=== PATIENT | female | born 1965 | race Caucasian/White ===

== ENCOUNTER → 2016-10-15 | Outpatient (CLI) | payer OTHER ==
[~2016-10-15] MED LIST: ACET1CAP PO; BUME1TAB PO; CLON1TAB3 PO; DIGO30TA PO; DPPI400 IM; EPP3 IM; EPP3/2 IM; FLX10 PO; FRCT/ PO; GADAVIST IV PRN; HYDR-5688 PO; HYG/25 PO; LAMO25TA PO; LOSA100T65 PO; MEDR150I IM; METO1TAB69 PO; OMEP40CA PO; OMEP40CA41 PO; POTA10TA30 PO; PRED10TA PO; SPIR25TA PO; TIZA4CAP PO; VENL150C56 PO; VENL150T33 PO; VENL75CA73 PO
--- NOTE | 2016-10-15 10:59 | DIAGNOSTIC IMAGING REPORT ---
Brain MRI WITH AND WITHOUT CONTRAST HISTORY: COMMON MIGRAINE TECHNIQUE: Multiplanar multisequence MRI of the brain was performed both before and after the intravenous administration of contrast. COMPARISON STUDY: Head CT 09/15/2016. FINDINGS: There are no areas of restricted diffusion to suggest acute infarction. The paranasal sinuses are clear. The mastoid air cells are clear. The ventricles and sulci are within normal limits for age. There is no hematoma midline shift. The major vascular flow-voids at the skull base are well maintained. Best seen on axial T1 postcontrast image 11 and coronal T1 postcontrast image 7 there is a 5 mm enhancing nodule which appears to be extra-axial. This is adjacent to the right anterior clinoid. This favors a small meningioma. There are few punctate foci of T2 hyperintensity seen within the periventricular and subcortical white matter of the supratentorial brain. These are most pronounced within the bilateral frontal lobes. Cerebellum demonstrates a normal signal intensity. Postoperative changes consistent with prior suboccipital craniectomy. IMPRESSION: 1. No acute intracranial abnormality. 2. A 5 mm enhancing extra-axial nodule adjacent to the right anterior clinoid. This most likely represents a small meningioma. Follow-up brain MRI in 6 months can be performed to ensure stability. 3. A few scattered T2 hyperintense foci within the periventricular and subcortical white matter at the supratentorial brain. These are nonspecific but can be seen in the setting of migraines, mild microvascular ischemic change, or less likely a demyelinating disease. Electronically signed by: Jethro Navarro M.D. 10/15/2016 10:57 AM Dictated Date/Time: 10/15/2016 10:45 AM
== END | disposition home or self-care (01) ==
LOC: C.OPENMRI 09:44
PROVIDERS: ATTEND Psychiatry & Neurology Neurology
DX: G43.009 Migraine without aura, not intractable, without status migrainosus (principal)

== ENCOUNTER → 2016-12-12 | Outpatient (CLI) | payer OTHER ==
[~2016-12-12] MED LIST changes: -POTA10TA30 PO
--- NOTE | 2016-12-12 12:00 | DIAGNOSTIC IMAGING REPORT ---
THORACIC SPINE MRI WITH AND WITHOUT CONTRAST HISTORY: Pain ARM, MID BACK, NECK PAIN/NUMBNESS TECHNIQUE: Multiplanar multisequence MRI of the thoracic spine was performed both before and after the intravenous administration of contrast. COMPARISON: None FINDINGS: Normal signal characteristics of the vertebral bodies. Mild degenerative disc changes throughout. Signal characteristics of the thoracic cord are unremarkable. Transaxial images demonstrate several very slight disc bulges but these showed no contact with the thoracic cord or neural foramina. There is no significant neural foraminal compromise. IMPRESSION: Minimal to mild degenerative disc change. Otherwise negative study of the thoracic spine Electronically signed by: Papi Ramires M.D. 12/12/2016 11:59 AM Dictated Date/Time: 12/12/2016 11:57 AM
--- NOTE | 2016-12-12 12:07 | DIAGNOSTIC IMAGING REPORT ---
MRI OF THE CERVICAL SPINE COMBO CLINICAL HISTORY: Chiari malformation with history of decompression. Neck pain and numbness. COMPARISON STUDY: No priors. TECHNIQUE: MRI of the cervical spine is performed utilizing various T1 and T2-weighted sequences in the axial and sagittal planes. Contrast-enhanced sequences are acquired following the IV administration of 10.8 cc of Gadavist. The examination is significantly degraded by open MRI technique and motion artifact. FINDINGS: Cervical spine: Vertebral body height and alignment are maintained throughout the cervical spine. Normal marrow signal intensity is preserved throughout the visualized bony structures. Mild hyperlordosis is noted. The atlantodental articulation appears maintained. The spinous processes are intact. Intervertebral discs: There is mild degenerative disc desiccation seen throughout the cervical region. Minimal loss of height is noted at C5-C6. Spinal cord: The cervical spinal cord is normal in morphology and signal intensity. There is slitlike prominence of the central canal of the spinal cord which measures up to 1 mm in thickness. This extends from C4 to T2. There is no convincing evidence of true syrinx. No abnormal enhancement is seen on the postcontrast images. C2-C3: Unremarkable. C3-C4: Unremarkable. C4-C5: Minimal facet arthropathy is of no consequence. The central canal and neural foramina are widely patent. C5-C6: A posterior disc osteophyte complex effaces the ventral cord. Uncovertebral and facet arthropathy cause moderate right greater than left neural foraminal stenosis. C6-C7: Unremarkable. C7-T1: Unremarkable. Soft tissues: The prevertebral and paraspinous soft tissues are normal as imaged. Brain parenchyma: There is prominence of the cerebellar tonsils at the foramen magnum. Findings suggest previous suboccipital craniectomy. IMPRESSION: 1. A posterior disc osteophyte complex at C5-C6 effaces the ventral cord. 2. Only minimal spondylotic change is seen at the remaining levels. See discussion for detailed level by level analysis. 3. The cervical spinal cord is normal in morphology and signal intensity. There is slitlike prominence of the central canal of the spinal cord which is of doubtful significance. No convincing evidence of syrinx is seen. There is no abnormal cord enhancement on the postcontrast images. 4. Findings suggest previous suboccipital craniectomy. There is prominence of the cerebellar tonsils at the foramen magnum. Dictated: 12/12/2016 11:48 AM Transcribed: 12/12/2016 12:07 PM [email or web address]_[email or web address] Electronically signed by: Matias Baum M.D. 12/12/2016 12:10 PM Dictated Date/Time: 12/12/2016 11:48 AM
== END | disposition home or self-care (01) ==
LOC: C.OPENMRI 08:49
PROVIDERS: ATTEND Psychiatry & Neurology Neurology
DX: M79.603 Pain in arm, unspecified (principal); M54.2 Cervicalgia; R20.0 Anesthesia of skin

== ENCOUNTER → 2016-12-12 | Outpatient (CLI) | payer OTHER ==
[~2016-12-12] MED LIST changes: -GADAVIST IV PRN
[2016-12-12 13:48] LABS: BLOOD UREA NITROGEN 17 mg/dl (7-18); BUN/CREATININE RATIO 17.2 (10-20); CALCIUM 9.2 mg/dl (8.5-10.1); CARBON DIOXIDE 30 mmol/L (21-32); CHLORIDE 103 mmol/L (98-107); GLUCOSE 74 mg/dl (70-99); SODIUM 142 mmol/L (136-145)
== END | disposition home or self-care (01) ==
LOC: C.LAB1850 11:34
PROVIDERS: ATTEND Physician Assistant
DX: R20.0 Anesthesia of skin (principal); Z79.899 Other long term (current) drug therapy

== ENCOUNTER → 2017-02-25 | Outpatient (CLI) | payer OTHER ==
[~2017-02-25] MED LIST changes: +METO100T44 PO; -METO1TAB69 PO
[2017-02-25 10:00] LABS: THYROID STIMULATING HORMONE 1.04 uIu/ml (0.300-4.500)
== END | disposition home or self-care (01) ==
LOC: C.LAB1850 08:18
PROVIDERS: ATTEND Internal Medicine Endocrinology, Diabetes & Metabolism
DX: R79.89 Other specified abnormal findings of blood chemistry (principal)

== ENCOUNTER → 2017-03-18 | Outpatient (CLI) | payer OTHER ==
[2017-03-18 13:24] LABS: THYROID STIMULATING HORMONE 1.55 uIu/ml (0.300-4.500)
[2017-03-21 11:28] LABS: NORMETANEPHRINE PLASMA 195 pg/mL (<=148); TOTAL METANEPHRINE PLASMA 229 pg/mL (<=205)
== END | disposition home or self-care (01) ==
LOC: C.LAB1850 09:29
PROVIDERS: ATTEND Internal Medicine Endocrinology, Diabetes & Metabolism
DX: R73.03 Prediabetes (principal); M79.7 Fibromyalgia; E03.9 Hypothyroidism, unspecified

== ENCOUNTER 2017-04-11 20:30 | Emergency (ER) | payer OTHER ==
[~2017-04-11] VITALS: Ht 168.9 cm; Wt 109.2 kg
[~2017-04-11 20:30] MED LIST changes: -ACET1CAP PO; -EPP3/2 IM; -HYDR-5688 PO; -MEDR150I IM; -METO100T44 PO; +METO1TAB69 PO; -OMEP40CA41 PO; -PRED10TA PO; -TIZA4CAP PO; -VENL150C56 PO; -VENL75CA73 PO
[2017-04-11 20:49] VITALS: Ht 168.9 cm; Wt 109.2 kg
[2017-04-11] MEDS ORDERED: EPP3/2 IM (21:42)
[2017-04-11] MEDS ORDERED: TIZA4CAP PO (21:42)
[2017-04-11] MEDS ORDERED: VENL150C56 PO (21:42)
[2017-04-11] MEDS ORDERED: ACET1CAP PO (21:42)
[2017-04-11] MEDS ORDERED: OMEP40CA41 PO (21:42)
[2017-04-11] MEDS ORDERED: HYDR-5688 PO (21:42)
[2017-04-11] MEDS ORDERED: PRED10TA PO (21:42)
[2017-04-11] MEDS ORDERED: VENL75CA73 PO (21:42)
[2017-04-11] MEDS ORDERED: MEDR150I IM (21:42)
[2017-04-11] MEDS ORDERED: SODIUM CHLORIDE 0.9% 1000ML 1,000 ML IV STA (21:59)
[2017-04-11] MEDS ORDERED: DiphenhydrAMINE HCL 50 MG/ML VIAL IV STA (21:59)
[2017-04-11] MEDS ORDERED: KETOROLAC TROMETHAMINE 30 MG/ML VIAL IV STA (21:59)
[2017-04-11] MEDS ORDERED: PROCHLORPERAZINE 5 MG/ML 2 ML VIAL IV STA (21:59)
[2017-04-11 22:19] LABS: BASO % 0.1 %; BASO ABS # 0.02 K/uL (0-0.2); COMPLETE YES; HEMATOCRIT 41.9 % (37-47); IG% 0.5 %; LYMPH % 11.4 %; LYMPH ABS # 2.18 K/uL (1.2-3.4); MEAN CELL VOLUME 79.1 fL (80-100); MEAN CORPUSCULAR HEMOGLOBIN 26.2 pg (25-34); MEAN CORPUSCULAR HGB CONC 33.2 g/dl (32-36); MEAN PLATELET VOLUME 8.7 fL (7.4-10.4); MONO % 7.3 %; NEUT % 80.7 %; PLATELET COUNT 457 K/uL (130-400); WHITE BLOOD COUNT 19.15 K/uL (4.8-10.8)
[2017-04-11 22:50] LABS: BUN/CREATININE RATIO 20.2 (10-20); CALCIUM 9.7 mg/dl (8.5-10.1); CREATININE 1.3 mg/dl (0.60-1.20); POTASSIUM 3.3 mmol/L (3.5-5.1)
--- NOTE | 2017-04-11 23:25 | DIAGNOSTIC IMAGING REPORT ---
CT OF THE HEAD WITHOUT CONTRAST CLINICAL HISTORY: Headache. Severe nausea. COMPARISON STUDY: Head CT September 15, 2016 and MRI of the brain October 15, 2016. CT DOSE: 537.48 mGy.cm TECHNIQUE: Helical axial images of the head were obtained without IV contrast. Automated exposure control was utilized for the study. A dose lowering technique was utilized adhering to the principles of ALARA. FINDINGS: No acute intracranial hemorrhage, midline shift or mass effect is present. Stable postoperative findings consistent with a suboccipital craniectomy are noted. The appearance of the brain is unchanged. Ventricular system is normal. The basilar cisterns are patent. There are no extra-axial collections. There are no CT findings to suggest acute dural sinus thrombosis or acute territorial infarct. There are no significant calvarial abnormalities. Visualized portions of the sinuses and mastoid air cells are clear. IMPRESSION: 1. No acute intracranial findings. 2. No change in appearance of the brain status post suboccipital craniectomy. Electronically signed by: Carlos Mohr M.D. 04/11/2017 11:24 PM Dictated Date/Time: 04/11/2017 11:20 PM
[2017-04-11 23:35] LABS: LYME DISEASE AB IGG NEG (NEG); LYME DISEASE AB IGM NEG (NEG)
[2017-04-11 23:56] VITALS: BP 121/45; PULSE 92; TEMP 36.6; O2SAT 98
--- NOTE | 2017-04-12 01:41 | EMERGENCY ROOM VISIT NOTE ---
History Report prepared by Kelly: Anna Calderon Under the Supervision of: Dr. Olivier Jay M.D. First contact with patient: 21:51 Chief Complaint: HEADACHE Stated Complaint: MIGRANE X 1-2 WEEKS, SEVERE NAUSEA History of Present Illness The patient is a 51 year old female who presents to the Emergency Room with complaints of a severe migraine starting two weeks ago. The patient states that she has a history of migraines. The last time she had a migraine like this was several years ago. She notes she was diagnosed with migraines at the age of 20. The patient states she normally takes Midrin, but this time it had no relief. She notes she took two Vicodin that she has for her fibromyalgia with no relief. She states she called her neurologist, but cannot get a response from them. She states it is worse with light. She complains of chills and nausea. She denies vomiting. She denies a fever. The patient notes she has fallen four times in the last three months for other reasons, but denies hitting her head. Source of History: patient Onset: two weeks ago Position: head Symptom Intensity: severe Timing: other (episode) Modifying Factors (Worsening): other (light) Associated Symptoms: + chills, + neck pain (chronic secondary to arthritis. She does not report any worsening or change in her neck pain.), No vomiting Review of Systems See HPI for pertinent positives & negatives. A total of 10 systems reviewed and were otherwise negative. Past Medical & Surgical Medical Problems: (1) Asthma (2) Chest pain (3) Endometriosis (4) Fibromyalgia (5) Hypertension (6) IBS (irritable bowel syndrome) (7) Kidney stones (8) ulcers Family History FH: heart disease FHx: gallbladder disease Hypertension Kidney disease Kidney stones Social History Smoking Status: Never Smoker Alcohol Use: none Drug Use: none Marital Status: single Housing Status: lives alone Occupation Status: unemployed Current/Historical Medications Scheduled Bumetanide (Bumex), 1 MG PO DAILY Chlorthalidone (Hygroton), 50 MG PO DAILY Clonazepam (Klonopin), 1 MG PO HS Lamotrigine (Lamictal), 50 MG PO BID Losartan Potassium (Cozaar), 100 MG PO DAILY Medroxyprogesterone Acetate (C (Depo-Provera Contraceptiv), 150 MG IM Q3 MONTHS Metoprolol Succ (Toprol Xl) (Toprol-Xl ), 100 MG PO AMPM Omeprazole (Prilosec), 40 MG PO BID Prednisone Tab (Prednisone), 10 MG PO UD Spironolactone (Aldactone), 25 MG PO DAILY Tizanidine (Zanaflex), 4 MG PO BID Venlafaxine Hcl (Venlafaxine Extended Rel), 75 MG PO QAM Venlafaxine Hcl (Effexor Extended Rel), 150 MG PO QAM Scheduled PRN Vasytqotfxgeg-Zbalbarrbcugs-Nq (Isometheptene/Dichloralph), 1 CAP PO Q6H PRN for Migraine Epinephrine (Epipen), 0.3 MG IM UD PRN for ALLERGIC REACTION Hydrocodone/Acetaminophen 5MG/325MG ([place] 5MG/325MG), 1 TABLET PO BID PRN for Severe Pain Allergies Coded Allergies: Ciprofloxacin (Verified Allergy, Severe, RESPIRATORY FAILURE/HIVES, ) Azithromycin (Verified Allergy, Intermediate, HIVES, 11/06/13) BEE STING (Verified Allergy, Unknown, SEVERE SWELLING,SOB, 11/06/13) Latex1 -Allergic Contact Dermititis (Verified Allergy, Unknown, LOCAL IRRITATION REDDNESS SWELLING ITCHYNESS, 11/06/13) Physical Exam Vital Signs Date Time Temp Pulse Resp B/P (MAP) Pulse Ox O2 Delivery O2 Flow Rate FiO2 04/11/17 23:56 36.6 92 16 121/45 98 04/11/17 23:46 92 16 121/45 98 Room Air 04/11/17 22:16 36.6 112 16 127/64 98 Room Air 04/11/17 21:05 125 04/11/17 20:49 36.7 106 18 139/70 96 Room Air Physical Exam Constitutional: Vital signs reviewed. Eyes: Pupils are equal round reactive to light. Conjunctiva are noninjected. ENT: Pharynx is clear without erythema or exudate. Mucous membranes are moist. Neck supple without meningeal signs. Respiratory: Clear to auscultation bilaterally. Breath sounds are equal bilaterally. Cardiovascular: Regular rhythm. Tachycardic. No rubs or gallops. GI: Soft, nondistended and nontender. Bowel sounds are present. Musculoskeletal: No peripheral edema. No lower extremity tenderness. Integumentary: No cyanosis. Neurological: The patient is awake and alert. Cranial nerves II-XII are intact. Motor is 5 out of 5 all extremities. Sensation is intact to light touch all extremities. Normal speech. No pronator drift. Psychiatric: Normal affect. Medical Decision & Procedures ER Provider Diagnostic Interpretation: Radiology results as stated below per my review and the radiologist's interpretation: CT OF THE HEAD WITHOUT CONTRAST CLINICAL HISTORY: Headache. Severe nausea. COMPARISON STUDY: Head CT September 15, 2016 and MRI of the brain October 15, 2016. CT DOSE: 537.48 mGy.cm TECHNIQUE: Helical axial images of the head were obtained without IV contrast. Automated exposure control was utilized for the study. A dose lowering technique was utilized adhering to the principles of ALARA. FINDINGS: No acute intracranial hemorrhage, midline shift or mass effect is present. Stable postoperative findings consistent with a suboccipital craniectomy are noted. The appearance of the brain is unchanged. Ventricular system is normal. The basilar cisterns are patent. There are no extra-axial collections. There are no CT findings to suggest acute dural sinus thrombosis or acute territorial infarct. There are no significant calvarial abnormalities. Visualized portions of the sinuses and mastoid air cells are clear. IMPRESSION: 1. No acute intracranial findings. 2. No change in appearance of the brain status post suboccipital craniectomy. Electronically signed by: Carlos Mohr M.D. 04/11/2017 11:24 PM Dictated Date/Time: 04/11/2017 11:20 PM Laboratory Results 04/11/17 22:05 Red Blood Count 5.30, Mean Corpuscular Volume 79.1, Mean Corpuscular Hemoglobin 26.2, Mean Corpuscular Hemoglobin Concent 33.2, Mean Platelet Volume 8.7, Neutrophils (%) (Auto) 80.7, Lymphocytes (%) (Auto) 11.4, Monocytes (%) (Auto) 7.3, Eosinophils (%) (Auto) 0.0, Basophils (%) (Auto) 0.1, Neutrophils # (Auto) 15.46, Lymphocytes # (Auto) 2.18, Monocytes # (Auto) 1.39, Eosinophils # (Auto) 0.00, Basophils # (Auto) 0.02 04/11/17 22:05 Test 04/11/17 22:05 White Blood Count 19.15 K/uL (4.8-10.8) Red Blood Count 5.30 M/uL (4.2-5.4) Hemoglobin 13.9 g/dL (12.0-16.0) Hematocrit 41.9 % (37-47) Mean Corpuscular Volume 79.1 fL (80-100) Mean Corpuscular Hemoglobin 26.2 pg (25-34) Mean Corpuscular Hemoglobin Concent 33.2 g/dl (32-36) Platelet Count 457 K/uL (130-400) Mean Platelet Volume 8.7 fL (7.4-10.4) Neutrophils (%) (Auto) 80.7 % Lymphocytes (%) (Auto) 11.4 % Monocytes (%) (Auto) 7.3 % Eosinophils (%) (Auto) 0.0 % Basophils (%) (Auto) 0.1 % Neutrophils # (Auto) 15.46 K/uL (1.4-6.5) Lymphocytes # (Auto) 2.18 K/uL (1.2-3.4) Monocytes # (Auto) 1.39 K/uL (0.11-0.59) Eosinophils # (Auto) 0.00 K/uL (0-0.5) Basophils # (Auto) 0.02 K/uL (0-0.2) RDW Standard Deviation 46.1 fL (36.4-46.3) RDW Coefficient of Variation 16.0 % (11.5-14.5) Immature Granulocyte % (Auto) 0.5 % Immature Granulocyte # (Auto) 0.10 K/uL (0.00-0.02) Anion Gap 9.0 mmol/L (3-11) Est Creatinine Clear Calc Drug Dose 66.1 ml/min Estimated GFR () 55.8 Estimated GFR (Non- 48.1 BUN/Creatinine Ratio 20.2 (10-20) Calcium Level 9.7 mg/dl (8.5-10.1) Lyme Disease IgG Antibody NEG (NEG) Lyme Disease IgM Antibody NEG (NEG) Laboratory results as reviewed by me. Medications Administered Medications (Trade) Dose Ordered Sig/Chevy Route Start Time Stop Time Status Last Admin Dose Admin Prochlorperazine Edisylate (Compazine Inj) 10 mg NOW STAT IV 04/11/17 21:59 04/11/17 22:01 DC 04/11/17 22:20 10 MG Diphenhydramine HCl (Benadryl Inj) 50 mg NOW STAT IV 04/11/17 21:59 04/11/17 22:01 DC 04/11/17 22:19 50 MG Ketorolac Tromethamine (Toradol Inj) 10 mg NOW STAT IV 04/11/17 21:59 04/11/17 22:01 DC 04/11/17 22:20 10 MG Sodium Chloride 1,000 ml @ 999 mls/hr Q1H1M STAT IV 04/11/17 21:59 04/11/17 22:59 DC 04/11/17 22:19 999 MLS/HR ED Course 2153: The patient was evaluated in room A10. A complete history and physical exam was performed. 2158: Ordered NSS 1000 ml @ 999 mls/hr IV, Toradol Inj 10 mg IV, Benadryl Inj 50 mg IV, Compazine Inj 10 mg IV. 9: I reevaluated the patient. I discussed the risks and benefits of a lumbar puncture. I discussed the patient's elevated white blood cell count, but states was placed on a Prednisone taper by her PCP. 2342: Upon reevaluation, the patient appeared to have improvement of her symptoms. We discussed the lumbar puncture and decided against it. I discussed betsyight's findings with her. She verbalized agreement of the treatment plan. The patient was discharged home. Medical Decision This is a 51-year-old female who presents with a headache. Differential diagnosis includes migraine headache, tension headache, intracranial mass, intracranial hemorrhage, meningitis. I did perform a limited focused review of portions of the patient's old chart on the electronic medical record. The patient has had a brain MRI in September of this year which showed a small meningioma. No acute findings. Medication Reconciliation: I attest that I have personally reviewed the patient' s current medication list. Blood Pressure Screening: Patient was found to have an elevated blood pressure and was referred to their primary doctor for recheck and further treatment. I did evaluate the patient as noted above. The patient presents with a headache which she describes as similar to her prior migraines. She is neurologically intact and afebrile here. IV access was established. The patient was placed on a continuous panel monitor. I did treat her with IV Compazine, Benadryl and normal saline IV. I did order and review the patient's blood work as noted in the electronic medical record. She does have a white count 19,000 but she is on prednisone currently for her migraines. She did report some chills but no fevers. I did have a long discussion with her and her father regarding the possibility of meningitis. At this time I felt she was low risk and after discussion of risks and benefits it was decided that she would not undergo lumbar puncture. I did order a CT of the head. I did review the images myself as well as the radiology report as described above. There is no evidence of of acute intracranial abnormality. I did reassess the patient. She states her headache is improved and she feels ready to go home. She will follow closely with her doctor and neurologist. She will return for worsening symptoms or should she develop new symptoms such as fever. She was discharged in good condition. Impression Primary Impression: Acute headache Additional Impression: Leukocytosis Scribe Attestation The scribe's documentation has been prepared under my direct and personally reviewed by me in its entirety. I confirm that the note above accurately reflects all work, treatment, procedures, and medical decision making performed by me. Departure Information Dispostion Home / Self-Care Referrals Ila Guajardo D.O. (PCP) Forms HOME CARE DOCUMENTATION FORM, IMPORTANT VISIT INFORMATION Patient Instructions My [facility] Additional Instructions You have been examined and treated today on an emergency basis only. This is not a substitute for, or an effort to provide, complete comprehensive medical care. It is impossible to recognize and treat all injuries or illnesses in a single emergency department visit. It is therefore important that you follow up closely with your physician. Call as soon as possible for an appointment. Return for worsening symptoms or if you develop fever, numbness or weakness on one side of your body, difficulties with your speech or walking, or any other concerning symptoms. Problem Qualifiers Primary Impression: Acute headache Headache type: unspecified Intractability: not intractable Qualified Codes : R51 - Headache Additional Impression: Leukocytosis Leukocytosis type: unspecified Qualified Codes: D72.829 - Elevated white blood cell count, unspecified
== END 2017-04-11 23:55 | disposition home or self-care (01) ==
LOC: C.EDB 20:31 → C.EDA 23:55
DX: R51 Headache (principal); D72.829 Elevated white blood cell count, unspecified; J45.909 Unspecified asthma, uncomplicated; N80.9 Endometriosis, unspecified; M79.7 Fibromyalgia; I10 Essential (primary) hypertension; K58.9 Irritable bowel syndrome, unspecified; Z82.49 Family history of ischemic heart disease and other diseases of the circulatory system

== ENCOUNTER → 2017-06-17 | Outpatient (CLI) | payer OTHER ==
[~2017-06-17] MED LIST changes: +ACET1CAP PO; -DIGO30TA PO; -DPPI400 IM; -EPP3 IM; +EPP3/2 IM; -FLX10 PO; -FRCT/ PO; +HYDR-5688 PO; +MEDR150I IM; -OMEP40CA PO; +OMEP40CA41 PO; +PRED10TA PO; +TIZA4CAP PO; +VENL150C56 PO; -VENL150T33 PO; +VENL75CA73 PO
[2017-06-17 11:32] LABS: THYROID STIMULATING HORMONE 0.801 uIu/ml (0.300-4.500)
== END | disposition home or self-care (01) ==
LOC: C.LABBC 07:16
PROVIDERS: ATTEND Internal Medicine Endocrinology, Diabetes & Metabolism
DX: R79.89 Other specified abnormal findings of blood chemistry (principal); E03.9 Hypothyroidism, unspecified

== ENCOUNTER → 2017-06-24 | Outpatient (CLI) | payer OTHER ==
[2017-06-24 17:58] LABS: BLOOD UREA NITROGEN 17 mg/dl (7-18)
== END | disposition home or self-care (01) ==
LOC: C.LAB1850 16:45
PROVIDERS: ATTEND Internal Medicine Endocrinology, Diabetes & Metabolism
DX: R73.03 Prediabetes (principal)

== ENCOUNTER → 2017-06-28 | Outpatient (CLI) | payer OTHER ==
[~2017-06-28] MED LIST changes: +OPTIRAY 320 IV PRN
--- NOTE | 2017-06-28 08:36 | DIAGNOSTIC IMAGING REPORT ---
CT SCAN OF THE ABDOMEN COMBO ADRENAL PROTOCOL CLINICAL HISTORY: Flushing. Fatigue. COMPARISON STUDY: Abdominal CT dated 09/15/2016. TECHNIQUE: Before and following the IV administration of 119 cc of Optiray 320, CT scan of the abdomen is performed from the lung bases to the pelvic inlet utilizing the adrenal protocol. Images are reviewed in the axial, sagittal, and coronal planes. IV contrast was administered without complication. A dose lowering technique was utilized adhering to the principles of ALARA. CT DOSE: 2618.65 mGy.cm FINDINGS: Lung bases: The heart is normal in size and without pericardial effusion. The lung bases are clear. There is a tiny hiatal hernia. Liver: The contrast-enhanced liver is normal in size, contour, and attenuation. There is minimal central intrahepatic biliary ductal dilatation. The hepatic veins and portal veins are patent. Gallbladder: Surgically absent noting clips in the gallbladder fossa. Spleen: Normal in size and attenuation. Pancreas: Unremarkable. Adrenal glands: Unremarkable. Kidneys: There are at least 3 punctate nonobstructing left renal calculi. A single punctate nonobstructing calculus is seen in the right kidney. The contrast enhanced kidneys are normal in size and without hydronephrosis. The kidneys enhance and excrete symmetrically. Abdominal vasculature: The abdominal aorta is normal in course and caliber noting mild atherosclerotic calcification. Bowel: Visualized portions of the small bowel and colon are normal in course and caliber. The appendix is well-visualized and normal. Peritoneum: There is no intraperitoneal free air or abdominal ascites. Lymphadenopathy: None. Skeletal structures: No lytic or blastic lesions are seen. IMPRESSION: 1. Unremarkable CT scan of the adrenal glands. 2. Punctate bilateral nonobstructing renal calculi. Electronically signed by: Matias Baum M.D. 06/28/2017 8:34 AM Dictated Date/Time: 06/28/2017 8:30 AM
== END | disposition home or self-care (01) ==
LOC: C.CTS 07:46
PROVIDERS: ATTEND Internal Medicine Endocrinology, Diabetes & Metabolism
DX: I42.9 Cardiomyopathy, unspecified (principal); N20.0 Calculus of kidney

== ENCOUNTER → 2017-12-17 | Outpatient (CLI) | payer OTHER ==
[~2017-12-17] MED LIST changes: +METO100T44 PO; -METO1TAB69 PO; -OPTIRAY 320 IV PRN
--- NOTE | 2017-12-17 13:59 | DIAGNOSTIC IMAGING REPORT ---
VIDEO SWALLOW STUDY CLINICAL HISTORY: Dysphagia. COMPARISON STUDY: No priors. FLUOROSCOPY TIME: 1.7 minutes. FINDINGS: Fluoroscopic guidance is provided to the Department of Speech Pathology in performing a video swallow study. The patient consumed barium-impregnated pudding, cracker with paste, nectar thick liquid, and thin barium while the swallowing mechanism was observed in real-time. No penetration or aspiration was seen with any of the sampled textures. IMPRESSION: No penetration or aspiration was seen with any of the sampled textures. See dedicated speech pathology report for detailed findings and recommendations. Dictated: 12/17/2017 1:43 PM Transcribed: 12/17/2017 1:58 PM [email or web address] Electronically signed by: Matias Baum M.D. 12/17/2017 2:06 PM Dictated Date/Time: 12/17/2017 1:43 PM
--- NOTE | 2017-12-17 14:15 | SWALLOWING EVALUATION ---
HISTORY: This 52 year-old woman, from home, who was referred for a VFSS at [facility]. She has a PMH significant for Chiari malformation, meniere's disease, BURGESS, SEAN, morbid obesity, cardio myopathy, and fibromyaliga. Currently the patient's diet level is regular with thins. She reports that occasionally her food will get stick in her throat and she actually has to spit it out as it will re-enter her mouth and she cannot re-swallow it. She reports that this happens with both solid and liquid food items however is not predictable when it will occur. PROCEDURE: The patient was seen in the Radiology Department of [facility] for the VFSS. Cursory examination of the oral cavity revealed adequate dentition. Movement of the articulators was WNL. The patient was seated on a stool and was viewed in both the Anterior-Posterior (A-P) and Lateral planes. Volitional phonation exercises completed in the A-P plane revealed bilateral vocal fold movement and vocal intensity within functional limits. In the lateral plane, the patient was given the following barium-infused boluses: 1 tsp thin barium with oral hold 1x, self presented single cup swallow-thin barium 1x, self presented serial cup swallow 1x. 1 tsp nectar thick barium with oral hold 1x, self presented single cup swallow- nectar thick barium 1x, self presented serial cup swallows 1x. 1 tsp barium pudding-self presented 2x. 1/2 Cracker with barium paste. In the A-P view, pt was given 1 tsp barium pudding with esophageal scan. RESULTS: Oral Phase:Pt. had adequate lip closure and no labial escape of any food or liquid items presented. Pt. had adequate tongue control and bolus hold by demonstrating a cohesive bolus between tongue and palatal seal. Bolus preparation and mastication was WFL as timely and efficient chewing and mashing was observed with all consistencies. Bolus transport and lingual motion were functional as pt. demonstrated brisk tongue motion and no oral residue resulting in complete oral clearance. Initiation of pharyngeal swallow began with bolus head at posterior angle of ramus. * Overall WFL for oral phase of swallow. Pharyngeal Phase:Soft Palate Elevation was complete for all boluses and no bolus was between the soft palate and the pharyngeal wall. Laryngeal elevation was WFL showing complete superior movement of the thyroid cartilage with complete approximation of arytenoids to epiglottic base. Anterior Hyoid excursion was observed with complete anterior movement as well as complete epiglottic inversion. Laryngeal Vestibular closure was complete and no air or barium was noted in laryngeal vestibule. Pharyngeal stripping wave was present and complete. Pharyngeal contraction was complete for all tested items. Pharyngoesophageal segment opening was also WFL showing complete distension and complete duration with no obstruction of flow. Tongue base retraction was noted with all consistencies and tongue base made effective contact with posterior pharyngeal wall throughout study. There was no Pharyngeal residue resulting in complete pharyngeal clearance of all tested items. *Overall WFL for pharyngeal stage of the swallow. Esophageal Phase:Opening and closing of the UES was timely however noted esophageal dysmotility and retrograde motion. SUMMARY/RECOMMENDATIONS: Overall pt. presents with NO oral or pharyngeal dysphagia. NO aspiration and NO penetration occurred throughout this study. *Pt. presents with esophageal dysmotility Recommendin. "SLIPPERY" Regular diet with thin liquids 2. GERD precautions (upright for 30 min after all intake, no intake 30 min before bed, keep head of bed elevated at least 30 degrees at all times) 3. Completion of Barium swallow to further evaluate esophageal stage of the swallow All results and recommendations were discussed with the pt. who verbalized understanding. Written instructions were also provided. Thank you for referral of this patient. Please contact me at if any additional information is needed.
== END | disposition home or self-care (01) ==
LOC: C.RAD 12:32
PROVIDERS: ATTEND Family Medicine
DX: R13.12 Dysphagia, oropharyngeal phase (principal)

== ENCOUNTER → 2017-12-25 | Outpatient (CLI) | payer OTHER | END | disposition home or self-care (01) | LOC: C.LAB1850 07:51 | PROVIDERS: ATTEND Internal Medicine Endocrinology, Diabetes & Metabolism | DX: R63.4 Abnormal weight loss (principal); K21.9 Gastro-esophageal reflux disease without esophagitis; R79.9 Abnormal finding of blood chemistry, unspecified; E03.9 Hypothyroidism, unspecified ==

== ENCOUNTER → 2018-01-29 | Outpatient (CLI) | payer OTHER ==
--- NOTE | 2018-01-29 09:03 | DIAGNOSTIC IMAGING REPORT ---
(BARIUM SWALLOW) ESOPHAGUS CLINICAL HISTORY: ESOPHAGEAL DYSPHAGIAdysphagia COMPARISON STUDY: None FLUOROSCOPY TIME: 1 minute. FINDINGS: Patient initiated swallow function well. Esophagus normal in course and caliber. Gastroesophageal junction is unremarkable. IMPRESSION: Normal study The above report was generated using voice recognition software. It may contain grammatical, syntax or spelling errors. Electronically signed by: Papi Ramires M.D. 01/29/2018 9:01 AM Dictated Date/Time: 01/29/2018 8:59 AM
== END | disposition home or self-care (01) ==
LOC: C.RAD 08:20
PROVIDERS: ATTEND Nurse Practitioner Family
DX: R13.10 Dysphagia, unspecified (principal)

== ENCOUNTER 2019-12-17 13:46 | Inpatient (IN) ==
[2019-12-17] MEDS ORDERED: DOXYCYCLINE HYCLATE 100 MG in DEXTROSE 5% 100 ML IV STA (14:04)
[2019-12-17] MEDS ORDERED: ALBUTEROL 0.083% NEBU SOLN 3 ML VIAL NEB STA (14:06)
[2019-12-17] MEDS ORDERED: methylPREDNISolone 125 MG/2 ML VIAL IV STA (14:06)
[2019-12-17 14:31] LABS: Basophils # (auto) 0.04 K/uL (0-0.2); Basophils % (auto) 0.5 %; Eosinophils # (auto) 0.18 K/uL (0-0.5); Eosinophils % (auto) 2.3 %; Hematocrit (blood only) 38.5 % (37-47); Immature Granulocytes # (auto) 0.02 K/uL (0.00-0.02); Immature Granulocytes % (auto) 0.3 %; Lymphocytes # (auto) 2.71 K/uL (1.2-3.4); Lymphocytes % (auto) 34.7 %; Mean Corpuscular Hemoglobin 26.7 pg (25-34); Mean Corpuscular Hgb Conc 31.2 g/dL (32-36); Mean Corpuscular Volume 85.7 fL (80-100); Mean Platelet Volume 9.7 fL (7.4-10.4); Monocytes # (auto) 0.57 K/uL (0.11-0.59); Monocytes % (auto) 7.3 %; Neutrophils # (auto) 4.29 K/uL (1.4-6.5); Neutrophils % (auto) 54.9 %; Platelet Count 330 K/uL (130-400); RDW Coefficient of Variation 15.9 % (11.5-14.5); RDW Standard Deviation 50.2 fL (36.4-46.3); Red Blood Count 4.49 M/uL (4.2-5.4); White Blood Count 7.81 K/uL (4.8-10.8)
[2019-12-17 14:48] LABS: Alanine Aminotransferase 37 U/L (12-78); Aspartate Aminotransferase 26 U/L (15-37); Blood Urea Nitrogen 10 mg/dl (7-18); Calcium 8.5 mg/dl (8.5-10.1); Carbon Dioxide 29 mmol/L (21-32); Chloride 113 mmol/L (98-107); Creatinine Clr Calc Pharmacy 81.7 ml/min; Est GFR (African American) 67.6; Est GFR (Non-African American) 58.3; Glucose 90 mg/dl (70-99); Potassium 3.8 mmol/L (3.5-5.1); Sodium 144 mmol/L (136-145)
--- NOTE | 2019-12-17 14:49 | Emergency Department Note ---
Impression & Plan Asthma with exacerbation, Congestive heart failure Allergies Allergies Allergy/AdvReac Type Severity Reaction Status Date / Time Cipro Allergy Severe RESPIRATORY Verified 11/06/13 06:32 FAILURE/HIVES ciprofloxacin Allergy Severe RESPIRATORY Verified 12/17/19 16:22 FAILURE/HIVES azithromycin Allergy Intermediate Hives Verified 12/17/19 16:22 bee venom protein (honey bee) Allergy Unknown SEVERE Verified 12/17/19 16:22 SWELLING,SOB latex Allergy Unknown LOCAL Verified 12/17/19 16:22 IRRITATION REDDNESS SWELLING ITCHYNESS Home Meds Home Medications Medication Instructions Recorded Confirmed albuterol sulfate 2 puff INHALATION Q4 PRN 12/17/19 12/17/19 buspirone 10 mg PO BID 12/17/19 12/17/19 fluticasone propionate [Flonase 2 spray INTRANASAL DAILY PRN 12/17/19 12/17/19 Allergy Relief] meloxicam [Mobic] 7.5 mg PO DAILY PRN 12/17/19 12/17/19 memantine [Namenda] 5 mg PO DAILY 12/17/19 12/17/19 montelukast 10 mg PO DAILY PRN 12/17/19 12/17/19 quetiapine [Seroquel] 50 mg PO HS 12/17/19 12/17/19 ropinirole 2 mg PO HS 12/17/19 12/17/19 trazodone 100 mg PO HS 12/17/19 12/17/19 venlafaxine 300 mg PO QAM 12/17/19 12/17/19 Previous Rx's Medication Instructions Recorded chlorthalidone 50 mg tablet 50 mg PO DAILY #30 tab 09/17/19 cholecalciferol (vitamin D3) 1,250 50,000 units PO Q14D #30 cap 09/17/19 mcg (50,000 unit) capsule clonazepam 1 mg tablet 1.5 mg PO DAILY #45 tab 09/17/19 cyanocobalamin (vitamin B-12) 1,000 mcg PO DAILY #30 cap 09/17/19 1,000 mcg capsule lamotrigine 200 mg tablet 200 mg PO BID #60 tab 09/17/19 levothyroxine 112 mcg tablet 112 mcg PO DAILY #30 tab 09/17/19 losartan 100 mg tablet 100 mg PO DAILY #30 tab 09/17/19 metformin 750 mg tablet,extended 750 mg PO QPM #30 tab 09/17/19 release 24 hr metoprolol succinate 100 mg 100 mg PO BID #60 ea 09/17/19 capsule sprinkle, ext. release 24 hr omeprazole 40 mg capsule,delayed 40 mg PO BID #60 cap 09/17/19 release ondansetron HCl 4 mg tablet 4 mg PO DAILY PRN #20 tab 09/17/19 spironolactone 25 mg tablet 25 mg PO DAILY #30 tab 09/17/19 ED Provider Note NAME: CARRIE ROBB AGE: 54 SEX: F : 1965 ARRIVES VIA: Ambulance INFORMANT: Patient ED PROVIDER(S): Cipriano Tamez DO CHIEF COMPLAINT: Shortness of breath HPI: Patient is a 54-year-old female who presents the ER for dry cough associated with shortness of breath which has been present for the past 5 days. She admits that she has a past medical history of asthma. She is bringing up some yellow productive sputum. She does admit to runny nose. Denies any recent trips or travel. No exposure to any known coronavirus patients. She has been using her inhalers at home with no significant improvement. She does admit to a history of CHF but denies any recent weight gain. Denies any other exacerbating or remitting factors. She also notes that she has lost her voice within the past 48 hours. No abdominal pain nausea vomiting or diarrhea. ROS: See above HPI for pertinent positives & negatives. A total of 10 systems reviewed and were otherwise negative. PAST MEDICAL HISTORY:See Below PAST SURGICAL HISTORY:See Below FAMILY HISTORY:See Below SOCIAL HISTORY:See Below HOME MEDICATIONS:See Below ALLERGIES:See Below VITALS:See Below PHYSICAL EXAMINATION: GENERAL: Sitting up in bed, alert, well appearing, with a slightly hoarse voice EYE EXAM: normal conjunctiva. OROPHARYNX: no exudate, no erythema, lips, buccal mucosa, and tongue normal and mucous membranes are moist NECK: supple, no nuchal rigidity, no adenopathy, non-tender LUNGS: Poor air movement with wheezing bilaterally normal chest wall mechanics HEART: no murmurs, S1 normal and S2 normal ABDOMEN: abdomen soft, non-tender, normo-active bowel sounds, no masses, no rebound or guarding. BACK: Back is symmetrical on inspection and there is no deformity, no midline tenderness, no CVA tenderness. SKIN: no rashes and no bruising UPPER EXTREMITIES: upper extremities are grossly normal. LOWER EXTREMITIES: mild pitting edema NEURO EXAM: Normal sensorium, cranial nerves II-XII grossly intact, normal speech, no gross weakness of arms, no gross weakness of legs. MEDICAL DECISION MAKING: Patient is a 54-year-old female with a past medical history of CHF and asthma that presents the ER for shortness of breath and dry cough. Upon arrival she is dyspneic. She is also lost her voice. She does have mild pitting edema. Chest x-ray with pulmonary edema. IV was established blood work was obtained shows no significant leukocytosis or anemia. INR unremarkable. BMP along with LFTs bilirubin was unremarkable. proBNP was elevated at 2400. Influenza was negative. Patient was initially given an hour-long neb treatment. She was also given IV Lasix. She did have some improvement of her symptoms. She also given steroids. I do believe that this is likely multifactorial with a combination of CHF, asthma and clear component of either bronchitis or laryngitis. She was updated at bedside. She was also given doxycycline and treated for bronchitis as well. She was initially on airborne precautions throughout stay in the ER. After the hospitalist evaluation this was discontinued and I do believe she is likely low risk at this time for coronavirus. Triage Nursing notes reviewed. Prior medical records reviewed Vital Signs: reviewed and remarkable for tachypneic Differential diagnosis: Differential diagnoses includes but is not limited to pneumonia, bronchitis, COPD/Asthma exacerbation, pneumothorax, pulmonary embolism, congestive heart failure, acute coronary syndrome ER treatment provided: See below Diagnostics interpreted by me: ECG: Sinus rhythm rate of 60 Normal axis No PVCs Normal QTC Poor baseline in leads I and II. Cardiac Monitoring: Sinus rhythm rate of 82 Laboratory studies: As stated above and show below. Imaging studies: Portable AP upright 1 view of the chest shows pulmonary edema without focal infiltrate. Consultation(s): Discussed with Rozina from [facility] ED COURSE: Procedures: none Past Med/Surg History Social History Feels Safe at Home: Yes Smoking Status: Never smoker Results & Data (ED) Vital Signs Vital Signs - 24 hr 12/17/19 13:54 12/17/19 13:57 12/17/19 13:59 Temperature 37.2 C Temperature Source Oral Pulse Rate 65 Pulse Rate [Apical] Pulse Rate from SpO2 Sensor Respiratory Rate 28 H Respiratory Effort / Characteristics Spontaneous Spontaneous Labored Blood Pressure 122/68 Blood Pressure Mean 86 Pulse Oximetry 96 Oxygen Delivery Method Room Air Room Air Room Air Oxygen Flow Rate 96 Sepsis Recent Fever Within 48 Hours No Sepsis New/Unexplained Change in Mental Status No Sepsis Action Taken by Nursing No Action Required 12/17/19 14:00 12/17/19 14:01 12/17/19 14:23 Temperature Temperature Source Pulse Rate 64 Pulse Rate [Apical] 62 Pulse Rate from SpO2 Sensor 65 Respiratory Rate 22 21 Respiratory Effort / Characteristics Spontaneous Labored Short of Breath Blood Pressure Blood Pressure Mean Pulse Oximetry 96 97 94 Oxygen Delivery Method Room Air Room Air Oxygen Flow Rate Sepsis Recent Fever Within 48 Hours Sepsis New/Unexplained Change in Mental Status Sepsis Action Taken by Nursing 12/17/19 14:25 12/17/19 14:30 12/17/19 15:00 Temperature Temperature Source Pulse Rate 65 57 L 68 Pulse Rate [Apical] Pulse Rate from SpO2 Sensor 65 58 L 72 Respiratory Rate 21 22 21 Respiratory Effort / Characteristics Blood Pressure 124/58 L 154/82 H 116/58 L Blood Pressure Mean 81 109 69 Pulse Oximetry 99 98 98 Oxygen Delivery Method Room Air Nebulizer Oxygen Flow Rate Sepsis Recent Fever Within 48 Hours Sepsis New/Unexplained Change in Mental Status Sepsis Action Taken by Nursing 12/17/19 15:30 12/17/19 16:00 Temperature Temperature Source Pulse Rate 79 76 Pulse Rate [Apical] Pulse Rate from SpO2 Sensor 81 80 Respiratory Rate 23 18 Respiratory Effort / Characteristics Blood Pressure 133/67 117/56 L Blood Pressure Mean 75 82 Pulse Oximetry 98 93 Oxygen Delivery Method Oxygen Flow Rate Sepsis Recent Fever Within 48 Hours Sepsis New/Unexplained Change in Mental Status Sepsis Action Taken by Nursing Laboratory Data Result diagrams: 12/17/19 14:09 12/17/19 14:09 Lab Results 12/17/19 12/17/19 12/17/19 Range/Units 14:06 14:09 14:09 WBC 7.81 (4.8-10.8) K/uL RBC 4.49 (4.2-5.4) M/uL Hgb 12.0 (12.0-16.0) g/dL Hct 38.5 (37-47) % MCV 85.7 (80-100) fL MCH 26.7 (25-34) pg MCHC 31.2 L (32-36) g/dL RDW Std Deviation 50.2 H (36.4-46.3) fL RDW Coeff of Nasima 15.9 H (11.5-14.5) % Plt Count 330 (130-400) K/uL MPV 9.7 (7.4-10.4) fL Immature Gran % (Auto) 0.3 % Neut % (Auto) 54.9 % Lymph % (Auto) 34.7 % [place] % (Auto) 7.3 % Eos % (Auto) 2.3 % Baso % (Auto) 0.5 % Immature Gran # (Auto) 0.02 (0.00-0.02) K/uL Neut # (Auto) 4.29 (1.4-6.5) K/uL Lymph # (Auto) 2.71 (1.2-3.4) K/uL [place] # (Auto) 0.57 (0.11-0.59) K/uL Eos # (Auto) 0.18 (0-0.5) K/uL Baso # (Auto) 0.04 (0-0.2) K/uL PT 10.7 (9.0-12.0) Seconds INR 1.0 (0.9-1.1) APTT 25.4 (21.0-31.0) Seconds PTT Ratio 0.9 Sodium (136-145) mmol/L Potassium (3.5-5.1) mmol/L Chloride (98-107) mmol/L Carbon Dioxide (21-32) mmol/L Anion Gap (3-11) BUN (7-18) mg/dl Creatinine (0.6-1.2) mg/dl Est Cr Clr Drug Dosing ml/min Est GFR ( Amer) Est GFR (Non-Af Amer) BUN/Creatinine Ratio (10-20) Glucose (70-99) mg/dl Calcium (8.5-10.1) mg/dl Total Bilirubin (0.2-1) mg/dl AST (15-37) U/L ALT (12-78) U/L Alkaline Phosphatase (45-117) U/L Troponin I (0-0.045) ng/ml NT-Pro-B Natriuret Pep (0-900) pg/ml Total Protein (6.4-8.2) gm/dl Albumin (3.4-5.0) gm/dl Globulin (2.5-4.0) gm/dl Albumin/Globulin Ratio (0.9-2) Influenza Type A (PCR) Neg for Influ A (Neg) Influenza Type B (PCR) Neg for Influ B (Neg) 12/17/19 Range/Units 14:09 WBC (4.8-10.8) K/uL RBC (4.2-5.4) M/uL Hgb (12.0-16.0) g/dL Hct (37-47) % MCV (80-100) fL MCH (25-34) pg MCHC (32-36) g/dL RDW Std Deviation (36.4-46.3) fL RDW Coeff of Nasima (11.5-14.5) % Plt Count (130-400) K/uL MPV (7.4-10.4) fL Immature Gran % (Auto) % Neut % (Auto) % Lymph % (Auto) % [place] % (Auto) % Eos % (Auto) % Baso % (Auto) % Immature Gran # (Auto) (0.00-0.02) K/uL Neut # (Auto) (1.4-6.5) K/uL Lymph # (Auto) (1.2-3.4) K/uL [place] # (Auto) (0.11-0.59) K/uL Eos # (Auto) (0-0.5) K/uL Baso # (Auto) (0-0.2) K/uL PT (9.0-12.0) Seconds INR (0.9-1.1) APTT (21.0-31.0) Seconds PTT Ratio Sodium 144 (136-145) mmol/L Potassium 3.8 (3.5-5.1) mmol/L Chloride 113 H (98-107) mmol/L Carbon Dioxide 29 (21-32) mmol/L Anion Gap 2.0 L (3-11) BUN 10 (7-18) mg/dl Creatinine 1.09 (0.6-1.2) mg/dl Est Cr Clr Drug Dosing 81.7 ml/min Est GFR ( Amer) 67.6 Est GFR (Non-Af Amer) 58.3 BUN/Creatinine Ratio 9.0 L (10-20) Glucose 90 (70-99) mg/dl Calcium 8.5 (8.5-10.1) mg/dl Total Bilirubin 0.3 (0.2-1) mg/dl AST 26 (15-37) U/L ALT 37 (12-78) U/L Alkaline Phosphatase 81 (45-117) U/L Troponin I < 0.015 (0-0.045) ng/ml NT-Pro-B Natriuret Pep 2325 H (0-900) pg/ml Total Protein 6.2 L (6.4-8.2) gm/dl Albumin 3.0 L (3.4-5.0) gm/dl Globulin 3.2 (2.5-4.0) gm/dl Albumin/Globulin Ratio 1.0 (0.9-2) Influenza Type A (PCR) (Neg) Influenza Type B (PCR) (Neg) Administered Medications Discontinued Medications Albuterol (Ventolin 0.083% 2.5mg/3ml) 10 mg NEB NOW STA Stop: 12/17/19 14:07 Last Admin: 12/17/19 14:22 Dose: 10 mg Documented by: [id number] Doxycycline Hyclate 100 mg/ (Dextrose) 110 mls @ 50 mls/hr IV NOW STA Stop: 12/17/19 16:15 Last Admin: 12/17/19 14:19 Dose: 50 mls/hr Documented by: [id number] Methylprednisolone (Solumedrol) 125 mg IV NOW STA Stop: 12/17/19 14:07 Last Admin: 12/17/19 14:16 Dose: 125 mg Documented by: [id number] Discharge Plan Visit Data Chief Complaint: Shortness of Breath/Dyspnea ED Provider: Cipriano Tamez Discharge Problem: Asthma with exacerbation, Congestive heart failure Forms Stand Alone Forms: My [facility] Prescriptions Prescriptions: No Action chlorthalidone 50 mg tablet 50 mg PO DAILY Qty: 30 RF: 2 metoprolol succinate 100 mg capsule,sprinkle,ER 24hr 100 mg PO BID Qty: 60 RF: 2 omeprazole 40 mg capsule,delayed release(DR/EC) 40 mg PO BID Qty: 60 RF: 2 spironolactone 25 mg tablet 25 mg PO DAILY Qty: 30 RF: 2 cyanocobalamin (vitamin B-12) 1,000 mcg capsule 1,000 mcg PO DAILY Qty: 30 RF: 0 ondansetron HCl [Zofran] 4 mg tablet 4 mg PO DAILY PRN (Reason: nausea and vomiting) Qty: 20 RF: 0 lamotrigine [Lamictal] 200 mg tablet 200 mg PO BID Qty: 60 RF: 2 clonazepam 1 mg tablet 1.5 mg PO DAILY Qty: 45 RF: 0 metformin 750 mg tablet extended release 24 hr 750 mg PO QPM Qty: 30 RF: 2 losartan 100 mg tablet 100 mg PO DAILY Qty: 30 RF: 2 levothyroxine 112 mcg tablet 112 mcg PO DAILY Qty: 30 RF: 2 cholecalciferol (vitamin D3) 50,000 unit capsule 50,000 units PO Q14D Qty: 30 RF: 0 venlafaxine 150 mg capsule,extended release 24hr 300 mg PO QAM RF: 0 ropinirole 1 mg tablet 2 mg PO HS RF: 0 meloxicam [Mobic] 7.5 mg Tablet 7.5 mg PO DAILY PRN (Reason: Pain) RF: 0 trazodone 100 mg tablet 100 mg PO HS RF: 0 buspirone 10 mg tablet 10 mg PO BID RF: 0 montelukast 10 mg Tablet 10 mg PO DAILY PRN (Reason: allergies) RF: 0 albuterol sulfate 90 mcg/actuation HFA aerosol inhaler 2 puff INHALATION Q4 PRN (Reason: Shortness Of Breath Or Wheezing) RF: 0 fluticasone propionate [Flonase Allergy Relief] 50 mcg/actuation [place],Suspension 2 spray INTRANASAL DAILY PRN (Reason: Nasal Congestion) RF: 0 memantine [Namenda] 5 mg tablet 5 mg PO DAILY RF: 0 quetiapine [Seroquel] 50 mg tablet 50 mg PO HS RF: 0 Discharge Problem: Asthma with exacerbation Qualifiers: Asthma severity: unspecified severity Asthma persistence: persistent Qualified Code(s): J45.901 - Unspecified asthma with (acute) exacerbation Congestive heart failure Qualifiers: Heart failure type: unspecified Heart failure chronicity: unspecified Qualified Code(s): I50.9 - Heart failure, unspecified
[2019-12-17 14:52] LABS: Partial Thromboplastin Ratio 0.9; Partial Thromboplastin Time 25.4 Seconds (21.0-31.0); Prothrombin Time 10.7 Seconds (9.0-12.0)
[2019-12-17 14:53] LABS: Alkaline Phosphatase 81 U/L (45-117); Bilirubin,Total 0.3 mg/dl (0.2-1); Globulin 3.2 gm/dl (2.5-4.0); NT Pro B Type Natriuretic Pept 2325 pg/ml (0-900); Total Protein 6.2 gm/dl (6.4-8.2); Troponin I < 0.015 ng/ml (0-0.045)
--- NOTE | 2019-12-17 14:55 | XRay Report ---
XR chest 1V portable CLINICAL HISTORY: Dyspnea dyspnea COMPARISON STUDY: 11/05/2013 FINDINGS: Mild cardiomegaly. Prominent bronchovascular markings. Diaphragms are smooth. IMPRESSION: Developing congestive heart failure ACT 112: Negative or not required by law. The above report was generated using voice recognition software. It may contain grammatical, syntax or spelling errors. Electronically signed by: Papi Ramires M.D. 12/17/2019 2:54 PM
[2019-12-17 15:12] LABS: Influenza A virus by PCR Neg for Influ A (Neg); Influenza B virus by PCR Neg for Influ B (Neg)
[2019-12-17] MEDS ORDERED: FUROSEMIDE 40 MG/4 ML VIAL IV STA (15:33)
--- NOTE | 2019-12-17 17:00 | Communication Note ---
Date of Service: December 17, 2019 Attending Addendum: care coordinated with DENY Wiggins please refer to her notes for full details, I agree with her notes patient seen and examined, records reviewed by myself as well on exam, patient seen at bedside not in distress, but does cough intermittently during interview states breathing is slightly better after hour long neb treatment given has mild subcostal discomfort no other symptoms VS noted and reviewed General- oriented x 3, not in distress, speaks in sentences with no effort or accessory muscle use Head- atraumatic Eyes- PERRL, EOMI, anicteric ENT- oropharynx clear Neck- supple, no JVD, no adenopathy, no thyromegaly; carotids +2/2, no bruits appreciated Lungs- (+) diminished breath sounds bilaterally no wheezing mild crackles in the left base, none on the right Heart- normal rate, regular rhythm; no murmur, no gallop, no rub appreciated Abdomen- normal bowel sounds, nondistended, soft, nontender, no masses or hepatosplenomegaly Extremities- trace lower leg edema, no calf tenderness; peripheral pulses intact Neuro- alert, oriented x 3; CN 2-12 grossly intact; motor 5/5 bilaterally;sensation 100% on all extremities; no other gross focal neurologic deficits Skin- warm & dry WBC 7.8 Hg 12.0 Crea 1.09 BNP 2,300 CXR:IMPRESSION: Developing congestive heart failure Flu PCR: negative Biofire: negative ASSESSMENT AND PLAN> SHORTNESS OF BREATH LIKELY SECONDARY TO EXACERBATION OF CHF, ACUTE ON CHRONIC DIASTOLIC EXACERBATION -- flu wab negative, biofire negative procalcitonin pending no fever, no leukocytosis discussed with ID SVC from [facility] Dr. Live- Covid 19 testing NOT recommended monitor for fever, respiratory status -- echo sputum culture -- Lasix 40mg IV another dose today at 9pm then daily at 9am continue usual Aldactone, hold Chlorthalidone -- nebs q4h mucinex q12h, mucomyst q12h HYPERTENSION -- continue usual Losartan, Metoprolol other diagnoses and plan of care as per DENY Richter MD
--- NOTE | 2019-12-17 17:15 | History & Physical Report ---
Date of Service December 17, 2019 Assessment & Plan (1) SOB (shortness of breath): (2) Cough: (3) Acute on chronic heart failure with preserved ejection fraction (HFpEF): (4) Asthma with exacerbation: This is a 54-year-old female with significant past medical history of HTN, history of hypertensive cardiomyopathy, chronic diastolic CHF, CKD stage III, hypothyroidism, RLS, polyneuropathy, type I Chiari malformation, Mnire's disease, depression, prediabetes who presents to ED secondary to shortness of breath and cough x2 days. Of significance patient has been feeling ill for the past 5 days. In ED patient remained hemodynamically stable. She was saturating well on room air. CBC was relatively unremarkable, CMP relatively unremarkable, troponin WNL, proBNP elevated 2325. He was negative for influenza. In ED she received hour-long nebulizer treatment with improvement in symptoms. She also received 125 mg of IV Solu-Medrol along with 40 mg of IV Lasix. Patient's history consistent with viral respiratory illness with associated decompensation of HFpEF given mild lower extremity swelling, elevated proBNP with associated dyspnea and CXR findings with developing CHF; however clinical history doesn't point to sole etiology of HF Influenza is negative so will run a bio fire, if negative due to patient's associated symptoms and comorbidity will test for novel CoVid-19. admit to PCU if biofire negative continue airborne precautions IV lasix additional 40 mg IV x1 at 9 PM and then 40 mg IV daily Daily weights, strict I's and O's Heart healthy, low-sodium diet Respiratory tx: albuterol neb QID, muccinex, mucomyst sputum culture incentive spirometry she did receive IV solumedrol in ED; however hold further steroids until biofire returns, if testing for covid will hold of steroids (5) Hypertension: Blood pressure mildly elevated in ED Continue losartan, metoprolol, Aldactone hold Chlorthalidone in setting of IV Lasix use (6) Prediabetes: Last A1c 5.9 on 01/12/2019 On metformin, hold while inpatient Glucose 90 on arrival (7) CKD (chronic kidney disease) stage 3, GFR 30-59 ml/min: Baseline creatinine 1.1 BUN/creatinine stable at 10 and 1.09 Monitor renal function in setting of diuretic use (8) Insomnia: Patient on multiple occasions for insomnia including Seroquel, trazodone, clonazepam monitor, hold if pt becomes too sedated (9) Depression: Follows psych continue Effexor, trazodone, clonazepam started on Namenda recently (10) RLS (restless legs syndrome): continue requip (11) Migraines: continue Lamictal Asymptomatic (12) Hypothyroidism: continue levothyroxine (13) DVT prophylaxis: Lovenox Consider chemical prophylaxis if patient to require prolonged hospitalization Disposition: Admit to telemetry Follow-up: PCP Dr. Guajardo upon discharge Patient was seen and examined in collaboration with Dr. Richter, please see addendum History of Present Illness Chief Complaint: SOB/Cough x 2 days. Primary Care Provider: Ila Guajardo DO This is a 54-year-old female with significant past medical history of HTN, history of hypertensive cardiomyopathy, chronic diastolic CHF, CKD stage III, hypothyroidism, RLS, polyneuropathy, type I Chiari malformation, Mnire's disease, depression, prediabetes who presents to ED secondary to shortness of breath and cough x2 days. Of significance patient has been feeling ill for the past 5 days. On Saturday initially she felt headache, nauseated, diarrhea with intermittent chills. She further complained of decreased appetite and extreme fatigue. Over the past 2 days her symptoms have progressed to a harsh dry cough and shortness of breath with minimal exertion and at rest. She also complains of chest tightness, "feeling like a band around her chest," since arrival. Given worsening shortness of breath EMS was called. She denies any documented fever, lightheadedness, dizziness, syncope palpitations, hemoptysis, abdominal pain, dysuria, increased urgency or frequency with urination, melena, hematochezia. Overall her appetite has been decreased but she has been eating soups broths. She denies any lower extremity edema, weight gain, PND orthopnea. 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 She has visited her parents recently. She has no known recent travel nor does her parents. She has been going out intermittently in community to get groceries but otherwise has been remaining at home. She lives in an apartment and her neighbor upstairs did come down to visit her about a week ago and she had cough symptoms. She has not tried anything [id number] for her symptoms. She has been using her albuterol inhaler with mild improvement. She does elicit a history of asthma but states, "it never this bad." In ED patient remained hemodynamically stable. She was saturating well on room air. CBC was relatively unremarkable, CMP relatively unremarkable, troponin WNL, proBNP elevated 2325. He was negative for influenza. In ED she received hour-long nebulizer treatment with improvement in symptoms. She also received 125 mg of IV Solu-Medrol along with 40 mg of IV Lasix. Allergies Allergy/AdvReac Type Severity Reaction Status Date / Time Cipro Allergy Severe RESPIRATORY Verified 11/06/13 06:32 FAILURE/HIVES ciprofloxacin Allergy Severe RESPIRATORY Verified 12/17/19 16:22 FAILURE/HIVES azithromycin Allergy Intermediate Hives Verified 12/17/19 16:22 bee venom protein (honey bee) Allergy Unknown SEVERE Verified 12/17/19 16:22 SWELLING,SOB latex Allergy Unknown LOCAL Verified 12/17/19 16:22 IRRITATION REDDNESS SWELLING ITCHYNESS Home Medications Home Medications Medication Instructions Recorded Confirmed Type chlorthalidone 50 mg tablet 50 mg PO DAILY #30 tab 09/17/19 12/17/19 Rx cholecalciferol (vitamin D3) 1,250 50,000 units PO Q14D #30 cap 09/17/19 12/17/19 Rx mcg (50,000 unit) capsule cyanocobalamin (vitamin B-12) 1,000 mcg PO DAILY #30 cap 09/17/19 12/17/19 Rx 1,000 mcg capsule lamotrigine 200 mg tablet 200 mg PO BID #60 tab 09/17/19 12/17/19 Rx levothyroxine 112 mcg tablet 112 mcg PO DAILY #30 tab 09/17/19 12/17/19 Rx losartan 100 mg tablet 100 mg PO DAILY #30 tab 09/17/19 12/17/19 Rx metformin 750 mg tablet,extended 750 mg PO QPM #30 tab 09/17/19 12/17/19 Rx release 24 hr metoprolol succinate 100 mg 100 mg PO BID #60 ea 09/17/19 12/17/19 Rx capsule sprinkle, ext. release 24 hr omeprazole 40 mg capsule,delayed 40 mg PO BID #60 cap 09/17/19 12/17/19 Rx release ondansetron HCl 4 mg tablet 4 mg PO DAILY PRN #20 tab 09/17/19 12/17/19 Rx spironolactone 25 mg tablet 25 mg PO DAILY #30 tab 09/17/19 12/17/19 Rx albuterol sulfate 2 puff INHALATION Q4 PRN 12/17/19 12/17/19 History buspirone 10 mg PO BID 12/17/19 12/17/19 History clonazepam 1 mg PO DAILY 12/17/19 12/17/19 History fluticasone propionate [Flonase 2 spray INTRANASAL DAILY PRN 12/17/19 12/17/19 History Allergy Relief] meloxicam [Mobic] 7.5 mg PO DAILY PRN 12/17/19 12/17/19 History memantine [Namenda] 5 mg PO DAILY 12/17/19 12/17/19 History montelukast 10 mg PO DAILY PRN 12/17/19 12/17/19 History quetiapine [Seroquel] 50 mg PO HS 12/17/19 12/17/19 History ropinirole 2 mg PO HS 12/17/19 12/17/19 History trazodone 100 mg PO HS 12/17/19 12/17/19 History venlafaxine 300 mg PO QAM 12/17/19 12/17/19 History Past Med/Surg History Medical History (Updated 12/17/19 @ 17:20 by Rozina Murcia PA-C) Asthma (Chronic) Chronic diastolic CHF (congestive heart failure) CKD (chronic kidney disease) stage 3, GFR 30-59 ml/min Depression Endometriosis (Resolved) Fibromyalgia (Chronic) History of cardiomyopathy [place] to be secondary to hypertension. Occurred in 2015 with an EF of 40 to 45%. She had cardiac MRI which was concerning for possible hypertrophic cardiomyopathy but this was ruled out via echo. Last echocardiogram 07/2019 revealed preserved EF with grade 1 diastolic dysfunction. Hypertension (Chronic) Hypothyroidism Insomnia Kidney stones (Inactive) Meniere disease Migraines Prediabetes RLS (restless legs syndrome) Surgical History (Updated 12/17/19 @ 17:14 by Rozina Murcia PA-C) History of brain surgery Secondary to type I Chiari malformation at [facility] History of cholecystectomy History of colonoscopy with polypectomy History of esophagogastroduodenoscopy (EGD) History of lithotripsy History of tonsillectomy Family History Grandmother Colorectal cancer Father Heart disease Hypertension Hx of CABG Diabetes Social History (Updated 12/17/19 @ 17:15 by Rozina Murcia PA-C) Preferred Language: Macedonian Communication Ability: Effective marital status: Single Current Living Situation: Alone current occupational status: disabled 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 Feels Safe at Home: Yes Smoking Status: Never smoker Hx Alcohol Use: No Review of Systems Review of Systems: All systems reviewed & are unremarkable except as noted in HPI & below Physical Exam Physical Exam: Constitutional: Ill-appearing, female, WD/WN, vitals as above, NAD, sitting up in bed, pleasant, conversational dyspnea Head: Normocephalic, Atraumatic Eyes: PERRL, conjunctivae normal, anicteric sclerae ENMT: external ear and nose normal, oropharynx normal dry mucous membrane Neck: trachea midline, no thyromegaly normal visual inspection Respiratory: normal respiratory effort, lungs clear to auscultation, but diminished throughout, L basilar crackles, no wheeze, or rhonchi. Normal insp/exp effort, no accessory muscle use Cardiovascular: RRR, no murmur, trace pretibial edema bilaterally, no erythema, no warmth, negative Homans Vessels: no JVD or carotid bruit Chest: normal inspection of chest Abdomen: normal bowel sounds, soft, nontender, no hepatosplenomegaly Musculoskeletal: no cyanosis or clubbing, extremities motor strength 5/5 Skin: no rashes, warm and dry normal turgor Neurologic: PERRL, EOMI, accommodation nl, no face palsy, no dysarthria CN's II-XI intact bilaterally and moves all extremities Psychiatric: A+Ox3, euthymic affect Lymphatic: no cervical or axillary lymphadenopathy : deferred Results & Data Results & Data ([facility]) Vital Signs (Past 12 Hours) Vital Signs Temp Pulse Pulse Resp BP Pulse Ox 12/17/19 17:00 36.8 C 81 20 145/71 H 97 12/17/19 16:31 82 20 94 12/17/19 16:30 76 24 94 12/17/19 16:00 76 18 117/56 L 93 12/17/19 15:30 79 23 133/67 98 12/17/19 15:00 68 21 116/58 L 98 12/17/19 14:30 57 L 22 154/82 H 98 12/17/19 14:25 65 21 124/58 L 99 12/17/19 14:23 62 21 94 12/17/19 14:01 97 12/17/19 14:00 64 22 96 12/17/19 13:57 37.2 C 65 28 H 122/68 96 Laboratory Results Short CBC 12/17/19 12/17/19 Range/Units 14:09 14:09 WBC 7.81 (4.8-10.8) K/uL Hgb 12.0 (12.0-16.0) g/dL Hct 38.5 (37-47) % Plt Count 330 (130-400) K/uL NT-Pro-B Natriuret Pep 2325 H (0-900) pg/ml BMP 12/17/19 14:09 Sodium 144 Potassium 3.8 Chloride 113 H Carbon Dioxide 29 BUN 10 Creatinine 1.09 Glucose 90 Calcium 8.5 Cardiac Enzymes 12/17/19 Range/Units 14:09 Troponin I < 0.015 (0-0.045) ng/ml Liver Function 12/17/19 Range/Units 14:09 Total Bilirubin 0.3 (0.2-1) mg/dl AST 26 (15-37) U/L ALT 37 (12-78) U/L Alkaline Phosphatase 81 (45-117) U/L Albumin 3.0 L (3.4-5.0) gm/dl Diagnostic Findings CXR: IMPRESSION: Developing congestive heart failure Medications Administered Discontinued Medications Albuterol (Ventolin 0.083% 2.5mg/3ml) 10 mg NEB NOW STA Stop: 12/17/19 14:07 Last Admin: 12/17/19 14:22 Dose: 10 mg Documented by: [id number] Furosemide (Lasix) 40 mg IV NOW STA Stop: 12/17/19 15:34 Last Admin: 12/17/19 16:53 Dose: 40 mg Documented by: [id number] Doxycycline Hyclate 100 mg/ (Dextrose) 110 mls @ 50 mls/hr IV NOW STA Stop: 12/17/19 16:15 Last Infusion: 12/17/19 17:01 Dose: 0 mls/hr Documented by: [id number] Admin: 12/17/19 14:19 Dose: 50 mls/hr Documented by: [id number] Methylprednisolone (Solumedrol) 125 mg IV NOW STA Stop: 12/17/19 14:07 Last Admin: 12/17/19 14:16 Dose: 125 mg Documented by: [id number] ECG Rate (beats per minute): 60 Rhythm: normal sinus Code Status & VTE Plan Code Status Full Code VTE Prophylaxis Plan VTE Prophylaxis will be ordered: Yes (1) Asthma with exacerbation Asthma persistence: persistent Asthma severity: unspecified severity Qualified Code(s): J45.901 - Unspecified asthma with (acute) exacerbation
[2019-12-17 17:41] LABS: Appearance Urine Cloudy (Clear); Bacteria Urine Automated Negative (Negative); Blood Urine Negative (Negative); Color Urine Dark Yellow; Epithelial Cell Urine Auto >30 /lpf (0-5); Glucose Urine UA Negative (Negative); Ketones Urine Trace (Negative); Leukocyte Esterase Urine Trace (Negative); Nitrite Urine Negative (Negative); Protein Urine Trace (Negative); Specific Gravity Urine 1.036 (1.000-1.030); Urobilinogen Urine Negative (Negative); pH Urine 6.5 (4.5-7.5)
[2019-12-17 17:49] LABS: Bilirubin Urine Negative (Negative); Ictotest Urine Negative (Negative)
[2019-12-17 18:03] LABS: Calcium Oxalate Crystals Urine Present (None Prsent); RBC Urine Automated 0-4 /hpf (0-4)
[2019-12-17 18:04] LABS: Mucus Urine Present (None Prsent); Other Sediment Urine STARCH
[2019-12-17 18:38] LABS: Adenovirus PCR Not Detected (NotDetected); Bordetella parapertussis PCR Not Detected (NotDetected); Bordetella pertussis PCR Not Detected (NotDetected); Chlamydia pneumoniae PCR Not Detected (NotDetected); Coronavirus 229E PCR Not Detected (NotDetected); Coronavirus HKU1 PCR Not Detected (NotDetected); Coronavirus NL63 PCR Not Detected (NotDetected); Coronavirus OC43PCR Not Detected (NotDetected); Human Metapneumovirus PCR Not Detected (NotDetected); Influenza A PCR Not Detected (NotDetected); Influenza B PCR Not Detected (NotDetected); Mycoplasma pneumoniae PCR Not Detected (NotDetected); Parainfluenza Virus 1 PCR Not Detected (NotDetected); Parainfluenza Virus 2 PCR Not Detected (NotDetected); Parainfluenza Virus 3 PCR Not Detected (NotDetected); Parainfluenza Virus 4 PCR Not Detected (NotDetected); Respiratory Syncytial VirusPCR Not Detected (NotDetected); Rhinovirus/Enterovirus PCR Not Detected (NotDetected)
[2019-12-17] MEDS ORDERED: FLUTICASONE PROPIONATE NA SPR 16 GM BTL PRN (19:43)
[2019-12-17] MEDS ORDERED: ONDANSETRON INJ 2 MG/ML 2 ML VIAL IV PRN (19:43)
[2019-12-17] MEDS ORDERED: POLYETHYLENE (MIRALAX) 17 GM PACK PO PRN (19:43)
[2019-12-17] MEDS ORDERED: ALUMINUM/MAGNESIUM SUSP 30 ML UDC PO PRN (19:43)
[2019-12-17] MEDS: ACETAMINOPHEN 325 MG TAB PO PRN (20:36)
[2019-12-17] MEDS: TRAZODONE HCL 100 MG TAB PO SCH (20:37)
[2019-12-17] MEDS: METOPROLOL SUCC 50MG EXT REL TAB PO SCH (20:37)
[2019-12-17] MEDS: guaiFENesin 600 MG TABCR PO SCH (20:37)
[2019-12-17] MEDS: lamoTRIgine 100 MG TAB PO SCH (20:37)
[2019-12-17] MEDS: PANTOprazole 40 MG TAB PO SCH (20:37)
[2019-12-17] MEDS: clonazePAM 1 MG TAB PO SCH (20:37)
[2019-12-17] MEDS: QUETIAPINE FUMARATE 25 MG TABLET PO SCH (20:37)
[2019-12-17] MEDS ORDERED: FUROSEMIDE 40 MG/4 ML VIAL IV ONE (21:00)
[2019-12-17] MEDS: ALBUTEROL 0.083% NEBU SOLN 3 ML VIAL NEB SCH (21:37)
[2019-12-17] MEDS: ACETYLCYSTEINE 10% INHAL SOLN 4 ML **DISPENSED BY RESP. INH SCH (21:37)
[2019-12-17] MEDS: ROPINIROLE HCL 1 MG TABLET PO PRN (23:02)
[2019-12-18] MEDS: LEVOTHYROXINE SODIUM 112 MCG TABLET PO SCH (05:55)
[2019-12-18] MEDS: ACETAMINOPHEN 325 MG TAB PO PRN ×3 (06:07→17:01)
[2019-12-18 06:20] LABS: Basophils # (auto) 0.01 K/uL (0-0.2); Basophils % (auto) 0.1 %; Hematocrit (blood only) 38.9 % (37-47); Hemoglobin 12.4 g/dL (12.0-16.0); Immature Granulocytes # (auto) 0.03 K/uL (0.00-0.02); Immature Granulocytes % (auto) 0.3 %; Lymphocytes # (auto) 1.52 K/uL (1.2-3.4); Lymphocytes % (auto) 16.6 %; Mean Corpuscular Hemoglobin 27.1 pg (25-34); Mean Corpuscular Hgb Conc 31.9 g/dL (32-36); Mean Corpuscular Volume 84.9 fL (80-100); Mean Platelet Volume 9.9 fL (7.4-10.4); Monocytes % (auto) 3.3 %; Neutrophils # (auto) 7.29 K/uL (1.4-6.5); Neutrophils % (auto) 79.7 %; Platelet Count 370 K/uL (130-400); RDW Coefficient of Variation 15.9 % (11.5-14.5); RDW Standard Deviation 49.3 fL (36.4-46.3); Red Blood Count 4.58 M/uL (4.2-5.4); White Blood Count 9.15 K/uL (4.8-10.8)
[2019-12-18 06:57] LABS: Albumin Level 3.2 gm/dl (3.4-5.0); BUN Creatinine Ratio 11.5 (10-20); Calcium 8.8 mg/dl (8.5-10.1); Creatinine Clr Calc Pharmacy 75.7 ml/min; Est GFR (Non-African American) 53.5; Potassium 3.6 mmol/L (3.5-5.1)
[2019-12-18 07:00] LABS: Albumin Globulin Ratio 0.9 (0.9-2); Bilirubin,Total 0.4 mg/dl (0.2-1); Globulin 3.4 gm/dl (2.5-4.0); Total Protein 6.6 gm/dl (6.4-8.2)
[2019-12-18] MEDS ORDERED: PERFLUTREN LIPID MICROSPHERE (DEFINITY) IV ONE (07:08)
[2019-12-18] MEDS: ACETYLCYSTEINE 10% INHAL SOLN 4 ML **DISPENSED BY RESP. INH SCH ×2 (07:15→18:56)
[2019-12-18] MEDS: ALBUTEROL 0.083% NEBU SOLN 3 ML VIAL NEB SCH ×4 (07:15→18:56)
[2019-12-18] MEDS: CYANOCOBALAMIN 500 MCG TABLET (VITAMIN B-12) PO SCH (08:30)
[2019-12-18] MEDS: PANTOprazole 40 MG TAB PO SCH ×2 (08:30→21:41)
[2019-12-18] MEDS: FUROSEMIDE 40 MG in SYRINGE 0 ML IV SCH (08:30)
[2019-12-18] MEDS: guaiFENesin 600 MG TABCR PO SCH ×2 (08:30→21:41)
[2019-12-18] MEDS: METOPROLOL SUCC 50MG EXT REL TAB PO SCH ×2 (08:30→21:41)
[2019-12-18] MEDS: VENLAFAXINE HCL XR 150 MG CAPXR PO SCH (08:31)
[2019-12-18] MEDS: MEMANTINE HCL 5 MG TAB PO SCH (08:31)
[2019-12-18] MEDS: SPIRONOLACTONE 25 MG TAB PO SCH (08:31)
[2019-12-18] MEDS: lamoTRIgine 100 MG TAB PO SCH ×2 (08:31→21:41)
[2019-12-18] MEDS: ENOXAPARIN INJ 40 MG/0.4 ML SYR SQ SCH (08:32)
[2019-12-18] MEDS ORDERED: FUROSEMIDE 40 MG/4 ML VIAL IV SCH (09:00)
[2019-12-18] MEDS ORDERED: LOSARTAN POTASSIUM 50 MG TAB PO SCH (09:00)
[2019-12-18] MEDS: DOXYCYCLINE HYCLATE 100 MG CAP PO SCH ×2 (11:42→21:41)
--- NOTE | 2019-12-18 15:41 | Electrocardiogram Report ---
Test Reason : Blood Pressure : / mmHG Vent. Rate : 060 BPM Atrial Rate : 060 BPM P-R Int : 156 ms QRS Dur : 098 ms QT Int : 432 ms P-R-T Axes : 006 -12 029 degrees QTc Int : 432 ms Normal sinus rhythm Normal ECG When compared with ECG of 15-SEP-2016 02:12, Vent. rate has decreased BY 49 BPM Criteria for Inferior infarct are no longer Present QT has shortened Confirmed by Christopher Sawyer ([id number]) on 12/18/2019 3:41:02 PM Referred By: REFERRED SELF Confirmed By:Bhupinder Sawyer
--- NOTE | 2019-12-18 15:43 | Hospitalist Progress Note ---
Date of Service December 18, 2019 Assessment & Plan (1) SOB (shortness of breath): (2) Cough: (3) Acute on chronic heart failure with preserved ejection fraction (HFpEF): (4) Asthma with exacerbation: Patient is a 54 yr female with H/O HTN, hypertensive cardiomyopathy, chronic diastolic CHF, CKD stage III, hypothyroidism, RLS, polyneuropathy, type I Chiari malformation, Mnire's disease, depression, prediabetes who presents to ED secondary to shortness of breath and cough x2 days. Acute on Chronic diastolic Heart failure CXR: Developing congestive heart failure Elevated proBNP ECHO: EF:60-65%, mild concentric LVH, grade I diastolic dysfunction H/O leg swelling and weight gain Chlorthalidone held Started on IV Lasix Also on spironolactone monitor I/Os, daily weight, low sodium diet Continue Metoprolol, losartan Monitor volume status Supplemental oxygen as needed Mild Asthma Exacerbation URI No known H/O travel or exposure to COVID-19 positive person No H/O fever, Leukocytosis Negative Influenza PCR screen Biofire Negative CXR not suggestive of Pneumonia Procalcitonin not elevated Received Solumedrol in ED. Admitting physician discussed with RASHIDA ROCHE from [facility] Dr. Live- Covid 19 testing NOT recommended Will monitor for any signs of fever, worsening respiratory symptoms Continue Nebs, droplet precautions Sputum gram stain/Cx if productive Continue antitussives, Mucomyst Started on Doxycycline (5) Hypertension: BP is stable Continue losartan, metoprolol (6) Prediabetes: Last A1c 5.9 on 01/12/2019 Hold metformin (7) CKD (chronic kidney disease) stage 3, GFR 30-59 ml/min: Baseline creatinine 1.1 Monitor renal function while on diuretics Avoid Nephrotoxics as able (8) Insomnia: continue home medications (9) Depression: Follows psychiatry Continue Buspar, Klonopin, Seroquel, Namenda (10) RLS (restless legs syndrome): continue requip (11) Migraines: continue Lamictal Asymptomatic (12) Hypothyroidism: continue levothyroxine (13) DVT prophylaxis: Lovenox SQ Admission and Anticipated Discharge Date Admission Date: December 18, 2019 Subjective Patient is seen and examined at bedside States having cough, SOB and chest discomfort associated with cough leg swelling is improving offers no other complaints Review of Systems Review of Systems: All systems reviewed & are unremarkable except as noted in HPI & below Physical Exam Physical Exam: Physical Exam: Vitals signs as noted above General Appearance:Obese, no apparent distress Head: normocephalic, Atraumatic Eyes: normal inspection, EOMI Neck: supple, Trachea midline Respiratory/Chest: Decreased breath sounds, CTA Cardiovascular: S1, S2, No murmur Abdomen/GI:Soft, Non tender, Bowel sounds present Extremities/Musculoskelatal:normal inspection, B/L LE mild edema Neurologic/Psych:AAOX3, grossly no focal neurological deficits Skin: normal color, warm Results & Data Results & Data ([facility]) Vital Signs (Past 12 Hours) Vital Signs Temp Pulse Pulse Resp BP Pulse Ox 12/18/19 14:50 70 18 97 12/18/19 12:00 36.8 C 75 20 118/62 96 12/18/19 11:25 74 18 95 12/18/19 08:00 62 12/18/19 07:47 36.8 C 86 16 140/64 99 12/18/19 07:17 65 18 99 12/18/19 04:00 36.7 C 59 L 16 129/70 96 Laboratory Results Short CBC 12/18/19 Range/Units 05:43 WBC 9.15 (4.8-10.8) K/uL Hgb 12.4 (12.0-16.0) g/dL Hct 38.9 (37-47) % Plt Count 370 (130-400) K/uL BMP 12/18/19 05:43 Sodium 141 Potassium 3.6 Chloride 108 H Carbon Dioxide 28 BUN 13 Creatinine 1.17 Glucose 128 H Calcium 8.8 Liver Function 12/18/19 Range/Units 05:43 Total Bilirubin 0.4 (0.2-1) mg/dl AST 21 (15-37) U/L ALT 38 (12-78) U/L Alkaline Phosphatase 84 (45-117) U/L Albumin 3.2 L (3.4-5.0) gm/dl Urine 12/17/19 Range/Units 17:06 Urine Color Dark Yellow Urine Appearance Cloudy A (Clear) Urine pH 6.5 (4.5-7.5) Ur Specific [place] 1.036 H (1.000-1.030) Urine Protein Trace H (Negative) Urine Glucose (UA) Negative (Negative) (1) Asthma with exacerbation Asthma persistence: persistent Asthma severity: unspecified severity Qualified Code(s): J45.901 - Unspecified asthma with (acute) exacerbation
[2019-12-18] MEDS ORDERED: KETOROLAC TROMETHAMINE 10 MG TABLET PO ONE (17:55)
[2019-12-18] MEDS: TRAZODONE HCL 100 MG TAB PO SCH (21:41)
[2019-12-18] MEDS: clonazePAM 1 MG TAB PO SCH (21:41)
[2019-12-18] MEDS: QUETIAPINE FUMARATE 25 MG TABLET PO SCH (21:41)
[2019-12-18] MEDS: BENZONATATE 100 MG CAPSULE PO SCH (21:41)
[2019-12-18] MEDS: ROPINIROLE HCL 1 MG TABLET PO PRN (21:41)
[2019-12-18] MEDS: guaiFENesin SUGAR FREE 200 MG/10 ML UDC PO PRN (21:42)
[2019-12-19 06:03] LABS: Hematocrit (blood only) 39.9 % (37-47); Hemoglobin 12.3 g/dL (12.0-16.0); Mean Corpuscular Hemoglobin 26.7 pg (25-34); Mean Corpuscular Hgb Conc 30.8 g/dL (32-36); Mean Corpuscular Volume 86.6 fL (80-100); Mean Platelet Volume 9.8 fL (7.4-10.4); Platelet Count 348 K/uL (130-400); RDW Coefficient of Variation 16.2 % (11.5-14.5); RDW Standard Deviation 51.6 fL (36.4-46.3); Red Blood Count 4.61 M/uL (4.2-5.4); White Blood Count 9.41 K/uL (4.8-10.8)
[2019-12-19 06:32] LABS: BUN Creatinine Ratio 15.9 (10-20); Calcium 8.5 mg/dl (8.5-10.1); Creatinine Clr Calc Pharmacy 62.4 ml/min; Est GFR (African American) 49.1; Est GFR (Non-African American) 42.4; Magnesium 2.2 mg/dl (1.8-2.4); Potassium 3.6 mmol/L (3.5-5.1)
[2019-12-19] MEDS: LEVOTHYROXINE SODIUM 112 MCG TABLET PO SCH (06:39)
[2019-12-19] MEDS: ALBUTEROL 0.083% NEBU SOLN 3 ML VIAL NEB SCH ×4 (07:02→18:58)
[2019-12-19] MEDS: ACETYLCYSTEINE 10% INHAL SOLN 4 ML **DISPENSED BY RESP. INH SCH ×2 (07:05→18:58)
--- NOTE | 2019-12-19 09:31 | XRay Report ---
XR chest 2V PA/lateral CLINICAL HISTORY: 54 years-old Female presenting with CHF. TECHNIQUE: PA and lateral views of the chest were obtained. COMPARISON: 12/17/2019. FINDINGS: Atherosclerosis of the aortic arch. Cardiac silhouette enlarged. Elevation of the right hemidiaphragm . No focal opacity. No large effusion or pneumothorax. Osseous structures normal. Cholecystectomy cli ps noted. IMPRESSION: 1. Cardiomegaly. No other convincing evidence of acute cardiopulmonary disease. ACT 112: Negative or not required by law. Electronically signed by: Montana Gotti M.D. 12/19/2019 9:30 AM
[2019-12-19] MEDS: FUROSEMIDE 40 MG in SYRINGE 0 ML IV SCH (10:18)
[2019-12-19] MEDS: PANTOprazole 40 MG TAB PO SCH ×2 (10:19→20:53)
[2019-12-19] MEDS: ENOXAPARIN INJ 40 MG/0.4 ML SYR SQ SCH (10:19)
[2019-12-19] MEDS: lamoTRIgine 100 MG TAB PO SCH ×2 (10:19→20:54)
[2019-12-19] MEDS: VENLAFAXINE HCL XR 150 MG CAPXR PO SCH (10:21)
[2019-12-19] MEDS: METOPROLOL SUCC 50MG EXT REL TAB PO SCH ×2 (10:22→20:53)
[2019-12-19] MEDS: CYANOCOBALAMIN 500 MCG TABLET (VITAMIN B-12) PO SCH (10:22)
[2019-12-19] MEDS: SPIRONOLACTONE 25 MG TAB PO SCH (10:22)
[2019-12-19] MEDS: MEMANTINE HCL 5 MG TAB PO SCH (10:22)
[2019-12-19] MEDS: guaiFENesin 600 MG TABCR PO SCH ×2 (10:22→20:53)
[2019-12-19] MEDS: DOXYCYCLINE HYCLATE 100 MG CAP PO SCH ×2 (10:22→20:53)
[2019-12-19] MEDS: BENZONATATE 100 MG CAPSULE PO SCH ×3 (10:23→20:54)
--- NOTE | 2019-12-19 14:08 | Hospitalist Progress Note ---
Date of Service December 19, 2019 Assessment & Plan (1) SOB (shortness of breath): (2) Cough: (3) Acute on chronic heart failure with preserved ejection fraction (HFpEF): (4) Asthma with exacerbation: Patient is a 54 yr female with H/O HTN, hypertensive cardiomyopathy, chronic diastolic CHF, CKD stage III, hypothyroidism, RLS, polyneuropathy, type I Chiari malformation, Mnire's disease, depression, prediabetes who presents to ED secondary to shortness of breath and cough x2 days. Acute on Chronic diastolic Heart failure CXR: Developing congestive heart failure Elevated proBNP ECHO: EF:60-65%, mild concentric LVH, grade I diastolic dysfunction H/O leg swelling and weight gain Chlorthalidone held Continue IV Lasix 40mg daily Also on spironolactone monitor I/Os, daily weight, low sodium diet Continue Metoprolol losartan held due to GAMAL Monitor volume status Wean off of supplemental oxygen as able May need to hold diuretics if renal function worsens Repeat CXR: Congestion improved Mild Asthma Exacerbation URI No known H/O travel or exposure to COVID-19 positive person No H/O fever, Leukocytosis Negative Influenza PCR screen Biofire Negative CXR not suggestive of Pneumonia Procalcitonin not elevated Received Solu-medrol in ED. Admitting physician discussed with RASHIDA ROCHE from [facility] Dr. Live- Covid 19 testing NOT recommended Will monitor for any signs of fever, worsening respiratory symptoms Continue Nebs, droplet precautions Sputum gram stain/Cx if productive Continue antitussives, Mucomyst Continue Doxycycline Day #2 (5) Hypertension: BP is stable Continue losartan, metoprolol (6) Prediabetes: Last A1c 5.9 on 01/12/2019 Hold metformin (7) CKD (chronic kidney disease) stage 3, GFR 30-59 ml/min: Acute Kidney Injury on CKD III Baseline creatinine 1.1 Likely due to diuretics Losartan held Monitor renal function Cr: 1.4 today Will hold diuretics if renal function worsens (8) Insomnia: continue home medications (9) Depression: Follows psychiatry Continue Buspar, Klonopin, Seroquel, Namenda (10) RLS (restless legs syndrome): continue requip (11) Migraines: continue Lamictal Asymptomatic (12) Hypothyroidism: continue levothyroxine (13) DVT prophylaxis: Lovenox SQ Admission and Anticipated Discharge Date Admission Date: December 18, 2019 Subjective Patient is seen and examined at bedside Less cough today Still has some dyspnea leg swelling improved Pleuritic chest discomfort better Offers no other complaints Review of Systems Review of Systems: All systems reviewed & are unremarkable except as noted in HPI & below Physical Exam Physical Exam: Physical Exam: Vitals signs as noted above General Appearance:Obese, no apparent distress Head: normocephalic, Atraumatic Eyes: normal inspection, EOMI Neck: supple, Trachea midline Respiratory/Chest: Decreased breath sounds, minimal basal rales Cardiovascular: S1, S2, No murmur Abdomen/GI:Soft, Non tender, Bowel sounds present Extremities/Musculoskelatal:normal inspection, B/L LE mild edema improved Neurologic/Psych:AAOX3, grossly no focal neurological deficits Skin: normal color, warm Results & Data Results & Data ([facility]) Vital Signs (Past 12 Hours) Vital Signs Temp Pulse Pulse Resp BP BP Pulse Ox 12/19/19 11:38 36.8 C 62 18 115/47 L 97 12/19/19 11:19 64 18 95 12/19/19 08:00 48 L 12/19/19 07:06 80 18 97 12/19/19 07:05 36.4 C L 56 L 20 119/49 L 97 12/19/19 03:27 36.4 C L 55 L 20 119/57 L 98 Laboratory Results Short CBC 12/19/19 Range/Units 05:36 WBC 9.41 (4.8-10.8) K/uL Hgb 12.3 (12.0-16.0) g/dL Hct 39.9 (37-47) % Plt Count 348 (130-400) K/uL BMP 12/19/19 05:36 Sodium 140 Potassium 3.6 Chloride 107 Carbon Dioxide 30 BUN 23 H D Creatinine 1.42 H Glucose 80 Calcium 8.5 (1) Asthma with exacerbation Asthma persistence: persistent Asthma severity: unspecified severity Qualified Code(s): J45.901 - Unspecified asthma with (acute) exacerbation
[2019-12-19] MEDS: QUETIAPINE FUMARATE 25 MG TABLET PO SCH (20:53)
[2019-12-19] MEDS: clonazePAM 1 MG TAB PO SCH (20:53)
[2019-12-19] MEDS: TRAZODONE HCL 100 MG TAB PO SCH (20:54)
[2019-12-20 06:41] LABS: BUN Creatinine Ratio 16.9 (10-20); Calcium 9.3 mg/dl (8.5-10.1); Creatinine Clr Calc Pharmacy 64.4 ml/min; Est GFR (African American) 51.3; Est GFR (Non-African American) 44.2; Potassium 4.2 mmol/L (3.5-5.1)
[2019-12-20] MEDS: ALBUTEROL 0.083% NEBU SOLN 3 ML VIAL NEB SCH ×4 (07:08→19:02)
[2019-12-20] MEDS: ACETYLCYSTEINE 10% INHAL SOLN 4 ML **DISPENSED BY RESP. INH SCH ×2 (07:08→19:03)
[2019-12-20] MEDS: SPIRONOLACTONE 25 MG TAB PO SCH (07:56)
[2019-12-20] MEDS: VENLAFAXINE HCL XR 150 MG CAPXR PO SCH (07:56)
[2019-12-20] MEDS: LEVOTHYROXINE SODIUM 112 MCG TABLET PO SCH (07:56)
[2019-12-20] MEDS: lamoTRIgine 100 MG TAB PO SCH ×2 (07:57→20:44)
[2019-12-20] MEDS: guaiFENesin 600 MG TABCR PO SCH ×2 (07:57→20:44)
[2019-12-20] MEDS: ENOXAPARIN INJ 40 MG/0.4 ML SYR SQ SCH (07:57)
[2019-12-20] MEDS: PANTOprazole 40 MG TAB PO SCH ×2 (07:58→20:44)
[2019-12-20] MEDS: MEMANTINE HCL 5 MG TAB PO SCH (07:58)
[2019-12-20] MEDS: CYANOCOBALAMIN 500 MCG TABLET (VITAMIN B-12) PO SCH (07:58)
[2019-12-20] MEDS: DOXYCYCLINE HYCLATE 100 MG CAP PO SCH ×2 (07:58→20:45)
[2019-12-20] MEDS: METOPROLOL SUCC 50MG EXT REL TAB PO SCH ×2 (07:58→20:45)
[2019-12-20] MEDS: FUROSEMIDE 40 MG in SYRINGE 0 ML IV SCH (08:07)
[2019-12-20] MEDS: BENZONATATE 100 MG CAPSULE PO SCH ×3 (08:07→20:44)
[2019-12-20] MEDS: guaiFENesin SUGAR FREE 200 MG/10 ML UDC PO PRN (08:20)
[2019-12-20] MEDS ORDERED: predniSONE 20 MG TAB PO ONE (11:45)
[2019-12-20] MEDS: ACETAMINOPHEN 325 MG TAB PO PRN (11:48)
--- NOTE | 2019-12-20 16:38 | Hospitalist Progress Note ---
Date of Service December 20, 2019 Assessment & Plan (1) SOB (shortness of breath): (2) Cough: (3) Acute on chronic heart failure with preserved ejection fraction (HFpEF): (4) Asthma with exacerbation: Patient is a 54 yr female with H/O HTN, hypertensive cardiomyopathy, chronic diastolic CHF, CKD stage III, hypothyroidism, RLS, polyneuropathy, type I Chiari malformation, Mnire's disease, depression, prediabetes who presents to ED secondary to shortness of breath and cough x2 days. Acute on Chronic diastolic Heart failure CXR: Developing congestive heart failure Elevated proBNP ECHO: EF:60-65%, mild concentric LVH, grade I diastolic dysfunction H/O leg swelling and weight gain Chlorthalidone held Continue IV Lasix 40mg daily Also on spironolactone monitor I/Os, daily weight, low sodium diet Continue Metoprolol Continue to hold losartan due to GAMAL Volume status improved Wean off of supplemental oxygen as able Repeat CXR: Congestion improved Plan to transition to PO diuretics in AM Mild Asthma Exacerbation URI No known H/O travel or exposure to COVID-19 positive person No H/O fever, Leukocytosis Negative Influenza PCR screen Biofire Negative CXR not suggestive of Pneumonia Procalcitonin not elevated Received Solu-medrol in ED. Admitting physician discussed with RASHIDA ROCHE from [facility] Dr. Live- Covid 19 testing NOT recommended Will monitor for any signs of fever, worsening respiratory symptoms Continue Nebs, droplet precautions Sputum gram stain/Cx if productive Continue antitussives, Mucomyst Continue Doxycycline Day #3 Nocturnal Oximetry study ordered Start low dose Prednisone Wean off of supplemental oxygen as able (5) Hypertension: BP relatively low Continue metoprolol Hold Losartan (6) Prediabetes: Last A1c 5.9 on 01/12/2019 Hold metformin (7) CKD (chronic kidney disease) stage 3, GFR 30-59 ml/min: Acute Kidney Injury on CKD III Baseline creatinine 1.1 Likely due to diuretics Losartan held Monitor renal function Cr: 1.3 today (8) Insomnia: continue home medications (9) Depression: Follows psychiatry Continue Buspar, Klonopin, Seroquel, Namenda (10) RLS (restless legs syndrome): continue requip (11) Migraines: continue Lamictal Asymptomatic (12) Hypothyroidism: continue levothyroxine (13) DVT prophylaxis: Lovenox SQ Admission and Anticipated Discharge Date Admission Date: December 18, 2019 Subjective Patient is seen and examined at bedside SOB, cough slowly improving Denies any chest pain, nausea, dizziness, abd pain leg edema improved Offers no other complaints Review of Systems Review of Systems: All systems reviewed & are unremarkable except as noted in HPI & below Physical Exam Physical Exam: Physical Exam: Vitals signs as noted above General Appearance:Obese, no apparent distress Head: normocephalic, Atraumatic Eyes: normal inspection, EOMI Neck: supple, Trachea midline Respiratory/Chest: Decreased breath sounds, CTA Cardiovascular: S1, S2, No murmur Abdomen/GI:Soft, Non tender, Bowel sounds present Extremities/Musculoskelatal:normal inspection, B/L LE mild edema improved Neurologic/Psych:AAOX3, grossly no focal neurological deficits Skin: normal color, warm Results & Data Results & Data ([facility]) Vital Signs (Past 12 Hours) Vital Signs Temp Pulse Resp BP BP Pulse Ox 12/20/19 16:17 36.6 C 71 20 102/44 L 96 12/20/19 15:05 62 18 98 12/20/19 11:39 36.6 C 62 18 107/52 L 95 12/20/19 11:08 71 16 96 12/20/19 07:31 36.8 C 68 24 119/56 L 96 12/20/19 07:09 62 16 97 Laboratory Results [facility] 12/20/19 05:21 Sodium 142 Potassium 4.2 D Chloride 107 Carbon Dioxide 32 BUN 23 H Creatinine 1.37 H Glucose 74 Calcium 9.3 (1) Asthma with exacerbation Asthma persistence: persistent Asthma severity: unspecified severity Qualified Code(s): J45.901 - Unspecified asthma with (acute) exacerbation
[2019-12-20] MEDS: TRAZODONE HCL 100 MG TAB PO SCH (20:44)
[2019-12-20] MEDS: QUETIAPINE FUMARATE 25 MG TABLET PO SCH (20:44)
[2019-12-20] MEDS: clonazePAM 1 MG TAB PO SCH (20:44)
[2019-12-20] MEDS: ROPINIROLE HCL 1 MG TABLET PO PRN (20:53)
[2019-12-21] MEDS: LEVOTHYROXINE SODIUM 112 MCG TABLET PO SCH (05:40)
[2019-12-21] MEDS: ALBUTEROL 0.083% NEBU SOLN 3 ML VIAL NEB SCH ×2 (07:08→11:09)
[2019-12-21] MEDS: ACETYLCYSTEINE 10% INHAL SOLN 4 ML **DISPENSED BY RESP. INH SCH (07:08)
[2019-12-21 07:12] LABS: Creatinine Clr Calc Pharmacy 67.6 ml/min; Est GFR (African American) 54.1; Est GFR (Non-African American) 46.7
[2019-12-21] MEDS: PANTOprazole 40 MG TAB PO SCH (08:20)
[2019-12-21] MEDS: guaiFENesin 600 MG TABCR PO SCH (08:20)
[2019-12-21] MEDS: FUROSEMIDE 40 MG in SYRINGE 0 ML IV SCH (08:20)
[2019-12-21] MEDS: BENZONATATE 100 MG CAPSULE PO SCH (08:21)
[2019-12-21] MEDS: lamoTRIgine 100 MG TAB PO SCH (08:21)
[2019-12-21] MEDS: DOXYCYCLINE HYCLATE 100 MG CAP PO SCH (08:21)
[2019-12-21] MEDS: METOPROLOL SUCC 50MG EXT REL TAB PO SCH (08:21)
[2019-12-21] MEDS: guaiFENesin SUGAR FREE 200 MG/10 ML UDC PO PRN (08:22)
[2019-12-21] MEDS: MEMANTINE HCL 5 MG TAB PO SCH (08:25)
[2019-12-21] MEDS: ENOXAPARIN INJ 40 MG/0.4 ML SYR SQ SCH (08:25)
[2019-12-21] MEDS: SPIRONOLACTONE 25 MG TAB PO SCH (08:25)
[2019-12-21] MEDS: VENLAFAXINE HCL XR 150 MG CAPXR PO SCH (08:26)
[2019-12-21] MEDS: CYANOCOBALAMIN 500 MCG TABLET (VITAMIN B-12) PO SCH (08:26)
[2019-12-21] MEDS ORDERED: predniSONE 20 MG TAB PO SCH (09:00)
--- NOTE | 2019-12-21 10:42 | Hospitalist Progress Note ---
Date of Service December 21, 2019 Assessment & Plan (1) SOB (shortness of breath): (2) Cough: (3) Acute on chronic heart failure with preserved ejection fraction (HFpEF): (4) Asthma with exacerbation: Patient is a 54 yr female with H/O HTN, hypertensive cardiomyopathy, chronic diastolic CHF, CKD stage III, hypothyroidism, RLS, polyneuropathy, type I Chiari malformation, Mnire's disease, depression, prediabetes who presents to ED secondary to shortness of breath and cough x2 days. Acute on Chronic diastolic Heart failure Hypoxia CXR: Developing congestive heart failure Elevated proBNP ECHO: EF:60-65%, mild concentric LVH, grade I diastolic dysfunction H/O leg swelling and weight gain--Improved Chlorthalidone held during hospital stay Continue IV Lasix 40mg daily>>Will change to PO Lasix upon discharge Also on spironolactone monitor I/Os, daily weight, low sodium diet Continue Metoprolol Resume losartan as able Volume status improved Saturating well on room air Mild Asthma Exacerbation URI No known H/O travel or exposure to COVID-19 positive person No H/O fever, Leukocytosis Negative Influenza PCR screen Biofire Negative CXR not suggestive of Pneumonia Procalcitonin not elevated Received Solu-medrol in ED. Admitting physician discussed with RASHIDA ROCHE from [facility] Dr. Live- Covid 19 testing NOT recommended No development of any signs of fever, worsening respiratory symptoms Continue Nebs, droplet precautions Sputum gram stain/Cx if productive Continue antitussives, Mucomyst Continue Doxycycline Day #4 Nocturnal Oximetry study:Did not qualify for oxygen Continue low dose Prednisone Weaned off of supplemental oxygen--Now saturating well on room air (5) Hypertension: BP stable Continue metoprolol Resume Losartan (6) Prediabetes: Last A1c 5.9 on 01/12/2019 Hold metformin (7) CKD (chronic kidney disease) stage 3, GFR 30-59 ml/min: Acute Kidney Injury on CKD III Baseline creatinine 1.1 Likely due to diuretics Losartan held Monitor renal function Cr: 1.3 today (8) Insomnia: continue home medications (9) Depression: Follows psychiatry Continue Buspar, Klonopin, Seroquel, Namenda (10) RLS (restless legs syndrome): continue requip (11) Migraines: continue Lamictal Asymptomatic (12) Hypothyroidism: continue levothyroxine (13) DVT prophylaxis: Lovenox SQ Admission and Anticipated Discharge Date Admission Date: December 18, 2019 Subjective Patient is seen and examined at bedside Has minimal cough Saturating well on room air Dyspnea much improved Denies any chest pain, nausea, dizziness, abd pain Offers no other complaints Review of Systems Review of Systems: All systems reviewed & are unremarkable except as noted in HPI & below Physical Exam Physical Exam: Physical Exam: Vitals signs as noted above General Appearance:Obese, no apparent distress Head: normocephalic, Atraumatic Eyes: normal inspection, EOMI Neck: supple, Trachea midline Respiratory/Chest: Decreased breath sounds, CTA Cardiovascular: S1, S2, No murmur Abdomen/GI:Soft, Non tender, Bowel sounds present Extremities/Musculoskelatal:normal inspection,LE edema improved Neurologic/Psych:AAOX3, grossly no focal neurological deficits Skin: normal color, warm Results & Data Results & Data ([facility]) Vital Signs (Past 12 Hours) Vital Signs Temp Pulse Pulse Resp BP Pulse Ox Pulse Ox 12/21/19 07:11 64 16 96 12/21/19 06:41 36.7 C 72 18 121/62 94 12/21/19 05:39 72 94 12/21/19 03:26 68 90 12/21/19 03:21 36.5 C 72 18 100/49 L 94 12/20/19 23:56 36.7 C 77 18 114/50 L 96 Laboratory Results [facility] 12/21/19 12/21/19 06:07 07:17 Sodium 139 Potassium 3.8 Chloride 107 Carbon Dioxide 29 BUN 22 H Creatinine 1.31 H Glucose 85 Calcium 9.0 (1) Asthma with exacerbation Asthma persistence: persistent Asthma severity: unspecified severity Qualified Code(s): J45.901 - Unspecified asthma with (acute) exacerbation
--- NOTE | 2019-12-21 11:08 | Discharge Summary ---
Date of Service December 21, 2019 Admission HPI Per Admitting Provider This is a 54-year-old female with significant past medical history of HTN, history of hypertensive cardiomyopathy, chronic diastolic CHF, CKD stage III, hypothyroidism, RLS, polyneuropathy, type I Chiari malformation, Mnire's disease, depression, prediabetes who presents to ED secondary to shortness of breath and cough x2 days. Of significance patient has been feeling ill for the past 5 days. On Saturday initially she felt headache, nauseated, diarrhea with intermittent chills. She further complained of decreased appetite and extreme fatigue. Over the past 2 days her symptoms have progressed to a harsh dry cough and shortness of breath with minimal exertion and at rest. She also complains of chest tightness, "feeling like a band around her chest," since arrival. Given worsening shortness of breath EMS was called. She denies any documented fever, lightheadedness, dizziness, syncope palpitations, hemoptysis, abdominal pain, dysuria, increased urgency or frequency with urination, melena, hematochez ia. Overall her appetite has been decreased but she has been eating soups broths. She denies any lower extremity edema, weight gain, PND orthopnea. 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 She has visited her parents recently. She has no known recent travel nor does her parents. She has been going out intermittently in community to get groceries but otherwise has been remaining at home. She lives in an apartment and her neighbor upstairs did come down to visit her about a week ago and she had cough symptoms. She has not tried anything [id number] for her symptoms. She has been using her albuterol inhaler with mild improvement. She does elicit a history of asthma but states, "it never this bad." In ED patient remained hemodynamically stable. She was saturating well on room air. CBC was relatively unremarkable, CMP relatively unremarkable, troponin WNL, proBNP elevated 2325. He was negative for influenza. In ED she received hour-long nebulizer treatment with improvement in symptoms. She also received 125 mg of IV Solu-Medrol along with 40 mg of IV Lasix. Admission Exam Per Admitting Provider Physical Exam Physical Exam: Constitutional: Ill-appearing, female, WD/WN, vitals as above, NAD, sitting up in bed, pleasant, conversational dyspnea Head: Normocephalic, Atraumatic Eyes: PERRL, conjunctivae normal, anicteric sclerae ENMT: external ear and nose normal, oropharynx normal dry mucous membrane Neck: trachea midline, no thyromegaly normal visual inspection Respiratory: normal respiratory effort, lungs clear to auscultation, but diminished throughout, L basilar crackles, no wheeze, or rhonchi. Normal insp/exp effort, no accessory muscle use Cardiovascular: RRR, no murmur, trace pretibial edema bilaterally, no erythema, no warmth, negative Homans Vessels: no JVD or carotid bruit Chest: normal inspection of chest Abdomen: normal bowel sounds, soft, nontender, no hepatosplenomegaly Musculoskeletal: no cyanosis or clubbing, extremities motor strength 5/5 Skin: no rashes, warm and dry normal turgor Neurologic: PERRL, EOMI, accommodation nl, no face palsy, no dysarthria CN's II-XI intact bilaterally and moves all extremities Psychiatric: A+Ox3, euthymic affect Lymphatic: no cervical or axillary lymphadenopathy : deferred Principal Diagnosis Acute on Chronic diastolic Heart failure Asthma Exacerbation Acute Bronchitis Discharge Data Allergies Allergy/AdvReac Type Severity Reaction Status Date / Time Cipro Allergy Severe RESPIRATORY Verified 11/06/13 06:32 FAILURE/HIVES ciprofloxacin Allergy Severe RESPIRATORY Verified 12/17/19 16:22 FAILURE/HIVES azithromycin Allergy Intermediate Hives Verified 12/17/19 16:22 bee venom protein (honey bee) Allergy Unknown SEVERE Verified 12/17/19 16:22 SWELLING,SOB latex Allergy Unknown LOCAL Verified 12/17/19 16:22 IRRITATION REDDNESS SWELLING ITCHYNESS Consultations 12/17/19 15:59 ED Decision to Admit Stat Procedures Performed CXR:Developing congestive heart failure Hospital Course (1) SOB (shortness of breath): (2) Cough: (3) Acute on chronic heart failure with preserved ejection fraction (HFpEF): (4) Asthma with exacerbation: Patient is a 54 yr female with H/O HTN, hypertensive cardiomyopathy, chronic diastolic CHF, CKD stage III, hypothyroidism, RLS, polyneuropathy, type I Chiari malformation, Mnire's disease, depression, prediabetes who presents to ED secondary to shortness of breath and cough x2 days. Acute on Chronic diastolic Heart failure Hypoxia CXR: Developing congestive heart failure Elevated proBNP ECHO: EF:60-65%, mild concentric LVH, grade I diastolic dysfunction H/O leg swelling and weight gain--Improved Chlorthalidone held during hospital stay Continue IV Lasix 40mg daily>>Will change to PO Lasix upon discharge Also on spironolactone monitor I/Os, daily weight, low sodium diet Continue Metoprolol Resume losartan as able Volume status improved Saturating well on room air Mild Asthma Exacerbation URI No known H/O travel or exposure to COVID-19 positive person No H/O fever, Leukocytosis Negative Influenza PCR screen Biofire Negative CXR not suggestive of Pneumonia Procalcitonin not elevated Received Solu-medrol in ED. Admitting physician discussed with RASHIDA ROCHE from [facility] Dr. Live- Covid 19 testing NOT recommended No development of any signs of fever, worsening respiratory symptoms Continue Nebs, droplet precautions Sputum gram stain/Cx if productive Continue antitussives, Mucomyst Continue Doxycycline Day #4 Nocturnal Oximetry study:Did not qualify for oxygen Continue low dose Prednisone Weaned off of supplemental oxygen--Now saturating well on room air (5) Hypertension: BP stable Continue metoprolol Resume Losartan (6) Prediabetes: Last A1c 5.9 on 01/12/2019 Hold metformin (7) CKD (chronic kidney disease) stage 3, GFR 30-59 ml/min: Acute Kidney Injury on CKD III Baseline creatinine 1.1 Likely due to diuretics Losartan held Monitor renal function Cr: 1.3 today (8) Insomnia: continue home medications (9) Depression: Follows psychiatry Continue Buspar, Klonopin, Seroquel, Namenda (10) RLS (restless legs syndrome): continue requip (11) Migraines: continue Lamictal Asymptomatic (12) Hypothyroidism: continue levothyroxine (13) DVT prophylaxis: Lovenox SQ Total Time Total Time Spent Total Time Spent (In Minutes): 37 minutes Total Time Includes: Examination of the Patient, Discharge Planning, Medication Reconciliation, Communication With Other Providers and Other Discharge Plan Discharge Items Patient Disposition: Home - Self-Care Reason For Visit: DIASTOLIC CHF EXACERBATION Discharge Diagnosis: Acute on Chronic diastolic Heart failure Asthma Exacerbation Acute Bronchitis Activity: Resume your previous activity Exercise/Sports: Gradually increase as tolerated Non-emergency contact: Primary Care Provider and Glove Maker Call non-emergency contact if: you have any medication questions, your symptoms worsen, your pain is not controlled, your pain is worsening, your pain is unusual for you, your pain is concerning for you and you have a fever Follow-up/Referrals: Ila Guajardo, [Primary Care Provider] - 12/24/19 10:40 am ([facility] OFFICE WILL CALL YOU WITH A FOLLOW UP APT.) Diet: Carb Consistent or DM2, Heart Healthy and Low Sodium (2gm) Addtl Attending Provider Instructions: Follow-up with your primary care physician Dr. Mike on December 24, 2019 at 10:40 AM Follow-up with your liaison planner in 2 to 3 weeks as advised Complete the antibiotic, prednisone course as prescribed Get pulmonary function tests as outpatient as advised Seek immediate medical attention if your symptoms reoccur or worsen Call your Primary Care doctor if any of the following symptoms or problems start or get worse: * Shortness of breath or difficulty breathing * Wake up at night short of breath * Chest pain * Cough * Swelling of your hands, feet, or legs * More fatigued or tired with your normal activity * Palpitations - sudden fast heart beats WEIGHT * Weigh yourself every morning after using the bathroom. * Use the same scale. * Wear the same amount of clothing. * Write your weight down on a chart. * Call your Primary Care doctor if you gain more than 2-3 pounds in 1-2 days. MEDICATIONS * Use this discharge instruction sheet for medication instructions. * Take your medications at the time your doctor ordered. * Do not skip a dose of your medicines. * If you miss a dose of medicine, take it as soon as possible, but DO NOT DOUBLE A DOSE. * Read your medicine information when you get home. * Know all of the side effects of your medicine. If in doubt, ask your pharmacist * Call your Primary Care doctor's office if you have any side effects. * Be sure all of your doctors know what medicine and herbs you take (including cold, flu, and herbal medicine). Take the following with you to your follow-up doctor appointments: * Weight Chart * Medication List * List of questions Do not drink excessive alcohol, beer or wine. Pending Studies at Discharge: No Stand-Alone Forms: [employer], Smoking Cessation Medications and DC Order Prescriptions: New doxycycline hyclate 100 mg Capsule 100 mg PO BID Qty: 8 RF: 0 prednisone 20 mg Tablet 20 mg PO DAILY Qty: 4 RF: 0 benzonatate [Tessalon Perles] 100 mg Capsule 100 mg PO TID Qty: 15 RF: 0 furosemide [Lasix] 40 mg tablet 40 mg PO DAILY Qty: 30 RF: 0 Continued metoprolol succinate 100 mg capsule,sprinkle,ER 24hr 100 mg PO BID Qty: 60 RF: 2 omeprazole 40 mg capsule,delayed release(DR/EC) 40 mg PO BID Qty: 60 RF: 2 spironolactone 25 mg tablet 25 mg PO DAILY Qty: 30 RF: 2 cyanocobalamin (vitamin B-12) 1,000 mcg capsule 1,000 mcg PO DAILY Qty: 30 RF: 0 ondansetron HCl [Zofran] 4 mg tablet 4 mg PO DAILY PRN (Reason: nausea and vomiting) Qty: 20 RF: 0 lamotrigine [Lamictal] 200 mg tablet 200 mg PO BID Qty: 60 RF: 2 metformin 750 mg tablet extended release 24 hr 750 mg PO QPM Qty: 30 RF: 2 losartan 100 mg tablet 100 mg PO DAILY Qty: 30 RF: 2 levothyroxine 112 mcg tablet 112 mcg PO DAILY Qty: 30 RF: 2 cholecalciferol (vitamin D3) 50,000 unit capsule 50,000 units PO Q14D Qty: 30 RF: 0 venlafaxine 150 mg capsule,extended release 24hr 300 mg PO QAM RF: 0 ropinirole 1 mg tablet 2 mg PO HS RF: 0 meloxicam [Mobic] 7.5 mg Tablet 7.5 mg PO DAILY PRN (Reason: Pain) RF: 0 trazodone 100 mg tablet 100 mg PO HS RF: 0 buspirone 10 mg tablet 10 mg PO BID RF: 0 montelukast 10 mg Tablet 10 mg PO DAILY PRN (Reason: allergies) RF: 0 albuterol sulfate 90 mcg/actuation HFA aerosol inhaler 2 puff INHALATION Q4 PRN (Reason: Shortness Of Breath Or Wheezing) RF: 0 fluticasone propionate [Flonase Allergy Relief] 50 mcg/actuation [place],Suspension 2 spray INTRANASAL DAILY PRN (Reason: Nasal Congestion) RF: 0 memantine [Namenda] 5 mg tablet 5 mg PO DAILY RF: 0 quetiapine [Seroquel] 50 mg tablet 50 mg PO HS RF: 0 clonazepam 1 mg tablet 1 mg PO DAILY RF: 0 Discontinued chlorthalidone 50 mg tablet 50 mg PO DAILY Qty: 30 RF: 2 Discharge Orders: Discharge Order (Routine); Ordered 12/21/19 Ordered By: Art Juarez Admission Data Admit Date/Time: 12/18/19 13:59 Attending Provider: Art Juarez Admit Provider: Selvin Richter Primary Care Provider: Ila Guajardo Other Providers: Selvin Richter Other Interventions: Discharge Summary Assessment (RN) Last Done: 12/21/19 11:27 DC Date/Time DO NOT enter until pt leaves facility: 12/21/19 12:51
[2019-12-23] MEDS ORDERED: MEMANTINE HCL 5 MG TAB PO SCH (09:00)
== END 2019-12-21 12:51 | disposition home or self-care (01) | DRG 291 ==
LOC: ED 13:46 → 2E 13:46 → SUATTDRO 15:56 → 2E 18:58

== ENCOUNTER 2021-12-30 11:45 | Inpatient (IN) ==
[2021-12-30 12:31] LABS: Basophils # (auto) 0.04 K/uL (0-0.2); Basophils % (auto) 0.4 %; Eosinophils # (auto) 0.13 K/uL (0-0.5); Eosinophils % (auto) 1.3 %; Hematocrit (blood only) 46.5 % (37-47); Hemoglobin 15.5 g/dL (12.0-16.0); Immature Granulocytes # (auto) 0.01 K/uL (0.00-0.02); Immature Granulocytes % (auto) 0.1 %; Lymphocytes # (auto) 3.23 K/uL (1.2-3.4); Lymphocytes % (auto) 32.8 %; Mean Corpuscular Hgb Conc 33.3 g/dL (32-36); Monocytes # (auto) 0.59 K/uL (0.11-0.59); Neutrophils # (auto) 5.85 K/uL (1.4-6.5); Neutrophils % (auto) 59.4 %; Platelet Count 352 K/uL (130-400); RDW Coefficient of Variation 15.2 % (11.5-14.5); Red Blood Count 5.74 M/uL (4.2-5.4); White Blood Count 9.85 K/uL (4.8-10.8)
[2021-12-30 12:46] LABS: D Dimer 240 ug/L FEU (0-500)
[2021-12-30] MEDS ORDERED: ACETAMINOPHEN 500 MG TAB PO STA (12:47)
[2021-12-30] MEDS ORDERED: ONDANSETRON INJ 2 MG/ML 2 ML VIAL IV STA (12:47)
--- NOTE | 2021-12-30 12:47 | Emergency Department Note ---
Impression & Plan Flu-like symptoms, Left-sided chest pain, Nausea ED Provider Note INFORMANT: Patient ED PROVIDER(S): Anatoly Aden MD CHIEF COMPLAINT: Flu like symptoms of chest pain PLAN: Disposition: Discharged Condition: Good Outpatient prescription management: none Referral: None MEDICAL DECISION MAKING: Presented with flulike symptoms and chest pain. Work-up was initiated. Her chest x-ray was unremarkable. The patient's CBC and chemistry panel are unremarkable as well. Troponin, D-dimer, and BNP were within normal limits. The patient had a negative Covid, flu, RSV test performed. Patient was treated with a DuoNeb, Solu-Medrol, and IV doxycycline. She was requiring some mild supplemental oxygen. I suspect a upper respiratory process however given her cardiac status, chest pain, and this mild hypoxia which corrected with 2 L of nasal cannula oxygen further management in the hospital was felt to be appropriate. Patient was in agreement as well. Consultation was made with the [facility]. The patient was evaluated in the ER admitted for further management. Triage Nursing notes reviewed and agree them. Vital Signs: reviewed and remarkable for no significant abnormalities. Of note the documentation showed a heart rate of 130 and 145 on separate occasions. The patient was not experiencing any tachycardias. I believe that this was an inappropriate computer interpretation of her monitoring. Differential diagnosis: The 19, influenza, cardiac sources, viral syndrome, strep pharyngitis, tonsillit is, mononucleosis, otitis media, sinusitis, bronchitis, pneumonia,, PE, CHF, as well as other pathologies. Diagnostics interpreted by me: ECG: Twelve-lead ECG reveals normal sinus rhythm at 85 bpm. Left axis deviation. Inferior Q waves present. No ST elevation or depression. Cardiac Monitoring: Cardiac monitoring ordered by me: The patient was placed on continuous cardiac monitoring and observed. It revealed a normal sinus rhythm at a 86 beats per minute without ectopy or evidence of dysrhythmia. Imaging studies: Chest x-ray. Findings: A chest x-ray was performed and revealed no pneumothorax, effusion, infiltrate, pulmonary edema, free air under the diaphragm, or wide mediastinum. Impression: No acute disease. HPI: The patient is a 56year old female who presents to the Emergency Room with complaints of flulike symptoms. This started 2 days ago and is worsening. The patient also notes the following associated symptoms, left-sided chest pain, nausea, cough, fevers, chills, mild shortness of breath, mild sore throat congestion. The patient has found no relieving factors. Current pain is rated as 5/10. Patient states that she was monitoring her pulse ox and it was ranging from 79-101. We discussed that the pulse oximeter should not read above 100. She noted she thought that was odd as well. She is vaccinated against Covid. Patient notes no sick contacts. Pt denies LOC, headache, diaphoresis, visual changes, neck pain, chest pain, breathing difficulties, vomiting, abdominal pain, back pain, melena, hematochezia, urinary symptoms, numbness, weakness, lymphadenopathy, rash, or other complaints. ROS: See above HPI for pertinent positives & negatives. A total of 10 systems reviewed and were otherwise negative. PAST MEDICAL HISTORY:See Below , CHF, IBS, fibromyalgia PAST SURGICAL HISTORY:See Below, FAMILY HISTORY:See Below SOCIAL HISTORY:See Below, non-smoker HOME MEDICATIONS:See Below ALLERGIES:See Below VITALS:See Below PHYSICAL EXAMINATION: GENERAL: Awake, alert, uncomfortable-appearing, in no distress HENT: Normocephalic, atraumatic. Oropharynx unremarkable. EYES: Normal conjunctiva. Sclera non-icteric. NECK: Inspection normal. Non-tender. Supple. No nuchal rigidity. FROM. No masses. RESPIRATORY: Clear to auscultation. No wheezes. No rales. Normal respiratory effort. CARDIAC: Normal rate. Normal rhythm. No murmurs. No rubs. Extremities warm and well perfused. Pulses equal. No JVD. GI: Soft, non-distended. No tenderness to palpation. No rebound or guarding. No masses. RECTAL: Deferred. MUSCULOSKELETAL: Atraumatic. Chest examination reveals no tenderness. The back is symmetrical on inspection without obvious abnormality. There is no CVA tenderness to palpation. No joint edema. LOWER EXTREMITIES: Calves are equal size bilaterally and non-tender. No edema. No discoloration. NEURO: Normal sensorium. No sensory or motor deficits noted. SKIN: No rash or jaundice noted. Anatoly Aden MD Past Med/Surg History Medical History Anxiety Asthma well controlled > res inh last used 5 mos ago CHF (congestive heart failure) Chronic diastolic CHF (congestive heart failure) follows with Dr. Barron CKD (chronic kidney disease) stage 3, GFR 30-59 ml/min does not follow with specialist Depression Essential tremor Fibromyalgia GERD (gastroesophageal reflux disease) History of anesthesia reaction pt was not sure if was anesthsia or allergy to Cipro, but coded on OR table during lithotripsy 6 yrs ago History of cardiomyopathy Shanks to be secondary to hypertension. Occurred in 2016 with an EF of 40 to 45%. She had cardiac MRI which was concerning for possible hypertrophic cardiomyopathy but this was ruled out via echo. Last echocardiogram 07/2019 revealed preserved EF with grade 1 diastolic dysfunction. Hypertension Hypothyroidism IBS (irritable bowel syndrome) Insomnia Kidney stones Meniere disease Meningioma dx 5 yrs ago > follows with Dr. Turner with [facility] Migraines Lamictal for this Prediabetes PTSD (post-traumatic stress disorder) RLS (restless legs syndrome) Surgical History History of brain surgery 2006> Secondary to type I Chiari malformation at [facility] History of cholecystectomy History of colonoscopy with polypectomy History of endometrial ablation x2 History of esophagogastroduodenoscopy (EGD) History of lithotripsy History of tonsillectomy S/P correction of deviated nasal septum Family History Grandmother Colorectal cancer Father Heart disease Hypertension Hx of CABG Diabetes Social History Smoking Status: Never smoker Second Hand Exposure: No; Hx Alcohol Use: Yes Alcohol type: wine and hard liquor Hx Substance Use: No Preferred Language: Khmer Communication Ability: Effective 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 Required: No Beliefs That Will Affect Care: None marital status: Single Current Living Situation: Alone current occupational status: disabled 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 Feels Safe at Home: Yes Assistive Devices: Cane Allergies Allergies Allergy/AdvReac Type Severity Reaction Status Date / Time bee venom protein (honey bee) Allergy Severe SEVERE Verified 12/30/21 13:58 SWELLING,SOB ciprofloxacin Allergy Severe RESPIRATORY Verified 12/30/21 13:58 FAILURE/HIVES azithromycin Allergy Intermediate Hives Verified 12/30/21 13:58 latex Allergy Intermediate LOCAL Verified 12/30/21 13:58 IRRITATION REDDNESS SWELLING ITCHYNESS prednisone AdvReac Intermediate HALLUCINATIONS, Verified 12/30/21 13:58 GI UPSET Home Meds Home Medications Medication Instructions Recorded Confirmed albuterol sulfate 90 mcg/actuation 2 puff INHALATION Q4 PRN 12/17/19 12/30/21 aerosol inhaler buspirone 10 mg tablet 10 mg PO BID 12/17/19 12/30/21 fluticasone propionate 50 2 spray INTRANASAL DAILY PRN 12/17/19 12/30/21 mcg/actuation nasal spray,suspension (Flonase Allergy Relief) quetiapine 50 mg tablet (Seroquel) 300 mg PO HS 12/17/19 12/30/21 ropinirole 1 mg tablet 5 mg PO HS 12/17/19 12/30/21 trazodone 100 mg tablet 150 mg PO HS 12/17/19 12/30/21 chlorthalidone 50 mg tablet 50 mg PO QAM 12/28/19 12/30/21 levothyroxine 125 mcg tablet 125 mcg PO DAILYBB 12/28/19 12/30/21 diazepam 2 mg tablet (Valium) 2 mg PO BID PRN 07/13/21 12/30/21 furosemide 40 mg tablet (Lasix) 40 mg PO QAM 07/13/21 12/30/21 losartan 100 mg tablet 100 mg PO QAM 07/13/21 12/30/21 spironolactone 25 mg tablet 25 mg PO QAM 07/13/21 12/30/21 venlafaxine 150 mg 150 mg PO QAM 07/13/21 12/30/21 capsule,extended release 24 hr (Effexor XR) venlafaxine 37.5 mg 37.5 mg PO QAM 07/13/21 12/30/21 capsule,extended release 24 hr (Effexor XR) ondansetron HCl 4 mg tablet 4 mg PO Q6H PRN 12/30/21 12/30/21 semaglutide 1 mg/dose (4 mg/3 mL) 0 mg SUBCUT WK 12/30/21 12/30/21 subcutaneous pen injector (Ozempic) Previous Rx's Medication Instructions Recorded cholecalciferol (vitamin D3) 1,250 50,000 units PO Q14D #30 cap 09/17/19 mcg (50,000 unit) capsule lamotrigine 200 mg tablet 200 mg PO BID #60 tab 09/17/19 (Lamictal) metformin 750 mg tablet,extended 750 mg PO QPM #30 tab 09/17/19 release 24 hr metoprolol succinate 100 mg 100 mg PO BID #60 ea 09/17/19 capsule sprinkle, ext. release 24 hr omeprazole 40 mg capsule,delayed 40 mg PO BID #60 cap 09/17/19 release Results & Data (ED) Vital Signs Vital Signs - 24 hr 12/30/21 12:00 12/30/21 12:46 12/30/21 12:49 Temperature 36.9 C Temperature Source Oral Pulse Rate 85 80 83 Pulse Rate from SpO2 Sensor 83 Pulse Rhythm Regular Respiratory Rate 20 20 25 H Respiratory Effort / Characteristics Non-Labored Spontaneous Short of Breath Respiratory Depth Normal Blood Pressure 156/90 H Blood Pressure Mean 112 Blood Pressure Position Lying Pulse Oximetry 95 90 96 Oxygen Delivery Method Room Air Room Air Room Air Sepsis Recent Fever Within 48 Hours No Sepsis New/Unexplained Change in Mental Status N/A Sepsis Action Taken by Nursing No Action Required Oxygen Flow Rate - Titration 2 Pulse Oximetry Post Tiitration 97 12/30/21 13:00 12/30/21 13:30 12/30/21 13:45 Temperature Temperature Source Pulse Rate 84 83 85 Pulse Rate from SpO2 Sensor Pulse Rhythm Respiratory Rate 16 13 23 Respiratory Effort / Characteristics Respiratory Depth Blood Pressure 135/95 125/87 Blood Pressure Mean 108 99 Blood Pressure Position Pulse Oximetry Oxygen Delivery Method Sepsis Recent Fever Within 48 Hours Sepsis New/Unexplained Change in Mental Status Sepsis Action Taken by Nursing Oxygen Flow Rate - Titration Pulse Oximetry Post Tiitration 12/30/21 14:00 12/30/21 14:15 12/30/21 14:30 Temperature Temperature Source Pulse Rate 84 150 H 82 Pulse Rate from SpO2 Sensor Pulse Rhythm Respiratory Rate 13 25 H 18 Respiratory Effort / Characteristics Respiratory Depth Blood Pressure 149/101 H Blood Pressure Mean 117 Blood Pressure Position Pulse Oximetry Oxygen Delivery Method Sepsis Recent Fever Within 48 Hours Sepsis New/Unexplained Change in Mental Status Sepsis Action Taken by Nursing Oxygen Flow Rate - Titration Pulse Oximetry Post Tiitration 12/30/21 14:31 12/30/21 14:45 12/30/21 15:00 Temperature Temperature Source Pulse Rate 82 86 130 H Pulse Rate from SpO2 Sensor Pulse Rhythm Respiratory Rate 15 16 24 Respiratory Effort / Characteristics Respiratory Depth Blood Pressure 139/89 Blood Pressure Mean 105 Blood Pressure Position Pulse Oximetry Oxygen Delivery Method Sepsis Recent Fever Within 48 Hours Sepsis New/Unexplained Change in Mental Status Sepsis Action Taken by Nursing Oxygen Flow Rate - Titration Pulse Oximetry Post Tiitration 12/30/21 15:15 12/30/21 15:30 12/30/21 15:38 Temperature Temperature Source Pulse Rate 86 145 H Pulse Rate from SpO2 Sensor 86 86 Pulse Rhythm Respiratory Rate 23 25 H 18 Respiratory Effort / Characteristics Respiratory Depth Normal Blood Pressure Blood Pressure Mean Blood Pressure Position Pulse Oximetry 90 89 L 89 L Oxygen Delivery Method Room Air Sepsis Recent Fever Within 48 Hours Sepsis New/Unexplained Change in Mental Status Sepsis Action Taken by Nursing Oxygen Flow Rate - Titration Pulse Oximetry Post Tiitration Laboratory Data Result diagrams: 12/30/21 12:20 12/30/21 12:20 Lab Results 12/30/21 12/30/21 12/30/21 Range/Units 12:20 12:20 12:20 WBC 9.85 (4.8-10.8) K/uL RBC 5.74 H (4.2-5.4) M/uL Hgb 15.5 (12.0-16.0) g/dL Hct 46.5 (37-47) % MCV 81.0 (80-100) fL MCH 27.0 (25-34) pg MCHC 33.3 (32-36) g/dL RDW Std Deviation 45.0 (36.4-46.3) fL RDW Coeff of Nasima 15.2 H (11.5-14.5) % Plt Count 352 (130-400) K/uL MPV 9.0 (7.4-10.4) fL Immature Gran % (Auto) 0.1 % Neut % (Auto) 59.4 % Lymph % (Auto) 32.8 % [place] % (Auto) 6.0 % Eos % (Auto) 1.3 % Baso % (Auto) 0.4 % Neut # (Auto) 5.85 (1.4-6.5) K/uL Lymph # (Auto) 3.23 (1.2-3.4) K/uL [place] # (Auto) 0.59 (0.11-0.59) K/uL Eos # (Auto) 0.13 (0-0.5) K/uL Baso # (Auto) 0.04 (0-0.2) K/uL Immature Gran # (Auto) 0.01 (0.00-0.02) K/uL D-Dimer 240 (0-500) ug/L FEU Sodium 140 (136-145) mmol/L Potassium 4.0 (3.5-5.1) mmol/L Chloride 104 (98-107) mmol/L Carbon Dioxide 27 (21-32) mmol/L Anion Gap 9 (3-11) BUN 12 (6-23) mg/dl Creatinine 1.01 (0.6-1.2) mg/dl Est Cr Clr Drug Dosing 86.5 ml/min Est GFR ( Amer) 73.1 ml/min Est GFR (Non-Af Amer) 63.1 ml/min BUN/Creatinine Ratio 11.9 (10-20) Glucose 91 (70-99(Fasting)) mg/dl Calcium 10.1 (8.5-10.1) mg/dl Total Bilirubin 0.5 (0.2-1.0) mg/dl AST 22 (13-39) U/L ALT 33 (7-52) U/L Alkaline Phosphatase 109 H (34-104) U/L Troponin I < 0.03 (0-0.04) ng/ml B-Natriuretic Peptide (0-100) pg/ml Total Protein 7.0 (6.0-8.3) gm/dl Albumin 4.1 (3.4-5.0) gm/dl Globulin 2.9 (2.5-4.0) gm/dl Albumin/Globulin Ratio 1.4 (0.9-2) Lipase 16 (11-82) U/L Urine Color Urine Appearance (Clear) Urine pH (4.5-7.5) Ur Specific [place] (1.000-1.030) Urine Protein (Negative) Urine Glucose (UA) (Negative) Urine Ketones (Negative) Urine Blood (Negative) Urine Nitrite (Negative) Urine Bilirubin (Negative) Urine Urobilinogen (Negative) Ur Leukocyte Esterase (Negative) Urine WBC (Auto) (0-5) /hpf Urine RBC (Auto) (0-4) /hpf U Hyaline Cast (Auto) (0-5) /lpf U Epithel Cells (Auto) (0-5) /lpf Urine Bacteria (Auto) (Negative) SARS-CoV-2 (PCR) (Negative) Influenza Type A (PCR) (Neg) Influenza Type B (PCR) (Neg) RSV (RT-PCR) (Neg) 12/30/21 12/30/21 12/30/21 Range/Units 12:20 12:20 17:47 WBC (4.8-10.8) K/uL RBC (4.2-5.4) M/uL Hgb (12.0-16.0) g/dL Hct (37-47) % MCV (80-100) fL MCH (25-34) pg MCHC (32-36) g/dL RDW Std Deviation (36.4-46.3) fL RDW Coeff of Nasima (11.5-14.5) % Plt Count (130-400) K/uL MPV (7.4-10.4) fL Immature Gran % (Auto) % Neut % (Auto) % Lymph % (Auto) % [place] % (Auto) % Eos % (Auto) % Baso % (Auto) % Neut # (Auto) (1.4-6.5) K/uL Lymph # (Auto) (1.2-3.4) K/uL [place] # (Auto) (0.11-0.59) K/uL Eos # (Auto) (0-0.5) K/uL Baso # (Auto) (0-0.2) K/uL Immature Gran # (Auto) (0.00-0.02) K/uL D-Dimer (0-500) ug/L FEU Sodium (136-145) mmol/L Potassium (3.5-5.1) mmol/L Chloride (98-107) mmol/L Carbon Dioxide (21-32) mmol/L Anion Gap (3-11) BUN (6-23) mg/dl Creatinine (0.6-1.2) mg/dl Est Cr Clr Drug Dosing ml/min Est GFR ( Amer) ml/min Est GFR (Non-Af Amer) ml/min BUN/Creatinine Ratio (10-20) Glucose (70-99(Fasting)) mg/dl Calcium (8.5-10.1) mg/dl Total Bilirubin (0.2-1.0) mg/dl AST (13-39) U/L ALT (7-52) U/L Alkaline Phosphatase (34-104) U/L Troponin I (0-0.04) ng/ml B-Natriuretic Peptide 24 (0-100) pg/ml Total Protein (6.0-8.3) gm/dl Albumin (3.4-5.0) gm/dl Globulin (2.5-4.0) gm/dl Albumin/Globulin Ratio (0.9-2) Lipase (11-82) U/L Urine Color Dark Yellow Urine Appearance Clear (Clear) Urine pH 6.0 (4.5-7.5) Ur Specific [place] 1.027 (1.000-1.030) Urine Protein Negative (Negative) Urine Glucose (UA) Negative (Negative) Urine Ketones Trace H (Negative) Urine Blood Negative (Negative) Urine Nitrite Negative (Negative) Urine Bilirubin Negative (Negative) Urine Urobilinogen Negative (Negative) Ur Leukocyte Esterase Trace H (Negative) Urine WBC (Auto) 1-5 (0-5) /hpf Urine RBC (Auto) 0-4 (0-4) /hpf U Hyaline Cast (Auto) 0 (0-5) /lpf U Epithel Cells (Auto) 5-10 H (0-5) /lpf Urine Bacteria (Auto) Negative (Negative) SARS-CoV-2 (PCR) NEGATIVE (Negative) Influenza Type A (PCR) Negative (Neg) Influenza Type B (PCR) Negative (Neg) RSV (RT-PCR) Negative (Neg) Administered Medications Discontinued Medications Acetaminophen (Acetaminophen 500 Mg Tab) 1,000 mg PO NOW STA Stop: 12/30/21 12:48 Last Admin: 12/30/21 12:56 Dose: 1,000 mg Documented by: [id number] Albuterol (Albut/Ipratrop 3mg/0.5mg Neb 3 Ml Vial) 3 ml NEB NOW STA; Protocol Stop: 12/30/21 15:53 Last Admin: 12/30/21 16:01 Dose: 3 ml Documented by: [id number] Doxycycline Hyclate (Doxycycline Hyclate 100 Mg Cap) Confirm Administered Dose 100 mg PO .STK-MED ONE Stop: 12/30/21 16:06 Last Admin: 12/30/21 16:07 Dose: Not Given Documented by: [id number] Doxycycline Hyclate 100 mg/ (Dextrose) 110 mls @ 50 mls/hr IV NOW STA Stop: 12/30/21 18:03 Last Admin: 12/30/21 16:32 Dose: 50 mls/hr Documented by: [id number] Methylprednisolone (Methylprednisolone 125 Mg/2 Ml Vial) 125 mg IV NOW STA Stop: 12/30/21 15:53 Last Admin: 12/30/21 16:03 Dose: 125 mg Documented by: [id number] Ondansetron HCl (Ondansetron Inj 2 Mg/Ml 2 Ml Vial) 4 mg IV NOW STA Stop: 12/30/21 12:48 Last Admin: 12/30/21 12:56 Dose: 4 mg Documented by: [id number] Imaging Data Radiologist's Impression: Chest X-Ray 12/30/21 12:08 XR chest 1V portable HISTORY: Atypical Chest Pain COMPARISON: Chest 12/19/2019. FINDINGS: No pneumothorax. No pleural effusions. There is mild elevation of the right hemidiaphragm, unchanged. The heart remains mildly enlarged. No new focal lung consolidations to suggest pneumonia. No evidence for pulmonary edema. IMPRESSION: No significant change compared to the prior study. No acute process. ACT 112: Negative or not required by law. Electronically signed by: Jethro Navarro M.D. 12/30/2021 1:09 PM Discharge Plan Visit Data Chief Complaint: Chest Pain Stated Complaint: SOB, CHEST PAIN ED Provider: Anatoly Aden Discharge Problem: Flu-like symptoms, Left-sided chest pain, Nausea Forms Stand Alone Forms: DocSend Prescriptions Prescriptions: No Action metoprolol succinate 100 mg capsule,sprinkle,ER 24hr 100 mg PO BID Qty: 60 RF: 2 omeprazole 40 mg capsule,delayed release(DR/EC) 40 mg PO BID Qty: 60 RF: 2 lamotrigine [Lamictal] 200 mg tablet 200 mg PO BID Qty: 60 RF: 2 metformin 750 mg tablet extended release 24 hr 750 mg PO QPM Qty: 30 RF: 2 cholecalciferol (vitamin D3) 50,000 unit capsule 50,000 units PO Q14D Qty: 30 RF: 0 chlorthalidone 50 mg tablet 50 mg PO QAM RF: 0 levothyroxine 125 mcg tablet 125 mcg PO DAILYBB RF: 0 ropinirole 1 mg tablet 5 mg PO HS RF: 0 trazodone 100 mg tablet 150 mg PO HS RF: 0 buspirone 10 mg tablet 10 mg PO BID RF: 0 albuterol sulfate 90 mcg/actuation HFA aerosol inhaler 2 puff INHALATION Q4 PRN (Reason: Shortness Of Breath Or Wheezing) RF: 0 fluticasone propionate [Flonase Allergy Relief] 50 mcg/actuation [place],Suspension 2 spray INTRANASAL DAILY PRN (Reason: Nasal Congestion) RF: 0 quetiapine [Seroquel] 50 mg tablet 300 mg PO HS RF: 0 venlafaxine [Effexor XR] 37.5 mg Capsule,Extended Release 24hr 37.5 mg PO QAM RF: 0 venlafaxine [Effexor XR] 150 mg Capsule,Extended Release 24hr 150 mg PO QAM RF: 0 furosemide [Lasix] 40 mg tablet 40 mg PO QAM RF: 0 spironolactone 25 mg tablet 25 mg PO QAM RF: 0 losartan 100 mg tablet 100 mg PO QAM RF: 0 diazepam [Valium] 2 mg Tablet 2 mg PO BID PRN (Reason: Anxiety) RF: 0 ondansetron HCl [Zofran] 4 mg Tablet 4 mg PO Q6H PRN (Reason: Nausea) RF: 0 Ozempic 1 mg/dose (4 mg/3 mL) Pen Injector 0 mg SUBCUT WK RF: 0 Referrals Referrals: Harry Schrader MD [Primary Care Provider] -
--- NOTE | 2021-12-30 13:11 | XRay Report ---
XR chest 1V portable HISTORY: Atypical Chest Pain COMPARISON: Chest 12/19/2019. FINDINGS: No pneumothorax. No pleural effusions. There is mild elevation of the right hemidiaphragm, unchanged. The heart remains mildly enlarged. No new focal lung consolidations to suggest pneumonia. No evidence for pulmonary edema. IMPRESSION: No significant change compared to the prior study. No acute process. ACT 112: Negative or not required by law. Electronically signed by: Jethro Navarro M.D. 12/30/2021 1:09 PM
[2021-12-30 13:13] LABS: Alanine Aminotransferase 33 U/L (7-52); Albumin Globulin Ratio 1.4 (0.9-2); Albumin Level 4.1 gm/dl (3.4-5.0); Alkaline Phosphatase 109 U/L (34-104); Anion Gap 9 (3-11); Aspartate Aminotransferase 22 U/L (13-39); BUN Creatinine Ratio 11.9 (10-20); Bilirubin,Total 0.5 mg/dl (0.2-1.0); Blood Urea Nitrogen 12 mg/dl (6-23); Calcium 10.1 mg/dl (8.5-10.1); Carbon Dioxide 27 mmol/L (21-32); Chloride 104 mmol/L (98-107); Creatinine Clr Calc Pharmacy 86.5 ml/min; Est GFR (African American) 73.1 ml/min; Est GFR (Non-African American) 63.1 ml/min; Globulin 2.9 gm/dl (2.5-4.0); Glucose 91 mg/dl (70-99(Fasting)); Lipase 16 U/L (11-82); Sodium 140 mmol/L (136-145); Troponin I < 0.03 ng/ml (0-0.04)
[2021-12-30 13:34] LABS: Influenza A virus by PCR Negative (Neg); Influenza B virus by PCR Negative (Neg); RSV by PCR Negative (Neg); SARS CoV2 RNA(COVID-19) InHosp NEGATIVE (Negative)
[2021-12-30] MEDS ORDERED: ALBUT/IPRATROP 3MG/0.5MG NEB 3 ML VIAL NEB STA (15:52)
[2021-12-30] MEDS ORDERED: DOXYCYCLINE HYCLATE 100 MG in DEXTROSE 5% 100 ML IV STA (15:52)
[2021-12-30] MEDS ORDERED: methylPREDNISolone 125 MG/2 ML VIAL IV STA (15:52)
[2021-12-30] MEDS ORDERED: DOXYCYCLINE HYCLATE 100 MG CAP PO ONE (16:05)
--- NOTE | 2021-12-30 17:00 | History & Physical Report ---
Date of Service December 30, 2021 Assessment & Plan (1) Hypoxia: (2) Flu-like symptoms: (3) Chest pressure: (4) Chronic diastolic CHF (congestive heart failure): (5) Hypothyroidism: (6) CKD (chronic kidney disease) stage 3, GFR 30-59 ml/min: Plan: Chest pressure- likely costochondritis in setting of recent flu like illness. Tender on palpation of right costochondral junctions. Trop neg, EKG unremarkable. For completeness, will trend trop, tele, and repeat EKG in am. Naproxen for pain. Hypoxia/flu like symptoms- CXR without PNA or congestion. Possible bronchitis or viral symptoms. Continue doxy. Nebs prn. D dimer negative making PE unlikely. Give a dose of iv lasix as patient feels bloated and with recent leg swelling. Incentive spirometry, flutter valve. Will get 2 step O2 eval prior to discharge Chronic diastolic CHF- no obvious volume overload, BNP normal, but patient states she had some swelling of her extremities and feels bloated. She thinks this might be her CHF causing hypoxia. Will give a dose of iv lasix and monitor. Continue home diuretics, daily weight, I and Os. DM-2- check A2c. hold metformin,semaglutide, continue SSI HTN- continue losartan, toprol, lasix, aldactone Anxiety- on seroquel, effexor, buspar, valium prn History of Present Illness Chief Complaint: chest pressure Primary Care Provider: Harry Schrader MD 56 year old female with h/o CHF, anxiety/depression, DM-2, GERD presented to the ED with shortness of breath. Started on with flu like symptoms- sor e throat, runny nose. Yesterday, she had shortness of breath and some chest pressure, which was worse this morning and she came to the ED. States she has pulse oximeter at home and it was in 80s over the past 2 days. Has body aches and not feeling well. Some dry cough. States she had some leg swelling which is now improved. Also feels bloated. She thinks it might be her CHF. She does not smoke or drink alcohol. She lives by herself and has no sick contacts. Denies any tick bites. Has some allergies by this time of the year. Denies any wheezing. No h/o COPD or asthma. Compliant with her meds including diuretics. Denies any recent orthopnea or PND. In the ED, she was afebrile and hemodynamically stable. Saturation in 89% and put on NC 2 L. Given nebs and solumedrol in ED. Allergies Allergy/AdvReac Type Severity Reaction Status Date / Time bee venom protein (honey bee) Allergy Severe SEVERE Verified 12/30/21 13:58 SWELLING,SOB ciprofloxacin Allergy Severe RESPIRATORY Verified 12/30/21 13:58 FAILURE/HIVES azithromycin Allergy Intermediate Hives Verified 12/30/21 13:58 latex Allergy Intermediate LOCAL Verified 12/30/21 13:58 IRRITATION REDDNESS SWELLING ITCHYNESS prednisone AdvReac Intermediate HALLUCINATIONS, Verified 12/30/21 13:58 GI UPSET Home Medications Medication Instructions Recorded Confirmed Type cholecalciferol (vitamin D3) 1,250 50,000 units PO Q14D #30 cap 09/17/19 12/30/21 Rx mcg (50,000 unit) capsule lamotrigine 200 mg tablet 200 mg PO BID #60 tab 09/17/19 12/30/21 Rx (Lamictal) metformin 750 mg tablet,extended 750 mg PO QPM #30 tab 09/17/19 12/30/21 Rx release 24 hr metoprolol succinate 100 mg 100 mg PO BID #60 ea 09/17/19 12/30/21 Rx capsule sprinkle, ext. release 24 hr omeprazole 40 mg capsule,delayed 40 mg PO BID #60 cap 09/17/19 12/30/21 Rx release albuterol sulfate 90 mcg/actuation 2 puff INHALATION Q4 PRN 12/17/19 12/30/21 History aerosol inhaler buspirone 10 mg tablet 10 mg PO BID 12/17/19 12/30/21 History fluticasone propionate 50 2 spray INTRANASAL DAILY PRN 12/17/19 12/30/21 History mcg/actuation nasal spray,suspension (Flonase Allergy Relief) quetiapine 50 mg tablet (Seroquel) 300 mg PO HS 12/17/19 12/30/21 History ropinirole 1 mg tablet 5 mg PO HS 12/17/19 12/30/21 History trazodone 100 mg tablet 150 mg PO HS 12/17/19 12/30/21 History chlorthalidone 50 mg tablet 50 mg PO QAM 12/28/19 12/30/21 History levothyroxine 125 mcg tablet 125 mcg PO DAILYBB 12/28/19 12/30/21 History diazepam 2 mg tablet (Valium) 2 mg PO BID PRN 07/13/21 12/30/21 History furosemide 40 mg tablet (Lasix) 40 mg PO QAM 07/13/21 12/30/21 History losartan 100 mg tablet 100 mg PO QAM 07/13/21 12/30/21 History spironolactone 25 mg tablet 25 mg PO QAM 07/13/21 12/30/21 History venlafaxine 150 mg 150 mg PO QAM 07/13/21 12/30/21 History capsule,extended release 24 hr (Effexor XR) venlafaxine 37.5 mg 37.5 mg PO QAM 07/13/21 12/30/21 History capsule,extended release 24 hr (Effexor XR) ondansetron HCl 4 mg tablet 4 mg PO Q6H PRN 12/30/21 12/30/21 History semaglutide 1 mg/dose (4 mg/3 mL) 0 mg SUBCUT WK 12/30/21 12/30/21 History subcutaneous pen injector (Ozempic) Past Med/Surg History Medical History Anxiety Asthma well controlled > res inh last used 5 mos ago CHF (congestive heart failure) Chronic diastolic CHF (congestive heart failure) follows with Dr. Barron CKD (chronic kidney disease) stage 3, GFR 30-59 ml/min does not follow with specialist Depression Essential tremor Fibromyalgia GERD (gastroesophageal reflux disease) History of anesthesia reaction pt was not sure if was anesthsia or allergy to Cipro, but coded on OR table during lithotripsy 6 yrs ago History of cardiomyopathy [place] to be secondary to hypertension. Occurred in 2015 with an EF of 40 to 45%. She had cardiac MRI which was concerning for possible hypertrophic cardiomyopathy but this was ruled out via echo. Last echocardiogram 07/2019 revealed preserved EF with grade 1 diastolic dysfunction. Hypertension Hypothyroidism IBS (irritable bowel syndrome) Insomnia Kidney stones Meniere disease Meningioma dx 5 yrs ago > follows with Dr. Turner with [facility] Migraines Lamictal for this Prediabetes PTSD (post-traumatic stress disorder) RLS (restless legs syndrome) Surgical History History of brain surgery 2007> Secondary to type I Chiari malformation at [facility] History of cholecystectomy History of colonoscopy with polypectomy History of endometrial ablation x2 History of esophagogastroduodenoscopy (EGD) History of lithotripsy History of tonsillectomy S/P correction of deviated nasal septum Family History Grandmother Colorectal cancer Father Heart disease Hypertension Hx of CABG Diabetes Social History Smoking Status: Never smoker Second Hand Exposure: No; Hx Alcohol Use: Yes Alcohol type: wine and hard liquor Hx Substance Use: No Preferred Language: Irish Communication Ability: Effective Processing Mgr Required: No Beliefs That Will Affect Care: None marital status: Single Current Living Situation: Alone current occupational status: disabled 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 Feels Safe at Home: Yes Assistive Devices: Cane Review of Systems Review of Systems: All systems reviewed & are unremarkable except as noted in Subjective Physical Exam Physical Exam: General: Lying comfortably in bed, not in distress, on NC HEENT: EOMI, TAVIA, MMM Chest: Clear breath sounds bilaterally, no wheezes or crackles CVS: Regular rate and rhythm, normal heart sounds, no murmur Abdomen: Soft, non tender, not distended, normal bowel sounds Neuro: Awake, alert, oriented, conversing well, non focal Extremities: No cyanosis, clubbing or edema Results & Data Results & Data ([facility]) Vital Signs (Past 12 Hours) Vital Signs Temp Pulse Resp BP Pulse Ox 12/30/21 15:38 18 89 L 12/30/21 15:30 145 H 25 H 89 L 12/30/21 15:15 86 23 90 12/30/21 15:00 130 H 24 12/30/21 14:45 86 16 12/30/21 14:31 82 15 139/89 12/30/21 14:30 82 18 12/30/21 14:15 150 H 25 H 12/30/21 14:00 84 13 149/101 H 12/30/21 13:45 85 23 12/30/21 13:30 83 13 125/87 12/30/21 13:00 84 16 135/95 12/30/21 12:49 83 25 H 96 12/30/21 12:46 80 20 90 12/30/21 12:00 36.9 C 85 20 156/90 H 95 Laboratory Results Short CBC 12/30/21 Range/Units 12:20 WBC 9.85 (4.8-10.8) K/uL Hgb 15.5 (12.0-16.0) g/dL Hct 46.5 (37-47) % Plt Count 352 (130-400) K/uL BMP 12/30/21 12:20 Sodium 140 Potassium 4.0 Chloride 104 Carbon Dioxide 27 BUN 12 Creatinine 1.01 Glucose 91 Calcium 10.1 Cardiac Enzymes 12/30/21 Range/Units 12:20 Troponin I < 0.03 (0-0.04) ng/ml Liver Function 12/30/21 Range/Units 12:20 Total Bilirubin 0.5 (0.2-1.0) mg/dl AST 22 (13-39) U/L ALT 33 (7-52) U/L Alkaline Phosphatase 109 H (34-104) U/L Albumin 4.1 (3.4-5.0) gm/dl Diagnostic Findings Chest X-Ray 12/30/21 12:08 XR chest 1V portable HISTORY: Atypical Chest Pain COMPARISON: Chest 12/19/2019. FINDINGS: No pneumothorax. No pleural effusions. There is mild elevation of the right hemidiaphragm, unchanged. The heart remains mildly enlarged. No new focal lung consolidations to suggest pneumonia. No evidence for pulmonary edema. IMPRESSION: No significant change compared to the prior study. No acute process. ACT 112: Negative or not required by law. Electronically signed by: Jethro Navarro M.D. 12/30/2021 1:09 PM
[2021-12-30] MEDS ORDERED: FUROSEMIDE 40 MG/4 ML VIAL IV ONE (17:37)
[2021-12-30 18:09] LABS: Appearance Urine Clear (Clear); Bacteria Urine Automated Negative (Negative); Bilirubin Urine Negative (Negative); Blood Urine Negative (Negative); Cast Urine Automated 0 /lpf (0-5); Color Urine Dark Yellow; Glucose Urine UA Negative (Negative); Ketones Urine Trace (Negative); Leukocyte Esterase Urine Trace (Negative); Nitrite Urine Negative (Negative); Protein Urine Negative (Negative); RBC Urine Automated 0-4 /hpf (0-4); Specific Gravity Urine 1.027 (1.000-1.030); Urobilinogen Urine Negative (Negative)
[2021-12-30] MEDS: NAPROXEN 250 MG TAB PO SCH (21:00)
[2021-12-30] MEDS ORDERED: ALBUTEROL HFA 8 GM INHALER INH PRN (21:52)
[2021-12-30] MEDS ORDERED: CARBOHYDRATES FOR HYPOGLYCEMIA PO PRN (21:52)
[2021-12-30] MEDS ORDERED: GLUCOSE 10 TABS/TUBE PO PRN (21:52)
[2021-12-30] MEDS ORDERED: DEXTROSE 50% 50 ML SYRINGE IV PRN (21:52)
[2021-12-30] MEDS ORDERED: GLUCOSE 40% GEL 15 GM TUBE PO PRN (21:52)
[2021-12-30] MEDS ORDERED: FLUTICASONE PROPIONATE NA SPR 16 GM BTL PRN (21:52)
[2021-12-30] MEDS: lamoTRIgine 100 MG TAB PO SCH (23:39)
[2021-12-30] MEDS: rOPINIRole HCL 1 MG TABLET PO SCH (23:39)
[2021-12-30] MEDS: QUEtiapine FUMARATE 300 MG TABLET PO SCH (23:40)
[2021-12-30] MEDS: METOPROLOL SUCC 50MG EXT REL TAB PO SCH (23:40)
[2021-12-30] MEDS: traZODone HCL 50 MG TAB PO SCH (23:40)
[2021-12-30] MEDS: busPIRone 5 MG TAB PO SCH (23:41)
[2021-12-30] MEDS: PANTOprazole 40 MG TAB PO SCH (23:41)
[2021-12-30] MEDS ORDERED: SUMAtriptan succinate 50 MG TAB PO STA (23:59)
[2021-12-31] MEDS: PROMETHAZINE HCL 12.5 MG in SODIUM CHLORIDE 0.9% 50 ML IV PRN ×2 (01:05→22:45)
[2021-12-31] MEDS: INSULIN ASPART PER UNIT SC SCH ×5 (04:47→22:31)
[2021-12-31] MEDS: LEVOTHYROXINE SODIUM 125 MCG TABLET PO SCH (06:12)
[2021-12-31 08:49] LABS: BUN Creatinine Ratio 17.6 (10-20); Calcium 9.4 mg/dl (8.5-10.1); Creatinine Clr Calc Pharmacy 78.8 ml/min; Est GFR (African American) 67.4 ml/min; Est GFR (Non-African American) 58.2 ml/min; Potassium 4.1 mmol/L (3.5-5.1)
[2021-12-31] MEDS: lamoTRIgine 100 MG TAB PO SCH ×2 (08:52→22:01)
[2021-12-31] MEDS: busPIRone 5 MG TAB PO SCH ×2 (08:52→22:07)
[2021-12-31] MEDS: METOPROLOL SUCC 50MG EXT REL TAB PO SCH ×2 (08:52→22:06)
[2021-12-31] MEDS: PANTOprazole 40 MG TAB PO SCH ×2 (08:53→22:04)
[2021-12-31] MEDS: VENLAFAXINE HCL XR 150 MG CAPXR PO SCH (08:53)
[2021-12-31] MEDS: CHLORTHALIDONE 25 MG TAB PO SCH (08:53)
[2021-12-31] MEDS: LOSARTAN POTASSIUM 50 MG TAB PO SCH (08:53)
[2021-12-31] MEDS: VENLAFAXINE HCL XR 37.5 MG CAPXR PO SCH (08:53)
[2021-12-31] MEDS: SPIRONOLACTONE 25 MG TAB PO SCH (08:53)
[2021-12-31] MEDS: ENOXAPARIN INJ 40 MG/0.4 ML SYR SQ SCH ×2 (08:54→21:57)
[2021-12-31] MEDS: DOXYCYCLINE HYCLATE 100 MG CAP PO SCH ×2 (08:55→21:57)
[2021-12-31] MEDS ORDERED: FUROSEMIDE 40 MG TAB PO SCH (09:00)
[2021-12-31] MEDS: NAPROXEN 250 MG TAB PO SCH ×2 (09:05→22:03)
[2021-12-31] MEDS ORDERED: SUMAtriptan succinate 50 MG TAB PO ONE (09:49)
--- NOTE | 2021-12-31 10:39 | Electrocardiogram Report ---
Test Reason : Blood Pressure : / mmHG Vent. Rate : 085 BPM Atrial Rate : 085 BPM P-R Int : 162 ms QRS Dur : 102 ms QT Int : 396 ms P-R-T Axes : 045 -43 048 degrees QTc Int : 471 ms Normal sinus rhythm Left axis deviation Inferior infarct , age undetermined Abnormal ECG When compared with ECG of 17-DEC-2019 14:05, No significant change was found Confirmed by Kyle Cazares ([id number]) on 12/31/2021 10:39:14 AM Referred By: REFERRED SELF Confirmed By:Kyle Cazares
--- NOTE | 2021-12-31 11:25 | Electrocardiogram Report ---
Test Reason : Blood Pressure : / mmHG Vent. Rate : 102 BPM Atrial Rate : 102 BPM P-R Int : 170 ms QRS Dur : 096 ms QT Int : 380 ms P-R-T Axes : 070 -58 062 degrees QTc Int : 495 ms Sinus tachycardia Left axis deviation Inferior infarct (cited on or before 04-NOV-2013) Anterolateral infarct , age undetermined Abnormal ECG When compared with ECG of 30-DEC-2021 12:00, (unconfirmed) Anterolateral infarct is now Present Confirmed by Kyle Cazares ([id number]) on 12/31/2021 11:24:28 AM Referred By: REFERRED SELF Confirmed By:Kyle Cazares
[2021-12-31] MEDS: diazePAM 2 MG TABLET PO PRN (12:56)
--- NOTE | 2021-12-31 13:29 | Hospitalist Progress Note ---
Date of Service December 31, 2021 Assessment & Plan (1) Hypoxia: (2) Flu-like symptoms: (3) Chest pressure: (4) Chronic diastolic CHF (congestive heart failure): (5) Hypothyroidism: (6) CKD (chronic kidney disease) stage 3, GFR 30-59 ml/min: Plan: #. Flulike symptoms #. Chest discomfort #. 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 Patient denies vomiting or diarrhea. Reports having nausea. Also reports having discomfort in the chest and bloating sensation. Patient reports having cough with light yellow sputum. Pt has rt sided reproducible chest pain. Admitting EKG and CXR reviewed. Patient currently requiring oxygen 3 L, continue with nebulization/Tessalon Perles/antibiotic 12/31/incentive spirometer or flutter valve. D-dimer negative. BNP 24. Troponin trend negative, EKG with no significant ST or T changes, follow-up EKG and troponin. Naproxen, c/w home PPI. Wean down O2 as tolerated. #. Chronic medical conditions: Chronic diastolic CHF, DM-2, HTN, Anxiety BNP wnl, euvolemic, c/w home dose of lasix continue/resume home meds as and when appropriate. C/w SSI insulin #. DVT Px: Enoxaprin. #. Full Code Admission and Anticipated Discharge Date Admission Date: December 30, 2021 Subjective Patient seen and examined at bedside for likely flulike symptoms. Patient was lying in bed, on 3 L nasal cannula oxygen, NAD, had migraine attack in the morning requiring Imitrex and Tylenol, reports headache under control at bedside exam, feels tired/exhausted and reports lighthead/dizziness, reports cough with light yellow sputum, reports ongoing discomfort in chest, denies any chest pain, denies fever/chills/belly pain/acute changes in bowel or bladder habit/other review of symptoms. Physical Exam Physical Exam: GENERAL: Alert and oriented x3. NAD, on 3L. HEENT: No pallor, no icterus. Pupils equal, round and reactive to light. Oral mucosa moist. NECK: No JVD, no neck masses. HEART: S1 and S2 heard. Regular rate and rhythm. No murmur, no gallop. RESPIRATORY SYSTEM: Normal AP diameter. No accessory muscle use. No wheezing, no crackles. Was having dry cough at bedside. ABDOMEN: Soft, bowel sounds present, nontender, no distention. CENTRAL NERVOUS SYSTEM: No facial droop. Speech is clear. Obeys simple commands. Moves extremities. EXTREMITIES: No edema, no erythema seen. Results & Data Results & Data ([facility]) Vital Signs (Past 12 Hours) Vital Signs Temp Pulse Pulse Resp BP Pulse Ox 12/31/21 11:30 36.8 C 88 20 138/89 96 12/31/21 07:22 36.5 C 103 H 20 131/83 94 12/31/21 07:13 103 H 12/31/21 04:08 36.4 C L 113 H 18 119/75 93
[2021-12-31] MEDS: BENZONATATE 100 MG CAPSULE PO SCH ×2 (14:24→22:06)
[2021-12-31] MEDS: guaiFENesin 600 MG TABCR PO SCH ×2 (14:34→22:00)
[2021-12-31] MEDS ORDERED: MECLIZINE HCL 25 MG TAB PO STA (17:52)
[2021-12-31] MEDS ORDERED: MICONAZOLE NITRATE POWDER 43 GM EXT PRN (19:53)
[2021-12-31] MEDS ORDERED: MELATONIN 3 MG TAB PO PRN (19:56)
[2021-12-31] MEDS: rOPINIRole HCL 1 MG TABLET PO SCH (21:58)
[2021-12-31] MEDS: traZODone HCL 50 MG TAB PO SCH (21:59)
[2021-12-31] MEDS: QUEtiapine FUMARATE 300 MG TABLET PO SCH (22:05)
[2021-12-31] MEDS: SUMAtriptan succinate 25 MG TAB PO PRN (22:45)
[2021-12-31] MEDS ORDERED: SODIUM CHLORIDE 0.9% 1000ML 500 ML IV ONE (23:20)
[2021-12-31 23:59] LABS: Basophils # (auto) 0.05 K/uL (0-0.2); Basophils % (auto) 0.4 %; Eosinophils # (auto) 0.09 K/uL (0-0.5); Eosinophils % (auto) 0.7 %; Hematocrit (blood only) 46.1 % (37-47); Hemoglobin 14.7 g/dL (12.0-16.0); Immature Granulocytes # (auto) 0.05 K/uL (0.00-0.02); Immature Granulocytes % (auto) 0.4 %; Lymphocytes # (auto) 4.83 K/uL (1.2-3.4); Lymphocytes % (auto) 35.1 %; Mean Corpuscular Hemoglobin 26.5 pg (25-34); Mean Corpuscular Hgb Conc 31.9 g/dL (32-36); Mean Corpuscular Volume 83.2 fL (80-100); Mean Platelet Volume 9.5 fL (7.4-10.4); Monocytes # (auto) 0.96 K/uL (0.11-0.59); Neutrophils # (auto) 7.77 K/uL (1.4-6.5); Neutrophils % (auto) 56.4 %; Platelet Count 311 K/uL (130-400); RDW Coefficient of Variation 15.5 % (11.5-14.5); RDW Standard Deviation 47.3 fL (36.4-46.3); Red Blood Count 5.54 M/uL (4.2-5.4); White Blood Count 13.75 K/uL (4.8-10.8)
[2022-01-01 00:15] LABS: BUN Creatinine Ratio 17.2 (10-20); Calcium 8.7 mg/dl (8.5-10.1); Creatinine Clr Calc Pharmacy 56.3 ml/min; Est GFR (African American) 44.9 ml/min; Est GFR (Non-African American) 38.8 ml/min; Magnesium 1.8 mg/dl (1.7-2.4); Potassium 3.7 mmol/L (3.5-5.1)
[2022-01-01] MEDS: MECLIZINE 12.5 MG TAB PO PRN ×2 (06:06→13:12)
[2022-01-01] MEDS: LEVOTHYROXINE SODIUM 125 MCG TABLET PO SCH (06:06)
[2022-01-01] MEDS ORDERED: LACTATED RINGER'S 1,000 ML IV ONE (06:14)
[2022-01-01] MEDS ORDERED: MAGNESIUM SULFATE / D5W 1 GM/100 ML BAG IV ONE (06:14)
--- NOTE | 2022-01-01 06:16 | Communication Note ---
Date of Service: January 01, 2022 Patient BP noted to be 90s as per RN. Patient with dizziness symptoms more frequent, some relief with Antivert. Serum creatinine noted to be 1.6 AP Hypotension secondary to hypovolemia, ARF Monitor creatinine response to IVF Baseline UA Hold home diuretic, naproxen for now until creatinine back to baseline Will relay to AM provider.
[2022-01-01 07:08] LABS: Estimated Average Glucose 117 mg/dl; Hemoglobin A1C 5.7 % (4.5-5.6)
[2022-01-01] MEDS: INSULIN ASPART PER UNIT SC SCH ×4 (08:55→21:34)
[2022-01-01] MEDS: guaiFENesin 600 MG TABCR PO SCH ×2 (08:57→20:17)
[2022-01-01] MEDS: lamoTRIgine 100 MG TAB PO SCH ×2 (08:57→20:18)
[2022-01-01] MEDS: PANTOprazole 40 MG TAB PO SCH ×2 (08:57→20:19)
[2022-01-01] MEDS: DOXYCYCLINE HYCLATE 100 MG CAP PO SCH ×2 (08:58→20:11)
[2022-01-01] MEDS: busPIRone 5 MG TAB PO SCH ×2 (08:58→20:16)
[2022-01-01] MEDS: VENLAFAXINE HCL XR 150 MG CAPXR PO SCH (08:59)
[2022-01-01] MEDS: VENLAFAXINE HCL XR 37.5 MG CAPXR PO SCH (08:59)
[2022-01-01] MEDS: BENZONATATE 100 MG CAPSULE PO SCH ×3 (08:59→20:15)
[2022-01-01] MEDS: ENOXAPARIN INJ 40 MG/0.4 ML SYR SQ SCH ×2 (09:01→20:17)
[2022-01-01] MEDS: METOPROLOL SUCC 50MG EXT REL TAB PO SCH ×2 (09:01→20:28)
[2022-01-01] MEDS: CHLORTHALIDONE 25 MG TAB PO SCH (09:01)
[2022-01-01] MEDS ORDERED: PIPERACILL/TAZOBAC CONSULT ACTIVE PRN (09:20)
[2022-01-01] MEDS ORDERED: PIPERACILLIN/TAZOBACTAM 3.375 GM in DEXTROSE 5% 100 ML IV SCH (09:30)
[2022-01-01 10:10] LABS: Hematocrit (blood only) 44.3 % (37-47); Hemoglobin 13.9 g/dL (12.0-16.0); Mean Corpuscular Hemoglobin 26.4 pg (25-34); Mean Corpuscular Hgb Conc 31.4 g/dL (32-36); Mean Corpuscular Volume 84.2 fL (80-100); Mean Platelet Volume 9.4 fL (7.4-10.4); Platelet Count 254 K/uL (130-400); RDW Coefficient of Variation 15.6 % (11.5-14.5); Red Blood Count 5.26 M/uL (4.2-5.4)
[2022-01-01] MEDS ORDERED: PIPERACILLIN/TAZOBACTAM 4.5 GM in DEXTROSE 5% 100 ML IV ONE (10:15)
[2022-01-01 10:31] LABS: BUN Creatinine Ratio 19.7 (10-20); Calcium 8.4 mg/dl (8.5-10.1); Creatinine Clr Calc Pharmacy 65.2 ml/min; Est GFR (African American) 52.9 ml/min; Est GFR (Non-African American) 45.6 ml/min; Potassium 3.5 mmol/L (3.5-5.1)
--- NOTE | 2022-01-01 11:48 | XRay Report ---
XR chest 1V portable CLINICAL HISTORY: f/u, r/o bacterial infection TECHNIQUE: Single frontal radiograph of the chest was obtained. Comparison: Comparison is made to chest radiographs for 06/12/2022 FINDINGS: No lines and tubes are seen. The cardiomediastinal silhouette is normal. Lungs are underinflated but clear. No evidence of pleural effusion or pneumothorax. IMPRESSION: No acute chest disease. ACT 112: Negative or not required by law. Electronically signed by: Anthony Mayer M.D. 01/01/2022 11:47 AM
[2022-01-01] MEDS: ACETAMINOPHEN 325 MG TAB PO PRN (13:14)
--- NOTE | 2022-01-01 15:27 | Hospitalist Progress Note ---
Date of Service January 01, 2022 Assessment & Plan (1) Hypoxia: (2) Flu-like symptoms: (3) Chest pressure: (4) Chronic diastolic CHF (congestive heart failure): (5) Hypothyroidism: (6) CKD (chronic kidney disease) stage 3, GFR 30-59 ml/min: Plan: #. Flulike symptoms/possible bronchitis #. Chest discomfort #. 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 During initial exam: Patient denies vomiting or diarrhea. Reports having nausea. Also reports having discomfort in the chest and bloating sensation. Patient reported having cough with light yellow sputum. Pt had rt sided reproducible chest pain. Admitting EKG and CXR reviewed. Patient currently requiring oxygen 3 L, continue with nebulization/Tessalon Perles/antibiotic 12/31/incentive spirometer or flutter valve. D-dimer negative. BNP 24. Troponin trend negative c/w zosyn 01/01 empirically, watch out of bacterial superinfection. Concern for developing bacterial pneumonia vs bronchitis c/w home PPI. Wean down O2 as tolerated. Naproxen when able #. GAMAL/CKD III Pt developed GAMAL 12/31 2/2 hypotension likely due to decreased PO intake currently getting ivf, Cr improving. Diuresis and losartan held #. Chronic medical conditions: Chronic diastolic CHF, DM-2, HTN, Anxiety BNP wnl, euvolemic, c/w home dose of lasix continue/resume home meds as and when appropriate. C/w SSI insulin #. DVT Px: Enoxaprin. #. Full Code Disposition: continue supportive care, patient weak, PT/OT, expect DC in next 2- 3 days. Admission and Anticipated Discharge Date Admission Date: December 30, 2021 Subjective Patient seen and examined at bedside for likely flulike symptoms. Patient was lying in bed, on 3 L nasal cannula oxygen, NAD, was hypotensive overnight and developed ARF, reports headache under control at bedside exam, feels tired/exhausted and reports lighthead/dizziness/nausea and indigestion, reports cough with light yellow sputum, denies any chest pain, denies fever/chills/belly pain/acute changes in bowel or bladder habit/other review of symptoms. Physical Exam Physical Exam: GENERAL: Alert and oriented x3. NAD, on 3L. HEENT: No pallor, no icterus. Pupils equal, round and reactive to light. Oral mucosa moist. NECK: No JVD, no neck masses. HEART: S1 and S2 heard. Regular rate and rhythm. No murmur, no gallop. RESPIRATORY SYSTEM: Normal AP diameter. No accessory muscle use. No wheezing, no crackles. ABDOMEN: Soft, bowel sounds present, nontender, no distention. CENTRAL NERVOUS SYSTEM: No facial droop. Speech is clear. Obeys simple commands. Moves extremities. EXTREMITIES: No edema, no erythema seen. Results & Data Results & Data ([facility]) Vital Signs (Past 12 Hours) Vital Signs Temp Pulse Pulse Resp BP BP Pulse Ox 01/01/22 15:09 37.0 C 82 17 104/66 98 01/01/22 11:17 36.5 C 82 20 116/66 97 01/01/22 09:51 66 01/01/22 07:45 36.7 C 74 18 97/64 L 97 01/01/22 04:20 36.8 C 74 109/72 95
[2022-01-01] MEDS: PIPERACILLIN/TAZOBACTAM 4.5 GM in DEXTROSE 5% 100 ML IV SCH ×2 (16:44→23:49)
[2022-01-01] MEDS: diazePAM 2 MG TABLET PO PRN (17:57)
[2022-01-01 18:18] LABS: Appearance Urine Clear (Clear); Bacteria Urine Automated Negative (Negative); Bilirubin Urine Negative (Negative); Blood Urine Negative (Negative); Color Urine Yellow; Epithelial Cell Urine Auto >30 /lpf (0-5); Glucose Urine UA Negative (Negative); Ketones Urine Negative (Negative); Leukocyte Esterase Urine 1+ (Negative); Nitrite Urine Negative (Negative); Protein Urine Negative (Negative); Specific Gravity Urine 1.024 (1.000-1.030); Urobilinogen Urine Negative (Negative); pH Urine 5.5 (4.5-7.5)
[2022-01-01] MEDS ORDERED: LACTATED RINGER'S 1,000 ML IV SCH (20:00)
[2022-01-01] MEDS: QUEtiapine FUMARATE 300 MG TABLET PO SCH (20:19)
[2022-01-01] MEDS: rOPINIRole HCL 1 MG TABLET PO SCH (20:20)
[2022-01-01] MEDS: traZODone HCL 50 MG TAB PO SCH (20:27)
--- NOTE | 2022-01-01 20:31 | XRay Report ---
XR chest 1V portable HISTORY: 56 years-old Female low o2 acute hypoxia COMPARISON: Chest radiograph of same day at 9:29 AM TECHNIQUE: Portable AP view of the chest FINDINGS: The cardiomediastinal and hilar silhouettes are within normal limits. There is no pneumothorax, pleur al effusion, airspace consolidation or overt pulmonary edema. Degenerative changes of the shoulders a nd spine. IMPRESSION: No acute process. ACT 112: Negative or not required by law. The above report was generated using voice recognition software. It may contain grammatical, syntax o r spelling errors. Electronically signed by: Jt Browne M.D. 01/01/2022 8:30 PM
[2022-01-01] MEDS: CALCIUM CARBONATE 500 MG CHEWABLE TAB PO SCH (21:50)
[2022-01-02] MEDS ORDERED: POLYETHYLENE (MIRALAX) 17 GM PACK PO PRN (04:05)
[2022-01-02] MEDS ORDERED: Nursing to Pharmacy Communication SCH (05:00)
--- NOTE | 2022-01-02 05:50 | Electrocardiogram Report ---
Test Reason : Blood Pressure : / mmHG Vent. Rate : 084 BPM Atrial Rate : 084 BPM P-R Int : 170 ms QRS Dur : 100 ms QT Int : 378 ms P-R-T Axes : 047 -30 040 degrees QTc Int : 446 ms Normal sinus rhythm Left axis deviation Minimal voltage criteria for LVH, may be normal variant Anterolateral infarct Abnormal ECG When compared with ECG of 31-DEC-2021 06:04, Questionable change in initial forces of Anterolateral leads QT has shortened Confirmed by Onur Goncalves ([id number]) on 01/02/2022 5:49:57 AM Referred By: REFERRED SELF Confirmed By:Onur Goncalves
[2022-01-02] MEDS: MECLIZINE 12.5 MG TAB PO PRN (06:18)
[2022-01-02] MEDS: LEVOTHYROXINE SODIUM 125 MCG TABLET PO SCH (06:18)
--- NOTE | 2022-01-02 07:11 | CT Scan Report ---
CT abd pelvis wo con CLINICAL HISTORY: Upper abdominal pain COMPARISON STUDY: 06/28/2017 CT DOSE: 1955.16 mGy.cm TECHNIQUE: Standard CT of the Abdomen and Pelvis was performed without IV contrast. The patient did not receive oral contrast. A dose lowering technique was utilized adhering to the principles of MARY Bro. FINDINGS: Lung base: The lung bases are clear. Linear atelectasis versus scarring is now seen on the left. Abdominal cavity: There is no evidence for abdominal mass, adenopathy or ascites. Liver: The liver is homogeneous in attenuation on these limited noncontrast images.. Spleen: The spleen is homogeneous in attenuation on these limited noncontrast images. Pancreas: The pancreas is homogeneous in attenuation on these limited noncontrast images. Gall Bladder: Surgical clips are present. Adrenal glands: The adrenal glands are normal in size and attenuation on these limited noncontrast im ages. Kidneys: The kidneys are homogeneous in attenuation on these limited noncontrast images. There is a 6 mm nonobstructing right renal calculus and 2, 2 to 3 mm nonobstructing left renal calculi. There is no evidence for hydronephrosis bilaterally. There is no gross renal mass on these limited noncontrast images. Bowel: There is a small hiatal hernia. The bowel loops are normally placed within the abdomen and pel vis without evidence for dilatation or obstruction. There is no evidence for mass lesion. There is mi ld sigmoid diverticulosis. There are no inflammatory changes present. There is no evidence for free a ir. There is a normal appendix in the right lower quadrant. Bladder: There is no evidence for focal bladder wall thickening, calculus or diverticulum. : There is no evidence for pelvic mass or adenopathy. Vasculature: There is no evidence for focal aneurysmal dilatation of the abdominal aorta. Osseous structures: There is no acute osseous pathology. Mild degenerative changes are seen within th e spine. IMPRESSION: 1. Bilateral nonobstructing renal calculi. 2. Otherwise, no acute intra-abdominal or pelvic abnormality on these limited noncontrast images. 3. Additional nonacute findings are delineated above. ACT 112: Negative or not required by law. Electronically signed by: Eugene Noyola M.D. 01/02/2022 7:10 AM
[2022-01-02] MEDS: INSULIN ASPART PER UNIT SC SCH ×4 (08:15→22:06)
[2022-01-02 08:23] LABS: Hematocrit (blood only) 43.2 % (37-47); Mean Corpuscular Hemoglobin 26.9 pg (25-34); Mean Corpuscular Hgb Conc 32.4 g/dL (32-36); Mean Corpuscular Volume 82.9 fL (80-100); Platelet Count 276 K/uL (130-400); RDW Coefficient of Variation 15.5 % (11.5-14.5); RDW Standard Deviation 46.9 fL (36.4-46.3); Red Blood Count 5.21 M/uL (4.2-5.4); White Blood Count 7.55 K/uL (4.8-10.8)
[2022-01-02] MEDS: PIPERACILLIN/TAZOBACTAM 4.5 GM in DEXTROSE 5% 100 ML IV SCH ×2 (08:53→16:35)
[2022-01-02] MEDS: busPIRone 5 MG TAB PO SCH ×2 (08:55→19:58)
[2022-01-02] MEDS: PANTOprazole 40 MG TAB PO SCH ×2 (08:56→19:58)
[2022-01-02] MEDS: METOPROLOL SUCC 50MG EXT REL TAB PO SCH ×2 (08:56→19:58)
[2022-01-02] MEDS: VENLAFAXINE HCL XR 150 MG CAPXR PO SCH (08:56)
[2022-01-02] MEDS: lamoTRIgine 100 MG TAB PO SCH ×2 (08:56→19:58)
[2022-01-02] MEDS: DOXYCYCLINE HYCLATE 100 MG CAP PO SCH ×2 (08:57→19:58)
[2022-01-02] MEDS: BENZONATATE 100 MG CAPSULE PO SCH ×3 (08:57→19:58)
[2022-01-02] MEDS: guaiFENesin 600 MG TABCR PO SCH ×2 (08:58→19:59)
[2022-01-02] MEDS: VENLAFAXINE HCL XR 37.5 MG CAPXR PO SCH (08:58)
[2022-01-02] MEDS: ENOXAPARIN INJ 40 MG/0.4 ML SYR SQ SCH ×2 (08:58→20:00)
[2022-01-02] MEDS: DOCUSATE SODIUM/SENNA 50/8.6MG TAB PO SCH (08:59)
[2022-01-02] MEDS: SUMAtriptan succinate 25 MG TAB PO PRN ×2 (09:21→20:43)
[2022-01-02] MEDS: DICLOFENAC SOD 1% GEL 100 GM TUBE EXT SCH ×3 (09:22→19:57)
[2022-01-02 10:10] LABS: BUN Creatinine Ratio 17.8 (10-20); Calcium 8.4 mg/dl (8.5-10.1); Creatinine Clr Calc Pharmacy 72.7 ml/min; Est GFR (African American) 60.6 ml/min; Est GFR (Non-African American) 52.2 ml/min; Potassium 3.6 mmol/L (3.5-5.1)
[2022-01-02] MEDS: CALCIUM CARBONATE 500 MG CHEWABLE TAB PO SCH ×3 (10:23→20:00)
--- NOTE | 2022-01-02 16:38 | Hospitalist Progress Note ---
Date of Service January 02, 2022 Assessment & Plan (1) Hypoxia: (2) Flu-like symptoms: (3) Chest pressure: (4) Chronic diastolic CHF (congestive heart failure): (5) Hypothyroidism: (6) CKD (chronic kidney disease) stage 3, GFR 30-59 ml/min: Plan: #. Flulike symptoms/possible bronchitis #. Chest discomfort #. 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 During initial exam: Patient denies vomiting or diarrhea. Reports having nausea. Also reports having discomfort in the chest and bloating sensation. Patient reported having cough with light yellow sputum. Pt had rt sided reproducible chest pain. Admitting EKG and CXR reviewed. Patient currently requiring oxygen 2 L, continue with nebulization/Tessalon Perles/antibiotic 12/31/incentive spirometer or flutter valve. D-dimer negative. BNP 24. Troponin trend negative c/w zosyn 01/01 -->rocephin 01/02. Concern for developing bacterial pneumonia vs bronchitis c/w home PPI. Wean down O2 as tolerated. #. GAMAL/CKD III Pt developed GAMAL 12/31 2/ hypotension likely due to decreased PO intake Resolved. Resume losartan and aldactone jacqueline, gradually resume home lasix. #. Chronic medical conditions: Chronic diastolic CHF, DM-2, HTN, Anxiety BNP wnl, euvolemic, c/w home dose of lasix continue/resume home meds as and when appropriate. C/w SSI insulin #. DVT Px: Enoxaparin. #. Full Code Disposition: continue supportive care, patient weak, PT/OT, CM to assist with DC planning. Admission and Anticipated Discharge Date Admission Date: January 01, 2022 Subjective Patient seen and examined at bedside for likely flulike symptoms. Patient was lying in bed, on 2 L nasal cannula oxygen, NAD, feels tired/exhausted and reports lighthead/dizziness/report improvement in bloating sensation, reports cough with light yellow sputum --> improving, reports eating better, reports Rt chest pain/costochondritis better w/ voltaren gel, denies any chest pain, denies fever/chills/belly pain/acute changes in bowel or bladder habit/other review of symptoms. Physical Exam Physical Exam: GENERAL: Alert and oriented x3. NAD, on 2L. HEENT: No pallor, no icterus. Pupils equal, round and reactive to light. Oral mucosa moist. NECK: No JVD, no neck masses. HEART: S1 and S2 heard. Regular rate and rhythm. No murmur, no gallop. RESPIRATORY SYSTEM: Normal AP diameter. No accessory muscle use. No wheezing, no crackles. ABDOMEN: Soft, bowel sounds present, nontender, no distention. CENTRAL NERVOUS SYSTEM: No facial droop. Speech is clear. Obeys simple comman ds. Moves extremities. EXTREMITIES: No edema, no erythema seen. Results & Data Results & Data ([facility]) Vital Signs (Past 12 Hours) Vital Signs Temp Pulse Pulse Resp BP BP Pulse Ox 01/02/22 15:19 36.5 C 70 18 133/81 94 01/02/22 14:23 72 01/02/22 13:43 100 01/02/22 11:56 36.6 C 72 18 138/77 99 01/02/22 07:54 37.0 C 73 18 125/75 93 01/02/22 06:26 71
[2022-01-02] MEDS: rOPINIRole HCL 1 MG TABLET PO SCH (19:57)
[2022-01-02] MEDS: QUEtiapine FUMARATE 300 MG TABLET PO SCH (19:58)
[2022-01-02] MEDS: diazePAM 2 MG TABLET PO PRN (19:58)
[2022-01-02] MEDS: traZODone HCL 50 MG TAB PO SCH (19:59)
--- NOTE | 2022-01-02 22:25 | Electrocardiogram Report ---
Test Reason : Blood Pressure : / mmHG Vent. Rate : 085 BPM Atrial Rate : 085 BPM P-R Int : 166 ms QRS Dur : 104 ms QT Int : 364 ms P-R-T Axes : 048 -24 042 degrees QTc Int : 433 ms Normal sinus rhythm Incomplete right bundle branch block Poor R wave progression, consider anterior ME vs. lead placement vs. LVH Abnormal ECG When compared with ECG of 31-DEC-2021 13:57, Incomplete right bundle branch block is now Present Confirmed by Onur Goncalves ([id number]) on 01/02/2022 10:25:27 PM Referred By: REFERRED SELF Confirmed By:Onur Goncalves
[2022-01-03] MEDS: DICLOFENAC SOD 1% GEL 100 GM TUBE EXT SCH ×4 (02:51→20:05)
[2022-01-03] MEDS: LEVOTHYROXINE SODIUM 125 MCG TABLET PO SCH (05:56)
[2022-01-03] MEDS: INSULIN ASPART PER UNIT SC SCH ×4 (07:54→20:12)
[2022-01-03] MEDS: lamoTRIgine 100 MG TAB PO SCH ×2 (07:54→20:08)
[2022-01-03] MEDS: PANTOprazole 40 MG TAB PO SCH ×2 (07:54→20:10)
[2022-01-03] MEDS: ENOXAPARIN INJ 40 MG/0.4 ML SYR SQ SCH ×2 (07:54→20:07)
[2022-01-03] MEDS: DOXYCYCLINE HYCLATE 100 MG CAP PO SCH ×2 (07:55→20:05)
[2022-01-03] MEDS: VENLAFAXINE HCL XR 37.5 MG CAPXR PO SCH (07:55)
[2022-01-03] MEDS: busPIRone 5 MG TAB PO SCH ×2 (07:55→20:06)
[2022-01-03] MEDS: METOPROLOL SUCC 50MG EXT REL TAB PO SCH ×2 (07:55→20:09)
[2022-01-03] MEDS: guaiFENesin 600 MG TABCR PO SCH ×2 (07:55→20:07)
[2022-01-03] MEDS: DOCUSATE SODIUM/SENNA 50/8.6MG TAB PO SCH (07:55)
[2022-01-03] MEDS: BENZONATATE 100 MG CAPSULE PO SCH ×3 (07:55→20:06)
[2022-01-03] MEDS: VENLAFAXINE HCL XR 150 MG CAPXR PO SCH (07:55)
[2022-01-03] MEDS: cefTRIAXone SODIUM 2,000 MG in DEXTROSE 5% 50 ML IV SCH (08:06)
[2022-01-03 08:09] LABS: BUN Creatinine Ratio 16.7 (10-20); Calcium 8.5 mg/dl (8.5-10.1); Creatinine Clr Calc Pharmacy 84.3 ml/min; Est GFR (African American) 72.2 ml/min; Est GFR (Non-African American) 62.3 ml/min; Magnesium 1.8 mg/dl (1.7-2.4); Potassium 3.6 mmol/L (3.5-5.1)
--- NOTE | 2022-01-03 08:44 | Hospitalist Progress Note ---
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 During initial exam: Patient denies vomiting or diarrhea. Reports having nausea. Also reports burgess ving discomfort in the chest and bloating sensation. Patient reported having cough with light yellow sputum. Pt had rt sided reproducible chest pain. Admitting EKG and CXR reviewed. Patient currently requiring oxygen 2 L, continue with nebulization/Tessalon Perles/antibiotic 12/31/incentive spirometer or flutter valve. D-dimer negative. BNP 24. Troponin trend negative c/w zosyn 01/01 -->rocephin 01/02. Concern for developing bacterial pneumonia vs bronchitis c/w home PPI. Wean down O2 as tolerated. GAMAL/CKD III Pt developed GAMAL 12/31 2/2 hypotension likely due to decreased PO intake Resolved. Resume losartan and aldactone, gradually resume home lasix. Chronic medical conditions: Chronic diastolic CHF, DM-2, HTN, Anxiety BNP wnl, euvolemic, c/w home dose of lasix continue/resume home meds as and when appropriate. C/w SSI insulin Depression/Anxiety/ hx of BURGESS/ difficulty sleeping - on seroquel, effexor, buspar,lamictal,, trazodone, valium prn Patient reports following with psychiatry and psychology. No new medication changes recently. Hx of dizziness -patient reports being diagnosed with Mnire's disease several years ago, and followed with a provider in [place] Hx of weakness, fibromyalgia -patient reports that she was also seen for her weakness at the [facility], by neurologist, Dr. Turner. Previously followed with Dr. Arora and Dr. Pedro. 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 DVT Px: Enoxaparin. Full Code Disposition: continue supportive care, patient weak, PT/OT, CM to assist with DC planning. Admission and Anticipated Discharge Date Admission Date: January 01, 2022 Subjective Patient seen in follow up of flulike symptoms, weakness. Patient is lying in bed in NAD Reports she continues to feel weak and also dizzy when she stands up Reports breathing is much better, and cough also improved She is able to speak in full sentences denies chest pain, denies fever/chills/belly pain/acute changes in bowel or bladder habit/other review of symptoms. Patient mentions that she was diagnosed with Mnire's disease, some years ago, and followed-up with a physician in [place]. She was also seen for her weakness at the [facility], by neurologist, Dr. Turner. Previously followed with Dr. Arora and Dr. Pedor. In addition patient is on multiple psych/neuro medications, reports she follows with psychiatrist and psychologist. However no new medications were started recently or changed. Review of Systems Review of Systems: All systems reviewed & are unremarkable except as noted in Subjective Physical Exam Physical Exam: GENERAL: Alert and oriented x3. NAD HEENT: No pallor, no icterus. Pupils equal, round and reactive to light. Oral mucosa moist. NECK: No JVD, no neck masses. HEART: S1 and S2 heard. Regular rate and rhythm. No murmur, no gallop. RESPIRATORY: Normal AP diameter. No accessory muscle use. No wheezing, no crackles. ABDOMEN: Soft, bowel sounds present, nontender, no distention. NEURO: No facial droop. Speech is clear. Obeys simple commands. Moves extremities. EXTREMITIES: No edema, no erythema noted. Results & Data Results & Data ([facility]) Vital Signs (Past 12 Hours) Vital Signs Temp Pulse Pulse Resp BP BP Pulse Ox 01/03/22 07:36 36.6 C 68 18 121/77 96 01/03/22 03:14 36.6 C 70 18 106/69 96 01/02/22 23:43 66 01/02/22 22:42 36.7 C 68 18 90/54 L 96 Laboratory Results 01/03/22 01/03/22 01/02/22 Range/Units 07:26 06:58 20:19 Sodium 140 (136-145) mmol/L Potassium 3.6 (3.5-5.1) mmol/L Chloride 106 (98-107) mmol/L Carbon Dioxide 32 (21-32) mmol/L Anion Gap 2 L (3-11) BUN 17 (6-23) mg/dl Creatinine 1.02 (0.6-1.2) mg/dl Est Cr Clr Drug Dosing 84.3 ml/min Est GFR ( Amer) 72.2 ml/min Est GFR (Non-Af Amer) 62.3 ml/min BUN/Creatinine Ratio 16.7 (10-20) Glucose 72 (70-99(Fasting)) mg/dl POC Glucose 73 100 H (70-99) mg/dl Calcium 8.5 (8.5-10.1) mg/dl Magnesium 1.8 (1.7-2.4) mg/dl 01/02/22 01/02/22 01/02/22 Range/Units 16:31 11:46 11:31 Sodium (136-145) mmol/L Potassium (3.5-5.1) mmol/L Chloride (98-107) mmol/L Carbon Dioxide (21-32) mmol/L Anion Gap (3-11) BUN (6-23) mg/dl Creatinine (0.6-1.2) mg/dl Est Cr Clr Drug Dosing ml/min Est GFR ( Amer) ml/min Est GFR (Non-Af Amer) ml/min BUN/Creatinine Ratio (10-20) Glucose (70-99(Fasting)) mg/dl POC Glucose 81 80 75 (70-99) mg/dl Calcium (8.5-10.1) mg/dl Magnesium (1.7-2.4) mg/dl 01/02/22 01/02/22 Range/Units 11:29 08:02 Sodium 141 (136-145) mmol/L Potassium 3.6 (3.5-5.1) mmol/L Chloride 107 (98-107) mmol/L Carbon Dioxide 28 (21-32) mmol/L Anion Gap 6 (3-11) BUN 21 (6-23) mg/dl Creatinine 1.18 (0.6-1.2) mg/dl Est Cr Clr Drug Dosing 72.7 ml/min Est GFR ( Amer) 60.6 ml/min Est GFR (Non-Af Amer) 52.2 ml/min BUN/Creatinine Ratio 17.8 (10-20) Glucose 103 H (70-99(Fasting)) mg/dl POC Glucose 67 L* (70-99) mg/dl Calcium 8.4 L (8.5-10.1) mg/dl Magnesium (1.7-2.4) mg/dl Medications Administered Current Inpatient Medications Acetaminophen (Acetaminophen 325 Mg Tab) 650 mg PO Q4H PRN PRN Reason: Pain Stop: 01/30/22 09:21 Last Admin: 01/01/22 13:14 Dose: 650 mg Documented by: Albuterol (Albuterol Hfa 8 Gm Inhaler) 2 puffs INH Q4 PRN PRN Reason: Shortness Of Breath Or Wheezing Stop: 01/29/22 21:51 Last Admin: 01/01/22 17:31 Dose: 2 puffs Documented by: Benzonatate (Benzonatate 100 Mg Capsule) 100 mg PO TID [facility] Stop: 01/30/22 13:59 Last Admin: 01/03/22 07:55 Dose: 100 mg Documented by: Buspirone HCl (Buspirone 5 Mg Tab) 10 mg PO BID [facility] Stop: 01/29/22 21:51 Last Admin: 01/03/22 07:55 Dose: 10 mg Documented by: Calcium Carbonate (Calcium Carbonate 500 Mg Chewable Tab) 1,000 mg PO TID@1000,1500,2200 [facility] Stop: 01/04/22 15:01 Last Admin: 01/02/22 20:00 Dose: 1,000 mg Documented by: Chlorthalidone (Chlorthalidone 25 Mg Tab) 50 mg PO QAM [facility] Stop: 01/30/22 08:59 Last Admin: 01/01/22 09:01 Dose: Not Given Documented by: Dextrose (Dextrose 50% 50 Ml Syringe) 25 - 50 ml IV UD PRN; Protocol PRN Reason: Hypoglycemia Protocol Stop: 01/29/22 21:51 Diazepam (Diazepam 2 Mg Tablet) 2 mg PO BID PRN PRN Reason: Anxiety Stop: 01/29/22 21:51 Last Admin: 01/02/22 19:58 Dose: 2 mg Documented by: Diclofenac Sodium (Diclofenac Sod 1% Gel 100 Gm Tube) 2 gm EXT Q6H [facility] Stop: 02/01/22 08:44 Last Admin: 01/03/22 07:54 Dose: 2 gm Documented by: Doxycycline Hyclate (Doxycycline Hyclate 100 Mg Cap) 100 mg PO BID@0800,1999 [facility]; Protocol Stop: 01/08/22 19:59 Last Admin: 01/03/22 07:55 Dose: 100 mg Documented by: Enoxaparin Sodium (Enoxaparin Inj 40 Mg/0.4 Ml Syr) 40 mg SQ Q12H [facility] Stop: 01/30/22 08:59 Last Admin: 01/03/22 07:54 Dose: 40 mg Documented by: Fluticasone Propionate (Fluticasone Propionate Na Spr 16 Gm Btl) 2 sprays NA DAILY PRN PRN Reason: Nasal Congestion Stop: 01/29/22 21:51 Furosemide (Furosemide 40 Mg Tab) 40 mg PO QAM [facility] Stop: 01/30/22 08:59 Last Admin: 12/31/21 08:52 Dose: 40 mg Documented by: Glucose (Glucose 10 Tabs/Tube) 4 - 8 tabs PO UD PRN; Protocol PRN Reason: Hypoglycemia Protocol Stop: 01/29/22 21:51 Glucose (Glucose 40% Gel 15 Gm Tube) 15 - 30 gm PO UD PRN; Protocol PRN Reason: Hypoglycemia Protocol Stop: 01/29/22 21:51 Guaifenesin (Guaifenesin 600 Mg Tabcr) 1,200 mg PO Q12 [facility] Stop: 01/30/22 13:34 Last Admin: 01/03/22 07:55 Dose: 1,200 mg Documented by: Promethazine HCl 12.5 mg/ (Sodium Chloride) 50.5 mls @ 202 mls/hr IV Q6H PRN PRN Reason: Nausea And Vomiting Stop: 01/29/22 23:58 Last Infusion: 01/01/22 00:42 Dose: Infused Documented by: Ceftriaxone Sodium 2,000 mg/ (Dextrose) 70 mls @ 100 mls/hr IV DAILY [facility]; Protocol Stop: 01/05/22 09:41 Last Admin: 01/03/22 08:06 Dose: 100 mls/hr Documented by: Insulin Aspart (Insulin Aspart Per Unit) 0 units SC ACHS [facility] Stop: 01/29/22 21:51 Last Admin: 01/03/22 07:54 Dose: Not Given Documented by: Lamotrigine (Lamotrigine 100 Mg Tab) 200 mg PO BID [facility] Stop: 01/29/22 21:51 Last Admin: 01/03/22 07:54 Dose: 200 mg Documented by: Levothyroxine Sodium (Levothyroxine Sodium 125 Mcg Tablet) 125 mcg PO DAILYBB [facility] Stop: 01/30/22 06:29 Last Admin: 01/03/22 05:56 Dose: 125 mcg Documented by: Losartan Potassium (Losartan Potassium 50 Mg Tab) 100 mg PO QAM [facility] Stop: 01/30/22 08:59 Last Admin: 12/31/21 08:53 Dose: 100 mg Documented by: Meclizine HCl (Meclizine 12.5 Mg Tab) 12.5 mg PO QID PRN PRN Reason: Dizziness or Vertigo Stop: 01/30/22 23:18 Last Admin: 01/02/22 06:18 Dose: 12.5 mg Documented by: Melatonin (Melatonin 3 Mg Tab) 3 mg PO HS PRN PRN Reason: Sleep Stop: 01/30/22 19:55 Last Admin: 12/31/21 21:59 Dose: 3 mg Documented by: Metoprolol Succinate (Metoprolol Succ 50mg Ext Rel Tab) 100 mg PO BID [facility] Stop: 01/29/22 21:59 Last Admin: 01/03/22 07:55 Dose: 100 mg Documented by: Miconazole Nitrate (Miconazole Nitrate Powder 43 Gm) 1 appln EXT PRN PRN PRN Reason: Affected Skin Folds Stop: 01/30/22 19:52 Last Admin: 12/31/21 22:08 Dose: 1 appln Documented by: Miscellaneous (Carbohydrates For Hypoglycemia ) 15 - 30 gm PO UD PRN PRN Reason: Hypoglycemia Protocol Stop: 01/29/22 21:51 Naproxen (Naproxen 250 Mg Tab) 500 mg PO BID [facility] Stop: 01/29/22 20:59 Last Admin: 12/31/21 22:03 Dose: 500 mg Documented by: Pantoprazole Sodium (Pantoprazole 40 Mg Tab) 40 mg PO BID [facility] Stop: 01/29/22 21:59 Last Admin: 01/03/22 07:54 Dose: 40 mg Documented by: Polyethylene Glycol (Polyethylene (Miralax) 17 Gm Pack) 17 gm PO DAILY PRN PRN Reason: Constipation Stop: 02/01/22 04:04 Quetiapine Fumarate (Quetiapine Fumarate 300 Mg Tablet) 300 mg PO HS [facility] Stop: 01/29/22 21:51 Last Admin: 01/02/22 19:58 Dose: 300 mg Documented by: Ropinirole HCl (Ropinirole Hcl 1 Mg Tablet) 5 mg PO [facility] Stop: 01/29/22 21:51 Last Admin: 01/02/22 19:57 Dose: 5 mg Documented by: Senna/Docusate Sodium (Docusate Sodium/Senna 50/8.6mg Tab) [facility] [place]: 02/01/22 04:04 Last Admin: 01/03/22 07:55 Dose: 1 tab Documented by: Spironolactone (Spironolactone 25 Mg Tab) [facility] [place]: 01/30/22 08:59 Last Admin: 12/31/21 08:53 Dose: 25 mg Documented by: Sumatriptan Succinate (Sumatriptan Succinate 25 Mg Tab) 25 mg PO Q8H PRN PRN Reason: Migraine Headache Stop: 01/30/22 09:22 Last Admin: 01/02/22 20:43 Dose: 25 mg Documented by: Trazodone HCl (Trazodone Hcl 50 Mg Tab) 150 mg PO [facility] Stop: 01/29/22 21:51 Last Admin: 01/02/22 19:59 Dose: 150 mg Documented by: Venlafaxine HCl (Venlafaxine Hcl Xr 37.5 Mg Capxr) 37.5 [facility] [place]: 01/30/22 08:59 Last Admin: 01/03/22 07:55 Dose: 37.5 mg Documented by: Venlafaxine HCl (Venlafaxine Hcl Xr 150 Mg Capxr) 150 [facility] [place]: 01/30/22 08:59 Last Admin: 01/03/22 07:55 Dose: 150 mg Documented by:
[2022-01-03] MEDS: CALCIUM CARBONATE 500 MG CHEWABLE TAB PO SCH ×3 (09:48→20:11)
[2022-01-03] MEDS: LOSARTAN POTASSIUM 50 MG TAB PO SCH (09:49)
[2022-01-03] MEDS: SPIRONOLACTONE 25 MG TAB PO SCH (09:49)
[2022-01-03] MEDS: SUMAtriptan succinate 25 MG TAB PO PRN (11:24)
[2022-01-03] MEDS: rOPINIRole HCL 1 MG TABLET PO SCH (20:04)
[2022-01-03] MEDS: diazePAM 2 MG TABLET PO PRN (20:05)
[2022-01-03] MEDS: traZODone HCL 50 MG TAB PO SCH (20:05)
[2022-01-03] MEDS: MECLIZINE 12.5 MG TAB PO PRN (20:05)
[2022-01-03] MEDS: QUEtiapine FUMARATE 300 MG TABLET PO SCH (20:10)
[2022-01-04] MEDS: DICLOFENAC SOD 1% GEL 100 GM TUBE EXT SCH ×4 (03:21→21:48)
[2022-01-04] MEDS: LEVOTHYROXINE SODIUM 125 MCG TABLET PO SCH (05:45)
[2022-01-04 08:12] LABS: Hematocrit (blood only) 43.5 % (37-47); Hemoglobin 14.5 g/dL (12.0-16.0); Mean Corpuscular Hemoglobin 27.5 pg (25-34); Mean Corpuscular Hgb Conc 33.3 g/dL (32-36); Mean Corpuscular Volume 82.5 fL (80-100); Mean Platelet Volume 9.2 fL (7.4-10.4); Platelet Count 281 K/uL (130-400); RDW Coefficient of Variation 15.1 % (11.5-14.5); RDW Standard Deviation 45.6 fL (36.4-46.3); Red Blood Count 5.27 M/uL (4.2-5.4); White Blood Count 7.71 K/uL (4.8-10.8)
[2022-01-04] MEDS: VENLAFAXINE HCL XR 37.5 MG CAPXR PO SCH (08:44)
[2022-01-04] MEDS: VENLAFAXINE HCL XR 150 MG CAPXR PO SCH (08:44)
[2022-01-04] MEDS: LOSARTAN POTASSIUM 50 MG TAB PO SCH (08:44)
[2022-01-04] MEDS: SPIRONOLACTONE 25 MG TAB PO SCH (08:44)
[2022-01-04] MEDS: PANTOprazole 40 MG TAB PO SCH ×2 (08:44→21:53)
[2022-01-04 08:45] LABS: BUN Creatinine Ratio 15.8 (10-20); Calcium 9.1 mg/dl (8.5-10.1); Creatinine Clr Calc Pharmacy 84.6 ml/min; Est GFR (African American) 73.1 ml/min; Est GFR (Non-African American) 63.1 ml/min; Magnesium 1.8 mg/dl (1.7-2.4); Phosphorus 2.9 mg/dl (2.5-4.9); Potassium 3.7 mmol/L (3.5-5.1)
[2022-01-04] MEDS: DOCUSATE SODIUM/SENNA 50/8.6MG TAB PO SCH (08:45)
[2022-01-04] MEDS: guaiFENesin 600 MG TABCR PO SCH ×2 (08:45→21:50)
[2022-01-04] MEDS: lamoTRIgine 100 MG TAB PO SCH ×2 (08:45→21:52)
[2022-01-04] MEDS: busPIRone 5 MG TAB PO SCH ×2 (08:45→21:49)
[2022-01-04] MEDS: DOXYCYCLINE HYCLATE 100 MG CAP PO SCH ×2 (08:46→21:48)
[2022-01-04] MEDS: BENZONATATE 100 MG CAPSULE PO SCH ×3 (08:46→21:49)
[2022-01-04] MEDS: METOPROLOL SUCC 50MG EXT REL TAB PO SCH ×2 (08:47→21:53)
[2022-01-04] MEDS: INSULIN ASPART PER UNIT SC SCH ×4 (08:53→23:57)
[2022-01-04] MEDS: ACETAMINOPHEN 325 MG TAB PO PRN ×2 (09:14→22:07)
[2022-01-04] MEDS: ENOXAPARIN INJ 40 MG/0.4 ML SYR SQ SCH ×2 (09:15→21:50)
[2022-01-04] MEDS: cefTRIAXone SODIUM 2,000 MG in DEXTROSE 5% 50 ML IV SCH (09:15)
[2022-01-04] MEDS: CALCIUM CARBONATE 500 MG CHEWABLE TAB PO SCH ×2 (09:16→16:59)
--- NOTE | 2022-01-04 10:08 | Hospitalist Progress Note ---
Date of Service January 04, 2022 Assessment & Plan (1) Hypoxia: (2) Flu-like symptoms: (3) Chest pressure: (4) Chronic diastolic CHF (congestive heart failure): (5) Hypothyroidism: (6) CKD (chronic kidney disease) stage 3, GFR 30-59 ml/min: Plan: Flulike symptoms/possible bronchitis Chest discomfort Likely costochondritis Patient reports having sore throat, congestion and stuffy nose since 2 days [employer], worsening to shortness of breath with chills 1 day [employer] in the evening leading to low pulse ox reading to 81 to 85% at home on the day of arrival. During initial exam: Patient denies vomiting or diarrhea. Reports having nausea. Also reports burgess ving discomfort in the chest and bloating sensation. Patient reported having cough with light yellow sputum. Pt had rt sided reproducible chest pain. Admitting EKG and CXR reviewed. Patient was requiring oxygen, continued with nebulization/Tessalon Perles/antibiotic 12/31/incentive spirometer or flutter valve. D-dimer negative. BNP 24. Troponin trend negative c/w zosyn 01/01 -->rocephin 01/02. Concern for developing bacterial pneumonia vs bronchitis c/w home PPI. Wean down O2 as tolerated. 01/04 - Pt is breathing comfortably on RA GAMAL/CKD III Pt developed GAMAL 12/31 22 hypotension likely due to decreased PO intake Resolved. Resume losartan and aldactone, gradually resume home lasix. Chronic medical conditions: Chronic diastolic CHF, DM-2, HTN, Anxiety BNP wnl, euvolemic, c/w home dose of lasix continue/resume home meds as and when appropriate. C/w SSI insulin Depression/Anxiety/ hx of BURGESS/ difficulty sleeping - on seroquel, effexor, buspar,lamictal,, trazodone, valium prn Patient reports following with psychiatry and psychology. No new medication changes recently. Hx of dizziness -patient reports being diagnosed with Mnire's disease several years ago, and followed with a provider in [place] Hx of weakness, fibromyalgia -patient reports that she was also seen for her weakness at the [facility], by neurologist, Dr. Turner. Previously followed with Dr. Arora and Dr. Pedro. 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 01/04 -patient continues to be feeling dizzy and weak. She was orthostatic during PT session. Will repeat orthostatic vital signs. DVT Px: Enoxaparin. Full Code Disposition: continue supportive care, patient weak, PT/OT, CM to assist with DC planning. Admission and Anticipated Discharge Date Admission Date: January 01, 2022 Subjective Patient seen in follow up of flulike symptoms, weakness. Patient is lying in bed in NAD, breathing on RA Reports breathing is much better, and cough also improved She is able to speak in full sentences Reports she continues to feel weak and also dizzy when she stands up. 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 Will repeat orthostatic vital signs. Denies chest pain, denies fever/chills/belly pain/acute changes in bowel or bladder habit/other review of symptoms. Patient mentions that she was diagnosed with Mnire's disease, some years ago, and followed-up with a physician in [place]. She was also seen for her weakness at the [facility], by neurologist, Dr. Turner. Previously followed with Dr. Arora and Dr. Pedro. In addition patient is on multiple psych/neuro medications, reports she follows with psychiatrist and psychologist. However no new medications were started recently or changed. Review of Systems Review of Systems: All systems reviewed & are unremarkable except as noted in Subjective Physical Exam Physical Exam: GENERAL: Alert and oriented x3. NAD HEENT: No pallor, no icterus. Pupils equal, round and reactive to light. Oral mucosa moist. NECK: No JVD, no neck masses. HEART: S1 and S2 heard. Regular rate and rhythm. No murmur, no gallop. RESPIRATORY: Normal AP diameter. No accessory muscle use. No wheezing, no crackles. ABDOMEN: Soft, bowel sounds present, nontender, no distention. NEURO: No facial droop. Speech is clear. Obeys simple commands. Moves extr emities. EXTREMITIES: No edema, no erythema noted. Results & Data Results & Data ([facility]) Vital Signs (Past 12 Hours) Vital Signs Temp Pulse Resp BP Pulse Ox 01/04/22 07:45 37 C 69 18 149/73 H 94 01/04/22 04:00 36.7 C 66 18 135/74 96 01/03/22 23:57 36.6 C 76 18 135/75 94 Laboratory Results 01/04/22 01/04/22 01/03/22 Range/Units 07:58 07:58 16:47 WBC 7.71 (4.8-10.8) K/uL RBC 5.27 (4.2-5.4) M/uL Hgb 14.5 (12.0-16.0) g/dL Hct 43.5 (37-47) % MCV 82.5 (80-100) fL MCH 27.5 (25-34) pg MCHC 33.3 (32-36) g/dL RDW Std Deviation 45.6 (36.4-46.3) fL RDW Coeff of Nasima 15.1 H (11.5-14.5) % Plt Count 281 (130-400) K/uL MPV 9.2 (7.4-10.4) fL Sodium 138 (136-145) mmol/L Potassium 3.7 (3.5-5.1) mmol/L Chloride 102 (98-107) mmol/L Carbon Dioxide 31 (21-32) mmol/L Anion Gap 5 (3-11) BUN 16 (6-23) mg/dl Creatinine 1.01 (0.6-1.2) mg/dl Est Cr Clr Drug Dosing 84.6 ml/min Est GFR ( Amer) 73.1 ml/min Est GFR (Non-Af Amer) 63.1 ml/min BUN/Creatinine Ratio 15.8 (10-20) Glucose 80 (70-99(Fasting)) mg/dl POC Glucose 85 (70-99) mg/dl Calcium 9.1 (8.5-10.1) mg/dl Phosphorus 2.9 (2.5-4.9) mg/dl Magnesium 1.8 (1.7-2.4) mg/dl 01/03/22 Range/Units 11:23 WBC (4.8-10.8) K/uL RBC (4.2-5.4) M/uL Hgb (12.0-16.0) g/dL Hct (37-47) % MCV (80-100) fL MCH (25-34) pg MCHC (32-36) g/dL RDW Std Deviation (36.4-46.3) fL RDW Coeff of Nasima (11.5-14.5) % Plt Count (130-400) K/uL MPV (7.4-10.4) fL Sodium (136-145) mmol/L Potassium (3.5-5.1) mmol/L Chloride (98-107) mmol/L Carbon Dioxide (21-32) mmol/L Anion Gap (3-11) BUN (6-23) mg/dl Creatinine (0.6-1.2) mg/dl Est Cr Clr Drug Dosing ml/min Est GFR ( Amer) ml/min Est GFR (Non-Af Amer) ml/min BUN/Creatinine Ratio (10-20) Glucose (70-99(Fasting)) mg/dl POC Glucose 82 (70-99) mg/dl Calcium (8.5-10.1) mg/dl Phosphorus (2.5-4.9) mg/dl Magnesium (1.7-2.4) mg/dl Medications Administered Current Inpatient Medications Acetaminophen (Acetaminophen 325 Mg Tab) 650 mg PO Q4H PRN PRN Reason: Pain Stop: 01/30/22 09:21 Last Admin: 01/04/22 09:14 Dose: 650 mg Documented by: Albuterol (Albuterol Hfa 8 Gm Inhaler) 2 puffs INH Q4 PRN PRN Reason: Shortness Of Breath Or Wheezing Stop: 01/29/22 21:51 Last Admin: 01/01/22 17:31 Dose: 2 puffs Documented by: Benzonatate (Benzonatate 100 Mg Capsule) 100 mg PO TID [facility] Stop: 01/30/22 13:59 Last Admin: 01/04/22 08:46 Dose: 100 mg Documented by: Buspirone HCl (Buspirone 5 Mg Tab) 10 mg PO BID [facility] Stop: 01/29/22 21:51 Last Admin: 01/04/22 08:45 Dose: 10 mg Documented by: Calcium Carbonate (Calcium Carbonate 500 Mg Chewable Tab) 1,000 mg PO TID@1000,1500,2200 [facility] Stop: 01/04/22 15:01 Last Admin: 01/04/22 09:16 Dose: 1,000 mg Documented by: Chlorthalidone (Chlorthalidone 25 Mg Tab) 50 mg PO QAM [facility] Stop: 01/30/22 08:59 Last Admin: 01/01/22 09:01 Dose: Not Given Documented by: Dextrose (Dextrose 50% 50 Ml Syringe) 25 - 50 ml IV UD PRN; Protocol PRN Reason: Hypoglycemia Protocol Stop: 01/29/22 21:51 Diazepam (Diazepam 2 Mg Tablet) 2 mg PO BID PRN PRN Reason: Anxiety Stop: 01/29/22 21:51 Last Admin: 01/03/22 20:05 Dose: 2 mg Documented by: Diclofenac Sodium (Diclofenac Sod 1% Gel 100 Gm Tube) 2 gm EXT Q6H TIA Stop: 02/01/22 08:44 Last Admin: 01/04/22 08:43 Dose: 2 gm Documented by: Doxycycline Hyclate (Doxycycline Hyclate 100 Mg Cap) 100 mg PO BID@0800,1999 [facility]; Protocol Stop: 01/08/22 19:59 Last Admin: 01/04/22 08:46 Dose: 100 mg Documented by: Enoxaparin Sodium (Enoxaparin Inj 40 Mg/0.4 Ml Syr) 40 mg SQ Q12H [facility] Stop: 01/30/22 08:59 Last Admin: 01/04/22 09:15 Dose: 40 mg Documented by: Fluticasone Propionate (Fluticasone Propionate Na Spr 16 Gm Btl) 2 sprays NA DAILY PRN PRN Reason: Nasal Congestion Stop: 01/29/22 21:51 Furosemide (Furosemide 40 Mg Tab) 40 mg PO QAM [facility] Stop: 01/30/22 08:59 Last Admin: 12/31/21 08:52 Dose: 40 mg Documented by: Glucose (Glucose 10 Tabs/Tube) 4 - 8 tabs PO UD PRN; Protocol PRN Reason: Hypoglycemia Protocol Stop: 01/29/22 21:51 Glucose (Glucose 40% Gel 15 Gm Tube) 15 - 30 gm PO UD PRN; Protocol PRN Reason: Hypoglycemia Protocol Stop: 01/29/22 21:51 Guaifenesin (Guaifenesin 600 Mg Tabcr) 1,200 mg PO Q12 [facility] Stop: 01/30/22 13:34 Last Admin: 01/04/22 08:45 Dose: 1,200 mg Documented by: Promethazine HCl 12.5 mg/ (Sodium Chloride) 50.5 mls @ 202 mls/hr IV Q6H PRN PRN Reason: Nausea And Vomiting Stop: 01/29/22 23:58 Last Infusion: 01/01/22 00:42 Dose: Infused Documented by: Ceftriaxone Sodium 2,000 mg/ (Dextrose) 70 mls @ 100 mls/hr IV DAILY [facility]; Protocol Stop: 01/05/22 09:41 Last Admin: 01/04/22 09:15 Dose: 70 mls/hr Documented by: Insulin Aspart (Insulin Aspart Per Unit) 0 units SC ACHS [facility] Stop: 01/29/22 21:51 Last Admin: 01/04/22 08:53 Dose: Not Given Documented by: Lamotrigine (Lamotrigine 100 Mg Tab) 200 mg PO BID [facility] Stop: 01/29/22 21:51 Last Admin: 01/04/22 08:45 Dose: 200 mg Documented by: Levothyroxine Sodium (Levothyroxine Sodium 125 Mcg Tablet) 125 mcg PO DAILYBB [facility] Stop: 01/30/22 06:29 Last Admin: 01/04/22 05:45 Dose: 125 mcg Documented by: Losartan Potassium (Losartan Potassium 50 Mg Tab) 100 mg PO QAM [facility] Stop: 01/30/22 08:59 Last Admin: 01/04/22 08:44 Dose: 100 mg Documented by: Meclizine HCl (Meclizine 12.5 Mg Tab) 12.5 mg PO QID PRN PRN Reason: Dizziness or Vertigo Stop: 01/30/22 23:18 Last Admin: 01/03/22 20:05 Dose: 12.5 mg Documented by: Melatonin (Melatonin 3 Mg Tab) 3 mg PO HS PRN PRN Reason: Sleep Stop: 01/30/22 19:55 Last Admin: 12/31/21 21:59 Dose: 3 mg Documented by: Metoprolol Succinate (Metoprolol Succ 50mg Ext Rel Tab) 100 mg PO BID [facility] Stop: 01/29/22 21:59 Last Admin: 01/04/22 08:47 Dose: 100 mg Documented by: Miconazole Nitrate (Miconazole Nitrate Powder 43 Gm) 1 appln EXT PRN PRN PRN Reason: Affected Skin Folds Stop: 01/30/22 19:52 Last Admin: 12/31/21 22:08 Dose: 1 appln Documented by: Miscellaneous (Carbohydrates For Hypoglycemia ) 15 - 30 gm PO UD PRN PRN Reason: Hypoglycemia Protocol Stop: 01/29/22 21:51 Naproxen (Naproxen 250 Mg Tab) 500 mg PO BID [facility] Stop: 01/29/22 20:59 Last Admin: 12/31/21 22:03 Dose: 500 mg Documented by: Pantoprazole Sodium (Pantoprazole 40 Mg Tab) 40 mg PO BID [facility] Stop: 01/29/22 21:59 Last Admin: 01/04/22 08:44 Dose: 40 mg Documented by: Polyethylene Glycol (Polyethylene (Miralax) 17 Gm Pack) 17 gm PO DAILY PRN PRN Reason: Constipation Stop: 02/01/22 04:04 Quetiapine Fumarate (Quetiapine Fumarate 300 Mg Tablet) 300 mg PO [facility] Stop: 01/29/22 21:51 Last Admin: 01/03/22 20:10 Dose: 300 mg Documented by: Ropinirole HCl (Ropinirole Hcl 1 Mg Tablet) 5 mg PO [facility] Stop: 01/29/22 21:51 Last Admin: 01/03/22 20:04 Dose: 5 mg Documented by: Senna/Docusate Sodium (Docusate Sodium/Senna 50/8.6mg Tab) 1 tab PO [facility] Stop: 02/01/22 04:04 Last Admin: 01/04/22 08:45 Dose: 1 tab Documented by: Spironolactone ([facility] 25 Mg Tab) [facility] Stop: 01/30/22 08:59 Last Admin: 01/04/22 08:44 Dose: 25 mg Documented by: Sumatriptan Succinate (Sumatriptan Succinate 25 Mg Tab) 25 mg PO Q8H PRN PRN Reason: Migraine Headache Stop: 01/30/22 09:22 Last Admin: 01/03/22 11:24 Dose: 25 mg Documented by: Trazodone HCl (Trazodone Hcl 50 Mg Tab) 150 mg PO [facility] Stop: 01/29/22 21:51 Last Admin: 01/03/22 20:05 Dose: 150 mg Documented by: Venlafaxine HCl (Venlafaxine Hcl Xr 37.5 Mg Capxr) [facility] Stop: 01/30/22 08:59 Last Admin: 01/04/22 08:44 Dose: 37.5 mg Documented by: Venlafaxine HCl (Venlafaxine Hcl Xr 150 Mg Capxr) 150 [facility] Stop: 01/30/22 08:59 Last Admin: 01/04/22 08:44 Dose: 150 mg Documented by:
[2022-01-04] MEDS: PROMETHAZINE HCL 12.5 MG in SODIUM CHLORIDE 0.9% 50 ML IV PRN (12:57)
[2022-01-04] MEDS: QUEtiapine FUMARATE 300 MG TABLET PO SCH (21:53)
[2022-01-04] MEDS: rOPINIRole HCL 1 MG TABLET PO SCH (21:54)
[2022-01-04] MEDS: traZODone HCL 50 MG TAB PO SCH (21:55)
[2022-01-05] MEDS: DICLOFENAC SOD 1% GEL 100 GM TUBE EXT SCH ×4 (03:22→21:12)
[2022-01-05] MEDS: LEVOTHYROXINE SODIUM 125 MCG TABLET PO SCH (04:51)
[2022-01-05] MEDS: PROMETHAZINE HCL 12.5 MG in SODIUM CHLORIDE 0.9% 50 ML IV PRN ×2 (05:51→13:10)
[2022-01-05 07:26] LABS: BUN Creatinine Ratio 16.2 (10-20); Calcium 8.7 mg/dl (8.5-10.1); Creatinine Clr Calc Pharmacy 86.2 ml/min; Est GFR (African American) 74.9 ml/min; Est GFR (Non-African American) 64.6 ml/min; Magnesium 1.8 mg/dl (1.7-2.4); Potassium 3.7 mmol/L (3.5-5.1)
[2022-01-05] MEDS ORDERED: SODIUM CHLORIDE 0.9% 1000ML 500 ML IV ONE (08:32)
--- NOTE | 2022-01-05 08:37 | Hospitalist Progress Note ---
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 During initial exam: Patient denies vomiting or diarrhea. Reports having nausea. Also reports burgess ving discomfort in the chest and bloating sensation. Patient reported having cough with light yellow sputum. Pt had rt sided reproducible chest pain. Admitting EKG and CXR reviewed. Patient was requiring oxygen, continued with nebulization/Tessalon Perles/antibiotic 12/31/incentive spirometer or flutter valve. D-dimer negative. BNP 24. Troponin trend negative c/w zosyn 01/01 -->rocephin 01/02. Concern for developing bacterial pneumonia vs bronchitis c/w home PPI. Wean down O2 as tolerated. 01/04 - Pt is breathing comfortably on RA GAMAL/CKD III Pt developed GAMAL 12/31 22 hypotension likely due to decreased PO intake Resolved. Resume losartan and aldactone, gradually resume home lasix. Chronic medical conditions: Chronic diastolic CHF, DM-2, HTN, Anxiety BNP wnl, euvolemic, c/w home dose of lasix continue/resume home meds as and when appropriate. C/w SSI insulin Depression/Anxiety/ hx of BURGESS/ difficulty sleeping - on seroquel, effexor, buspar, lamictal,, trazodone, valium prn Patient reports following with psychiatry and psychology. No new medication changes recently. Hx of dizziness -patient reports being diagnosed with Mnire's disease several years ago, and followed with a provider in [place] Hx of weakness, fibromyalgia -patient reports that she was also seen for her weakness at the [facility], by neurologist, Dr. Turner. Previously followed with Dr. Arora and Dr. Pedro. 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 01/04 -patient continues to be feeling dizzy and weak. She was orthostatic during PT session. Will repeat orthostatic vital signs. 01/05 -patient no longer orthostatic, however continues to feel dizzy and weak. Discussed with Dr. Diggs, neurology. Especially given her history of meningioma and Mnire's disease, multiple neuropsych medications. Neurology recommends to obtain MRI of brain with contrast. The study was ordered. DVT Px: Enoxaparin. Full Code Disposition: continue supportive care, patient weak, PT/OT, CM to assist with DC planning. Admission and Anticipated Discharge Date Admission Date: January 01, 2022 Subjective Patient seen in follow up of flulike symptoms, weakness. Patient is lying in bed in NAD, breathing on RA Reports breathing is much better, and cough also improved She is able to speak in full sentences Reports she continues to feel weak and also dizzy when she stands up. She was orthostatic while working w/ PT yesterday. She is not orthostatic today, however continues to be very dizzy and weak. Denies chest pain, denies fever/chills/belly pain/acute changes in bowel or bladder habit/other review of symptoms. Patient mentions that she was diagnosed with Mnire's disease, some years ago, and followed-up with a physician in [place]. She was also seen for her weakness at the [facility], by neurologist, Dr. Turner. Previously followed with Dr. Arora and Dr. Pedro. In addition patient is on multiple psych/neuro medications, reports she follows with psychiatrist and psychologist. However no new medications were started recently or changed. Review of Systems Review of Systems: All systems reviewed & are unremarkable except as noted in Subjective Physical Exam Physical Exam: GENERAL: Alert and oriented x3. NAD HEENT: No pallor, no icterus. Pupils equal, round and reactive to light. Oral mucosa moist. NECK: No JVD, no neck masses. HEART: S1 and S2 heard. Regular rate and rhythm. No murmur, no gallop. RESPIRATORY: Normal AP diameter. No accessory muscle use. No wheezing, no crackles. ABDOMEN: Soft, bowel sounds present, nontender, no distention. NEURO: No facial droop. Speech is clear. Obeys simple commands. Moves extremities. EXTREMITIES: No edema, no erythema noted. Results & Data Results & Data ([facility]) Vital Signs (Past 12 Hours) Vital Signs Temp Pulse Pulse Resp BP Pulse Ox 01/05/22 07:20 36.8 C 67 21 129/70 93 01/05/22 04:00 36.9 C 69 18 106/64 94 01/05/22 01:04 74 01/05/22 00:00 36.4 C L 69 18 128/71 93 Laboratory Results 01/05/22 Range/Units 06:22 Sodium 139 (136-145) mmol/L Potassium 3.7 (3.5-5.1) mmol/L Chloride 105 (98-107) mmol/L Carbon Dioxide 27 (21-32) mmol/L Anion Gap 7 (3-11) BUN 16 (6-23) mg/dl Creatinine 0.99 (0.6-1.2) mg/dl Est Cr Clr Drug Dosing 86.2 ml/min Est GFR ( Amer) 74.9 ml/min Est GFR (Non-Af Amer) 64.6 ml/min BUN/Creatinine Ratio 16.2 (10-20) Glucose 80 (70-99(Fasting)) mg/dl Calcium 8.7 (8.5-10.1) mg/dl Magnesium 1.8 (1.7-2.4) mg/dl Medications Administered Current Inpatient Medications Acetaminophen (Acetaminophen 325 Mg Tab) 650 mg PO Q4H PRN PRN Reason: Pain Stop: 01/30/22 09:21 Last Admin: 01/04/22 22:07 Dose: 650 mg Documented by: Albuterol (Albuterol Hfa 8 Gm Inhaler) 2 puffs INH Q4 PRN PRN Reason: Shortness Of Breath Or Wheezing Stop: 01/29/22 21:51 Last Admin: 01/01/22 17:31 Dose: 2 puffs Documented by: Benzonatate (Benzonatate 100 Mg Capsule) 100 mg PO TID [facility] Stop: 01/30/22 13:59 Last Admin: 01/04/22 21:49 Dose: 100 mg Documented by: Buspirone HCl (Buspirone 5 Mg Tab) 10 mg PO BID [facility] Stop: 01/29/22 21:51 Last Admin: 01/04/22 21:49 Dose: 10 mg Documented by: Chlorthalidone (Chlorthalidone 25 Mg Tab) 50 mg PO QAM [facility] Stop: 01/30/22 08:59 Last Admin: 01/01/22 09:01 Dose: Not Given Documented by: Dextrose (Dextrose 50% 50 Ml Syringe) 25 - 50 ml IV UD PRN; Protocol PRN Reason: Hypoglycemia Protocol Stop: 01/29/22 21:51 Diazepam (Diazepam 2 Mg Tablet) 2 mg PO BID PRN PRN Reason: Anxiety Stop: 01/29/22 21:51 Last Admin: 01/03/22 20:05 Dose: 2 mg Documented by: Diclofenac Sodium (Diclofenac Sod 1% Gel 100 Gm Tube) 2 gm EXT Q6H [facility] Stop: 02/01/22 08:44 Last Admin: 01/05/22 03:22 Dose: Not Given Documented by: Doxycycline Hyclate (Doxycycline Hyclate 100 Mg Cap) 100 mg PO BID@0800,1999 [facility]; Protocol Stop: 01/08/22 19:59 Last Admin: 01/04/22 21:48 Dose: 100 mg Documented by: Enoxaparin Sodium (Enoxaparin Inj 40 Mg/0.4 Ml Syr) 40 mg SQ Q12H [facility] Stop: 01/30/22 08:59 Last Admin: 01/04/22 21:50 Dose: 40 mg Documented by: Fluticasone Propionate (Fluticasone Propionate Na Spr 16 Gm Btl) 2 sprays NA DAILY PRN PRN Reason: Nasal Congestion Stop: 01/29/22 21:51 Furosemide (Furosemide 40 Mg Tab) 40 mg PO [facility] Stop: 01/30/22 08:59 Last Admin: 12/31/21 08:52 Dose: 40 mg Documented by: Glucose (Glucose 10 Tabs/Tube) 4 - 8 tabs PO UD PRN; Protocol PRN Reason: Hypoglycemia Protocol Stop: 01/29/22 21:51 Glucose (Glucose 40% Gel 15 Gm Tube) 15 - 30 gm PO UD PRN; Protocol PRN Reason: Hypoglycemia Protocol Stop: 01/29/22 21:51 Guaifenesin (Guaifenesin 600 Mg Tabcr) 1,200 mg PO Q12 [facility] Stop: 01/30/22 13:34 Last Admin: 01/04/22 21:50 Dose: 1,200 mg Documented by: Promethazine HCl 12.5 mg/ (Sodium Chloride) 50.5 mls @ 202 mls/hr IV Q6H PRN PRN Reason: Nausea And Vomiting Stop: 01/29/22 23:58 Last Infusion: 01/05/22 06:11 Dose: Infused Documented by: Ceftriaxone Sodium 2,000 mg/ (Dextrose) 70 mls @ 100 mls/hr IV DAILY [facility]; Protocol Stop: 01/05/22 09:41 Last Infusion: 01/04/22 10:30 Dose: Infused Documented by: Sodium Chloride (Nss 1000ml) 500 mls @ 999 mls/hr IV .Q31M ONE Stop: 01/05/22 09:02 Insulin Aspart (Insulin Aspart Per Unit) 0 units SC ACHS [facility] Stop: 01/29/22 21:51 Last Admin: 01/04/22 23:57 Dose: Not Given Documented by: Lamotrigine (Lamotrigine 100 Mg Tab) 200 mg PO BID [facility] Stop: 01/29/22 21:51 Last Admin: 01/04/22 21:52 Dose: 200 mg Documented by: Levothyroxine Sodium (Levothyroxine Sodium 125 Mcg Tablet) 125 mcg PO DAILYBB [facility] Stop: 01/30/22 06:29 Last Admin: 01/05/22 04:51 Dose: 125 mcg Documented by: Losartan Potassium (Losartan Potassium 50 Mg Tab) 100 mg PO QAM [facility] Stop: 01/30/22 08:59 Last Admin: 01/04/22 08:44 Dose: 100 mg Documented by: Meclizine HCl (Meclizine 12.5 Mg Tab) 12.5 mg PO QID PRN PRN Reason: Dizziness or Vertigo Stop: 01/30/22 23:18 Last Admin: 01/03/22 20:05 Dose: 12.5 mg Documented by: Melatonin (Melatonin 3 Mg Tab) 3 mg PO HS PRN PRN Reason: Sleep Stop: 01/30/22 19:55 Last Admin: 12/31/21 21:59 Dose: 3 mg Documented by: Metoprolol Succinate (Metoprolol Succ 50mg Ext Rel Tab) 100 mg PO BID [facility] Stop: 01/29/22 21:59 Last Admin: 01/04/22 21:53 Dose: 100 mg Documented by: Miconazole Nitrate (Miconazole Nitrate Powder 43 Gm) 1 appln EXT PRN PRN PRN Reason: Affected Skin Folds Stop: 01/30/22 19:52 Last Admin: 12/31/21 22:08 Dose: 1 appln Documented by: Miscellaneous (Carbohydrates For Hypoglycemia ) 15 - 30 gm PO UD PRN PRN Reason: Hypoglycemia Protocol Stop: 01/29/22 21:51 Naproxen (Naproxen 250 Mg Tab) 500 mg PO BID [facility] Stop: 01/29/22 20:59 Last Admin: 12/31/21 22:03 Dose: 500 mg Documented by: Pantoprazole Sodium (Pantoprazole 40 Mg Tab) 40 mg PO BID [facility] Stop: 01/29/22 21:59 Last Admin: 01/04/22 21:53 Dose: 40 mg Documented by: Polyethylene Glycol (Polyethylene (Miralax) 17 Gm Pack) 17 gm PO DAILY PRN PRN Reason: Constipation Stop: 02/01/22 04:04 Quetiapine Fumarate (Quetiapine Fumarate 300 Mg Tablet) 300 mg PO [facility] Stop: 01/29/22 21:51 Last Admin: 01/04/22 21:53 Dose: 300 mg Documented by: Ropinirole HCl (Ropinirole Hcl 1 Mg Tablet) 5 mg PO [facility] Stop: 01/29/22 21:51 Last Admin: 01/04/22 21:54 Dose: 5 mg Documented by: Senna/Docusate Sodium (Docusate Sodium/Senna 50/8.6mg Tab) 1 tab PO [facility] Stop: 02/01/22 04:04 Last Admin: 01/04/22 08:45 Dose: 1 tab Documented by: Spironolactone (Spironolactone 25 Mg Tab) 25 mg PO [facility] Stop: 01/30/22 08:59 Last Admin: 01/04/22 08:44 Dose: 25 mg Documented by: Sumatriptan Succinate (Sumatriptan Succinate 25 Mg Tab) 25 mg PO Q8H PRN PRN Reason: Migraine Headache Stop: 01/30/22 09:22 Last Admin: 01/03/22 11:24 Dose: 25 mg Documented by: Trazodone HCl (Trazodone Hcl 50 Mg Tab) 150 mg PO [facility] Stop: 01/29/22 21:51 Last Admin: 01/04/22 21:55 Dose: 150 mg Documented by: Venlafaxine HCl (Venlafaxine Hcl Xr 37.5 Mg Capxr) 37.5 mg PO QAM [facility] Stop: 01/30/22 08:59 Last Admin: 01/04/22 08:44 Dose: 37.5 mg Documented by: Venlafaxine HCl (Venlafaxine Hcl Xr 150 Mg Capxr) 150 mg PO QAM [facility] Stop: 01/30/22 08:59 Last Admin: 01/04/22 08:44 Dose: 150 mg Documented by:
[2022-01-05] MEDS: INSULIN ASPART PER UNIT SC SCH ×3 (09:09→17:32)
[2022-01-05] MEDS: cefTRIAXone SODIUM 2,000 MG in DEXTROSE 5% 50 ML IV SCH (10:32)
[2022-01-05] MEDS: ACETAMINOPHEN 325 MG TAB PO PRN (10:36)
[2022-01-05] MEDS: DOXYCYCLINE HYCLATE 100 MG CAP PO SCH ×2 (10:37→21:17)
[2022-01-05] MEDS: MECLIZINE 12.5 MG TAB PO PRN ×2 (10:37→21:11)
[2022-01-05] MEDS: DOCUSATE SODIUM/SENNA 50/8.6MG TAB PO SCH (10:38)
[2022-01-05] MEDS: ENOXAPARIN INJ 40 MG/0.4 ML SYR SQ SCH ×2 (10:38→21:12)
[2022-01-05] MEDS: busPIRone 5 MG TAB PO SCH ×2 (10:38→21:17)
[2022-01-05] MEDS: BENZONATATE 100 MG CAPSULE PO SCH ×3 (10:38→21:16)
[2022-01-05] MEDS: lamoTRIgine 100 MG TAB PO SCH ×2 (10:39→21:14)
[2022-01-05] MEDS: guaiFENesin 600 MG TABCR PO SCH ×2 (10:39→21:15)
[2022-01-05] MEDS: LOSARTAN POTASSIUM 50 MG TAB PO SCH (10:39)
[2022-01-05] MEDS: PANTOprazole 40 MG TAB PO SCH ×2 (10:39→21:17)
[2022-01-05] MEDS: METOPROLOL SUCC 50MG EXT REL TAB PO SCH ×2 (10:39→21:15)
[2022-01-05] MEDS: VENLAFAXINE HCL XR 37.5 MG CAPXR PO SCH (10:40)
[2022-01-05] MEDS: VENLAFAXINE HCL XR 150 MG CAPXR PO SCH (10:40)
[2022-01-05] MEDS ORDERED: NAPROXEN 250 MG TAB PO STA (13:11)
[2022-01-05] MEDS: diazePAM 2 MG TABLET PO PRN (19:28)
[2022-01-05] MEDS ORDERED: GADOBUTROL 65ML VIAL IV ONE (20:43)
[2022-01-05] MEDS: NAPROXEN 250 MG TAB PO SCH (21:13)
[2022-01-05] MEDS: traZODone HCL 50 MG TAB PO SCH (21:15)
[2022-01-05] MEDS: rOPINIRole HCL 1 MG TABLET PO SCH (21:16)
[2022-01-05] MEDS: QUEtiapine FUMARATE 300 MG TABLET PO SCH (21:17)
--- NOTE | 2022-01-05 22:59 | Magnetic Resonance Report ---
MR brain wo/w con HISTORY: 56 years-old Female BURGESS,dizziness, hx of meningioma acute headache with dizziness and flulik e symptoms. Prior suboccipital craniectomy. Acute hypoxia. COMPARISON: Brain MRI 10/15/2016, head CT 12/08/2020 TECHNIQUE: Multiplanar multisequence MRI of the brain was obtained both with and without the use of 1 1.5 cc Gadavist FINDINGS: Mildly motion degraded exam. No restricted diffusion to suggest acute or subacute infarct. Midline st ructures are unremarkable. Prior suboccipital craniectomy. Degenerative changes of the imaged cervica l spine. No acute intracranial hemorrhage, midline shift, abnormal extra-axial collection, hydrocepha pablito or intra-axial mass. Cerebral venous sinuses and major arterial flow voids appear patent. Mastoid air cells and paranasal sinuses are generally clear. Prior bilateral lens repair. Progressively worsened moderate T2/FLAIR hyperintense foci are noted throughout the white matter of t he cerebral hemispheres, most pronounced within the frontal lobes. Enhancing dural based extra-axial lesion adjacent to the right anterior clinoid process on image 71 series 12 measures 6 x 5 x 4 mm. Th is previously measured up to 5 mm on the prior study. No additional abnormal enhancement identified. IMPRESSION: 1. Slight enlargement of the probable meningioma adjacent to the right anterior clinoid process now m easuring 6 mm. 2. Prior suboccipital craniectomy. 3. Moderate T2/FLAIR hyperintense foci throughout the white matter have progressed from the prior april dy. Chronic microvascular ischemic disease versus sequela of chronic migraines are differential consi derations. A demyelinating process is considered less likely. ACT 112: Negative or not required by law. The above report was generated using voice recognition software. It may contain grammatical, syntax o r spelling errors. Electronically signed by: Jt Browne M.D. 01/05/2022 10:57 PM
[2022-01-06] MEDS: DICLOFENAC SOD 1% GEL 100 GM TUBE EXT SCH ×4 (01:48→20:23)
[2022-01-06] MEDS: LEVOTHYROXINE SODIUM 125 MCG TABLET PO SCH (05:30)
--- NOTE | 2022-01-06 07:54 | Hospitalist Progress Note ---
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 During initial exam: Patient denies vomiting or diarrhea. Reports having nausea. Also reports h aving discomfort in the chest and bloating sensation. Patient reported having cough with light yellow sputum. Pt had rt sided reproducible chest pain. Admitting EKG and CXR reviewed. Patient was requiring oxygen, continued with nebulization/Tessalon Perles/antibiotic 12/31/incentive spirometer or flutter valve. D-dimer negative. BNP 24. Troponin trend negative c/w zosyn 01/01 -->rocephin 01/02. Concern for developing bacterial pneumonia vs bronchitis c/w home PPI. Wean down O2 as tolerated. 01/04 - Pt is breathing comfortably on RA GAMAL/CKD III Pt developed GAMAL 12/31 22 hypotension likely due to decreased PO intake Resolved. Resume losartan and aldactone, gradually resume home lasix. Chronic medical conditions: Chronic diastolic CHF, DM-2, HTN, Anxiety BNP wnl, euvolemic, c/w home dose of lasix continue/resume home meds as and when appropriate. C/w SSI insulin Depression/Anxiety/ hx of BURGESS/ difficulty sleeping - on seroquel, effexor, buspar, lamictal,, trazodone, valium prn Patient reports following with psychiatry and psychology. No new medication changes recently. Hx of dizziness -patient reports being diagnosed with Mnire's disease several years ago, and followed with a provider in [place] Hx of weakness, fibromyalgia -patient reports that she was also seen for her weakness at the [facility], by neurologist, Dr. Turner. Previously followed with Dr. Arora and Dr. Pedro. 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 01/04 -patient continues to be feeling dizzy and weak. She was orthostatic during PT session. Will repeat orthostatic vital signs. 01/05 -patient no longer orthostatic, however continues to feel dizzy and weak. Discussed with Dr. Diggs, neurology. Especially given her history of meningioma and Mnire's disease, multiple neuropsych medications. Neurology recommends to obtain MRI of brain with contrast. The study was ordered. MRI brain 1. Slight enlargement of the probable meningioma adjacent to the right anterior clinoid process now measuring 6 mm. 2. Prior suboccipital craniectomy. 3. Moderate T2/FLAIR hyperintense foci throughout the white matter have progressed from the prior study. Chronic microvascular ischemic disease versus sequela of chronic migraines are differential considerations. A demyelinating process is considered less likely. 01/06 -Per neurology, likely protracted migraine syndrome with vertigo associated with the upper respiratory tract infection - would recommend a cautious trial of steroids 60 mg a day for 2 days 40 mg a day for 2 days 20 mg a day for 2 days then 10 mg a day for 2 days and stop.Use Antivert as needed for vertigo but if this becomes a more persistent problem then perhaps a reevaluation by ear nose and throat would be in order and this would be something could be done outpatient DVT Px: Enoxaparin. Full Code Disposition: continue supportive care, patient weak, PT/OT, CM to assist with DC planning. Admission and Anticipated Discharge Date Admission Date: January 01, 2022 Subjective Patient seen in follow up of flulike symptoms, weakness. Patient is lying in bed in NAD, breathing on RA Reports breathing is much better, and cough also improved She is able to speak in full sentences Reports she continues to feel weak and also dizzy when she stands up. Denies chest pain, denies fever/chills/belly pain/acute changes in bowel or bladder habit/other review of symptoms. Patient mentions that she was diagnosed with Mnire's disease, some years ago, and followed-up with a physician in [place]. She was also seen for her weakness at the [facility], by neurologist, Dr. Turner. Previously followed with Dr. Arora and Dr. Pedro. In addition patient is on multiple psych/neuro medications, reports she follows with psychiatrist and psychologist. However no new medications were started recently or changed. Review of Systems Review of Systems: All systems reviewed & are unremarkable except as noted in Subjective Physical Exam Physical Exam: GENERAL: Alert and oriented x3. NAD HEENT: No pallor, no icterus. Pupils equal, round and reactive to light. Oral mucosa moist. NECK: No JVD, no neck masses. HEART: S1 and S2 heard. Regular rate and rhythm. No murmur, no gallop. RESPIRATORY: Normal AP diameter. No accessory muscle use. No wheezing, no c rackles. ABDOMEN: Soft, bowel sounds present, nontender, no distention. NEURO: No facial droop. Speech is clear. Obeys simple commands. Moves extremities. EXTREMITIES: No edema, no erythema noted. Results & Data Results & Data ([facility]) Vital Signs (Past 12 Hours) Vital Signs Temp Pulse Pulse Resp BP Pulse Ox 01/06/22 07:10 77 01/05/22 23:00 69 01/05/22 22:46 36.6 C 77 18 118/75 93 01/05/22 20:15 36.9 C 72 20 133/75 93 Diagnostic Findings MRI brain 1. Slight enlargement of the probable meningioma adjacent to the right anterior clinoid process now measuring 6 mm. 2. Prior suboccipital craniectomy. 3. Moderate T2/FLAIR hyperintense foci throughout the white matter have progressed from the prior study. Chronic microvascular ischemic disease versus sequela of chronic migraines are differential considerations. A demyelinating process is considered less likely. Medications Administered Current Inpatient Medications Acetaminophen (Acetaminophen 325 Mg Tab) 650 mg PO Q4H PRN PRN Reason: Pain Stop: 01/30/22 09:21 Last Admin: 01/05/22 10:36 Dose: 650 mg Documented by: Albuterol (Albuterol Hfa 8 Gm Inhaler) 2 puffs INH Q4 PRN PRN Reason: Shortness Of Breath Or Wheezing Stop: 01/29/22 21:51 Last Admin: 01/01/22 17:31 Dose: 2 puffs Documented by: Benzonatate (Benzonatate 100 Mg Capsule) 100 mg PO TID [facility] Stop: 01/30/22 13:59 Last Admin: 01/05/22 21:16 Dose: 100 mg Documented by: Buspirone HCl (Buspirone 5 Mg Tab) 10 mg PO BID [facility] Stop: 01/29/22 21:51 Last Admin: 01/05/22 21:17 Dose: 10 mg Documented by: Chlorthalidone (Chlorthalidone 25 Mg Tab) 50 mg PO QAM [facility] Stop: 01/30/22 08:59 Last Admin: 01/01/22 09:01 Dose: Not Given Documented by: Dextrose (Dextrose 50% 50 Ml Syringe) 25 - 50 ml IV UD PRN; Protocol PRN Reason: Hypoglycemia Protocol Stop: 01/29/22 21:51 Diazepam (Diazepam 2 Mg Tablet) 2 mg PO BID PRN PRN Reason: Anxiety Stop: 01/29/22 21:51 Last Admin: 01/05/22 19:28 Dose: 2 mg Documented by: Diclofenac Sodium (Diclofenac Sod 1% Gel 100 Gm Tube) 2 gm EXT Q6H [facility] Stop: 02/01/22 08:44 Last Admin: 01/06/22 01:48 Dose: Not Given Documented by: Doxycycline Hyclate (Doxycycline Hyclate 100 Mg Cap) 100 mg PO BID@0800,2000 [facility]; Protocol Stop: 01/08/22 19:59 Last Admin: 01/05/22 21:17 Dose: 100 mg Documented by: Enoxaparin Sodium (Enoxaparin Inj 40 Mg/0.4 Ml Syr) 40 mg SQ Q12H [facility] Stop: 01/30/22 08:59 Last Admin: 01/05/22 21:12 Dose: 40 mg Documented by: Fluticasone Propionate (Fluticasone Propionate Na Spr 16 Gm Btl) 2 sprays NA DAILY PRN PRN Reason: Nasal Congestion Stop: 01/29/22 21:51 Furosemide (Furosemide 40 Mg Tab) 40 mg PO QAM [facility] Stop: 01/30/22 08:59 Last Admin: 12/31/21 08:52 Dose: 40 mg Documented by: Glucose (Glucose 10 Tabs/Tube) 4 - 8 tabs PO UD PRN; Protocol PRN Reason: Hypoglycemia Protocol Stop: 01/29/22 21:51 Glucose (Glucose 40% Gel 15 Gm Tube) 15 - 30 gm PO UD PRN; Protocol PRN Reason: Hypoglycemia Protocol Stop: 01/29/22 21:51 Guaifenesin (Guaifenesin 600 Mg Tabcr) 1,200 mg PO Q12 [facility] Stop: 01/30/22 13:34 Last Admin: 01/05/22 21:15 Dose: 1,200 mg Documented by: Promethazine HCl 12.5 mg/ (Sodium Chloride) 50.5 mls @ 202 mls/hr IV Q6H PRN PRN Reason: Nausea And Vomiting Stop: 01/29/22 23:58 Last Infusion: 01/05/22 13:59 Dose: Infused Documented by: Lamotrigine (Lamotrigine 100 Mg Tab) 200 mg PO BID [facility] Stop: 01/29/22 21:51 Last Admin: 01/05/22 21:14 Dose: 200 mg Documented by: Levothyroxine Sodium (Levothyroxine Sodium 125 Mcg Tablet) 125 mcg PO DAILYBB [facility] Stop: 01/30/22 06:29 Last Admin: 01/06/22 05:30 Dose: 125 mcg Documented by: Losartan Potassium (Losartan Potassium 50 Mg Tab) 100 mg PO QAM [facility] Stop: 01/30/22 08:59 Last Admin: 01/05/22 10:39 Dose: 100 mg Documented by: Meclizine HCl (Meclizine 12.5 Mg Tab) 12.5 mg PO QID PRN PRN Reason: Dizziness or Vertigo Stop: 01/30/22 23:18 Last Admin: 01/05/22 21:11 Dose: 12.5 mg Documented by: Melatonin (Melatonin 3 Mg Tab) 3 mg PO HS PRN PRN Reason: Sleep Stop: 01/30/22 19:55 Last Admin: 12/31/21 21:59 Dose: 3 mg Documented by: Metoprolol Succinate (Metoprolol Succ 50mg Ext Rel Tab) 100 mg PO BID [facility] Stop: 01/29/22 21:59 Last Admin: 01/05/22 21:15 Dose: 100 mg Documented by: Miconazole Nitrate (Miconazole Nitrate Powder 43 Gm) 1 appln EXT PRN PRN PRN Reason: Affected Skin Folds Stop: 01/30/22 19:52 Last Admin: 12/31/21 22:08 Dose: 1 appln Documented by: Miscellaneous (Carbohydrates For Hypoglycemia ) 15 - 30 gm PO UD PRN PRN Reason: Hypoglycemia Protocol Stop: 01/29/22 21:51 Naproxen (Naproxen 250 Mg Tab) 500 mg PO BID [facility] Stop: 01/29/22 20:59 Last Admin: 01/05/22 21:13 Dose: 500 mg Documented by: Pantoprazole Sodium (Pantoprazole 40 Mg Tab) 40 mg PO BID [facility] Stop: 01/29/22 21:59 Last Admin: 01/05/22 21:17 Dose: 40 mg Documented by: Polyethylene Glycol (Polyethylene (Miralax) 17 Gm Pack) 17 gm PO DAILY PRN PRN Reason: Constipation Stop: 02/01/22 04:04 Quetiapine Fumarate (Quetiapine Fumarate 300 Mg Tablet) 300 mg PO [facility] Stop: 01/29/22 21:51 Last Admin: 01/05/22 21:17 Dose: 300 mg Documented by: Ropinirole HCl (Ropinirole Hcl 1 Mg Tablet) 5 mg PO [facility] Stop: 01/29/22 21:51 Last Admin: 01/05/22 21:16 Dose: 5 mg Documented by: Senna/Docusate Sodium (Docusate Sodium/Senna 50/8.6mg Tab) 1 tab [facility] [place] Stop: 02/01/22 04:04 Last Admin: 01/05/22 10:38 Dose: 1 tab Documented by: Spironolactone (Spironolactone 25 Mg Tab) 25 mg PO [facility] Stop: 01/30/22 08:59 Last Admin: 01/04/22 08:44 Dose: 25 mg Documented by: Sumatriptan Succinate (Sumatriptan Succinate 25 Mg Tab) 25 mg PO Q8H PRN PRN Reason: Migraine Headache Stop: 01/30/22 09:22 Last Admin: 01/03/22 11:24 Dose: 25 mg Documented by: Trazodone HCl (Trazodone Hcl 50 Mg Tab) 150 mg PO [facility] Stop: 01/29/22 21:51 Last Admin: 01/05/22 21:15 Dose: 150 mg Documented by: Venlafaxine HCl (Venlafaxine Hcl Xr 37.5 Mg Capxr) 37.5 mg PO [facility] [place] Stop: 01/30/22 08:59 Last Admin: 01/05/22 10:40 Dose: 37.5 mg Documented by: Venlafaxine HCl (Venlafaxine Hcl Xr 150 Mg Capxr) 150 mg PO QAM [facility] Stop: 01/30/22 08:59 Last Admin: 01/05/22 10:40 Dose: 150 mg Documented by:
[2022-01-06] MEDS: PANTOprazole 40 MG TAB PO SCH ×2 (08:13→20:26)
[2022-01-06] MEDS: ACETAMINOPHEN 325 MG TAB PO PRN (08:13)
[2022-01-06] MEDS: DOCUSATE SODIUM/SENNA 50/8.6MG TAB PO SCH (08:13)
[2022-01-06] MEDS: BENZONATATE 100 MG CAPSULE PO SCH ×3 (08:13→20:25)
[2022-01-06] MEDS: MECLIZINE 12.5 MG TAB PO PRN ×2 (08:14→14:24)
[2022-01-06] MEDS: DOXYCYCLINE HYCLATE 100 MG CAP PO SCH ×2 (08:14→20:25)
[2022-01-06] MEDS: busPIRone 5 MG TAB PO SCH ×2 (08:14→20:25)
[2022-01-06] MEDS: LOSARTAN POTASSIUM 50 MG TAB PO SCH (08:14)
[2022-01-06] MEDS: ENOXAPARIN INJ 40 MG/0.4 ML SYR SQ SCH ×2 (08:14→20:26)
[2022-01-06] MEDS: NAPROXEN 250 MG TAB PO SCH ×2 (08:15→20:27)
[2022-01-06] MEDS: VENLAFAXINE HCL XR 150 MG CAPXR PO SCH (08:15)
[2022-01-06] MEDS: VENLAFAXINE HCL XR 37.5 MG CAPXR PO SCH (08:15)
[2022-01-06] MEDS: guaiFENesin 600 MG TABCR PO SCH ×2 (08:15→20:28)
[2022-01-06] MEDS: lamoTRIgine 100 MG TAB PO SCH ×2 (08:15→20:23)
[2022-01-06] MEDS: METOPROLOL SUCC 50MG EXT REL TAB PO SCH ×2 (08:15→20:24)
[2022-01-06] MEDS: PROMETHAZINE HCL 12.5 MG in SODIUM CHLORIDE 0.9% 50 ML IV PRN (08:30)
[2022-01-06 09:10] LABS: BUN Creatinine Ratio 15.7 (10-20); Calcium 8.9 mg/dl (8.5-10.1); Est GFR (African American) 72.2 ml/min; Est GFR (Non-African American) 62.3 ml/min
--- NOTE | 2022-01-06 12:08 | Communication Note ---
Date of Service: January 06, 2022 Sofi is 56 years old is right-handed and has now been in the hospital for 5 days with a presumptive upper respiratory tract illness with flulike symptoms hypoxia sore throat headache and vertigo which actually began about a week ago and many of her symptoms have improved including her hypoxemia but the headache and vertigo has persisted Dr. Yadav is asked neurology to evaluate her. We received a consult yesterday I suggested that an MRI be done in light of the history of a sphenoid wing meningioma and some prior white matter changes in addition to her status post Chiari malformation surgery in the remote past and imaging studies were done show a small increase in the size of meningioma but nothing of significance and a little bit more white matter disease which may be small vessel or even migrainous She does have a long history of migraines with periodic episodes of protracted daily headache and is seen multiple neurologists including Dr. 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 I do not believe that physician handles her migraines and for years the migraines have not been that much of an issue and she has taken Imitrex but recently the frequency and severity of the headaches have gotten a little more and p articularly during this upper respiratory tract issue or migrainous symptomatology with photophobia sonophobia have emerged. She does not recall having vertigo with migraines as an aura in the past Other problems include asthma congestive heart failure hypoxemia which is resolved, depression restless leg syndrome, movement disorder, insomnia, prediabetes, chronic stage III renal disease, diastolic congestive heart failure, hypertension and fibromyalgia Home medications are extensive and include albuterol BuSpar chlorthalidone, cholecalciferol, diazepam, fluticasone, Lamictal, levothyroxine, losartan, Metformin, metoprolol, omeprazole, Zofran, Seroquel, Requip, Ozempic, spironolactone, trazodone, Effexor Allergies include bee venom ciprofloxacin azithromycin latex and apparently in the past he has had some issues with high-dose prednisone causing hallucinations and GI upset although today when I asked her specifically about this she denied any significant problems with prednisone Family history social history are all as per the admission history and physical will not be repeated here Review of systems basically is positive for the symptoms of the upper respiratory tract infection with low-grade fever hypoxemia sore throat shortness of breath and the headaches and vertigo. She denies any recent Covid infection and has tested negative There are otherwise no new issues referable to the HEENT, cardiovascular pulmonary gastrointestinal genitourinary musculoskeletal dermatologic or hematologic systems On exam blood pressure 130/78 pulse 66 respirations 18 temperature is 36.9 O2 saturations on room air are 96 She is awake alert oriented 3 spheres room is dark and she feels her headache severity is 5 out of 10 she talks about a little photophobia but not much sonophobia. Eyes movements are normal there is no nystagmus facial motility and strength facial sensation is normal speech is clear neck is supple head movements in all directions do induce some mild short duration subjective vertigo but I do not see any nystagmus. There is no significant movement disorder other than a fine tremor of the outstretched hands worse on the right and no significant superimposed cerebellar dysmetria. There is no [id number] issues no asterixis myoclonus reflexes are all present and equal toes are down no Miranda signs are seen strength testing is normal sensations grossly intact all modalities Imaging studies have been negative in terms of revealing no evidence for new significant lesion and nothing new in the posterior fossa Laboratory studies are as per the chart and reveal no significant metabolic problems at the present time My suspicions are this is a protracted migraine syndrome with vertigo associated with the upper respiratory tract infection and I would recommend a cautious trial of steroids 60 mg a day for 2 days 40 mg a day for 2 days 20 mg a day for 2 days then 10 mg a day for 2 days and stop. I will use Antivert as needed for vertigo but if this becomes a more persistent problem then perhaps a reevaluation by ear nose and throat would be in order and this would be something could be done outpatient I do not think neurology needs to see on a regular basis although she is requested that some of her neurologic care be rendered closer to home. I have suggested that she may want to consider going back to see Dr. Arora who saw her in the remote past I will check back with her tomorrow either by chart or by direct visit I will let Dr. Yadav know my recommendation The above note was generated utilizing voice recognition technology and may have spelling errors punctuation errors pronoun usage errors and syntax errors
[2022-01-06] MEDS: predniSONE 20 MG TAB PO SCH (15:44)
[2022-01-06] MEDS: rOPINIRole HCL 1 MG TABLET PO SCH (20:23)
[2022-01-06] MEDS: traZODone HCL 50 MG TAB PO SCH (20:27)
[2022-01-06] MEDS: QUEtiapine FUMARATE 300 MG TABLET PO SCH (20:28)
[2022-01-07] MEDS: DICLOFENAC SOD 1% GEL 100 GM TUBE EXT SCH ×3 (00:53→13:10)
[2022-01-07] MEDS: ACETAMINOPHEN 325 MG TAB PO PRN ×2 (01:08→13:09)
[2022-01-07] MEDS: LEVOTHYROXINE SODIUM 125 MCG TABLET PO SCH (05:39)
[2022-01-07] MEDS: DOCUSATE SODIUM/SENNA 50/8.6MG TAB PO SCH (08:09)
[2022-01-07] MEDS: BENZONATATE 100 MG CAPSULE PO SCH ×2 (08:09→13:10)
[2022-01-07] MEDS: VENLAFAXINE HCL XR 37.5 MG CAPXR PO SCH (08:10)
[2022-01-07] MEDS: NAPROXEN 250 MG TAB PO SCH (08:10)
[2022-01-07] MEDS: guaiFENesin 600 MG TABCR PO SCH (08:10)
[2022-01-07] MEDS: VENLAFAXINE HCL XR 150 MG CAPXR PO SCH (08:10)
[2022-01-07] MEDS: busPIRone 5 MG TAB PO SCH (08:11)
[2022-01-07] MEDS: DOXYCYCLINE HYCLATE 100 MG CAP PO SCH (08:11)
[2022-01-07] MEDS: LOSARTAN POTASSIUM 50 MG TAB PO SCH (08:11)
[2022-01-07] MEDS: PANTOprazole 40 MG TAB PO SCH (08:12)
[2022-01-07] MEDS: METOPROLOL SUCC 50MG EXT REL TAB PO SCH (08:12)
[2022-01-07] MEDS: predniSONE 20 MG TAB PO SCH (08:12)
[2022-01-07] MEDS: lamoTRIgine 100 MG TAB PO SCH (08:12)
[2022-01-07] MEDS: ENOXAPARIN INJ 40 MG/0.4 ML SYR SQ SCH (08:12)
[2022-01-07] MEDS: MECLIZINE 12.5 MG TAB PO PRN ×2 (08:15→15:21)
--- NOTE | 2022-01-07 10:09 | Hospitalist Progress Note ---
Date of Service January 07, 2022 Assessment & Plan (1) Hypoxia: (2) Flu-like symptoms: (3) Chest pressure: (4) Chronic diastolic CHF (congestive heart failure): (5) Hypothyroidism: (6) CKD (chronic kidney disease) stage 3, GFR 30-59 ml/min: Plan: Flulike symptoms, hypoxia/possible bronchitis Chest discomfort Likely costochondritis Patient reports having sore throat, congestion and stuffy nose since 2 days [employer], worsening to shortness of breath with chills 1 day [employer] in the evening leading to low pulse ox reading to 81 to 85% at home on the day of arrival. During initial exam: Patient denies vomiting or diarrhea. Reports having nausea. Also reports having discomfort in the chest and bloating sensation. Patient reported having cough with light yellow sputum. Pt had rt sided reproducible chest pain. Admitting EKG and CXR reviewed. Patient was requiring oxygen, continued with nebulization/Tessalon Perles/antibiotic 12/31/incentive spirometer or flutter valve. D-dimer negative. BNP 24. Troponin trend negative c/w zosyn 01/01 -->rocephin 01/02. Concern for developing bacterial pneumonia vs bronchitis c/w home PPI. Wean down O2 as tolerated. 01/04 - Pt is breathing comfortably on RA GAMAL/CKD III Pt developed GAMAL 12/31 22 hypotension likely due to decreased PO intake Resolved. Resume losartan and aldactone, gradually resume home lasix. Chronic medical conditions: Chronic diastolic CHF, DM-2, HTN, Anxiety BNP wnl, euvolemic, c/w home dose of lasix continue/resume home meds as and when appropriate. C/w SSI insulin Depression/Anxiety/ hx of BURGESS/ difficulty sleeping - on seroquel, effexor, buspar, lamictal,, trazodone, valium prn Patient reports following with psychiatry and psychology. No new medication changes recently. Hx of dizziness -patient reports being diagnosed with Mnire's disease several years ago, and followed with a provider in [place] Hx of weakness, fibromyalgia -patient reports that she was also seen for her weakness at the [facility], by neurologist, Dr. Turner. Previously followed with Dr. Arora and Dr. Pedro. 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 01/04 -patient continues to be feeling dizzy and weak. She was orthostatic during PT session. Will repeat orthostatic vital signs. 01/05 -patient no longer orthostatic, however continues to feel dizzy and weak. Discussed with Dr. Diggs, neurology. Especially given her history of meningioma and Mnire's disease, multiple neuropsych medications. Neurology recommends to obtain MRI of brain with contrast. The study was ordered. MRI brain 1. Slight enlargement of the probable meningioma adjacent to the right anterior clinoid process now measuring 6 mm. 2. Prior suboccipital craniectomy. 3. Moderate T2/FLAIR hyperintense foci throughout the white matter have progressed from the prior study. Chronic microvascular ischemic disease versus sequela of chronic migraines are differential considerations. A demyelinating process is considered less likely. 01/06 -Per neurology, likely protracted migraine syndrome with vertigo associated with the upper respiratory tract infection - would recommend a cautious trial of steroids 60 mg a day for 2 days 40 mg a day for 2 days 20 mg a day for 2 days then 10 mg a day for 2 days and stop.Use Antivert as needed for vertigo but if this becomes a more persistent problem then perhaps a reevaluation by ear nose and throat would be in order and this would be something could be done outpatient 01/07 Pt feels improved and feels that she can manage this further at home DVT Px: Enoxaparin. Full Code Disposition: continue supportive care, patient weak, PT/OT, CM to assist with DC planning. Admission and Anticipated Discharge Date Admission Date: January 01, 2022 Subjective Patient seen in follow up of flulike symptoms, weakness. Patient is lying in bed in NAD, breathing on RA Reports breathing is much better, and cough also improved She is able to speak in full sentences Reports she continues to feel weak and also dizzy but this has much improved. Denies chest pain, denies fever/chills/chest pain pain/abdominal pain/acute changes in bowel or bladder habit/other review of symptoms. Review of Systems Review of Systems: All systems reviewed & are unremarkable except as noted in Subjective Physical Exam Physical Exam: GENERAL: Alert and oriented x3. NAD HEENT: No pallor, no icterus. Pupils equal, round and reactive to light. Oral mucosa moist. NECK: No JVD, no neck masses. HEART: S1 and S2 heard. Regular rate and rhythm. No murmur, no gallop. RESPIRATORY: Normal AP diameter. No accessory muscle use. No wheezing, no crackles. ABDOMEN: Soft, bowel sounds present, nontender, no distention. NEURO: No facial droop. Speech is clear. Obeys simple commands. Moves extremities. EXTREMITIES: No edema, no erythema noted. Results & Data Results & Data ([facility]) Vital Signs (Past 12 Hours) Vital Signs Temp Pulse Pulse Resp BP Pulse Ox 01/07/22 07:09 81 01/07/22 06:23 36.6 C 73 20 119/74 94 01/06/22 22:47 86 Medications Administered Current Inpatient Medications Acetaminophen (Acetaminophen 325 Mg Tab) 650 mg PO Q4H PRN PRN Reason: Pain Stop: 01/30/22 09:21 Last Admin: 01/07/22 01:08 Dose: 650 mg Documented by: Albuterol (Albuterol Hfa 8 Gm Inhaler) 2 puffs INH Q4 PRN PRN Reason: Shortness Of Breath Or Wheezing Stop: 01/29/22 21:51 Last Admin: 01/01/22 17:31 Dose: 2 puffs Documented by: Benzonatate (Benzonatate 100 Mg Capsule) 100 mg PO TID [facility] Stop: 01/30/22 13:59 Last Admin: 01/07/22 08:09 Dose: 100 mg Documented by: Buspirone HCl (Buspirone 5 Mg Tab) 10 mg PO BID [facility] Stop: 01/29/22 21:51 Last Admin: 01/07/22 08:11 Dose: 10 mg Documented by: Chlorthalidone (Chlorthalidone 25 Mg Tab) 50 mg PO QAM [facility] Stop: 01/30/22 08:59 Last Admin: 01/01/22 09:01 Dose: Not Given Documented by: Dextrose (Dextrose 50% 50 Ml Syringe) 25 - 50 ml IV UD PRN; Protocol PRN Reason: Hypoglycemia Protocol Stop: 01/29/22 21:51 Diazepam (Diazepam 2 Mg Tablet) 2 mg PO BID PRN PRN Reason: Anxiety Stop: 01/29/22 21:51 Last Admin: 01/05/22 19:28 Dose: 2 mg Documented by: Diclofenac Sodium (Diclofenac Sod 1% Gel 100 Gm Tube) 2 gm EXT Q6H TIA Stop: 02/01/22 08:44 Last Admin: 01/07/22 08:11 Dose: 2 gm Documented by: Doxycycline Hyclate (Doxycycline Hyclate 100 Mg Cap) 100 mg PO BID@0800,1999 [facility]; Protocol Stop: 01/08/22 19:59 Last Admin: 01/07/22 08:11 Dose: 100 mg Documented by: Enoxaparin Sodium (Enoxaparin Inj 40 Mg/0.4 Ml Syr) 40 mg SQ Q12H [facility] Stop: 01/30/22 08:59 Last Admin: 01/07/22 08:12 Dose: 40 mg Documented by: Fluticasone Propionate (Fluticasone Propionate Na Spr 16 Gm Btl) 2 sprays NA DAILY PRN PRN Reason: Nasal Congestion Stop: 01/29/22 21:51 Furosemide (Furosemide 40 Mg Tab) 40 mg PO QAM [facility] Stop: 01/30/22 08:59 Last Admin: 12/31/21 08:52 Dose: 40 mg Documented by: Glucose (Glucose 10 Tabs/Tube) 4 - 8 tabs PO UD PRN; Protocol PRN Reason: Hypoglycemia Protocol Stop: 01/29/22 21:51 Glucose (Glucose 40% Gel 15 Gm Tube) 15 - 30 gm PO UD PRN; Protocol PRN Reason: Hypoglycemia Protocol Stop: 01/29/22 21:51 Guaifenesin (Guaifenesin 600 Mg Tabcr) 1,200 mg PO Q12 [facility] Stop: 01/30/22 13:34 Last Admin: 01/07/22 08:10 Dose: 1,200 mg Documented by: Promethazine HCl 12.5 mg/ (Sodium Chloride) 50.5 mls @ 202 mls/hr IV Q6H PRN PRN Reason: Nausea And Vomiting Stop: 01/29/22 23:58 Last Infusion: 01/06/22 10:51 Dose: Infused Documented by: Lamotrigine (Lamotrigine 100 Mg Tab) 200 mg PO BID [facility] Stop: 01/29/22 21:51 Last Admin: 01/07/22 08:12 Dose: 200 mg Documented by: Levothyroxine Sodium (Levothyroxine Sodium 125 Mcg Tablet) 125 mcg PO DAILYBB [facility] Stop: 01/30/22 06:29 Last Admin: 01/07/22 05:39 Dose: 125 mcg Documented by: Losartan Potassium (Losartan Potassium 50 Mg Tab) 100 mg PO QAM [facility] Stop: 01/30/22 08:59 Last Admin: 01/07/22 08:11 Dose: 100 mg Documented by: Meclizine HCl (Meclizine 12.5 Mg Tab) 12.5 mg PO QID PRN PRN Reason: Dizziness or Vertigo Stop: 01/30/22 23:18 Last Admin: 01/07/22 08:15 Dose: 12.5 mg Documented by: Melatonin (Melatonin 3 Mg Tab) 3 mg PO HS PRN PRN Reason: Sleep Stop: 01/30/22 19:55 Last Admin: 12/31/21 21:59 Dose: 3 mg Documented by: Metoprolol Succinate (Metoprolol Succ 50mg Ext Rel Tab) 100 mg PO BID [facility] Stop: 01/29/22 21:59 Last Admin: 01/07/22 08:12 Dose: 100 mg Documented by: Miconazole Nitrate (Miconazole Nitrate Powder 43 Gm) 1 appln EXT PRN PRN PRN Reason: Affected Skin Folds Stop: 01/30/22 19:52 Last Admin: 12/31/21 22:08 Dose: 1 appln Documented by: Miscellaneous (Carbohydrates For Hypoglycemia ) 15 - 30 gm PO UD PRN PRN Reason: Hypoglycemia Protocol Stop: 01/29/22 21:51 Naproxen (Naproxen 250 Mg Tab) 500 mg PO BID [facility] Stop: 01/29/22 20:59 Last Admin: 01/07/22 08:10 Dose: 500 mg Documented by: Pantoprazole Sodium (Pantoprazole 40 Mg Tab) 40 mg PO BID [facility] Stop: 01/29/22 21:59 Last Admin: 01/07/22 08:12 Dose: 40 mg Documented by: Polyethylene Glycol (Polyethylene (Miralax) 17 Gm Pack) 17 gm PO DAILY PRN PRN Reason: Constipation Stop: 02/01/22 04:04 Prednisone (Prednisone 20 Mg Tab) 60 mg PO QAM [facility] Stop: 02/05/22 15:14 Last Admin: 01/07/22 08:12 Dose: 60 mg Documented by: Quetiapine Fumarate (Quetiapine Fumarate 300 Mg Tablet) 300 mg PO HS [facility] Stop: 01/29/22 21:51 Last Admin: 01/06/22 20:28 Dose: 300 mg Documented by: Ropinirole HCl (Ropinirole Hcl 1 Mg Tablet) 5 mg PO HS [facility] Stop: 01/29/22 21:51 Last Admin: 01/06/22 20:23 Dose: 5 mg Documented by: Senna/Docusate Sodium (Docusate Sodium/Senna 50/8.6mg Tab) 1 tab PO QAM [facility] Stop: 02/01/22 04:04 Last Admin: 01/07/22 08:09 Dose: 1 tab Documented by: Spironolactone (Spironolactone 25 Mg Tab) 25 mg PO QAM [facility] Stop: 01/30/22 08:59 Last Admin: 01/04/22 08:44 Dose: 25 mg Documented by: Sumatriptan Succinate (Sumatriptan Succinate 25 Mg Tab) 25 mg PO Q8H PRN PRN Reason: Migraine Headache Stop: 01/30/22 09:22 Last Admin: 01/03/22 11:24 Dose: 25 mg Documented by: Trazodone HCl (Trazodone Hcl 50 Mg Tab) 150 mg PO [facility] Stop: 01/29/22 21:51 Last Admin: 01/06/22 20:27 Dose: 150 mg Documented by: Venlafaxine HCl (Venlafaxine Hcl Xr 37.5 Mg Capxr) [facility] Stop: 01/30/22 08:59 Last Admin: 01/07/22 08:10 Dose: 37.5 mg Documented by: Venlafaxine HCl (Venlafaxine Hcl Xr 150 Mg Capxr) 150 mg PO QAM [facility] Stop: 01/30/22 08:59 Last Admin: 01/07/22 08:10 Dose: 150 mg Documented by:
--- NOTE | 2022-01-07 11:31 | Communication Note ---
Date of Service: January 07, 2022 Sofi is better today her vertigo is still present but is much more manageable and she can move her head from side to side without inducing a lot of subjective vertigo and has been no nausea or vomiting. The headache is down to a grade 2 or 3 from a 4-5 and is improving on the short course of prednisone we started and she has not had any activation of her underlying bipolar tendencies on the steroids and has not had any insomnia or hallucinations She could probably be discharged if she feels well enough on a short tapering course of prednisone and as needed meclizine She is followed in [place] by movement disorder specialist If her headaches become problematical over the next few months then she probably should seek follow-up locally for headache management and she has had a relationship with Dr. Arora of the [facility] medical group in the past so I suggested that she contact him We could see her at [facility] but this would require a new patient evaluation and our waiting list is somewhat long. It is possible she might be able to get into see Dr. Arora much sooner For now neurology is going to sign off the case but will be happy to reassess her should anything change while she is still here in the hospital Anatoly Diggs MD The above note was generated utilizing voice recognition technology and may have spelling errors punctuation errors pronoun usage errors and syntax errors
--- NOTE | 2022-01-07 14:56 | Discharge Summary ---
Date of Service January 07, 2022 Admission HPI Per Admitting Provider 56 year old female with h/o CHF, anxiety/depression, DM-2, GERD presented to the ED with shortness of breath. Started on with flu like symptoms- sore throat, runny nose. Yesterday, she had shortness of breath and some chest pressure, which was worse this morning and she came to the ED. States she has pulse oximeter at home and it was in 80s over the past 2 days. Has body aches and not feeling well. Some dry cough. States she had some leg swelling which is now improved. Also feels bloated. She thinks it might be her CHF. She does not smoke or drink alcohol. She lives by herself and has no sick contacts. Denies any tick bites. Has some allergies by this time of the year. Denies any wheezing. No h/o COPD or asthma. Compliant with her meds including diuretics. Denies any recent orthopnea or PND. In the ED, she was afebrile and hemodynamically stable. Saturation in 89% and put on NC 2 L. Given nebs and solumedrol in ED. Admission Exam Per Admitting Provider General: Lying comfortably in bed, not in distress, on NC HEENT: EOMI, TAVIA, MMM Chest: Clear breath sounds bilaterally, no wheezes or crackles CVS: Regular rate and rhythm, normal heart sounds, no murmur Abdomen: Soft, non tender, not distended, normal bowel sounds Neuro: Awake, alert, oriented, conversing well, non focal Extremities: No cyanosis, clubbing or edema Principal Diagnosis Flulike symptoms Hypoxia GAMAL on CKD Weakness, dizziness, BURGESS Discharge Exam GENERAL: Alert and oriented x3. NAD HEENT: No pallor, no icterus. Pupils equal, round and reactive to light. Oral mucosa moist. NECK: No JVD, no neck masses. HEART: S1 and S2 heard. Regular rate and rhythm. No murmur, no gallop. RESPIRATORY: Normal AP diameter. No accessory muscle use. No wheezing, no crackles. ABDOMEN: Soft, bowel sounds present, nontender, no distention. NEURO: No facial droop. Speech is clear. Obeys simple commands. Moves extremities. EXTREMITIES: No edema, no erythema noted. Discharge Data Allergies Allergy/AdvReac Type Severity Reaction Status Date / Time bee venom protein (honey bee) Allergy Severe SEVERE Verified 12/30/21 13:58 SWELLING,SOB ciprofloxacin Allergy Severe RESPIRATORY Verified 12/30/21 13:58 FAILURE/HIVES azithromycin Allergy Intermediate Hives Verified 12/30/21 13:58 latex Allergy Intermediate LOCAL Verified 12/30/21 13:58 IRRITATION REDDNESS SWELLING ITCHYNESS prednisone AdvReac Intermediate HALLUCINATIONS, Verified 12/30/21 13:58 GI UPSET Consultations 01/05/22 13:15 Consult Neurology Routine Ordered Studies 01/01/22 22:36 CT abd pelvis wo con Urgent IMPRESSION: 1. Bilateral nonobstructing renal calculi. 2. Otherwise, no acute intra-abdominal or pelvic abnormality on these limited noncontrast images. 3. Additional nonacute findings are delineated above. 01/05/22 13:48 MR brain wo/w con Routine IMPRESSION: 1. Slight enlargement of the probable meningioma adjacent to the right anterior clinoid process now measuring 6 mm. 2. Prior suboccipital craniectomy. 3. Moderate T2/FLAIR hyperintense foci throughout the white matter have progressed from the prior study. Chronic microvascular ischemic disease versus sequela of chronic migraines are differential considerations. A demyelinating process is considered less likely. Hospital Course (1) Hypoxia: (2) Flu-like symptoms: (3) Chest pressure: (4) Chronic diastolic CHF (congestive heart failure): (5) Hypothyroidism: (6) CKD (chronic kidney disease) stage 3, GFR 30-59 ml/min: Flulike symptoms, hypoxia/possible bronchitis Chest discomfort Likely costochondritis Patient reports having sore throat, congestion and stuffy nose since 2 days [employer], worsening to shortness of breath with chills 1 day [employer] in the evening leading to low pulse ox reading to 81 to 85% at home on the day of arrival. During initial exam: Patient denies vomiting or diarrhea. Reports having nausea. Also reports having discomfort in the chest and bloating sensation. Patient reported having cough with light yellow sputum. Pt had rt sided reproducible chest pain. Admitting EKG and CXR reviewed. Patient was requiring oxygen, continued with nebulization/Tessalon Perles/antibiotic 12/31/incentive spirometer or flutter valve. D-dimer negative. BNP 24. Troponin trend negative c/w zosyn 01/01 -->rocephin 01/02. Concern for developing bacterial pneumonia vs bronchitis c/w home PPI. Wean down O2 as tolerated. 01/04 - Pt is breathing comfortably on RA GAMAL/CKD III Pt developed GAMAL 12/31 2/2 hypotension likely due to decreased PO intake Resolved. Resumed losartan. Resume aldactone after DC, gradually resume home lasix. Chronic medical conditions: Chronic diastolic CHF, DM-2, HTN, Anxiety BNP wnl, euvolemic, c/w home dose of lasix continue/resume home meds as and when appropriate. C/w SSI insulin Depression/Anxiety/ hx of BURGESS/ difficulty sleeping - on seroquel, effexor, buspar, lamictal,, trazodone, valium prn Patient reports following with psychiatry and psychology. No new medication changes recently. Hx of dizziness -patient reports being diagnosed with Mnire's disease several years ago, and followed with a provider in [place] Hx of weakness, fibromyalgia -patient reports that she was also seen for her weakness at the [facility], by neurologist, Dr. Turner. Previously followed with Dr. Arora and Dr. Pedro. 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 01/04 -patient continues to be feeling dizzy and weak. She was orthostatic during PT session. Will repeat orthostatic vital signs. 01/05 -patient no longer orthostatic, however continues to feel dizzy and weak. Discussed with Dr. Diggs, neurology. Especially given her history of meningioma and Mnire's disease, multiple neuropsych medications. Neurology recommends to obtain MRI of brain with contrast. The study was ordered. MRI brain 1. Slight enlargement of the probable meningioma adjacent to the right anterior clinoid process now measuring 6 mm. 2. Prior suboccipital craniectomy. 3. Moderate T2/FLAIR hyperintense foci throughout the white matter have progressed from the prior study. Chronic microvascular ischemic disease versus sequela of chronic migraines are differential considerations. A demyelinating process is considered less likely. 01/06 -Per neurology, likely protracted migraine syndrome with vertigo associated with the upper respiratory tract infection - would recommend a cautious trial of steroids 60 mg a day for 2 days 40 mg a day for 2 days 20 mg a day for 2 days then 10 mg a day for 2 days and stop.Use Antivert as needed for vertigo but if this becomes a more persistent problem then perhaps a reevaluation by ear nose and throat would be in order and this would be something could be done outpatient 01/07 Pt feels improved and feels that she can manage this further at home Disposition: Plan to DC home today Total Time Total Time Spent Total Time Spent (In Minutes): 40 Discharge Plan Discharge Items Patient Disposition: Home - Self-Care Reason For Visit: FLU LIKE SYMPTOMS, SHORTNESS OF BREATH Discharge Diagnosis: Flulike symptoms Hypoxia GAMAL on CKD Weakness, dizziness, BURGESS Activity: Per Instructions section Non-emergency contact: Primary Care Provider and Neurologist Call non-emergency contact if: you have any medication questions and your symptoms worsen Follow-up/Referrals: Harry Schrader MD [Primary Care Provider] - (Date & Time 01/10/2022 3:20 PM Provider Harry Schrader MD Department [facility] ) Diet: Carb Consistent or DM2 Addtl Attending Provider Instructions: Follow-up with your primary care doctor, and with neurology as needed. The appointment with primary care doctor was scheduled for you for January 10. Continue steroid taper as discussed, take prednisone 40 mg a day for 2 days, then 20 mg a day for 2 days, then 10 mg a day for 2 days. Also you can take Antivert as prescribed, as needed. For now, continue losartan, however do not take spironolactone, furosemide and chlorthalidone. Monitor your blood pressure at home if you can and discuss your numbers with your primary care physician. Discuss with your primary care doctor, when you should resume your other blood pressure medications. Pending Studies at Discharge: No Stand-Alone Forms: My [facility] [employer], Smoking Cessation Medications and DC Order Prescriptions: New meclizine 12.5 mg Tablet 12.5 mg PO QID PRN (Reason: dizziness) Qty: 14 RF: 0 prednisone 10 mg tablet 10 mg PO UD Qty: 14 RF: 0 Continued metoprolol succinate 100 mg capsule,sprinkle,ER 24hr 100 mg PO BID Qty: 60 RF: 2 omeprazole 40 mg capsule,delayed release(DR/EC) 40 mg PO BID Qty: 60 RF: 2 lamotrigine [Lamictal] 200 mg tablet 200 mg PO BID Qty: 60 RF: 2 metformin 750 mg tablet extended release 24 hr 750 mg PO QPM Qty: 30 RF: 2 cholecalciferol (vitamin D3) 50,000 unit capsule 50,000 units PO Q14D Qty: 30 RF: 0 levothyroxine 125 mcg tablet 125 mcg PO DAILYBB RF: 0 ropinirole 1 mg tablet 5 mg PO HS RF: 0 trazodone 100 mg tablet 150 mg PO HS RF: 0 buspirone 10 mg tablet 10 mg PO BID RF: 0 albuterol sulfate 90 mcg/actuation HFA aerosol inhaler 2 puff INHALATION Q4 PRN (Reason: Shortness Of Breath Or Wheezing) RF: 0 fluticasone propionate [Flonase Allergy Relief] 50 mcg/actuation [place],Suspension 2 spray INTRANASAL DAILY PRN (Reason: Nasal Congestion) RF: 0 quetiapine [Seroquel] 50 mg tablet 300 mg PO HS RF: 0 venlafaxine [Effexor XR] 37.5 mg Capsule,Extended Release 24hr 37.5 mg PO QAM RF: 0 venlafaxine [Effexor XR] 150 mg Capsule,Extended Release 24hr 150 mg PO QAM RF: 0 losartan 100 mg tablet 100 mg PO QAM RF: 0 diazepam [Valium] 2 mg Tablet 2 mg PO BID PRN (Reason: Anxiety) RF: 0 ondansetron HCl [Zofran] 4 mg Tablet 4 mg PO Q6H PRN (Reason: Nausea) RF: 0 Ozempic 1 mg/dose (4 mg/3 mL) Pen Injector 0 mg SUBCUT WK RF: 0 Discontinued chlorthalidone 50 mg tablet 50 mg PO QAM RF: 0 furosemide [Lasix] 40 mg tablet 40 mg PO QAM RF: 0 spironolactone 25 mg tablet 25 mg PO QAM RF: 0 Discharge Orders: Discharge Order (Routine); Ordered 01/07/22 Ordered By: Nick Yadav Admission Data Admit Date/Time: 01/01/22 18:05 Attending Provider: Nick Yadav Admit Provider: Panchito Abrams Primary Care Provider: Harry Schrader Other Providers: Leroy Ortiz ; Anatoly Diggs
== END 2022-01-07 15:47 | disposition home or self-care (01) | DRG 202 ==
LOC: 2W 11:45 → ED 11:45 → SUATTDRO 17:53 → 2W 19:38 → SUATTDRO 01-01 18:05

== ENCOUNTER 2022-10-04 10:55 | Inpatient (IN) ==
--- NOTE | 2022-10-04 11:04 | Emergency Department Note ---
Impression & Plan Atypical chest pain, Tachycardia ED Provider Note NAME: CARRIE ROBB AGE: 57 SEX: F : 1965 ARRIVES VIA: Ambulance INFORMANT: Patient, ED PROVIDER(S): Deangelo Cevallos MD CHIEF COMPLAINT: Chest pain, shortness of breath MEDICAL DECISION MAKING: Patient presents with chest pain shortness of breath. The patient did receive 4 baby aspirin and nitro sprays which states she had improvement in her symptoms. Patient did have bladder completed along with an EKG troponin chest x-ray and BNP. The patient does have associated tachycardia but no signs of DVT on exam. Initial IV fluid bolus of 500 was ordered for the tachycardia and the patient was ordered additional Nitropaste. The patient has a normal white count hemoglobin and platelet count. Kidney function is unremarkable. Patient's initial troponin is negative. I did speak with on-call hospitalist. The patient did have a mild increase in her troponin 19.6. No active chest pain. No obvious ST elevations. The patient's BNP is negative. It is with the on-call hospitalist service Oneal Gee PA-C and the patient was admitted by the medicine service by Dr. De Souza. Patient's tachycardia did improve with the IV fluids. Prior /Outside records reviewed: None Differential diagnosis: Cardiac ischemia, aortic dissection, pulmonary embolism, pneumothorax, pneumonia, pericarditis, myocarditis, esophageal rupture, GERD, cholecystitis, pancreatitis, musculoskeletal, as well as other pathologies. Diagnostics, as interpreted by me: ECG: Sinus tachycardia, rate of 135, prolonged QTC, left axis deviation no obvious ST elevations. Cardiac monitoring: An order was placed for continuous cardiac monitoring. The monitor shows a rate of 122 with tachycardic and regular rhythm. Patient was placed on pulse oximetry Medical decision rules: None Imaging studies: See below HPI: Patient presents due to concern for shortness of breath and chest pain. The patient states that she initially began having symptoms last evening where she thought she was having some reflux that she has a known history of stomach ulcers and did have an EGD completed which was unremarkable several weeks ago. Patient states that she then thought she was having a panic attack but did not take anything for her symptoms. Patient states that then her epigastric pain became more centralized chest achiness with radiation to the left shoulder. The patient does complain of some shortness of breath no prior history of DVT or PE no leg swelling or calf pain no recent surgeries procedures or hospitalizations. The patient did not take anything for symptoms at home. The patient did receive 4 baby aspirin and nitroglycerin sprays which have improved her dis comfort and currently states a 3 out of 10. Patient denies any smoking history or lung disease. Patient denies any falls or trauma. The patient denies any upper respiratory symptoms cough or fever. Patient does follow with Dr. Ozuna for cardiology. PAST MEDICAL HISTORY: See Below PAST SURGICAL HISTORY: See Below SOCIAL HISTORY: See Below HOME MEDICATIONS: See Below ALLERGIES: See Below VITALS: See Below PHYSICAL EXAMINATION: GENERAL: Anxious in appearance. EYE EXAM: Normal conjunctiva. PERRL, no anisocoria and EOM's grossly intact w/o pain. NECK: Supple, no nuchal rigidity, no adenopathy, non-tender. No signs of meningismus. FROM of the neck with good chin to chest and neck extension. No stridor. LUNGS: Clear to auscultation. Normal chest wall mechanics. HEART: Tachycardic and regular, no MRG. ABDOMEN: Abdomen soft, non-tender, normo-active bowel sounds, no masses, no rebound or guarding. BACK: No CVA TTP. SKIN: No rashes and no bruising. UPPER EXTREMITIES: Upper extremities are grossly normal. LOWER EXTREMITIES: Grossly normal, no edema. Negative Homans' sign bilaterally. NEURO EXAM: A&O x3, cranial nerves II-XII grossly intact, normal speech, moves all 4 extremities. Past Med/Surg History Medical History Abnormal blood chemistry Abnormal weight loss Acute kidney injury Anxiety Arm pain Asthma well controlled > res inh last used 5 mos ago Cardiomyopathy CHF (congestive heart failure) Chronic diastolic CHF (congestive heart failure) follows with Dr. Barron CKD (chronic kidney disease) stage 3, GFR 30-59 ml/min does not follow with specialist Depression Dizziness Dyspnea on exertion Elevated plasma metanephrines Essential tremor Fatigue Female pelvic pain Fibromyalgia Flushing GERD (gastroesophageal reflux disease) Hearing loss History of anesthesia reaction pt was not sure if was anesthsia or allergy to Cipro, but coded on OR table during lithotripsy 6 yrs ago History of cardiomyopathy Nitro to be secondary to hypertension. Occurred in 2016 with an EF of 40 to 45%. She had cardiac MRI which was concerning for possible hypertrophic cardiomyopathy but this was ruled out via echo. Last echocardiogram 07/2019 revealed preserved EF with grade 1 diastolic dysfunction. Hyperinsulinemia Hypertension Hypothyroidism IBS (irritable bowel syndrome) Insomnia Kidney stones Meniere disease Meningioma dx 5 yrs ago > follows with Dr. Turner with [facility] Migraines Lamictal for this Numbness Obesity Prediabetes PTSD (post-traumatic stress disorder) RLS (restless legs syndrome) Tachycardia Ureteral stone Ureteral stricture Vertigo Vitamin D deficiency Surgical History History of brain surgery 2006> Secondary to type I Chiari malformation at [facility] History of cholecystectomy History of colonoscopy with polypectomy History of endometrial ablation x2 History of esophagogastroduodenoscopy (EGD) History of lithotripsy History of tonsillectomy S/P correction of deviated nasal septum Family History Grandmother Colorectal cancer Father Heart disease Hypertension Hx of CABG Diabetes Denies family history of Breast cancer Lung cancer Social History Smoking Status: Never smoker Second Hand Exposure: No; Do You Dip or Chew Tobacco: No; Tobacco Cessation Education Requested by Patient: No Hx Alcohol Use: No Hx Substance Use: No Preferred Language: Ivorian Communication Ability: Effective Metal Finisher Required: No Beliefs That Will Affect Care: None marital status: Single Current Living Situation: Alone current occupational status: disabled 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 Other Information That Helps Us Care for You: No Feels Safe at Home: Yes Safety Concerns: Feels Safe At This Time Assistive Devices: Cane and Walker Allergies Allergies Allergy/AdvReac Type Severity Reaction Status Date / Time bee venom protein (honey bee) Allergy Severe SEVERE Verified 07/25/22 13:33 SWELLING,SOB ciprofloxacin Allergy Severe RESPIRATORY Verified 07/25/22 13:33 FAILURE/HIVES azithromycin Allergy Intermediate Hives Verified 07/25/22 13:33 latex Allergy Intermediate LOCAL Verified 07/25/22 13:33 IRRITATION REDDNESS SWELLING ITCHYNESS prednisone AdvReac Intermediate hallucinates, Verified 07/25/22 13:33 GI UPSET, agitation, flushing,tachycardia,sick Home Meds Home Medications Medication Instructions Recorded Confirmed albuterol sulfate 90 mcg/actuation 2 puff inhalation Q4 PRN Shortness 12/17/19 10/04/22 aerosol inhaler Of Breath Or Wheezing buspirone 10 mg tablet 10 mg PO BID 12/17/19 10/04/22 fluticasone propionate 50 2 spray intranasal DAILY PRN Nasal 12/17/19 10/04/22 mcg/actuation nasal Congestion spray,suspension (Flonase Allergy Relief) quetiapine 50 mg tablet (Seroquel) 300 mg PO HS 12/17/19 10/04/22 ropinirole 1 mg tablet 5 mg PO HS 12/17/19 10/04/22 losartan 100 mg tablet 100 mg PO QAM 07/13/21 10/04/22 venlafaxine 150 mg 150 mg PO QAM 07/13/21 10/04/22 capsule,extended release 24 hr (Effexor XR) venlafaxine 37.5 mg 37.5 mg PO QAM 07/13/21 10/04/22 capsule,extended release 24 hr (Effexor XR) semaglutide 1 mg/dose (4 mg/3 mL) 0 mg subcut WK 12/30/21 10/04/22 subcutaneous pen injector (Ozempic) trazodone 100 mg tablet 100 mg PO HS 01/12/22 10/04/22 cholecalciferol (vitamin D3) 25 2,000 unit PO DAILY 05/16/22 10/04/22 mcg (1,000 unit) capsule diazepam 5 mg tablet 5 mg PO DAILY PRN Panic Attack(S) 10/04/22 10/04/22 Previous Rx's Medication Instructions Recorded lamotrigine 200 mg tablet 200 mg PO BID #60 tabs 09/17/19 (Lamictal) metoprolol succinate 100 mg 100 mg PO BID #60 ea 09/17/19 capsule sprinkle, ext. release 24 hr omeprazole 40 mg capsule,delayed 40 mg PO BID #60 caps 09/17/19 release meclizine 12.5 mg tablet 12.5 mg PO QID PRN dizziness #14 01/07/22 tabs levothyroxine 125 mcg tablet 125 mcg PO DAILYBB #90 tabs 05/15/22 nystatin-triamcinolone 100,000 See Rx Instructions .Route 08/28/22 unit/g-0.1 % topical cream .COMPLEX #30 grams metoclopramide HCl 10 mg tablet 10 mg PO BID PRN nausea and 09/26/22 (Reglan) vomiting, pain #60 tabs Results & Data (ED) Vital Signs Vital Signs - 24 hr 10/04/22 11:08 10/04/22 11:07 10/04/22 13:00 Temperature 36.9 C Temperature Source Oral Pulse Rate 136 H 127 H Pulse Rate [Apical] 105 H Pulse Rate from SpO2 Sensor 126 H Pulse Rhythm [Apical] Regular Pulse Strength [Apical] Normal Respiratory Rate 26 H 24 20 Respiratory Effort / Characteristics Labored Non-Labored Spontaneous Respiratory Depth Shallow Normal Respiratory Pattern Regular Regular Blood Pressure 178/92 H Blood Pressure [Left Arm] 154/73 H Blood Pressure Mean 120 Blood Pressure Mean [Left Arm] 100 Blood Pressure Position [Left Arm] Sitting Pulse Oximetry 96 94 98 Oxygen Delivery Method Room Air Room Air Sepsis Recent Fever Within 48 Hours No Sepsis New/Unexplained Change in Mental Status No Sepsis Action Taken by Nursing No Action Required 10/04/22 13:01 10/04/22 11:30 10/04/22 11:30 Temperature Temperature Source Pulse Rate 126 H Pulse Rate [Apical] Pulse Rate from SpO2 Sensor 125 H Pulse Rhythm [Apical] Pulse Strength [Apical] Respiratory Rate 21 Respiratory Effort / Characteristics Respiratory Depth Respiratory Pattern Blood Pressure 127/93 Blood Pressure [Left Arm] Blood Pressure Mean 104 Blood Pressure Mean [Left Arm] Blood Pressure Position [Left Arm] Pulse Oximetry 98 95 Oxygen Delivery Method Room Air Sepsis Recent Fever Within 48 Hours Sepsis New/Unexplained Change in Mental Status Sepsis Action Taken by Nursing 10/04/22 12:00 10/04/22 12:00 10/04/22 12:30 Temperature Temperature Source Pulse Rate 114 H Pulse Rate [Apical] Pulse Rate from SpO2 Sensor 116 H Pulse Rhythm [Apical] Pulse Strength [Apical] Respiratory Rate 21 Respiratory Effort / Characteristics Respiratory Depth Respiratory Pattern Blood Pressure 128/83 152/76 H Blood Pressure [Left Arm] Blood Pressure Mean 98 101 Blood Pressure Mean [Left Arm] Blood Pressure Position [Left Arm] Pulse Oximetry 95 Oxygen Delivery Method Sepsis Recent Fever Within 48 Hours Sepsis New/Unexplained Change in Mental Status Sepsis Action Taken by Nursing 10/04/22 12:30 10/04/22 13:00 10/04/22 13:00 Temperature Temperature Source Pulse Rate 105 H 103 H Pulse Rate [Apical] Pulse Rate from SpO2 Sensor 105 H 106 H Pulse Rhythm [Apical] Pulse Strength [Apical] Respiratory Rate 12 20 Respiratory Effort / Characteristics Respiratory Depth Respiratory Pattern Blood Pressure 154/73 H Blood Pressure [Left Arm] Blood Pressure Mean 100 Blood Pressure Mean [Left Arm] Blood Pressure Position [Left Arm] Pulse Oximetry 91 94 Oxygen Delivery Method Sepsis Recent Fever Within 48 Hours Sepsis New/Unexplained Change in Mental Status Sepsis Action Taken by Nursing 10/04/22 13:30 10/04/22 13:30 10/04/22 14:00 Temperature Temperature Source Pulse Rate 103 H 105 H Pulse Rate [Apical] Pulse Rate from SpO2 Sensor 104 H 104 H Pulse Rhythm [Apical] Pulse Strength [Apical] Respiratory Rate 18 13 Respiratory Effort / Characteristics Respiratory Depth Respiratory Pattern Blood Pressure 186/73 H Blood Pressure [Left Arm] Blood Pressure Mean 110 Blood Pressure Mean [Left Arm] Blood Pressure Position [Left Arm] Pulse Oximetry 95 93 Oxygen Delivery Method Sepsis Recent Fever Within 48 Hours Sepsis New/Unexplained Change in Mental Status Sepsis Action Taken by [facility] Medications Current Medication List: was personally reviewed by me Laboratory Data Attestation: I reviewed the patient's lab results. 10/04/22 11:11 10/04/22 11:11 Lab Results 10/04/22 10/04/22 10/04/22 Range/Units 11:11 11:11 11:11 WBC 10.64 (4.8-10.8) K/ul RBC 5.85 H (3.93-5.22) M/uL Hgb 15.2 (12.0-16.0) g/dl Hct 46.2 H (34.1-44.9) % MCV 79.0 L (80.0-100.0) fL MCH 26.0 (25.0-34.0) pg MCHC 32.9 (32.0-36.0) g/dL RDW Std Deviation 42.4 (36.4-46.3) fL RDW Coeff of Nasima 15.1 H (11.5-14.5) % Plt Count 368 (130-400) K/uL MPV 9.0 L (9.4-12.3) fL Immature Gran % (Auto) 0.6 % Neut % (Auto) 59.9 % Lymph % (Auto) 30.6 % Nobles % (Auto) 6.1 % Eos % (Auto) 2.0 % Baso % (Auto) 0.8 % Neut # (Auto) 6.38 (1.4-6.5) K/uL Lymph # (Auto) 3.26 (1.2-3.4) K/uL Nobles # (Auto) 0.65 (0.24-0.82) K/uL Eos # (Auto) 0.21 (0-0.50) K/uL Baso # (Auto) 0.08 (0-0.2) K/uL Immature Gran # (Auto) 0.06 H (0.00-0.02) K/uL PT 10.5 (9.0-12.0) Seconds INR 1.0 (0.9-1.1) APTT 25.9 (21.0-31.0) Seconds PTT Ratio 0.9 Sodium (136-145) mmol/L Potassium (3.5-5.1) mmol/L Chloride (98-107) mmol/L Carbon Dioxide (21-32) mmol/L Anion Gap (3-11) BUN (6-23) mg/dl Creatinine (0.6-1.2) mg/dl Est Cr Clr Drug Dosing ml/min Est GFR ( Amer) ml/min Est GFR (Non-Af Amer) ml/min BUN/Creatinine Ratio (10-20) Glucose (70-99(Fasting)) mg/dl Calcium (8.5-10.1) mg/dl Total Bilirubin (0.2-1.0) mg/dl AST (13-39) U/L ALT (7-52) U/L Alkaline Phosphatase (34-104) U/L Troponin I High Sens (0-14) pg/ml B-Natriuretic Peptide 46 (0-100) pg/ml Total Protein (6.0-8.3) gm/dl Albumin (3.4-5.0) gm/dl Globulin (2.5-4.0) gm/dl Albumin/Globulin Ratio (0.9-2) Lipase (11-82) U/L SARS-CoV-2, RNA, NAAT (NEGATIVE) 10/04/22 10/04/22 10/04/22 Range/Units 11:11 12:58 13:12 WBC (4.8-10.8) K/ul RBC (3.93-5.22) M/uL Hgb (12.0-16.0) g/dl Hct (34.1-44.9) % MCV (80.0-100.0) fL MCH (25.0-34.0) pg MCHC (32.0-36.0) g/dL RDW Std Deviation (36.4-46.3) fL RDW Coeff of Nasima (11.5-14.5) % Plt Count (130-400) K/uL MPV (9.4-12.3) fL Immature Gran % (Auto) % Neut % (Auto) % Lymph % (Auto) % Nobles % (Auto) % Eos % (Auto) % Baso % (Auto) % Neut # (Auto) (1.4-6.5) K/uL Lymph # (Auto) (1.2-3.4) K/uL Nobles # (Auto) (0.24-0.82) K/uL Eos # (Auto) (0-0.50) K/uL Baso # (Auto) (0-0.2) K/uL Immature Gran # (Auto) (0.00-0.02) K/uL PT (9.0-12.0) Seconds INR (0.9-1.1) APTT (21.0-31.0) Seconds PTT Ratio Sodium 139 (136-145) mmol/L Potassium 3.8 (3.5-5.1) mmol/L Chloride 107 (98-107) mmol/L Carbon Dioxide 22 (21-32) mmol/L Anion Gap 10 (3-11) BUN 12 (6-23) mg/dl Creatinine 0.93 (0.6-1.2) mg/dl Est Cr Clr Drug Dosing 92.3 ml/min Est GFR ( Amer) 80.2 ml/min Est GFR (Non-Af Amer) 69.2 ml/min BUN/Creatinine Ratio 12.9 (10-20) Glucose 114 H (70-99(Fasting)) mg/dl Calcium 9.5 (8.5-10.1) mg/dl Total Bilirubin 0.4 (0.2-1.0) mg/dl AST 17 (13-39) U/L ALT 25 (7-52) U/L Alkaline Phosphatase 123 H (34-104) U/L Troponin I High Sens 13.0 19.6 H D (0-14) pg/ml B-Natriuretic Peptide (0-100) pg/ml Total Protein 6.8 (6.0-8.3) gm/dl Albumin 3.9 (3.4-5.0) gm/dl Globulin 2.9 (2.5-4.0) gm/dl Albumin/Globulin Ratio 1.3 (0.9-2) Lipase 32 (11-82) U/L SARS-CoV-2, RNA, NAAT NEGATIVE (NEGATIVE) Administered Medications Discontinued Medications Acetaminophen (Acetaminophen 500 Mg Tab) 1,000 mg PO NOW STA Stop: 10/04/22 12:46 Last Admin: 10/04/22 12:53 Dose: 1,000 mg Documented By: AUBREY Acetaminophen/Butalbital/Caffeine (Butalbital/Acetamin/Caffeine Tab) 1 tab PO NOW STA Stop: 10/04/22 14:48 Last Admin: 10/04/22 15:52 Dose: 1 tab Documented By: MICHAEL Sodium Chloride (Nss) 500 mls @ 999 mls/hr IV .Q31M STA Stop: 10/04/22 11:45 Last Infusion: 10/04/22 12:35 Dose: 0 mls/hr Documented By: Admin: 10/04/22 12:05 Dose: 999 mls/hr Documented By: MICHAEL Sodium Chloride (Nss 1000ml) 500 mls @ 999 mls/hr IV .Q31M ONE Stop: 10/04/22 13:15 Last Infusion: 10/04/22 13:25 Dose: 0 mls/hr Documented By: Admin: 10/04/22 12:55 Dose: 999 mls/hr Documented By: AUBREY Ioversol (Optiray 320 500ml) 115 ml IV ONCE ONE Stop: 10/04/22 16:35 Last Admin: 10/04/22 16:34 Dose: 115 ml Documented By: MILLI Losartan Potassium (Losartan Potassium 50 Mg Tab) 100 mg PO NOW STA Stop: 10/04/22 14:13 Last Admin: 10/04/22 14:45 Dose: 100 mg Documented By: MICHAEL Metoprolol Succinate (Metoprolol Succ 50mg Ext Rel Tab) 100 mg PO NOW STA Stop: 10/04/22 14:15 Last Admin: 10/04/22 14:45 Dose: 100 mg Documented By: CHARLIEK Metoprolol Tartrate (Metoprolol Tartrate 1 Mg/Ml Vial) 5 mg IV NOW STA Stop: 10/04/22 15:57 Last Admin: 10/04/22 17:10 Dose: 5 mg Documented By: Nitroglycerin (Nitroglycerin 2% Ointment 30gm Tube) 0.5 inch EXT NOW STA Stop: 10/04/22 11:16 Last Admin: 10/04/22 12:03 Dose: 0.5 inch Documented By: CHARLIEK Venlafaxine HCl (Venlafaxine Hcl Xr 37.5 Mg Capxr) 37.5 mg PO NOW STA Stop: 10/04/22 14:16 Last Admin: 10/04/22 14:44 Dose: 37.5 mg Documented By: CHARLIEK Venlafaxine HCl (Venlafaxine Hcl Xr 150 Mg Capxr) 150 mg PO NOW STA Stop: 10/04/22 14:17 Last Admin: 10/04/22 14:43 Dose: 150 mg Documented By: CHARLIEK Imaging Data Radiologist's Impression: Chest X-Ray 10/04/22 11:16 SINGLE VIEW CHEST CLINICAL HISTORY: Atypical chest pain FINDINGS: An AP, portable, upright chest radiograph is compared to study dated 01/01/2022 and correlated with chest CT dated 09/15/2016. The cardiomediastinal silhouette is unremarkable. There are low lung volumes with bibasilar atelectasis. The lungs and pleural spaces are clear. No pneumothorax is seen. The skeletal structures appear osteopenic. The bony thorax is grossly intact. IMPRESSION: No active disease in the chest. ACT 112: Negative or not required by law. Electronically signed by: Matias Baum M.D. 10/04/2022 11:54 AM Discharge Plan Visit Data Chief Complaint: Chest Pain Stated Complaint: CHEST PAIN, SOB ED Provider: Deangelo Cevallos Discharge Problem: Atypical chest pain, Tachycardia Patient Disposition: Admitted As Inpatient Discharge Instructions Interventions: ED Discharge Assessment Last Done: 10/04/22 15:36
[2022-10-04] MEDS ORDERED: SODIUM CHLORIDE 0.9% 500 ML IV STA (11:15)
[2022-10-04] MEDS ORDERED: NITROGLYCERIN 2% OINTMENT 30GM TUBE EXT STA (11:15)
[2022-10-04 11:26] LABS: Basophils # (auto) 0.08 K/uL (0-0.2); Basophils % (auto) 0.8 %; Eosinophils # (auto) 0.21 K/uL (0-0.50); Hematocrit (blood only) 46.2 % (34.1-44.9); Hemoglobin 15.2 g/dl (12.0-16.0); Immature Granulocytes # (auto) 0.06 K/uL (0.00-0.02); Immature Granulocytes % (auto) 0.6 %; Lymphocytes # (auto) 3.26 K/uL (1.2-3.4); Lymphocytes % (auto) 30.6 %; Mean Corpuscular Hgb Conc 32.9 g/dL (32.0-36.0); Monocytes # (auto) 0.65 K/uL (0.24-0.82); Monocytes % (auto) 6.1 %; Neutrophils # (auto) 6.38 K/uL (1.4-6.5); Neutrophils % (auto) 59.9 %; Platelet Count 368 K/uL (130-400); RDW Coefficient of Variation 15.1 % (11.5-14.5); RDW Standard Deviation 42.4 fL (36.4-46.3); Red Blood Count 5.85 M/uL (3.93-5.22); White Blood Count 10.64 K/ul (4.8-10.8)
[2022-10-04 11:47] LABS: Partial Thromboplastin Ratio 0.9; Partial Thromboplastin Time 25.9 Seconds (21.0-31.0); Prothrombin Time 10.5 Seconds (9.0-12.0)
[2022-10-04 11:51] LABS: Albumin Globulin Ratio 1.3 (0.9-2); Albumin Level 3.9 gm/dl (3.4-5.0); BUN Creatinine Ratio 12.9 (10-20); Bilirubin,Total 0.4 mg/dl (0.2-1.0); Calcium 9.5 mg/dl (8.5-10.1); Creatinine Clr Calc Pharmacy 92.3 ml/min; Est GFR (African American) 80.2 ml/min; Est GFR (Non-African American) 69.2 ml/min; Globulin 2.9 gm/dl (2.5-4.0); Potassium 3.8 mmol/L (3.5-5.1); Total Protein 6.8 gm/dl (6.0-8.3)
--- NOTE | 2022-10-04 11:56 | XRay Report ---
SINGLE VIEW CHEST CLINICAL HISTORY: Atypical chest pain FINDINGS: An AP, portable, upright chest radiograph is compared to study dated 01/01/2022 and correlat ed with chest CT dated 09/15/2016. The cardiomediastinal silhouette is unremarkable. There are low aleks ng volumes with bibasilar atelectasis. The lungs and pleural spaces are clear. No pneumothorax is see n. The skeletal structures appear osteopenic. The bony thorax is grossly intact. IMPRESSION: No active disease in the chest. ACT 112: Negative or not required by law. Electronically signed by: Matias Baum M.D. 10/04/2022 11:54 AM
[2022-10-04] MEDS ORDERED: SODIUM CHLORIDE 0.9% 1000ML 500 ML IV ONE (12:45)
[2022-10-04] MEDS ORDERED: ACETAMINOPHEN 500 MG TAB PO STA (12:45)
--- NOTE | 2022-10-04 13:32 | Electrocardiogram Report ---
Test Reason : Blood Pressure : / mmHG Vent. Rate : 135 BPM Atrial Rate : 135 BPM P-R Int : 132 ms QRS Dur : 094 ms QT Int : 328 ms P-R-T Axes : 037 -41 069 degrees QTc Int : 492 ms Sinus tachycardia Left axis deviation Left ventricular hypertrophy with repolarization abnormality Abnormal ECG When compared with ECG of 01-JAN-2022 18:49, Vent. rate has increased BY 50 BPM Confirmed by Harry Enriquez ([id number]) on 10/04/2022 1:32:11 PM Referred By: REFERRED SELF Confirmed By:Harry Enriquez
--- NOTE | 2022-10-04 13:36 | History & Physical Report ---
Date of Service October 04, 2022 Assessment & Plan (1) Chest pain: (2) Chronic diastolic CHF (congestive heart failure): (3) Hypertension: Plan: - Admit to tele for observation for r/o - Patient missed metoprolol this morning as well as losartan, Lasix-order these now - Received full dose aspirin and nitro in route via EMS, Nitropaste in place, patient denies any current chest pain but admits to chest heaviness - Trend cardiac biomarkers, initial set was negative at 13, repeat was 19 - Check CTA chest w/o contrast for dissection and to r/o PE with tachycardia and atypical chest pressure, sob, weakness - EKG reviewed personally - ? slight T wave flattening in the lateral leads - Consult Cardiology - Check 2 D echo, last 1 was conducted in August 2020 showing an LVEF of 60 to 64%, the wall borderline concentric, no valvular disease (4) Prediabetes: Plan: - Last A1C was 5.7 - Continue on ozempic as outpatient, not on other oral medications anymore with weight loss - Continue to encourage diet and exercise (5) CKD (chronic kidney disease) stage 3, GFR 30-59 ml/min: Plan: -History of such, creatinine currently 0.93, BUN is 12 (6) Hypothyroidism: Plan: - Cont levothyroxine (7) Depression: (8) Anxiety: Plan: - May continue BuSpar, Valium as needed, continue home lamotrigine, Effexor, Seroquel and trazodone at bedtime DVT PPx: - teds, scds CODE: Full code Dispo: From home, likely to remain in the hospital x 1-2 days A total of 76 minutes were spent with greater than 50% of that time face to face with the patient, personally reviewing all current laboratories, imaging studies, past medication reconciliation, outpatient chart review, and discussion with specialists to collaborate care for the patient with attending. Please see attending documentation for corrections and/or additions. Plan I have seen and examined the patient and have discussed the case with the provider above. I agree with the assessment and plan as stated with the following exceptions. The patient is a 57-year-old female with morbid obesity, chronic hypertension with subsequent kidney disease and hypertensive cardiomyopathy, severe migraines that are currently uncontrolled and general anxiety presenting with 2 days of shortness of breath subxiphoid chest pain that is continuous and altering her functional status. Prior to these symptoms coming on she was feeling well doing well and her anxiety was well controlled. She currently cannot figure figure out any stressors that may be contributing to uncontrolled anxiety at this time. She becomes more short of breath and has more symptoms with exertion. She does report leading a fairly sedentary life although she is up and walking and moving each day. She has no history of blood clot that is apparent. She is currently in the ER with hypertension and sinus tachycardia into the 130s. Review of systems reveals a headache which she reports is the result of not eating today. On physical exam she appears uncomfortable. She is morbidly obese. She is not demonstrating any increased respiratory efforts and her lungs are clear to auscultation throughout. Cardiac exam reveals S1-S2 with no 6 murmurs gallops or rubs. She has a regular rhythm and tacky rate. There are no carotid bruits, JVD and there is no abdominal bruit present. On palpation of the subxiphoid p rocess and her anterior chest wall I cannot reproduce any pain. She has a benign abdomen and no gross focal neurologic deficits. Skin is warm and dry. Work-up reveals a CBC with no leukocytosis and a normal H&H. Platelet count is normal, there is no coagulopathy, chemistry and kidney function are normal. Calcium is normal, LFTs are within normal limits. Highly sensitive troponin is 13 with an escalation of 19.6 on recheck a couple hours later. BNP is 46 lipase is 32. COVID swab is negative. Chest x-ray reveals no active disease in the chest EKG reveals sinus tachycardia at 126 bpm with LVH and repolarization abnormality. There is no ST elevation to indicate acute ischemia. Overall this is a 57-year-old female with risk factors for CAD who is presenting with chest pain and shortness of breath that has been going on consistently for 2 days in the setting of tachycardia and uncontrolled blood pressure. This is not consistent with an anxiety attack and is concerning for something else underlying. Differential includes but is not limited to ACS, aortic dissection, pulmonary embolus, GI pathology. Agree with pursuing CT aortogram and ruling out aortic dissection and PE with contrasted chest study. We will continue to monitor on telemetry and appreciate cardiology recommendations. She has only been given 1 L of fluid today and has no evidence of volume overload. Addit ional normal saline can be given however she is also hypertensive so would be inclined to give her half-normal saline if we pursued additional fluids. She also does not appear overtly dehydrated and labs do not support this. We will hold off for now. DO Ap History of Present Illness Chief Complaint: cp Primary Care Provider: Harry Schrader MD This is a 57-year-old female with PMHx of history of diastolic CHF in 2019 status post small silent [place], now with preserved EF, HTN, HLD, anxiety, depression, morbid obesity with a BMI of 42 on Ozempic and prediabetes, migraine history who presents to the hospital with onset of chest pain. Pt arrived via EMS to the hospital this morning because the pressure and shortness of breath was so significant, she has not walked since coming down the stairs in her home. Her father, Bandar, is present at bedside. Pt reports that 2 days ago she noticed this substernal chest pain closer to the right side while she was sitting down watching TV. She thought initially that this was anxiety and attempted to calm herself down. The next day admits to having same heavy substernal chest pressure along with a constricted effect with burning in her throat. During the afternoon, she noticed having worsening of breath with walking her dog yesterday. She was also having lightheadedness and dizziness. Last night while sitting this again she noticed increasing left shoulder and arm pain which kept her awake. She has history of anxiety and feels like this is adding to her complaints but nothing has improved with her po meds (buspar, effexor, or valium which she used once yesterday). Pt has been eating and drinking ok other than today. She admits to having some nausea, denies vomiting. She had been using phenergan intermittently for such, as ozempic does make her nauseous occasionally as well as her GERD meds. Last dose of Ozempic was on 09/24 and she is waiting for it to be shipped in the mail. Pt denies having any anxious triggers happen two days ago when chest heaviness started. She cannot pinpoint any changes, stressors, job, family issues that would be adding to this emotionally. Admits to cardiac family hx with her father who has HTN, HLD, pacemaker, CHF, bypass s/p [place] x 2 in 2012 at age 72. Mom without significant medical hx Social Hx: denies smoking and admits to very occasional alcoholic drink, had a sip of sangria on new . Allergies Allergy/AdvReac Type Severity Reaction Status Date / Time bee venom protein (honey bee) Allergy Severe SEVERE Verified 07/25/22 13:33 SWELLING,SOB ciprofloxacin Allergy Severe RESPIRATORY Verified 07/25/22 13:33 FAILURE/HIVES azithromycin Allergy Intermediate Hives Verified 07/25/22 13:33 latex Allergy Intermediate LOCAL Verified 07/25/22 13:33 IRRITATION REDDNESS SWELLING ITCHYNESS prednisone AdvReac Intermediate hallucinates, Verified 07/25/22 13:33 GI UPSET, agitation, flushing,tachycardia,sick Home Medications Medication Instructions Recorded Confirmed Type lamotrigine 200 mg tablet 200 mg PO BID #60 tabs 09/17/19 10/04/22 Rx (Lamictal) metoprolol succinate 100 mg 100 mg PO BID #60 ea 09/17/19 10/04/22 Rx capsule sprinkle, ext. release 24 hr omeprazole 40 mg capsule,delayed 40 mg PO BID #60 caps 09/17/19 10/04/22 Rx release albuterol sulfate 90 mcg/actuation 2 puff inhalation Q4 PRN Shortness 12/17/19 10/04/22 History aerosol inhaler Of Breath Or Wheezing buspirone 10 mg tablet 10 mg PO BID 12/17/19 10/04/22 History fluticasone propionate 50 2 spray intranasal DAILY PRN Nasal 12/17/19 10/04/22 History mcg/actuation nasal Congestion spray,suspension (Flonase Allergy Relief) quetiapine 50 mg tablet (Seroquel) 300 mg PO HS 12/17/19 10/04/22 History ropinirole 1 mg tablet 5 mg PO HS 12/17/19 10/04/22 History losartan 100 mg tablet 100 mg PO QAM 07/13/21 10/04/22 History venlafaxine 150 mg 150 mg PO QAM 07/13/21 10/04/22 History capsule,extended release 24 hr (Effexor XR) venlafaxine 37.5 mg 37.5 mg PO QAM 07/13/21 10/04/22 History capsule,extended release 24 hr (Effexor XR) semaglutide 1 mg/dose (4 mg/3 mL) 0 mg subcut WK 12/30/21 10/04/22 History subcutaneous pen injector (Ozempic) meclizine 12.5 mg tablet 12.5 mg PO QID PRN dizziness #14 01/07/22 10/04/22 Rx tabs trazodone 100 mg tablet 100 mg PO HS 01/12/22 10/04/22 History levothyroxine 125 mcg tablet 125 mcg PO DAILYBB #90 tabs 05/15/22 10/04/22 Rx cholecalciferol (vitamin D3) 25 2,000 unit PO DAILY 05/16/22 10/04/22 History mcg (1,000 unit) capsule nystatin-triamcinolone 100,000 See Rx Instructions .Route 08/28/22 10/04/22 Rx unit/g-0.1 % topical cream .COMPLEX #30 grams metoclopramide HCl 10 mg tablet 10 mg PO BID PRN nausea and 09/26/22 10/04/22 Rx (Reglan) vomiting, pain #60 tabs diazepam 5 mg tablet 5 mg PO DAILY PRN Panic Attack(S) 10/04/22 10/04/22 History Past Med/Surg History Medical History (Updated 10/04/22 @ 14:49 by Molly Gee PA-C) Abnormal blood chemistry Abnormal weight loss Acute kidney injury Anxiety Arm pain Asthma well controlled > res inh last used 5 mos ago Cardiomyopathy CHF (congestive heart failure) Chronic diastolic CHF (congestive heart failure) follows with Dr. Barron CKD (chronic kidney disease) stage 3, GFR 30-59 ml/min does not follow with specialist Depression Dizziness Dyspnea on exertion Elevated plasma metanephrines Essential tremor Fatigue Female pelvic pain Fibromyalgia Flushing GERD (gastroesophageal reflux disease) Hearing loss History of anesthesia reaction pt was not sure if was anesthsia or allergy to Cipro, but coded on OR table during lithotripsy 6 yrs ago History of cardiomyopathy Marissa to be secondary to hypertension. Occurred in 2015 with an EF of 40 to 45%. She had cardiac MRI which was concerning for possible hypertrophic cardiomyopathy but this was ruled out via echo. Last echocardiogram 07/2019 revealed preserved EF with grade 1 diastolic dysfunction. Hyperinsulinemia Hypertension Hypothyroidism IBS (irritable bowel syndrome) Insomnia Kidney stones Meniere disease Meningioma dx 5 yrs ago > follows with Dr. Turner with [facility] Migraines Lamictal for this Numbness Obesity Prediabetes PTSD (post-traumatic stress disorder) RLS (restless legs syndrome) Tachycardia Ureteral stone Ureteral stricture Vertigo Vitamin D deficiency Surgical History History of brain surgery 2007> Secondary to type I Chiari malformation at [facility] History of cholecystectomy History of colonoscopy with polypectomy History of endometrial ablation x2 History of esophagogastroduodenoscopy (EGD) History of lithotripsy History of tonsillectomy S/P correction of deviated nasal septum Family History Grandmother Colorectal cancer Father Heart disease Hypertension Hx of CABG Diabetes Denies family history of Breast cancer Lung cancer Social History Smoking Status: Never smoker Second Hand Exposure: No; Hx Alcohol Use: No Hx Substance Use: No Preferred Language: Bahraini Communication Ability: Effective Aerospace Physiological Technician Required: No Beliefs That Will Affect Care: None marital status: Single Current Living Situation: Alone current occupational status: disabled 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 Feels Safe at Home: Yes Assistive Devices: Cane and Walker Review of Systems Review of Systems: Constitutional: No fever, sweats or chills, + generalized ill feeling Eyes: No diplopia, no worsening or blurred vision ENT: normal hearing, no trouble swallowing Respiratory: No cough, sputum, dyspnea at rest, + dyspnea on exertion Cardiovascular: +heaviness, Right substernal chest pain, radiation to the left arm and into the jaw Abdomen: No pain,+ nausea, no vomiting, diarrhea or constipation Musculoskeletal: No joint pain, calf pain, swelling Neurologic: + generalized weakness, no numbness/tingling, or balance problems Psychiatric: + medicated for anxiety and depression, as per HPI Skin: No rash or itch Physical Exam Physical Exam: General: awake, alert, + generalized ill appearing, obese with BMI of 42 Head: Normocephalic, atraumatic ENT: PERRL, EOMI, no pharyngeal exudate, mucous membranes moist Chest: Clear to auscultation, on room air, no adventitious breath sounds Cardiac: sinus tach with HR at 105 while sitting in bed, chest pain is not reproducible on exam with pressing on the chest wall, no murmur, no JVD, normal peripheral pulses, good capillary refill Abdominal: NABS x 4 quadrants, soft, nondistended, nontender to palpation, no rebound or guarding Extremities: Normal inspection, no peripheral edema or erythema, calfs nontender to palpation Psych: Normal mood and affect, tearful at times Skin: pinpoint nonblanching purpura over all extremities Neuro: AAO x 3, strength intact bilaterally and rated 5/5, no motor deficits, speech is clear, no peripheral sensory deficits Results & Data Results & Data ([facility]) Vital Signs (Past 12 Hours) Vital Signs Temp Pulse Pulse Resp BP BP Pulse Ox 10/04/22 13:01 98 10/04/22 13:00 105 H 20 154/73 H 98 10/04/22 11:07 127 H 24 94 10/04/22 11:08 36.9 C 136 H 26 H 178/92 H 96 O2 Del Method 10/04/22 13:01 Room Air 10/04/22 13:00 Room Air 10/04/22 11:07 10/04/22 11:08 Room Air Laboratory Results 10/04/22 10/04/22 10/04/22 13:12 12:58 11:11 WBC RBC Hgb Hct MCV MCH MCHC RDW Std Deviation RDW Coeff of Nasima Plt Count MPV Immature Gran % (Auto) Neut % (Auto) Lymph % (Auto) Tucker % (Auto) Eos % (Auto) Baso % (Auto) Neut # (Auto) Lymph # (Auto) Tucker # (Auto) Eos # (Auto) Baso # (Auto) Immature Gran # (Auto) PT INR APTT PTT Ratio Sodium 139 Potassium 3.8 Chloride 107 Carbon Dioxide 22 Anion Gap 10 BUN 12 Creatinine 0.93 Est Cr Clr Drug Dosing 92.3 Est GFR ( Amer) 80.2 Est GFR (Non-Af Amer) 69.2 BUN/Creatinine Ratio 12.9 Glucose 114 H Calcium 9.5 Total Bilirubin 0.4 AST 17 ALT 25 Alkaline Phosphatase 123 H Troponin I High Sens 19.6 H D 13.0 B-Natriuretic Peptide Total Protein 6.8 Albumin 3.9 Globulin 2.9 Albumin/Globulin Ratio 1.3 Lipase 32 SARS-CoV-2, RNA, NAAT NEGATIVE 10/04/22 10/04/22 10/04/22 11:11 11:11 11:11 WBC 10.64 RBC 5.85 H Hgb 15.2 Hct 46.2 H MCV 79.0 L MCH 26.0 MCHC 32.9 RDW Std Deviation 42.4 RDW Coeff of Nasima 15.1 H Plt Count 368 MPV 9.0 L Immature Gran % (Auto) 0.6 Neut % (Auto) 59.9 Lymph % (Auto) 30.6 Tucker % (Auto) 6.1 Eos % (Auto) 2.0 Baso % (Auto) 0.8 Neut # (Auto) 6.38 Lymph # (Auto) 3.26 Tucker # (Auto) 0.65 Eos # (Auto) 0.21 Baso # (Auto) 0.08 Immature Gran # (Auto) 0.06 H PT 10.5 INR 1.0 APTT 25.9 PTT Ratio 0.9 Sodium Potassium Chloride Carbon Dioxide Anion Gap BUN Creatinine Est Cr Clr Drug Dosing Est GFR ( Amer) Est GFR (Non-Af Amer) BUN/Creatinine Ratio Glucose Calcium Total Bilirubin AST ALT Alkaline Phosphatase Troponin I High Sens B-Natriuretic Peptide 46 Total Protein Albumin Globulin Albumin/Globulin Ratio Lipase SARS-CoV-2, RNA, NAAT Diagnostic Findings Chest X-Ray 10/04/22 11:16 SINGLE VIEW CHEST CLINICAL HISTORY: Atypical chest pain FINDINGS: An AP, portable, upright chest radiograph is compared to study dated 01/01/2022 and correlated with chest CT dated 09/15/2016. The cardiomediastinal silhouette is unremarkable. There are low lung volumes with bibasilar atelectasis. The lungs and pleural spaces are clear. No pneumothorax is seen. The skeletal structures appear osteopenic. The bony thorax is grossly intact. IMPRESSION: No active disease in the chest. ACT 112: Negative or not required by law. Electronically signed by: Matias Baum M.D. 10/04/2022 11:54 AM Code Status & VTE Plan Code Status Full code
[2022-10-04] MEDS ORDERED: ALBUTEROL HFA 8 GM INHALER INH PRN (14:05)
[2022-10-04] MEDS ORDERED: FLUTICASONE PROPIONATE NA SPR 16 GM BTL PRN (14:05)
[2022-10-04] MEDS ORDERED: diazePAM 5 MG TABLET PO PRN (14:05)
[2022-10-04] MEDS ORDERED: LOSARTAN POTASSIUM 50 MG TAB PO STA (14:12)
[2022-10-04] MEDS ORDERED: METOPROLOL SUCC 50MG EXT REL TAB PO STA (14:14)
[2022-10-04] MEDS ORDERED: VENLAFAXINE HCL XR 37.5 MG CAPXR PO STA (14:15)
[2022-10-04] MEDS ORDERED: VENLAFAXINE HCL XR 150 MG CAPXR PO STA (14:16)
[2022-10-04] MEDS ORDERED: BUTALBITAL/ACETAMIN/CAFFEINE TAB PO STA ×2 (14:47→19:04)
--- NOTE | 2022-10-04 15:06 | Communication Note ---
Date of Service: October 04, 2022 ATTENDING ADDENDUM: The patient is a 57-year-old female with morbid obesity, chronic hypertension with subsequent kidney disease and hypertensive cardiomyopathy, severe migraines that are currently uncontrolled and general anxiety presenting with 2 days of shortness of breath subxiphoid chest pain that is continuous and altering her functional status. Prior to these symptoms coming on she was feeling well doing well and her anxiety was well controlled. She currently cannot figure figure out any stressors that may be contributing to uncontrolled anxiety at this time. She becomes more short of breath and has more symptoms with exertion. She does report leading a fairly sedentary life although she is up and walking and moving each day. She has no history of blood clot that is apparent. She is currently in the ER with hypertension and sinus tachycardia into the 130s. Review of systems reveals a headache which she reports is the result of not eating today. On physical exam she appears uncomfortable. She is morbidly obese. She is not demonstrating any increased respiratory efforts and her lungs are clear to auscultation throughout. Cardiac exam reveals S1-S2 with no 6 murmurs gallops or rubs. She has a regular rhythm and tacky rate. There are no carotid bruits, JVD and there is no abdominal bruit present. On palpation of the subxiphoid process and her anterior chest wall I cannot reproduce any pain. She has a benign abdomen and no gross focal neurologic deficits. Skin is warm and dry. Work-up reveals a CBC with no leukocytosis and a normal H&H. Platelet count is normal, there is no coagulopathy, chemistry and kidney function are normal. Calcium is normal, LFTs are within normal limits. Highly sensitive troponin is 13 with an escalation of 19.6 on recheck a couple hours later. BNP is 46 lipase is 32. COVID swab is negative. Chest x-ray reveals no active disease in the chest EKG reveals sinus tachycardia at 126 bpm with LVH and repolarization abnormality. There is no ST elevation to indicate acute ischemia. Overall this is a 57-year-old female with risk factors for CAD who is presenting with chest pain and shortness of breath that has been going on consistently for 2 days in the setting of tachycardia and uncontrolled blood pressure. This is not consistent with an anxiety attack and is concerning for something else underlying. Differential includes but is not limited to ACS, aortic dissection, pulmonary embolus, GI pathology. Agree with pursuing CT aortogram and ruling out aortic dissection and PE with contrasted chest study. We will continue to monitor on telemetry and appreciate cardiology recommendations. She has only been given 1 L of fluid today and has no evidence of volume overload. Additional normal saline can be given however she is also hypertensive so would be inclined to give her half-normal saline if we pursued additional fluids. She also does not appear overtly dehydrated and labs do not support this. We will hold off for now. Ap, DO
--- NOTE | 2022-10-04 15:08 | Electrocardiogram Report ---
Test Reason : Blood Pressure : / mmHG Vent. Rate : 126 BPM Atrial Rate : 126 BPM P-R Int : 142 ms QRS Dur : 094 ms QT Int : 332 ms P-R-T Axes : 039 -36 047 degrees QTc Int : 480 ms Poor data quality, interpretation may be adversely affected Sinus tachycardia Left axis deviation Left ventricular hypertrophy with repolarization abnormality Abnormal ECG When compared with ECG of 04-OCT-2022 10:58, No significant change was found Confirmed by Harry Enriquez ([id number]) on 10/04/2022 3:08:16 PM Referred By: REFERRED SELF Confirmed By:Harry Enriquez
[2022-10-04] MEDS ORDERED: METOPROLOL TARTRATE 1 MG/ML VIAL IV STA ×2 (15:56→18:17)
--- NOTE | 2022-10-04 15:58 | Cardiology Consultation ---
Date of Consultation October 04, 2022 Assessment & Plan (1) Hypertensive urgency: (2) Sinus tachycardia: (3) Chest pain: (4) Hypertensive heart disease with chronic diastolic congestive heart failure: (5) Morbid obesity: Plan Patient is a 57-year-old female with longstanding hypertension and hypertensive heart disease on multiple drug regimen presents noting 2-day history of generalized malaise abdominal and chest discomfort. Initial troponin negative and EKG is without acute ischemia. Echocardiogram reveals hyperdynamic LV function without wall motion abnormality EF greater than 70%. Exam reflects significant hypertension and tachycardia Patient did miss at least 2 doses of beta-sabina therapy Impression: 1. Hypertensive urgency question precipitant: IV metoprolol now with oral medications as ordered may require additional dosing. LV function very hyperdynamic on echocardiogram. Patient has received 1 L saline in ER 2. Mild elevation of troponin without EKG or echocardiographic correlation. We will continue to trend. If chest pain and elevation persist consider coronary angiography the patient received contrast today. 3. Acute syndrome of uncertain etiology. Urinalysis and blood cultures ordered, treat History of Present Illness Reason for Consultation: Chest pain elevated heart rate and blood pressure Requesting Physician: Dr. De Souza Attending Physician: Dr. De Souza History of Present Illness Patient is a 57-year-old female whose ongoing issues include 1. Longstanding hypertension with hypertensive heart and kidney disease on multidrug regimen 2. Morbid obesity 3. Recurrent chest pain with multiple noninvasive evaluations 4. Sinus tachycardia Patient presents this admission noting having felt poorly for several days. Was unable to take medications last night and this morning. Presented to emergency room where she was found to be in sinus tachycardia with markedly elevated blood pressures. Patient she has been having intermittent abdominal and chest pressure discomfort now persistent for nearly 2 days. No fevers or chills no productive cough. No edema. No acute weight loss or gain. Was given a.m. medications just prior to examination Allergies Allergy/AdvReac Type Severity Reaction Status Date / Time bee venom protein (honey bee) Allergy Severe SEVERE Verified 07/25/22 13:33 SWELLING,SOB ciprofloxacin Allergy Severe RESPIRATORY Verified 07/25/22 13:33 FAILURE/HIVES azithromycin Allergy Intermediate Hives Verified 07/25/22 13:33 latex Allergy Intermediate LOCAL Verified 07/25/22 13:33 IRRITATION REDDNESS SWELLING ITCHYNESS prednisone AdvReac Intermediate hallucinates, Verified 07/25/22 13:33 GI UPSET, agitation, flushing,tachycardia,sick Home Medications Medication Instructions Recorded Confirmed Type lamotrigine 200 mg tablet 200 mg PO BID #60 tabs 09/17/19 10/04/22 Rx (Lamictal) metoprolol succinate 100 mg 100 mg PO BID #60 ea 09/17/19 10/04/22 Rx capsule sprinkle, ext. release 24 hr omeprazole 40 mg capsule,delayed 40 mg PO BID #60 caps 09/17/19 10/04/22 Rx release albuterol sulfate 90 mcg/actuation 2 puff inhalation Q4 PRN Shortness 12/17/19 10/04/22 History aerosol inhaler Of Breath Or Wheezing buspirone 10 mg tablet 10 mg PO BID 12/17/19 10/04/22 History fluticasone propionate 50 2 spray intranasal DAILY PRN Nasal 12/17/19 10/04/22 History mcg/actuation nasal Congestion spray,suspension (Flonase Allergy Relief) quetiapine 50 mg tablet (Seroquel) 300 mg PO HS 12/17/19 10/04/22 History ropinirole 1 mg tablet 5 mg PO HS 12/17/19 10/04/22 History losartan 100 mg tablet 100 mg PO QAM 07/13/21 10/04/22 History venlafaxine 150 mg 150 mg PO QAM 07/13/21 10/04/22 History capsule,extended release 24 hr (Effexor XR) venlafaxine 37.5 mg 37.5 mg PO QAM 07/13/21 10/04/22 History capsule,extended release 24 hr (Effexor XR) semaglutide 1 mg/dose (4 mg/3 mL) 0 mg subcut WK 12/30/21 10/04/22 History subcutaneous pen injector (Ozempic) meclizine 12.5 mg tablet 12.5 mg PO QID PRN dizziness #14 01/07/22 10/04/22 Rx tabs trazodone 100 mg tablet 100 mg PO HS 01/12/22 10/04/22 History levothyroxine 125 mcg tablet 125 mcg PO DAILYBB #90 tabs 05/15/22 10/04/22 Rx cholecalciferol (vitamin D3) 25 2,000 unit PO DAILY 05/16/22 10/04/22 History mcg (1,000 unit) capsule nystatin-triamcinolone 100,000 See Rx Instructions .Route 08/28/22 10/04/22 Rx unit/g-0.1 % topical cream .COMPLEX #30 grams metoclopramide HCl 10 mg tablet 10 mg PO BID PRN nausea and 09/26/22 10/04/22 Rx (Reglan) vomiting, pain #60 tabs diazepam 5 mg tablet 5 mg PO DAILY PRN Panic Attack(S) 10/04/22 10/04/22 History Patient History Medical History Abnormal blood chemistry Abnormal weight loss Acute kidney injury Anxiety Arm pain Asthma well controlled > res inh last used 5 mos ago Cardiomyopathy CHF (congestive heart failure) Chronic diastolic CHF (congestive heart failure) follows with Dr. Barron CKD (chronic kidney disease) stage 3, GFR 30-59 ml/min does not follow with specialist Depression Dizziness Dyspnea on exertion Elevated plasma metanephrines Essential tremor Fatigue Female pelvic pain Fibromyalgia Flushing GERD (gastroesophageal reflux disease) Hearing loss History of anesthesia reaction pt was not sure if was anesthsia or allergy to Cipro, but coded on OR table during lithotripsy 6 yrs ago History of cardiomyopathy [place] to be secondary to hypertension. Occurred in 2015 with an EF of 40 to 45%. She had cardiac MRI which was concerning for possible hypertrophic cardiomyopathy but this was ruled out via echo. Last echocardiogram 07/2019 revealed preserved EF with grade 1 diastolic dysfunction. Hyperinsulinemia Hypertension Hypothyroidism IBS (irritable bowel syndrome) Insomnia Kidney stones Meniere disease Meningioma dx 5 yrs ago > follows with Dr. Turner with [facility] Migraines Lamictal for this Numbness Obesity Prediabetes PTSD (post-traumatic stress disorder) RLS (restless legs syndrome) Tachycardia Ureteral stone Ureteral stricture Vertigo Vitamin D deficiency Surgical History History of brain surgery 2007> Secondary to type I Chiari malformation at [facility] History of cholecystectomy History of colonoscopy with polypectomy History of endometrial ablation x2 History of esophagogastroduodenoscopy (EGD) History of lithotripsy History of tonsillectomy S/P correction of deviated nasal septum Family History Grandmother Colorectal cancer Father Heart disease Hypertension Hx of CABG Diabetes Denies family history of Breast cancer Lung cancer Social History Smoking Status: Never smoker Second Hand Exposure: No; Do You Dip or Chew Tobacco: No; Tobacco Cessation Education Requested by Patient: No Hx Alcohol Use: No Hx Substance Use: No Preferred Language: Czech Communication Ability: Effective Clinical Immunologist Required: No Beliefs That Will Affect Care: None marital status: Single Current Living Situation: Alone current occupational status: disabled 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 Other Information That Helps Us Care for You: No Feels Safe at Home: Yes Safety Concerns: Feels Safe At This Time Assistive Devices: Cane and Walker Review of Systems Review of Systems: All systems reviewed & are unremarkable except as noted in HPI & below Physical Exam Constitutional: WD/WN, vitals as above Eyes: PERRL, conjunctivae normal, anicteric sclerae ENMT: external ear and nose normal, oropharynx normal Neck: trachea midline, no thyromegaly + thick neck Respiratory: normal respiratory effort, lungs clear to auscultation Cardiovascular: Rate/Rhythm: regular rhythm and + tachycardic Heart Sounds: no murmur Vessels: dorsalis pedis pulses present and radial pulses present; no carotid bruit Gastrointestinal (Abdomen): Obese with large panniculus no focal tenderness Musculoskeletal: no cyanosis or clubbing, extremities motor strength 5/5 Results & Data ([facility]) Vital Signs (Past 12 Hours) Vital Signs Temp Pulse Pulse Resp BP BP Pulse Ox 10/04/22 15:36 10/04/22 15:00 99 H 23 98 10/04/22 15:00 161/135 H 10/04/22 14:30 108 H 20 96 10/04/22 14:30 165/95 H 10/04/22 14:00 105 H 13 93 10/04/22 13:30 103 H 18 95 10/04/22 13:30 186/73 H 10/04/22 13:00 103 H 20 94 10/04/22 13:00 154/73 H 10/04/22 12:30 105 H 12 91 10/04/22 12:30 152/76 H 10/04/22 12:00 114 H 21 95 10/04/22 12:00 128/83 10/04/22 11:30 126 H 21 95 01/12/23 11:30 127/93 10/04/22 13:01 98 10/04/22 13:00 105 H 20 154/73 H 98 10/04/22 11:07 127 H 24 94 10/04/22 11:08 36.9 C 136 H 26 H 178/92 H 96 O2 Del Method 10/04/22 15:36 Room Air 10/04/22 15:00 10/04/22 15:00 10/04/22 14:30 10/04/22 14:30 10/04/22 14:00 10/04/22 13:30 10/04/22 13:30 10/04/22 13:00 10/04/22 13:00 10/04/22 12:30 10/04/22 12:30 10/04/22 12:00 10/04/22 12:00 10/04/22 11:30 10/04/22 11:30 10/04/22 13:01 Room Air 10/04/22 13:00 Room Air 10/04/22 11:07 10/04/22 11:08 Room Air Laboratory Results Laboratory Results - last 24 hr 10/04/22 10/04/22 10/04/22 11:11 11:11 11:11 WBC 10.64 RBC 5.85 H Hgb 15.2 Hct 46.2 H MCV 79.0 L MCH 26.0 MCHC 32.9 RDW Std Deviation 42.4 RDW Coeff of Nasima 15.1 H Plt Count 368 MPV 9.0 L Immature Gran % (Auto) 0.6 Neut % (Auto) 59.9 Lymph % (Auto) 30.6 [place] % (Auto) 6.1 Eos % (Auto) 2.0 Baso % (Auto) 0.8 Neut # (Auto) 6.38 Lymph # (Auto) 3.26 [place] # (Auto) 0.65 Eos # (Auto) 0.21 Baso # (Auto) 0.08 Immature Gran # (Auto) 0.06 H PT 10.5 INR 1.0 APTT 25.9 PTT Ratio 0.9 Sodium Potassium Chloride Carbon Dioxide Anion Gap BUN Creatinine Est Cr Clr Drug Dosing Est GFR ( Amer) Est GFR (Non-Af Amer) BUN/Creatinine Ratio Glucose Calcium Total Bilirubin AST ALT Alkaline Phosphatase Troponin I High Sens B-Natriuretic Peptide 46 Total Protein Albumin Globulin Albumin/Globulin Ratio Lipase SARS-CoV-2, RNA, NAAT 10/04/22 10/04/22 10/04/22 11:11 12:58 13:12 WBC RBC Hgb Hct MCV MCH MCHC RDW Std Deviation RDW Coeff of Nasima Plt Count MPV Immature Gran % (Auto) Neut % (Auto) Lymph % (Auto) [place] % (Auto) Eos % (Auto) Baso % (Auto) Neut # (Auto) Lymph # (Auto) [place] # (Auto) Eos # (Auto) Baso # (Auto) Immature Gran # (Auto) PT INR APTT PTT Ratio Sodium 139 Potassium 3.8 Chloride 107 Carbon Dioxide 22 Anion Gap 10 BUN 12 Creatinine 0.93 Est Cr Clr Drug Dosing 92.3 Est GFR ( Amer) 80.2 Est GFR (Non-Af Amer) 69.2 BUN/Creatinine Ratio 12.9 Glucose 114 H Calcium 9.5 Total Bilirubin 0.4 AST 17 ALT 25 Alkaline Phosphatase 123 H Troponin I High Sens 13.0 19.6 H D B-Natriuretic Peptide Total Protein 6.8 Albumin 3.9 Globulin 2.9 Albumin/Globulin Ratio 1.3 Lipase 32 SARS-CoV-2, RNA, NAAT NEGATIVE Diagnostic Findings Echocardiogram 10/04/2022 Hypertrophied hyperdynamic LV EF greater than 70% without significant valvular disease
[2022-10-04] MEDS ORDERED: OPTIRAY 320 500ml IV ONE (16:34)
--- NOTE | 2022-10-04 16:55 | CT Scan Report ---
CT ANGIOGRAPHY OF THE CHEST DISSECTION PROTOCOL CLINICAL HISTORY: Chest pain. Shortness of breath. Evaluate for dissection. COMPARISON STUDY: Chest radiograph October 04, 2022. Chest CT September 15, 2016. TECHNIQUE: Before and following the IV administration of 115 mL of Optiray, helical axial images of t he chest were obtained. Maximal intensity projections and sagittal and coronal reformats were viewed on an independent 3D workstation. IV contrast was administered without complication. Automated exp osure control was utilized for the study. A dose lowering technique was utilized adhering to the [facility]. CT DOSE: 1411.46 mGycm FINDINGS: Caliber of the thoracic aorta is normal. There is no thoracic aortic dissection or intramu ral hematoma. Size of the heart is within normal limits. No pulmonary emboli are identified although segmental and subsegmental pulmonary arteries are suboptimally assessed. There is no pericardial effu pato. There is no thoracic lymphadenopathy. No pneumothorax or pleural effusion is present. There is no consolidation to suggest pneumonia. No acute fractures within the visualized bony thorax are noted . There is hepatic steatosis. The gallbladder is surgically absent. IMPRESSION: 1. No thoracic aortic dissection. 2. No acute intrathoracic findings. ACT 112: Negative or not required by law. Electronically signed by: Carlos Mohr M.D. 10/04/2022 4:54 PM
[2022-10-04 17:31] LABS: Appearance Urine Clear (Clear); Bilirubin Urine Negative (Negative); Blood Urine Negative (Negative); Color Urine Yellow; Glucose Urine UA Negative (Negative); Ketones Urine Negative (Negative); Leukocyte Esterase Urine Negative (Negative); Nitrite Urine Negative (Negative); Protein Urine Negative (Negative); Specific Gravity Urine > 1.045 (1.000-1.030); Urobilinogen Urine Negative (Negative)
[2022-10-04] MEDS ORDERED: METOPROLOL TARTRATE 1 MG/ML VIAL IV ONE (18:20)
[2022-10-04] MEDS ORDERED: amLODIPine BESYLATE 5 MG TAB PO ONE (19:00)
[2022-10-04] MEDS ORDERED: QUEtiapine FUMARATE 300 MG TABLET PO SCH (21:00)
[2022-10-04] MEDS: busPIRone 5 MG TAB PO SCH (21:03)
[2022-10-04] MEDS: traZODone HCL 100 MG TAB PO SCH (21:03)
[2022-10-04] MEDS: PANTOprazole 40 MG TAB PO SCH (21:03)
[2022-10-04] MEDS: rOPINIRole HCL 1 MG TABLET PO SCH (21:03)
[2022-10-04] MEDS: lamoTRIgine 100 MG TAB PO SCH (21:05)
[2022-10-04] MEDS: METOPROLOL SUCC 50MG EXT REL TAB PO SCH (22:50)
[2022-10-05] MEDS: METOCLOPRAMIDE HCL 10 MG TABLET PO PRN ×2 (02:26→07:56)
[2022-10-05] MEDS: LEVOTHYROXINE SODIUM 125 MCG TABLET PO SCH (06:24)
[2022-10-05] MEDS ORDERED: MoRPHine SULFATE 4 MG/ML 1 ML CARP\\VIAL IV PRN (06:32)
[2022-10-05] MEDS: oxyCODONE HCL IR 5 MG TAB (IMMEDIATE RELEASE) PO PRN ×3 (06:38→20:50)
[2022-10-05 07:50] LABS: Hemoglobin 14.9 g/dl (12.0-16.0); Mean Corpuscular Hemoglobin 26.1 pg (25.0-34.0); Mean Corpuscular Hgb Conc 33.1 g/dL (32.0-36.0); Mean Corpuscular Volume 78.9 fL (80.0-100.0); Mean Platelet Volume 9.3 fL (9.4-12.3); Platelet Count 339 K/uL (130-400); RDW Coefficient of Variation 15.3 % (11.5-14.5); RDW Standard Deviation 43.5 fL (36.4-46.3); White Blood Count 9.25 K/ul (4.8-10.8)
[2022-10-05] MEDS: lamoTRIgine 100 MG TAB PO SCH ×2 (07:55→20:53)
[2022-10-05] MEDS: amLODIPine BESYLATE 5 MG TAB PO SCH (07:56)
[2022-10-05] MEDS: PANTOprazole 40 MG TAB PO SCH ×2 (07:56→20:52)
[2022-10-05] MEDS: METOPROLOL SUCC 50MG EXT REL TAB PO SCH ×2 (07:56→20:54)
[2022-10-05] MEDS: LOSARTAN POTASSIUM 50 MG TAB PO SCH (07:57)
[2022-10-05] MEDS: VENLAFAXINE HCL XR 37.5 MG CAPXR PO SCH (07:57)
[2022-10-05] MEDS: VENLAFAXINE HCL XR 150 MG CAPXR PO SCH (07:57)
[2022-10-05] MEDS: CHOLECALCIFEROL 1,000 UNITS 25 MCG TAB PO SCH (07:58)
[2022-10-05 08:16] LABS: BUN Creatinine Ratio 14.1 (10-20); Calcium 9.1 mg/dl (8.5-10.1); Creatinine Clr Calc Pharmacy 101.1 ml/min; Est GFR (African American) 89.4 ml/min; Est GFR (Non-African American) 77.1 ml/min; Potassium 4.1 mmol/L (3.5-5.1)
[2022-10-05] MEDS ORDERED: VENLAFAXINE HCL XR 37.5 MG CAPXR PO SCH (09:00)
[2022-10-05] MEDS: busPIRone 5 MG TAB PO SCH ×2 (10:28→20:54)
--- NOTE | 2022-10-05 10:37 | Cardiology Progress Note ---
Date of Service October 05, 2022 Assessment & Plan (1) Hypertensive urgency: (2) Sinus tachycardia: (3) Chest pain: (4) Hypertensive heart disease with chronic diastolic congestive heart failure: (5) Morbid obesity: Plan Patient is a 57-year-old female with longstanding hypertension and hypertensive heart disease on multiple drug regimen presents noting 2-day history of generalized malaise abdominal and chest discomfort. Initial troponin negative and EKG is without acute ischemia. Echocardiogram reveals hyperdynamic LV function without wall motion abnormality EF greater than 70%. Exam reflects significant hypertension and tachycardia Patient did miss at least 2 doses of beta-sabina therapy Impression: 1. Hypertensive urgency question precipitant: IV metoprolol now with oral medications as ordered may require additional dosing. LV function very hyperdynamic on echocardiogram. Patient has received 1 L saline in ER 2. Mild elevation of troponin without EKG or echocardiographic correlation. We will continue to trend. If chest pain and elevation persist consider coronary angiography the patient received contrast today. 3. Acute syndrome of uncertain etiology. Urinalysis and blood cultures ordered, treat 10/05/2022 Clinically improved this morning headache resolved though blood pressure still trending higher at times. Able to tolerate medications this morning Findings consistent with hypertensive urgency without acute coronary syndrome. Reviewed troponins now normal after single minimal elevation. Echocardiogram with hyperdynamic LV function heart rate and blood pressure better Plan: Continue current medications with addition of amlodipine 5 mg every morning. Resume furosemide 20 mg and spironolactone 12.5 mg previously used for hypertension and diastolic dysfunction. Not currently taking at home Mild microcytosis on CBC recommend check iron study Admission and Anticipated Discharge Date Admission Date: October 04, 2022 Subjective Patient seen and examined, chart, medications, telemetry reviewed. Feels improved since last night vague chest pressure sensation still present. No troponin elevation this morning and EKG without acute findings. Blood pressure trending towards better control. Physical Exam Constitutional: WD/WN, vitals as above Eyes: PERRL, conjunctivae normal, anicteric sclerae ENMT: external ear and nose normal, oropharynx normal Neck: trachea midline, no thyromegaly + thick neck Respiratory: normal respiratory effort, lungs clear to auscultation Cardiovascular: Rate/Rhythm: regular rhythm and + tachycardic Heart Sounds: no murmur Vessels: dorsalis pedis pulses present and radial pulses present; no carotid bruit Musculoskeletal: no cyanosis or clubbing, extremities motor strength 5/5 Results & Data ([facility]) Vital Signs (Past 12 Hours) Vital Signs Temp Pulse Resp BP BP Pulse Ox O2 Del Method 10/05/22 07:32 36.9 C 76 17 176/89 H 93 Room Air 10/05/22 06:11 167/81 H 10/05/22 04:25 36.9 C 76 18 172/99 H 95 Room Air 10/04/22 23:12 36.8 C 87 15 140/82 95 Room Air Laboratory Results Laboratory Results - last 24 hr 10/04/22 10/04/22 10/04/22 11:11 11:11 11:11 WBC 10.64 RBC 5.85 H Hgb 15.2 Hct 46.2 H MCV 79.0 L MCH 26.0 MCHC 32.9 RDW Std Deviation 42.4 RDW Coeff of Nasima 15.1 H Plt Count 368 MPV 9.0 L Immature Gran % (Auto) 0.6 Neut % (Auto) 59.9 Lymph % (Auto) 30.6 [place] % (Auto) 6.1 Eos % (Auto) 2.0 Baso % (Auto) 0.8 Neut # (Auto) 6.38 Lymph # (Auto) 3.26 [place] # (Auto) 0.65 Eos # (Auto) 0.21 Baso # (Auto) 0.08 Immature Gran # (Auto) 0.06 H PT 10.5 INR 1.0 APTT 25.9 PTT Ratio 0.9 Sodium Potassium Chloride Carbon Dioxide Anion Gap BUN Creatinine Est Cr Clr Drug Dosing Est GFR ( Amer) Est GFR (Non-Af Amer) BUN/Creatinine Ratio Glucose Calcium Total Bilirubin AST ALT Alkaline Phosphatase Troponin I High Sens B-Natriuretic Peptide 46 Total Protein Albumin Globulin Albumin/Globulin Ratio Lipase Urine Color Urine Appearance Urine pH Ur Specific [place] Urine Protein Urine Glucose (UA) Urine Ketones Urine Blood Urine Nitrite Urine Bilirubin Urine Urobilinogen Ur Leukocyte Esterase SARS-CoV-2, RNA, NAAT 10/04/22 10/04/22 10/04/22 11:11 12:58 13:12 WBC RBC Hgb Hct MCV MCH MCHC RDW Std Deviation RDW Coeff of Nasima Plt Count MPV Immature Gran % (Auto) Neut % (Auto) Lymph % (Auto) [place] % (Auto) Eos % (Auto) Baso % (Auto) Neut # (Auto) Lymph # (Auto) [place] # (Auto) Eos # (Auto) Baso # (Auto) Immature Gran # (Auto) PT INR APTT PTT Ratio Sodium 139 Potassium 3.8 Chloride 107 Carbon Dioxide 22 Anion Gap 10 BUN 12 Creatinine 0.93 Est Cr Clr Drug Dosing 92.3 Est GFR ( Amer) 80.2 Est GFR (Non-Af Amer) 69.2 BUN/Creatinine Ratio 12.9 Glucose 114 H Calcium 9.5 Total Bilirubin 0.4 AST 17 ALT 25 Alkaline Phosphatase 123 H Troponin I High Sens 13.0 19.6 H D B-Natriuretic Peptide Total Protein 6.8 Albumin 3.9 Globulin 2.9 Albumin/Globulin Ratio 1.3 Lipase 32 Urine Color Urine Appearance Urine pH Ur Specific [place] Urine Protein Urine Glucose (UA) Urine Ketones Urine Blood Urine Nitrite Urine Bilirubin Urine Urobilinogen Ur Leukocyte Esterase SARS-CoV-2, RNA, NAAT NEGATIVE 10/04/22 10/04/22 10/05/22 17:20 19:10 07:24 WBC 9.25 RBC 5.70 H Hgb 14.9 Hct 45.0 H MCV 78.9 L MCH 26.1 MCHC 33.1 RDW Std Deviation 43.5 RDW Coeff of Nasima 15.3 H Plt Count 339 MPV 9.3 L Immature Gran % (Auto) Neut % (Auto) Lymph % (Auto) [place] % (Auto) Eos % (Auto) Baso % (Auto) Neut # (Auto) Lymph # (Auto) [place] # (Auto) Eos # (Auto) Baso # (Auto) Immature Gran # (Auto) PT INR APTT PTT Ratio Sodium Potassium Chloride Carbon Dioxide Anion Gap BUN Creatinine Est Cr Clr Drug Dosing Est GFR ( Amer) Est GFR (Non-Af Amer) BUN/Creatinine Ratio Glucose Calcium Total Bilirubin AST ALT Alkaline Phosphatase Troponin I High Sens 15.9 H B-Natriuretic Peptide Total Protein Albumin Globulin Albumin/Globulin Ratio Lipase Urine Color Yellow Urine Appearance Clear Urine pH 7.0 Ur Specific [place] > 1.045 H Urine Protein Negative Urine Glucose (UA) Negative Urine Ketones Negative Urine Blood Negative Urine Nitrite Negative Urine Bilirubin Negative Urine Urobilinogen Negative Ur Leukocyte Esterase Negative SARS-CoV-2, RNA, NAAT 10/05/22 10/05/22 07:24 07:24 WBC RBC Hgb Hct MCV MCH MCHC RDW Std Deviation RDW Coeff of Nasima Plt Count MPV Immature Gran % (Auto) Neut % (Auto) Lymph % (Auto) [place] % (Auto) Eos % (Auto) Baso % (Auto) Neut # (Auto) Lymph # (Auto) [place] # (Auto) Eos # (Auto) Baso # (Auto) Immature Gran # (Auto) PT INR APTT PTT Ratio Sodium 137 Potassium 4.1 Chloride 103 Carbon Dioxide 28 Anion Gap 6 BUN 12 Creatinine 0.85 Est Cr Clr Drug Dosing 101.1 Est GFR ( Amer) 89.4 Est GFR (Non-Af Amer) 77.1 BUN/Creatinine Ratio 14.1 Glucose 88 Calcium 9.1 Total Bilirubin AST ALT Alkaline Phosphatase Troponin I High Sens 7.9 D B-Natriuretic Peptide Total Protein Albumin Globulin Albumin/Globulin Ratio Lipase Urine Color Urine Appearance Urine pH Ur Specific [place] Urine Protein Urine Glucose (UA) Urine Ketones Urine Blood Urine Nitrite Urine Bilirubin Urine Urobilinogen Ur Leukocyte Esterase SARS-CoV-2, RNA, NAAT
[2022-10-05] MEDS ORDERED: SPIRONOLACTONE 12.5 MG TAB PO ONE (11:00)
[2022-10-05] MEDS ORDERED: FUROSEMIDE 20 MG TAB PO ONE (11:00)
[2022-10-05] MEDS ORDERED: oxyCODONE HCL IR 5 MG TAB (IMMEDIATE RELEASE) PO STA (12:54)
[2022-10-05] MEDS: ACETAMINOPHEN 325 MG TAB PO PRN ×2 (13:40→20:49)
--- NOTE | 2022-10-05 14:21 | Electrocardiogram Report ---
Test Reason : Blood Pressure : / mmHG Vent. Rate : 066 BPM Atrial Rate : 066 BPM P-R Int : 158 ms QRS Dur : 100 ms QT Int : 450 ms P-R-T Axes : 028 -26 030 degrees QTc Int : 471 ms Normal sinus rhythm Minimal voltage criteria for LVH, may be normal variant Borderline ECG When compared with ECG of 04-OCT-2022 11:28, Vent. rate has decreased BY 60 BPM Confirmed by Kyle Cazares ([id number]) on 10/05/2022 2:21:27 PM Referred By: REFERRED SELF Confirmed By:Kyle Cazares
--- NOTE | 2022-10-05 18:22 | Hospitalist Progress Note ---
Date of Service October 05, 2022 Assessment & Plan (1) Hypertensive urgency: Plan 1) Chest pain: initial workup unremarkable CTA chest ok echo ok stress test vs cath as per cardiology. (2) Chronic diastolic CHF (congestive heart failure): lasix and aldactone restarted by cardiology will monitor. (3) Hypertension:Urgency Plan: Ws on nitropaste currently on losartan 100mg daily toprol xl 100mg bid started on amlodipine lasix and aldactone restarted will monitor (4) Prediabetes: Plan: - Last A1C was 5.7 - Continue on ozempic as outpatient, not on other oral medications anymore with weight loss Continue to encourage diet and exercise (5) CKD (chronic kidney disease) stage 3, GFR 30-59 ml/min: Plan: presented with 0.93, BUN is 12 (6) Hypothyroidism: Plan: - Cont levothyroxine (7) Depression: (8) Anxiety: Plan: - May continue BuSpar, Valium as needed, continue home lamotrigine, Effexor, Seroquel and trazodone at bedtime DVT px scds Disposition To be determined Admission and Anticipated Discharge Date Admission Date: October 04, 2022 Subjective patient was having headache early in the morning' still has some chest heaviness no sob no nausea no other complaints Review of Systems Review of Systems: ROS unremarkable Physical Exam Neck: normal visual inspection Respiratory: normal respiratory effort, lungs clear to auscultation Cardiovascular: RRR, no murmur, no edema Gastrointestinal (Abdomen): normal bowel sounds, soft, nontender, no hepatosplenomegaly Neurologic: alert and oriented speech clear no facial droop obeys commands moves extremities Results & Data Results & [facility]) Vital Signs (Past 12 Hours) Vital Signs Temp Pulse Resp BP Pulse Ox O2 Del Method 10/05/22 16:01 36.9 C 85 20 157/77 H 93 Room Air 10/05/22 11:05 36.9 C 65 17 165/85 H 95 Room Air 10/05/22 07:32 36.9 C 76 17 176/89 H 93 Room Air
[2022-10-05] MEDS: traZODone HCL 100 MG TAB PO SCH (20:53)
[2022-10-05] MEDS: rOPINIRole HCL 1 MG TABLET PO SCH (20:54)
[2022-10-06] MEDS: ACETAMINOPHEN 325 MG TAB PO PRN ×2 (05:11→12:33)
[2022-10-06] MEDS: LEVOTHYROXINE SODIUM 125 MCG TABLET PO SCH (05:57)
[2022-10-06 08:40] LABS: BUN Creatinine Ratio 20.2 (10-20); Creatinine Clr Calc Pharmacy 82.6 ml/min; Est GFR (Non-African American) 60.4 ml/min; Potassium 4.1 mmol/L (3.5-5.1)
[2022-10-06] MEDS: busPIRone 5 MG TAB PO SCH ×2 (08:44→20:49)
[2022-10-06] MEDS: VENLAFAXINE HCL XR 37.5 MG CAPXR PO SCH (08:44)
[2022-10-06] MEDS: amLODIPine BESYLATE 5 MG TAB PO SCH (08:44)
[2022-10-06] MEDS: SPIRONOLACTONE 12.5 MG TAB PO SCH (08:44)
[2022-10-06] MEDS: VENLAFAXINE HCL XR 150 MG CAPXR PO SCH (08:44)
[2022-10-06] MEDS: METOPROLOL SUCC 50MG EXT REL TAB PO SCH ×2 (08:44→20:49)
[2022-10-06] MEDS: FUROSEMIDE 20 MG TAB PO SCH (08:44)
[2022-10-06] MEDS: lamoTRIgine 100 MG TAB PO SCH ×2 (08:45→20:50)
[2022-10-06] MEDS: CHOLECALCIFEROL 1,000 UNITS 25 MCG TAB PO SCH (08:45)
[2022-10-06] MEDS: LOSARTAN POTASSIUM 50 MG TAB PO SCH (08:45)
[2022-10-06] MEDS: METOCLOPRAMIDE HCL 10 MG TABLET PO PRN (08:45)
[2022-10-06] MEDS: PANTOprazole 40 MG TAB PO SCH ×2 (08:45→20:49)
--- NOTE | 2022-10-06 12:31 | Cardiology Progress Note ---
Date of Service October 06, 2022 Assessment & Plan (1) Hypertensive urgency: (2) Sinus tachycardia: (3) Chest pain: (4) Hypertensive heart disease with chronic diastolic congestive heart failure: (5) Morbid obesity: Plan Patient is a 57-year-old female with longstanding hypertension and hypertensive heart disease on multiple drug regimen presents noting 2-day history of generalized malaise abdominal and chest discomfort. Initial troponin negative and EKG is without acute ischemia. Echocardiogram reveals hyperdynamic LV function without wall motion abnormality EF greater than 70%. Exam reflects significant hypertension and tachycardia Patient did miss at least 2 doses of beta-sabina therapy Impression: 1. Hypertensive urgency question precipitant: IV metoprolol now with oral medications as ordered may require additional dosing. LV function very hyperdynamic on echocardiogram. Patient has received 1 L saline in ER 2. Mild elevation of troponin without EKG or echocardiographic correlation. We will continue to trend. If chest pain and elevation persist consider coronary angiography the patient received contrast today. 3. Acute syndrome of uncertain etiology. Urinalysis and blood cultures ordered, treat 10/05/2022 Clinically improved this morning headache resolved though blood pressure still trending higher at times. Able to tolerate medications this morning Findings consistent with hypertensive urgency without acute coronary syndrome. Reviewed troponins now normal after single minimal elevation. Echocardiogram with hyperdynamic LV function heart rate and blood pressure better Plan: Continue current medications with addition of amlodipine 5 mg every morning. Resume furosemide 20 mg and spironolactone 12.5 mg previously used for hypertension and diastolic dysfunction. Not currently taking at home Mild microcytosis on CBC recommend check iron study 10/06/2022 1. Hypertensive urgency clinically improving. Patient on good medical regimen. Can be followed at home. Encourage patient to continue follow blood pressures closely report any acute elevation 2. Chest pressure pain with trivial elevation in troponin. No evidence of myocardial ischemia by EKG and echocardiogram, with hyperdynamic LV function. CT of chest demonstrates good visualization of the proximal coronaries large caliber without obstruction. May consider formal CTA of the coronaries post discharge however clinical scenario not suggestive of myocardial ischemia Admission and Anticipated Discharge Date Admission Date: October 05, 2022 Subjective Patient seen and examined, chart, medications, telemetry reviewed Feels substantially improved since admission. Blood pressure trending towards good control. Still low-grade ache in chest but not consistent with ischemia or myocardial concern Results & Data ([facility]) Vital Signs (Past 12 Hours) Vital Signs Temp Pulse Pulse Resp BP BP Pulse Ox 10/06/22 08:37 36.7 C 66 16 156/69 H 93 10/06/22 08:00 70 10/06/22 02:54 36.8 C 72 18 133/75 94 O2 Del Method 10/06/22 08:37 Room Air 10/06/22 08:00 10/06/22 02:54 Room Air
--- NOTE | 2022-10-06 13:15 | Hospitalist Progress Note ---
Date of Service October 06, 2022 Assessment & Plan (1) Hypertensive urgency: Plan Chest pain: Initial workup unremarkable CTA chest no acute findings with clear view of the proximal coronary arteries Echo of the heart showed left ventricular cavity size is small, moderate concentric LVH, normal LV wall motion, LV is hyperdynamic with EF of more than 70%, no valvular pathology, no pericardial effusion with mild aortic root dilatation Appreciate cardiology input and recommendation for possible cardiac CTA as an outpatient No more chest pain We will get PT and OT evaluation prior to discharge Chronic diastolic CHF (congestive heart failure): lasix and aldactone restarted by cardiology Diuresing enough Monitor PRP Hypertension:Urgency Was given nitropaste Currently on losartan 100mg daily Toprol xl 100mg bid Started on amlodipine Lasix and Aldactone restarted Blood pressure remains stable Prediabetes: Plan: - Last A1C was 5.7 - Continue on ozempic as outpatient, not on other oral medications anymore with weight loss Continue to encourage diet and exercise CKD (chronic kidney disease) stage 3, GFR 30-59 ml/min: Plan: Presented with 0.93, BUN is 12 Kidney function remains stable Hypothyroidism: Plan: - Cont levothyroxine Depression: Anxiety: Plan: - May continue BuSpar, Valium as needed, continue home lamotrigine, Effexor, Seroquel and trazodone at bedtime DVT px Will start Lovenox 40 mg once a day Disposition Discharge following PT and OT evaluation Admission and Anticipated Discharge Date Admission Date: October 05, 2022 Subjective 10/06/2022 The patient was seen and examined in telemetry unit She remains weak and lethargic and still complains headache No chest pain but does have chest pressure Has not been out of bed yet Review of Systems Review of Systems: All systems reviewed and are unremarkable except as noted below Physical Exam Physical Exam: Lying in bed without any apparent distress Constitutional: well developed, well nourished, + ill appearing and + obese Results & Data Results & Data ([facility]) Vital Signs (Past 12 Hours) Vital Signs Temp Pulse Pulse Resp BP BP Pulse Ox 10/06/22 12:34 36.6 C 76 16 114/73 94 10/06/22 08:37 36.7 C 66 16 156/69 H 93 10/06/22 08:00 70 10/06/22 02:54 36.8 C 72 18 133/75 94 O2 Del Method 10/06/22 12:34 Room Air 10/06/22 08:37 Room Air 10/06/22 08:00 10/06/22 02:54 Room Air Laboratory Results BMP 10/06/22 07:52 Sodium 137 Potassium 4.1 Chloride 104 Carbon Dioxide 27 BUN 21 Creatinine 1.04 Glucose 97 Calcium 9.0 Medications Administered Current Inpatient Medications Acetaminophen (Acetaminophen 325 Mg Tab) 650 mg PO Q4H PRN PRN Reason: Pain Stop: 11/04/22 13:20 Last Admin: 10/06/22 12:33 Dose: 650 mg Albuterol (Albuterol Hfa 8 Gm Inhaler) 2 puffs INH Q4H PRN PRN Reason: Shortness Of Breath Or Wheezing Stop: 11/03/22 14:04 Amlodipine Besylate ([facility]ipine Besylate 5 Mg Tab) [facility]: 11/04/22 08:59 Last Admin: 10/06/22 08:44 Dose: 5 mg Buspirone HCl (Buspirone 5 Mg Tab) 10 mg PO BID [facility] Stop: 11/03/22 20:59 Last Admin: 10/06/22 08:44 Dose: 10 mg Diazepam (Diazepam 5 Mg Tablet) 5 mg PO DAILY PRN PRN Reason: Panic Attack(S) Stop: 11/03/22 14:04 Last Admin: 10/04/22 23:08 Dose: 5 mg Fluticasone Propionate (Fluticasone Propionate Na Spr 16 Gm Btl) 2 sprays NA DAILY PRN PRN Reason: Nasal Congestion Stop: 11/03/22 14:04 Last Admin: 10/04/22 23:10 Dose: 2 sprays Furosemide (Furosemide 20 Mg Tab) [facility] Stop: 11/05/22 08:59 Last Admin: 10/06/22 08:44 Dose: 20 mg Lamotrigine (Lamotrigine 100 Mg Tab) 200 mg PO BID [facility] Stop: 11/03/22 20:59 Last Admin: 10/06/22 08:45 Dose: 200 mg Levothyroxine Sodium (Levothyroxine Sodium 125 Mcg Tablet) 125 mcg PO DAILYBB [facility] Stop: 11/04/22 06:29 Last Admin: 10/06/22 05:57 Dose: 125 mcg Losartan Potassium (Losartan Potassium 50 Mg Tab) [facility] Stop: 11/04/22 08:59 Last Admin: 10/06/22 08:45 Dose: 100 mg Metoclopramide HCl (Metoclopramide Hcl 10 Mg Tablet) 10 mg PO BID PRN PRN Reason: nausea and vomiting, pain Stop: 11/03/22 14:04 Last Admin: 10/06/22 08:45 Dose: 10 mg Metoprolol Succinate (Metoprolol Succ 50mg Ext Rel Tab) 100 mg PO BID [facility] Stop: 11/03/22 22:59 Last Admin: 10/06/22 08:44 Dose: 100 mg Morphine Sulfate (Morphine Sulfate 4 Mg/Ml 1 Ml Carp\Vial) 4 mg IV Q6H PRN PRN Reason: Pain Stop: 10/19/22 06:31 Oxycodone HCl (Oxycodone Hcl Ir 5 Mg Tab (Immediate Release)) 5 mg PO Q4H PRN PRN Reason: Pain Stop: 10/19/22 06:31 Last Admin: 10/05/22 20:50 Dose: 5 mg Pantoprazole Sodium (Pantoprazole 40 Mg Tab) 40 mg PO BID [facility]; Protocol Stop: 11/03/22 20:59 Last Admin: 10/06/22 08:45 Dose: 40 mg Quetiapine Fumarate (Quetiapine Fumarate 300 Mg Tablet) 300 mg PO HS [facility] Stop: 11/03/22 20:59 Ropinirole HCl (Ropinirole Hcl 1 Mg Tablet) 5 mg PO HS [facility] Stop: 11/03/22 20:59 Last Admin: 10/05/22 20:54 Dose: 5 mg Spironolactone (Spironolactone 12.5 Mg Tab) 12.5 mg PO DAILY [facility] Stop: 11/05/22 08:59 Last Admin: 10/06/22 08:44 Dose: 12.5 mg Trazodone HCl (Trazodone Hcl 100 Mg Tab) 100 mg PO HS [facility] Stop: 11/03/22 20:59 Last Admin: 10/05/22 20:53 Dose: 100 mg Venlafaxine HCl (Venlafaxine Hcl Xr 150 Mg Capxr) 150 mg PO QAM [facility] Stop: 11/04/22 08:59 Last Admin: 10/06/22 08:44 Dose: 150 mg Venlafaxine HCl (Venlafaxine Hcl Xr 37.5 Mg Capxr) 37.5 mg PO QAM [facility] Stop: 11/04/22 08:59 Last Admin: 10/06/22 08:44 Dose: 37.5 mg Vitamin D (Cholecalciferol 1,000 Units 25 Mcg Tab) 2,000 units PO DAILY [facility] Stop: 11/04/22 08:59 Last Admin: 10/06/22 08:45 Dose: 2,000 units
[2022-10-06] MEDS: ENOXAPARIN INJ 40 MG/0.4 ML SYR SQ SCH (15:25)
[2022-10-06] MEDS: traZODone HCL 100 MG TAB PO SCH (20:49)
[2022-10-06] MEDS: rOPINIRole HCL 1 MG TABLET PO SCH (20:50)
[2022-10-07 06:55] LABS: Eosinophils # (auto) 0.33 K/uL (0-0.50); Eosinophils % (auto) 3.2 %; Hematocrit (blood only) 45.8 % (34.1-44.9); Hemoglobin 14.6 g/dl (12.0-16.0); Immature Granulocytes # (auto) 0.09 K/uL (0.00-0.02); Immature Granulocytes % (auto) 0.9 %; Lymphocytes # (auto) 3.48 K/uL (1.2-3.4); Lymphocytes % (auto) 33.9 %; Mean Corpuscular Hemoglobin 25.7 pg (25.0-34.0); Mean Corpuscular Hgb Conc 31.9 g/dL (32.0-36.0); Mean Corpuscular Volume 80.5 fL (80.0-100.0); Mean Platelet Volume 9.2 fL (9.4-12.3); Monocytes # (auto) 0.81 K/uL (0.24-0.82); Monocytes % (auto) 7.9 %; Neutrophils # (auto) 5.45 K/uL (1.4-6.5); Neutrophils % (auto) 53.1 %; Platelet Count 345 K/uL (130-400); RDW Coefficient of Variation 15.5 % (11.5-14.5); RDW Standard Deviation 44.9 fL (36.4-46.3); Red Blood Count 5.69 M/uL (3.93-5.22); White Blood Count 10.26 K/ul (4.8-10.8)
[2022-10-07] MEDS: LEVOTHYROXINE SODIUM 125 MCG TABLET PO SCH (07:13)
[2022-10-07] MEDS: METOCLOPRAMIDE HCL 10 MG TABLET PO PRN (07:14)
[2022-10-07 07:19] LABS: BUN Creatinine Ratio 20.6 (10-20); Calcium 8.7 mg/dl (8.5-10.1); Creatinine Clr Calc Pharmacy 80.3 ml/min; Est GFR (African American) 67.7 ml/min; Est GFR (Non-African American) 58.4 ml/min; Potassium 4.1 mmol/L (3.5-5.1)
[2022-10-07] MEDS: METOPROLOL SUCC 50MG EXT REL TAB PO SCH (08:40)
[2022-10-07] MEDS: FUROSEMIDE 20 MG TAB PO SCH (08:40)
[2022-10-07] MEDS: busPIRone 5 MG TAB PO SCH (08:40)
[2022-10-07] MEDS: LOSARTAN POTASSIUM 50 MG TAB PO SCH (08:41)
[2022-10-07] MEDS: amLODIPine BESYLATE 5 MG TAB PO SCH (08:41)
[2022-10-07] MEDS: lamoTRIgine 100 MG TAB PO SCH (08:41)
[2022-10-07] MEDS: SPIRONOLACTONE 12.5 MG TAB PO SCH (08:41)
[2022-10-07] MEDS: VENLAFAXINE HCL XR 150 MG CAPXR PO SCH (08:41)
[2022-10-07] MEDS: VENLAFAXINE HCL XR 37.5 MG CAPXR PO SCH (08:41)
[2022-10-07] MEDS: PANTOprazole 40 MG TAB PO SCH (08:41)
[2022-10-07] MEDS: CHOLECALCIFEROL 1,000 UNITS 25 MCG TAB PO SCH (08:42)
[2022-10-07] MEDS: ENOXAPARIN INJ 40 MG/0.4 ML SYR SQ SCH (08:42)
--- NOTE | 2022-10-07 11:52 | Hospitalist Progress Note ---
Date of Service October 07, 2022 Assessment & Plan (1) Hypertensive urgency: Plan Chest pain: Initial workup unremarkable CTA chest no acute findings with clear view of the proximal coronary arteries Echo of the heart showed left ventricular cavity size is small, moderate concentric LVH, normal LV wall motion, LV is hyperdynamic with EF of more than 70%, no valvular pathology, no pericardial effusion with mild aortic root dilatation Appreciate cardiology input and recommendation for possible cardiac CTA as an outpatient No more chest pain We will get PT and OT evaluation prior to discharge Did very well with physical therapy and recommended to have outpatient PT She has a walker at home and also a cane She was advised to be very careful while ambulating at home Will be discharged home this afternoon Chronic diastolic CHF (congestive heart failure): lasix and aldactone restarted by cardiology Diuresing enough Monitor PRP-remains stable Hypertension:Urgency Was given nitropaste Currently on losartan 100mg daily Toprol xl 100mg bid Started on amlodipine Lasix and Aldactone restarted Blood pressure remains stable Prediabetes: Plan: - Last A1C was 5.7 - Continue on ozempic as outpatient, not on other oral medications anymore with weight loss Continue to encourage diet and exercise CKD (chronic kidney disease) stage 3, GFR 30-59 ml/min: Plan: Presented with 0.93, BUN is 12 Kidney function remains stable Hypothyroidism: Plan: - Cont levothyroxine Depression: Anxiety: Plan: - May continue BuSpar, Valium as needed, continue home lamotrigine, Effexor, Seroquel and trazodone at bedtime DVT px Will start Lovenox 40 mg once a day Disposition Discharge following PT and OT evaluation Will be discharged home this afternoon Admission and Anticipated Discharge Date Admission Date: October 05, 2022 Subjective 10/06/2022 The patient was seen and examined in telemetry unit She remains weak and lethargic and still complains headache No chest pain but does have chest pressure Has not been out of bed yet 10/07/2022 The patient was seen and examined in telemetry unit She remains weak and lethargic Has had physical therapy and recommended to continue physical therapy as an outpatient Denies any chest pain, palpitation or shortness of breath Review of Systems Review of Systems: All systems reviewed and are unremarkable except as noted below Physical Exam Physical Exam: Lying in bed without any apparent distress Constitutional: well developed, well nourished, + ill appearing and + obese Eyes: PERRL, conjunctivae normal, anicteric sclerae ENMT: external ear and nose normal, oropharynx normal Neck: trachea midline, no thyromegaly Respiratory: + respiratory distress Auscultation: lungs clear to auscultation bilaterally Cardiovascular: Rate/Rhythm: regular rate and regular rhythm; not tachycardic Heart Sounds: normal S1 and normal S2; no murmur Extremities: + edema (Trace edema bilaterally) Gastrointestinal (Abdomen): Inspection/Auscultation: normal bowel sounds; abdomen not distended Percussion/Palpation: abdomen soft; abdomen nontender Musculoskeletal: No acute arthritis in any joint Neurologic: normal touch/pain/proprioception and moves all extremities; no focal motor deficits Psychiatric: A+Ox3, euthymic affect Lymphatic: no cervical or axillary lymphadenopathy Results & Data Results & Data ([facility]) Vital Signs (Past 12 Hours) Vital Signs Temp Pulse Pulse Resp BP BP Pulse Ox 10/07/22 08:00 62 10/07/22 08:38 36.7 C 75 16 133/72 97 10/07/22 03:00 36.9 C 67 16 116/64 95 10/06/22 23:56 36.8 C 65 16 134/63 95 O2 Del Method 10/07/22 08:00 10/07/22 08:38 Room Air 10/07/22 03:00 Room Air 10/06/22 23:56 Room Air Laboratory Results Short CBC 10/07/22 Range/Units 06:23 WBC 10.26 (4.8-10.8) K/ul Hgb 14.6 (12.0-16.0) g/dl Hct 45.8 H (34.1-44.9) % Plt Count 345 (130-400) K/uL BMP 10/07/22 06:23 Sodium 139 Potassium 4.1 Chloride 104 Carbon Dioxide 29 BUN 22 Creatinine 1.07 Glucose 89 Calcium 8.7 Medications Administered Current Inpatient Medications Acetaminophen (Acetaminophen 325 Mg Tab) 650 mg PO Q4H PRN PRN Reason: Pain Stop: 11/04/22 13:20 Last Admin: 10/06/22 12:33 Dose: 650 mg Albuterol (Albuterol Hfa 8 Gm Inhaler) 2 puffs INH Q4H PRN PRN Reason: Shortness Of Breath Or Wheezing Stop: 11/03/22 14:04 Amlodipine Besylate (Amlodipine Besylate 5 Mg Tab) 5 mg PO QAM [facility] Stop: 11/04/22 08:59 Last Admin: 10/07/22 08:41 Dose: 5 mg Buspirone HCl (Buspirone 5 Mg Tab) 10 mg PO BID [facility] Stop: 11/03/22 20:59 Last Admin: 10/07/22 08:40 Dose: 10 mg Diazepam (Diazepam 5 Mg Tablet) 5 mg PO DAILY PRN PRN Reason: Panic Attack(S) Stop: 11/03/22 14:04 Last Admin: 10/04/22 23:08 Dose: 5 mg Enoxaparin Sodium (Enoxaparin Inj 40 Mg/0.4 Ml Syr) [facility] Stop: 11/05/22 13:14 Last Admin: 10/07/22 08:42 Dose: 40 mg Fluticasone Propionate (Fluticasone Propionate Na Spr 16 Gm Btl) 2 sprays NA DAILY PRN PRN Reason: Nasal Congestion Stop: 11/03/22 14:04 Last Admin: 10/04/22 23:10 Dose: 2 sprays Furosemide (Furosemide 20 Mg Tab) 20 mg PO QAM [facility] Stop: 11/05/22 08:59 Last Admin: 10/07/22 08:40 Dose: 20 mg Lamotrigine (Lamotrigine 100 Mg Tab) 200 mg PO BID [facility] Stop: 11/03/22 20:59 Last Admin: 10/07/22 08:41 Dose: 200 mg Levothyroxine Sodium (Levothyroxine Sodium 125 Mcg Tablet) 125 mcg PO DAILYBB [facility] Stop: 11/04/22 06:29 Last Admin: 10/07/22 07:13 Dose: 125 mcg Losartan Potassium (Losartan Potassium 50 Mg Tab) 100 mg PO QAM [facility] Stop: 11/04/22 08:59 Last Admin: 10/07/22 08:41 Dose: 100 mg Metoclopramide HCl (Metoclopramide Hcl 10 Mg Tablet) 10 mg PO BID PRN PRN Reason: nausea and vomiting, pain Stop: 11/03/22 14:04 Last Admin: 10/07/22 07:14 Dose: 10 mg Metoprolol Succinate (Metoprolol Succ 50mg Ext Rel Tab) 100 mg PO BID [facility] Stop: 11/03/22 22:59 Last Admin: 10/07/22 08:40 Dose: 100 mg Morphine Sulfate (Morphine Sulfate 4 Mg/Ml 1 Ml Carp\Vial) 4 mg IV Q6H PRN PRN Reason: Pain Stop: 10/19/22 06:31 Oxycodone HCl (Oxycodone Hcl Ir 5 Mg Tab (Immediate Release)) 5 mg PO Q4H PRN PRN Reason: Pain Stop: 10/19/22 06:31 Last Admin: 10/05/22 20:50 Dose: 5 mg Pantoprazole Sodium (Pantoprazole 40 Mg Tab) 40 mg PO BID [facility]; Protocol Stop: 11/03/22 20:59 Last Admin: 10/07/22 08:41 Dose: 40 mg Quetiapine Fumarate (Quetiapine Fumarate 300 Mg Tablet) 300 mg PO HS [facility] Stop: 11/03/22 20:59 Ropinirole HCl (Ropinirole Hcl 1 Mg Tablet) 5 mg PO HS [facility] Stop: 11/03/22 20:59 Last Admin: 10/06/22 20:50 Dose: 5 mg Spironolactone (Spironolactone 12.5 Mg Tab) 12.5 mg PO DAILY [facility] Stop: 11/05/22 08:59 Last Admin: 10/07/22 08:41 Dose: 12.5 mg Trazodone HCl (Trazodone Hcl 100 Mg Tab) 100 mg PO HS [facility] Stop: 11/03/22 20:59 Last Admin: 10/06/22 20:49 Dose: 100 mg Venlafaxine HCl (Venlafaxine Hcl Xr 150 Mg Capxr) 150 mg PO QAM [facility] Stop: 11/04/22 08:59 Last Admin: 10/07/22 08:41 Dose: 150 mg Venlafaxine HCl (Venlafaxine Hcl Xr 37.5 Mg Capxr) 37.5 mg PO QAM [facility] Stop: 11/04/22 08:59 Last Admin: 10/07/22 08:41 Dose: 37.5 mg Vitamin D (Cholecalciferol 1,000 Units 25 Mcg Tab) 2,000 units PO DAILY [facility] Stop: 11/04/22 08:59 Last Admin: 10/07/22 08:42 Dose: 2,000 units
--- NOTE | 2022-10-07 15:18 | Discharge Summary ---
Date of Service October 07, 2022 Admission HPI Per Admitting Provider This is a 57-year-old female with PMHx of history of diastolic CHF in 2019 status post small silent ND, now with preserved EF, HTN, HLD, anxiety, depression, morbid obesity with a BMI of 42 on Ozempic and prediabetes, migraine history who presents to the hospital with onset of chest pain. Pt arrived via EMS to the hospital this morning because the pressure and shortness of breath was so significant, she has not walked since coming down the stairs in her home. Her father, Bandar, is present at bedside. Pt reports that 2 days ago she noticed this substernal chest pain closer to the right side while she was sitting down watching TV. She thought initially that this was anxiety and attempted to calm herself down. The next day admits to having same heavy substernal chest pressure along with a constricted effect with burning in her throat. During the afternoon, she noticed having worsening of breath with walking her dog yesterday. She was also having lightheadedness and dizziness. Last night while sitting this again she noticed increasing left shoulder and arm pain which kept her awake. She has history of anxiety and feels like this is adding to her complaints but nothing has improved with her po meds (buspar, effexor, or valium which she used once yesterday). Pt has been eating and drinking ok other than today. She admits to having some nausea, denies vomiting. She had been using phenergan intermittently for such, as ozempic does make her nauseous occasionally as well as her GERD meds. Last dose of Ozempic was on 09/24 and she is waiting for it to be shipped in the mail. Pt denies having any anxious triggers happen two days ago when chest heaviness started. She cannot pinpoint any changes, stressors, job, family issues that would be adding to this emotionally. Admits to cardiac family hx with her father who has HTN, HLD, pacemaker, CHF, bypass s/p ND x 2 in 2013 at age 72. Mom without significant medical hx Social Hx: denies smoking and admits to very occasional alcoholic drink, had a sip of sangria on . Admission Exam Per Admitting Provider Physical Exam: General: awake, alert, + generalized ill appearing, obese with BMI of 42 Head: Normocephalic, atraumatic ENT: PERRL, EOMI, no pharyngeal exudate, mucous membranes moist Chest: Clear to auscultation, on room air, no adventitious breath sounds Cardiac: sinus tach with HR at 105 while sitting in bed, chest pain is not reproducible on exam with pressing on the chest wall, no murmur, no JVD, normal peripheral pulses, good capillary refill Abdominal: NABS x 4 quadrants, soft, nondistended, nontender to palpation, no rebound or guarding Extremities: Normal inspection, no peripheral edema or erythema, calfs nontender to palpation Psych: Normal mood and affect, tearful at times Skin: pinpoint nonblanching purpura over all extremities Neuro: AAO x 3, strength intact bilaterally and rated 5/5, no motor deficits, speech is clear, no peripheral sensory deficits Principal Diagnosis Hypertensive urgency, chronic diastolic CHF Discharge Exam Lying in bed without any apparent distress Constitutional well developed, well nourished, + ill appearing and + obese Eyes PERRL, conjunctivae normal, anicteric sclerae ENMT external ear and nose normal, oropharynx normal Neck trachea midline, no thyromegaly Respiratory + respiratory distress Auscultation: lungs clear to auscultation bilaterally Cardiovascular Rate/Rhythm: regular rate and regular rhythm; not tachycardic Heart Sounds: normal S1 and normal S2; no murmur Extremities: + edema (Trace edema bilaterally) Gastrointestinal (Abdomen) Inspection/Auscultation: normal bowel sounds; abdomen not distended Percussion/Palpation: abdomen soft; abdomen nontender Neurologic normal touch/pain/proprioception and moves all extremities; no focal motor deficits Psychiatric A+Ox3, euthymic affect Lymphatic no cervical or axillary lymphadenopathy Discharge Data Allergies Allergy/AdvReac Type Severity Reaction Status Date / Time bee venom protein (honey bee) Allergy Severe SEVERE Verified 07/25/22 13:33 SWELLING,SOB ciprofloxacin Allergy Severe RESPIRATORY Verified 07/25/22 13:33 FAILURE/HIVES azithromycin Allergy Intermediate Hives Verified 07/25/22 13:33 latex Allergy Intermediate LOCAL Verified 07/25/22 13:33 IRRITATION REDDNESS SWELLING ITCHYNESS prednisone AdvReac Intermediate hallucinates, Verified 07/25/22 13:33 GI UPSET, agitation, flushing,tachycardia,sick Consultations 10/04/22 13:02 ED Decision to Admit Stat 10/04/22 17:00 Consult Cardiology Routine Ordered Studies 10/04/22 14:11 CTA chest dissec wo/w con [CT angio chest dissec wo/w con] Stat Hospital Course (1) Hypertensive urgency: Plan Chest pain: Initial workup unremarkable CTA chest no acute findings with clear view of the proximal coronary arteries Echo of the heart showed left ventricular cavity size is small, moderate concentric LVH, normal LV wall motion, LV is hyperdynamic with EF of more than 70%, no valvular pathology, no pericardial effusion with mild aortic root dilatation Appreciate cardiology input and recommendation for possible cardiac CTA as an outpatient No more chest pain We will get PT and OT evaluation prior to discharge Did very well with physical therapy and recommended to have outpatient PT She has a walker at home and also a cane She was advised to be very careful while ambulating at home Will be discharged home this afternoon Chronic diastolic CHF (congestive heart failure): lasix and aldactone restarted by cardiology Diuresing enough Monitor PRP-remains stable Hypertension:Urgency Was given nitropaste Currently on losartan 100mg daily Toprol xl 100mg bid Started on amlodipine Lasix and Aldactone restarted Blood pressure remains stable Prediabetes: Plan: - Last A1C was 5.7 - Continue on ozempic as outpatient, not on other oral medications anymore with weight loss Continue to encourage diet and exercise CKD (chronic kidney disease) stage 3, GFR 30-59 ml/min: Plan: Presented with 0.93, BUN is 12 Kidney function remains stable Hypothyroidism: Plan: - Cont levothyroxine Depression: Anxiety: Plan: - May continue BuSpar, Valium as needed, continue home lamotrigine, Effexor, Seroquel and trazodone at bedtime DVT px Will start Lovenox 40 mg once a day Disposition Discharge following PT and OT evaluation Will be discharged home this afternoon Total Time Total Time Spent Total Time Spent (In Minutes): 45 minutes Discharge Plan Discharge Items Patient Disposition: Home - Self-Care Reason For Visit: CHEST PAIN, SOB Discharge Diagnosis: Hypertensive urgency, chronic diastolic CHF Condition on Discharge: Fair Activity: As commented below Activity Comment: Continue outpatient PT Non-emergency contact: Primary Care Provider Call non-emergency contact if: you have any medication questions and your symptoms worsen Follow-up/Referrals: Harry Schrader MD [Primary Care Provider] - (Your doctor's office will call you with an appointment within 7 days) Diet: Carb Consistent or DM2 and Heart Healthy Addtl Attending Provider Instructions: Please take precautions to avoid falls Take your medications as advised Continue PT as an outpatient Please give appointment with your healthcare providers Pending Studies at Discharge: No Stand-Alone Forms: My [facility] Socogame, Smoking Cessation Medications and DC Order Prescriptions: New amlodipine [Norvasc] 5 mg Tablet 5 mg PO QAM 30 Days Qty: 30 0RF spironolactone 25 mg Tablet 12.5 mg PO DAILY 30 Days Qty: 15 0RF furosemide 20 mg Tablet 20 mg PO QAM 30 Days Qty: 30 0RF Continued metoprolol succinate 100 mg capsule,sprinkle,ER 24hr 100 mg PO BID Qty: 60 2RF omeprazole 40 mg capsule,delayed release(DR/EC) 40 mg PO BID Qty: 60 2RF lamotrigine [Lamictal] 200 mg tablet 200 mg PO BID Qty: 60 2RF levothyroxine 125 mcg tablet 125 mcg PO DAILYBB Qty: 90 1RF cholecalciferol (vitamin D3) 25 mcg (1,000 unit) capsule 2,000 unit PO DAILY nystatin-triamcinolone 100,000-0.1 unit/g-% cream See Rx Instructions .ROUTE .COMPLEX Qty: 30 1RF Dose Instruction: 1 APPLIC TOPICALLY TWICE A DAY Rx Instructions: 1 APPLIC TOPICALLY TWICE A DAY metoclopramide HCl [Reglan] 10 mg tablet 10 mg PO BID PRN (Reason: nausea and vomiting, pain) Qty: 60 1RF ropinirole 1 mg tablet 5 mg PO HS buspirone 10 mg tablet 10 mg PO BID albuterol sulfate 90 mcg/actuation HFA aerosol inhaler 2 puff INHALATION Q4 PRN (Reason: Shortness Of Breath Or Wheezing) fluticasone propionate [Flonase Allergy Relief] 50 mcg/actuation [place],Suspension 2 spray INTRANASAL DAILY PRN (Reason: Nasal Congestion) quetiapine [Seroquel] 50 mg tablet 300 mg PO HS trazodone 100 mg tablet 100 mg PO HS venlafaxine [Effexor XR] 37.5 mg Capsule,Extended Release 24hr 37.5 mg PO QAM venlafaxine [Effexor XR] 150 mg Capsule,Extended Release 24hr 150 mg PO QAM losartan 100 mg tablet 100 mg PO QAM Ozempic 1 mg/dose (4 mg/3 mL) Pen Injector 0 mg SUBCUT WK meclizine 12.5 mg Tablet 12.5 mg PO QID PRN (Reason: dizziness) Qty: 14 0RF diazepam 5 mg Tablet 5 mg PO DAILY PRN (Reason: Panic Attack(S)) Discharge Orders: Discharge Order (Routine); Ordered 10/07/22 Ordered By: Nidia Chester/Other Patient Handouts: Symptoms of a Heart Attack, Controlling High Blood Pressure, Exercise for a Healthier Heart, Understanding the Pain Response Admission Data Admit Date/Time: 10/05/22 21:18 Attending Provider: Nidia Ascencio Admit Provider: Dang De Souza Primary Care Provider: Harry Schrader Other Providers: Dang De Souza ; En Colunga Other Interventions: Discharge Summary Assessment (RN) Last Done: 10/07/22 12:17
== END 2022-10-07 14:45 | disposition home or self-care (01) | DRG 305 ==
LOC: 2E 10:55 → ED 10:55 → 2E 15:36 → SUATTDRO 10-05 21:18

== ENCOUNTER 2024-09-30 20:11 | Inpatient (IN) ==
[2024-09-30 21:11] LABS: Albumin Globulin Ratio 1.5 (0.9-2); Albumin Level 4.3 gm/dl (3.4-5.0); Bilirubin,Total 0.5 mg/dl (0.2-1.0); Calcium 9.7 mg/dl (8.6-10.3); Creatinine Clr Calc Pharmacy 65.8 ml/min; Globulin 2.9 gm/dl (2.5-4.0); Potassium 3.9 mmol/L (3.5-5.1); Total Protein 7.2 gm/dl (6.0-8.3)
[2024-09-30 21:17] LABS: Basophils # (auto) 0.08 K/uL (0.00-0.20); Basophils % (auto) 0.7 %; Eosinophils # (auto) 0.25 K/uL (0.00-0.50); Eosinophils % (auto) 2.1 %; Hemoglobin 15.8 g/dl (12.0-16.0); Immature Granulocytes # (auto) 0.05 K/uL (0.01-0.20); Immature Granulocytes % (auto) 0.4 %; Lymphocytes # (auto) 3.48 K/uL (1.20-3.40); Lymphocytes % (auto) 29.9 %; Mean Corpuscular Hemoglobin 26.4 pg (25.0-34.0); Mean Corpuscular Hgb Conc 32.9 g/dL (32.0-36.0); Mean Corpuscular Volume 80.1 fL (80.0-100.0); Mean Platelet Volume 9.5 fL (9.4-12.4); Monocytes # (auto) 0.77 K/uL (0.11-0.59); Monocytes % (auto) 6.6 %; Neutrophils % (auto) 60.3 %; Platelet Count 365 K/uL (130-400); RDW Coefficient of Variation 15.9 % (11.5-14.5); RDW Standard Deviation 44.3 fL (36.4-46.3); Red Blood Count 5.99 M/uL (4.20-5.40); White Blood Count 11.63 K/ul (4.8-10.8)
[2024-09-30 22:10] LABS: Appearance Urine Turbid (Clear); Bilirubin Urine Negative (Negative); Blood Urine 3+ (Negative); Color Urine Yellow; Glucose Urine UA Negative (Negative); Ketones Urine 1+ (Negative); Leukocyte Esterase Urine 2+ (Negative); Nitrite Urine Negative (Negative); Protein Urine 2+ (Negative); Specific Gravity Urine 1.026 (1.000-1.030); Urobilinogen Urine Negative (Negative); pH Urine 5.5 (4.5-7.5)
[2024-09-30 22:16] LABS: Epithelial Cell Urine >20 /hpf (0-2); Hyaline Casts Urine Present /lpf (None Presnt)
[2024-09-30] MEDS: MoRPHine SULFATE 4 MG/ML 1 ML CARP\\VIAL IV STA (22:18)
[2024-09-30] MEDS: ONDANSETRON INJ 2 MG/ML 2 ML VIAL IV STA (22:18)
[2024-09-30 22:19] LABS: Bacteria Urine None Seen (None Seen); Calcium Oxalate Crystals Urine Present (None Prsent)
[2024-09-30] MEDS: OPTIRAY 320 100ml IV ONE (22:51)
--- NOTE | 2024-09-30 23:47 | Emergency Department Note ---
History of Present Illness General Chief complaint: Abdominal Pain Stated complaint: RT SIDE PAIN, ABD PAIN, NAUSEA Time Seen by Provider: 09/30/24 21:26 History of Present Illness Maximum Pain Intensity: 7 This 59-year-old female with a history of kidney stones that follows Dr. Escalante had lithotripsy recently by Dr. Polk presents ER complaining of severe right lower abdominal pain. She is not sure if this another kidney stone or something different. Patient denies chest pain, dyspnea, fevers, or trauma to the area. Home Medications Medication Instructions Recorded Confirmed Type omeprazole 40 mg capsule,delayed 40 mg PO BID #60 caps 09/17/19 09/21/24 Rx release buspirone 10 mg tablet 10 mg PO BID 12/17/19 09/21/24 History trazodone 100 mg tablet 100 mg PO HS 01/12/22 09/21/24 History famotidine 40 mg tablet 40 mg PO HS 11/09/22 09/21/24 History levothyroxine 125 mcg tablet 125 mcg PO DAILYBB #90 tabs 11/09/22 09/21/24 Rx zaleplon 5 mg capsule 5 mg PO HS PRN insomnia 11/09/22 09/21/24 History azelastine 137 mcg (0.1 %) nasal 2 spray intranasal DAILY #30 mL 12/05/22 09/21/24 Rx spray verapamil 120 mg tablet,extended 120 mg PO HS 01/14/23 09/21/24 History release cyclobenzaprine 5 mg tablet 5 mg PO BID PRN muscle spasm #180 07/15/23 09/21/24 Rx tabs riboflavin (vitamin B2) 400 mg 400 mg PO DAILY #30 tabs 07/18/23 09/21/24 Rx tablet albuterol sulfate 90 mcg/actuation 2 puff inhalation Q4 PRN Shortness 09/02/23 09/21/24 Rx aerosol inhaler Of Breath Or Wheezing #8.5 grams ketoconazole 2 % topical cream 1 applic topical BID #60 grams 09/18/23 09/21/24 Rx fluticasone propionate 50 2 spray intranasal DAILY PRN Nasal 10/15/23 09/21/24 Rx mcg/actuation nasal Congestion #3 units spray,suspension (Flonase Allergy Relief) furosemide 40 mg tablet 40 - 80 mg PO UD 12/02/23 09/21/24 History ropinirole 5 mg tablet 5 mg PO HS #90 tabs 12/02/23 09/21/24 Rx scopolamine base 1 mg over 3 days 1 patch transdermal Q72H 02/03/24 09/21/24 History transdermal patch lamotrigine 200 mg tablet 200 mg PO BID #180 tabs 02/10/24 09/21/24 Rx (Lamictal) digital therapeutic,JANEL device #1 ea 02/13/24 09/21/24 Rx metoprolol succinate 100 mg 100 mg PO BID #180 tabs 03/10/24 09/21/24 Rx tablet,extended release 24 hr zaleplon 10 mg capsule 10 mg PO HS 04/28/24 10/01/24 History hydroxyzine HCl 50 mg tablet 50 mg PO HS 06/10/24 09/21/24 History quetiapine 100 mg tablet (Seroquel) 100 mg PO HS 06/10/24 09/21/24 History tirzepatide 5 mg/0.5 mL 0.5 mg subcut Q7D 06/10/24 09/21/24 History subcutaneous pen injector (Mounjaro) venlafaxine 75 mg capsule,extended 75 mg PO HS 06/10/24 09/21/24 History release 24 hr (Effexor XR) cholecalciferol (vitamin D3) 50 2,000 unit PO QAM 07/09/24 09/21/24 History mcg (2,000 unit) capsule ferrous sulfate 325 mg (65 mg 325 mg PO Q2D 07/09/24 09/21/24 History iron) tablet magnesium glycinate 400 mg PO HS 07/09/24 09/21/24 History mecobalamin (vitamin B12) 1,000 1,000 mcg PO UD 07/09/24 09/21/24 History mcg chewable tablet spironolactone 25 mg tablet 25 mg PO QAM 07/09/24 09/21/24 History oxybutynin chloride 5 mg tablet 5 mg PO Q8H PRN bladder spasms #30 07/20/24 09/21/24 Rx tabs pregabalin 25 mg capsule 25 mg PO .COMPLEX #90 caps 07/23/24 09/21/24 Rx olmesartan 40 mg tablet (Benicar) 40 mg PO QAM #90 tabs 08/07/24 09/21/24 Rx tramadol 50 mg tablet 50 mg PO Q6H PRN pain #20 tabs 08/07/24 09/21/24 Rx vibegron 75 mg tablet (Gemtesa) 75 mg PO DAILY 08/07/24 09/21/24 History atogepant 60 mg tablet (Qulipta) 60 mg PO DAILY #30 tabs 08/20/24 09/21/24 Rx celecoxib 200 mg capsule (Celebrex) 200 mg PO BID #180 caps 09/22/24 10/01/24 Rx diazepam 5 mg tablet 5 - 10 mg PO BID PRN Panic 10/01/24 10/01/24 History Attack(S) Allergies Allergy/AdvReac Type Severity Reaction Status Date / Time bee venom protein (honey bee) Allergy Severe SEVERE Verified 09/21/24 14:36 SWELLING,SOB ciprofloxacin Allergy Severe RESPIRATORY Verified 09/21/24 14:36 FAILURE/HIVES azithromycin Allergy Intermediate Hives Verified 09/21/24 14:36 latex Allergy Intermediate LOCAL Verified 09/21/24 14:36 IRRITATION, REDNESS, SWELLING, ITCHINESS divalproex sodium Allergy Mild Tachycardia Verified 09/21/24 14:36 prednisone AdvReac Intermediate hallucinates, Verified 09/21/24 14:36 GI UPSET, agitation, flushing,tachycardia,sick Past Med/Surg History Problem List (Updated 10/01/24 @ 00:30 by Kimmy Benjamin PA-C) Intractable abdominal pain (Acute) Ureterolithiasis (Acute) Renal colic on right side (Acute) Palpitations Urinary urgency Kidney stones (HFpEF) heart failure with preserved ejection fraction Gross hematuria Chronic pain Facet arthropathy, lumbosacral Radicular pain of lumbosacral region History of bradycardia Functional neurological symptom disorder (conversion disorder), with abnormal movement Diagnosed Dr. Yue Aguayo [facility] neurology Severe obesity (BMI >= 40) Tachycardia (Acute) Tremor Migraine without aura, not intractable, without status migrainosus Anxiety Meningioma Depression RLS (restless legs syndrome) Prediabetes CKD (chronic kidney disease) stage 3, GFR 30-59 ml/min does not follow with specialist Hypothyroidism Asthma (Chronic) well controlled > res inh last used 5 mos ago Hypertension (Chronic) Fibromyalgia (Chronic) IBS (irritable bowel syndrome) (Chronic) Medical History Acute UTI dx 07/09/24, completed antibiotic with resolution of symptoms Anxiety and depression Asthma well controlled > prn inh rare use CHF (congestive heart failure) f/u talya manzano cardio (will be seeing Ciara Jennings [facility] in september 2024) Chronic migraine without aura Chronic pain CKD (chronic kidney disease) stage 3, GFR 30-59 ml/min f/u urology and dr. dhillon, nephrology Dizziness "on and off, some days are worse than others" Dyspnea on exertion Elevated plasma metanephrines pt unsure? Essential tremor Facet arthropathy, lumbosacral Fatigue due to fibromyalgia and "her neuro condition" Fibromyalgia Flushing in her face Functional neurological symptom disorder (conversion disorder), with abnormal movement Diagnosed Dr. Yue Aguayo [facility] neurology GERD (gastroesophageal reflux disease) variable Hearing loss History of anesthesia reaction pt was not sure if was anesthsia or allergy to Cipro, but coded on OR table during lithotripsy 6 yrs ago History of cardiomyopathy [place] to be secondary to hypertension. Occurred in 2015 with an EF of 40 to 45%. She had cardiac MRI which was concerning for possible hypertrophic cardiomyopathy but this was ruled out via echo. Last echocardiogram 07/2019 revealed preserved EF with grade 1 diastolic dysfunction. Hyperinsulinemia Hypertension controlled, stable per pt Hypothyroidism IBS (irritable bowel syndrome) Kidney stones Meniere disease Meningioma "deep in her brain, inoperable, anterior clenoid process right side" Numbness in bilateral feet "occasionally" Obesity Piriformis syndrome of right side Prediabetes PTSD (post-traumatic stress disorder) RLS (restless legs syndrome) Sacral pain get nerve ablation in September 2024 Sacroiliitis Tachycardia hx, f/u talya manzano Urinary urgency Vitamin D deficiency Surgical History History of bilateral cataract extraction History of brain surgery 2006> Secondary to type I Chiari malformation at [facility] History of cholecystectomy History of colonoscopy with polypectomy History of endometrial ablation x2 History of esophagogastroduodenoscopy (EGD) History of lithotripsy History of tonsillectomy S/P correction of deviated nasal septum Family History Grandmother No problems noted. Father Heart disease Hypertension Hx of CABG Diabetes Myocardial infarction Grandmother (Maternal) Colorectal cancer Grandfather (Maternal) CHF (congestive heart failure) Stroke great grandfather Heart disease Sister Environmental allergies Mother Aphasia Dementia Other No family history of adverse response to anesthesia No family history of bleeding disorder Denies family history of Ovarian cancer Prostate cancer Breast cancer Lung cancer Social History Smoking Status: Never smoker Second Hand Exposure: No; Do You Dip or Chew Tobacco: No; Hx Alcohol Use: Yes Alcohol type: wine and hard liquor Hx Substance Use: No Preferred Language: Bulgarian Communication Ability: Effective Payer Specialist Required: No Beliefs That Will Affect Care: None marital status: Single Current Living Situation: Alone current occupational status: disabled 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 Feels Safe at Home: Yes Childhood Exposure to Second-Hand Smoke: Yes Dental Care, Regularly: Yes Physical Activity Frequency: Does not Exercise Seatbelt Use: always Sunscreen Use: Yes Assistive Devices: Cane and Walker Review of Systems A total of 10 systems reviewed and were otherwise negative Physical Exam Vital Signs Vital Signs - 24 hr 09/30/24 20:22 09/30/24 21:51 09/30/24 22:53 Temperature 36.2 C L Temperature Source Temporal Artery Scan Pulse Rate 63 Pulse Rate [Finger] 64 71 Respiratory Rate 16 18 16 Respiratory Effort / Characteristics Non-Labored Spontaneous Non-Labored Spontaneous Respiratory Depth Normal Normal Normal Respiratory Pattern Regular Blood Pressure 147/86 H Blood Pressure [Right Arm] 162/52 H 154/70 H Blood Pressure Mean 106 Blood Pressure Mean [Right Arm] 88 98 Blood Pressure Position Sitting Blood Pressure Position [Right Arm] Semi-fowlers Semi-fowlers Pulse Oximetry 96 95 94 Oxygen Delivery Method Room Air Room Air Room Air Sepsis Recent Fever Within 48 Hours No Sepsis New/Unexplained Change in Mental Status N/A Sepsis Action Taken by Nursing No Action Required VITALS: Vitals are noted on the nurse's note and reviewed by myself. Vital signs stable. GENERAL: White female who appears in pain, in no acute distress, nondiaphoretic, well-developed well-nourished. SKIN: Capillary reflex less than 2 seconds. HEENT: Normocephalic. PERRLA. EOMI. Nares patent. Mucous membranes moist. Neck is supple without nuchal rigidity. HEART: Regular rate and rhythm LUNGS: Clear to auscultation bilaterally without wheezes, rales or rhonchi. No retractions or accessory muscle use. ABDOMEN: Positive bowel sounds x 4. Normal tympanic percussion. Soft, tender to palpation right lower quadrant, without masses or organomegaly. Wright sign negative. No guarding or rebound tenderness. no CVA tenderness MUSCULOSKELETAL: No gross musculoskeletal defects. NEURO: Patient was alert and oriented to person place and time. No focal neurological deficits. Course Administered Medications Discontinued Medications Ioversol (Optiray 320 100ml) 93 ml IV ONCE ONE Stop: 09/30/24 22:51 Last Admin: 09/30/24 22:51 Dose: 93 ml Documented By: BROOK Ketorolac Tromethamine (Ketorolac Tromethamine 15 Mg/Ml Vial) 10 mg IV NOW STA Stop: 09/30/24 23:34 Last Admin: 09/30/24 23:48 Dose: 10 mg Documented By: BARBARA Morphine Sulfate (Morphine Sulfate 4 Mg/Ml 1 Ml Carp\\Vial) 4 mg IV NOW STA Stop: 09/30/24 22:00 Last Admin: 09/30/24 22:18 Dose: 4 mg Documented By: YOVANI Ondansetron HCl (Ondansetron Inj 2 Mg/Ml 2 Ml Vial) 4 mg IV NOW STA Stop: 09/30/24 22:00 Last Admin: 09/30/24 22:18 Dose: 4 mg Documented By: YOVANI Medical Decision Making Medical Records Attestation: I reviewed the patient's medical records. Home Medications Current Medication List: was personally reviewed by me Laboratory Data Attestation: I reviewed the patient's lab results. 09/30/24 20:35 09/30/24 20:35 Lab Results 09/30/24 Range/Units 20:35 WBC 11.63 H (4.8-10.8) K/ul RBC 5.99 H (4.20-5.40) M/uL Hgb 15.8 (12.0-16.0) g/dl Hct 48.0 H (37.0-47.0) % MCV 80.1 (80.0-100.0) fL MCH 26.4 (25.0-34.0) pg MCHC 32.9 (32.0-36.0) g/dL RDW Std Deviation 44.3 (36.4-46.3) fL RDW Coeff of Nasima 15.9 H (11.5-14.5) % Plt Count 365 (130-400) K/uL MPV 9.5 (9.4-12.4) fL Immature Gran % (Auto) 0.4 % Neut % (Auto) 60.3 % Lymph % (Auto) 29.9 % Carson % (Auto) 6.6 % Eos % (Auto) 2.1 % Baso % (Auto) 0.7 % Neut # (Auto) 7.00 H (1.40-6.50) K/uL Lymph # (Auto) 3.48 H (1.20-3.40) K/uL Carson # (Auto) 0.77 H (0.11-0.59) K/uL Eos # (Auto) 0.25 (0.00-0.50) K/uL Baso # (Auto) 0.08 (0.00-0.20) K/uL Immature Gran # (Auto) 0.05 (0.01-0.20) K/uL Sodium 139 (136-145) mmol/L Potassium 3.9 (3.5-5.1) mmol/L Chloride 106 (98-107) mmol/L Carbon Dioxide 25 (21-32) mmol/L Anion Gap 8 (3-11) BUN 13 (6-23) mg/dl Creatinine 1.18 (0.6-1.2) mg/dl Est Cr Clr Drug Dosing 65.8 ml/min eGFR 53.87 BUN/Creatinine Ratio 11.0 (10-20) Glucose 113 H (70-99(Fasting)) mg/dl Calcium 9.7 (8.6-10.3) mg/dl Total Bilirubin 0.5 (0.2-1.0) mg/dl AST 19 (13-39) U/L ALT 18 (7-52) U/L Alkaline Phosphatase 117 H (34-104) U/L Total Protein 7.2 (6.0-8.3) gm/dl Albumin 4.3 (3.4-5.0) gm/dl Globulin 2.9 (2.5-4.0) gm/dl Albumin/Globulin Ratio 1.5 (0.9-2) Urine Color Yellow Urine Appearance Turbid A (Clear) Urine pH 5.5 (4.5-7.5) Ur Specific [place] 1.026 (1.000-1.030) Urine Protein 2+ H (Negative) Urine Glucose (UA) Negative (Negative) Urine Ketones 1+ H (Negative) Urine Blood 3+ H (Negative) Urine Nitrite Negative (Negative) Urine Bilirubin Negative (Negative) Urine Urobilinogen Negative (Negative) Ur Leukocyte Esterase 2+ H (Negative) Urine RBC 11-20 H (0-2) /hpf Urine WBC 6-10 H (0-5) /hpf Ur Epithelial Cells >20 H (0-2) /hpf Calcium Oxalate Crystal Present A (None Prsent) Urine Bacteria None Seen (None Seen) Hyaline Casts Present A (None Presnt) /lpf Imaging Data Attestation: I personally reviewed and interpreted this imaging study as follows: Radiologist's Impression: Abdomen/Pelvis CT 09/30/24 21:59 Exam(s): CT ABDOMEN + PELVIS With Contrast IV Amt: 93 ml optiray 320 EXAM: CT Abdomen and Pelvis With Intravenous Contrast CLINICAL HISTORY: Reason for exam: rlq pain. TECHNIQUE: Axial computed tomography images of the abdomen and pelvis with intravenous contrast. CTDI is 28.14 mGy and DLP is 1535.53 mGy-cm. Automated exposure control was utilized for the study. A dose lowering technique was utilized adhering to the principles of ALARA. CONTRAST: Patient received 93 ml optiray 320 of IV contrast COMPARISON: 06/03/2024 FINDINGS: Lung bases: Unremarkable. No mass. No consolidation. ABDOMEN: Liver: Unremarkable. No mass. Gallbladder and bile ducts: Postoperative changes prior cholecystectomy. No ductal dilation. Pancreas: Unremarkable. No mass. No ductal dilation. Spleen: Unremarkable. No splenomegaly. Adrenals: Unremarkable. No mass. Kidneys and ureters: mild right hydronephrosis secondary to a 0.5 cm mid right renal calculus. This results in very slight right obstructive uropathy. Nonobstructing right upper pole intrarenal calculus. No left- sided hydronephrosis. Stomach and bowel: Unremarkable. No obstruction. No mucosal thickening. PELVIS: Appendix: No findings to suggest acute appendicitis. Bladder: Unremarkable. No mass. Reproductive: Unremarkable as visualized. ABDOMEN and PELVIS: Intraperitoneal space: Unremarkable. No free air. No significant fluid collection. Bones/joints: No acute fracture. No dislocation. Soft tissues: Unremarkable. Vasculature: Unremarkable. No abdominal aortic aneurysm. Lymph nodes: Unremarkable. No enlarged lymph nodes. IMPRESSION: Mild right hydronephrosis with obstructive uropathy secondary to a 0.5 cm mid right ureteral calculus Electronically signed by: Cipriano Matos MD 10/01/24 00:10 AM MDM Narrative Prior records/ancillary studies reviewed. Triage Nursing notes reviewed. Additional history obtained from the family. The patient's history was concerning for abdominal pain. Differential diagnosis: Etiologies such as renal colic, appendicitis, diverticulitis, mesenteric ischemia, aortic pathology, infections, inflammatory bowel disease, PUD, biliary pathology, UTI, as well as others were entertained. Physical examination findings: As above. ER treatment provided: Morphine, Zofran, Toradol was ordered Flomax and Tylenol ordered On reassessment the patient felt better. Diagnostic interpretation by me: The labs Independently Interpreted by myself revealed mild leukocytosis. Urinalysis revealed contamination. There was no sign of UTI. Imaging studies: CT was reviewed and read by radiology as above Consultation: A consultation was placed with the hospitalist. The case was discussed and diagnostics were reviewed. The patient was evaluated in the ER for further treatment. It appears that the patient has isolated renal colic from a right sided stone. No signs of UTI. Patient still in moderate amount of pain. She states she does not feel comfortable going home and is requesting admission. Medicine was consulted and the case is discussed. She will be evaluated for possible admission. By the evaluation outlined above emergent etiologies such as appendicitis, diverticulitis, mesenteric ischemia, aortic pathology, infections, inflammatory bowel disease, PUD, biliary pathology, UTI, as well as others were deemed relatively unlikely. The pt informed about the findings as listed above. All questions were answered and pleased with the treatment. The chart was completed utilizing [employer] voice recognition software. Grammatical errors, random word insertions, pronoun errors, and incomplete sentences are an occassional consequence of this system due to software limitations, ambient noise, and hardware issues. Any formal questions or concerns about the content, text, or information contained within the body of this dictation should be directly addressed to the physician housekeeping assistant for clarification. Impression & Plan Renal colic on right side, Ureterolithiasis, Intractable abdominal pain Discharge Plan Visit Data Chief Complaint: Abdominal Pain Stated Complaint: RT SIDE PAIN, ABD PAIN, NAUSEA ED Provider: Miles Winters ED Midlevel Provider: Kimmy Benjamin Discharge Problem: Renal colic on right side, Ureterolithiasis, Intractable abdominal pain Patient Disposition: Being Evaluated by Hospitalist Condition: Good Forms Stand Alone Forms: My [facility] Comm[employer]ve Prescriptions Prescriptions: No Action zaleplon 10 mg capsule 10 mg PO HS omeprazole 40 mg capsule,delayed release(DR/EC) 40 mg PO BID Qty: 60 2RF albuterol sulfate 90 mcg/actuation HFA aerosol inhaler 2 puff INHALATION Q4 PRN (Reason: Shortness Of Breath Or Wheezing) Qty: 8.5 5RF fluticasone propionate [Flonase Allergy Relief] 50 mcg/actuation spray,suspension 2 spray INTRANASAL DAILY PRN (Reason: Nasal Congestion) Qty: 3 3RF lamotrigine [Lamictal] 200 mg tablet 200 mg PO BID Qty: 180 2RF metoprolol succinate 100 mg tablet extended release 24 hr 100 mg PO BID Qty: 180 1RF oxybutynin chloride 5 mg tablet 5 mg PO Q8H PRN (Reason: bladder spasms) Qty: 30 0RF Patient Comments: "they gave me that for post op" pregabalin 25 mg capsule 25 mg PO .COMPLEX Qty: 90 0RF Patient Comments: "I have not started that one yet." Rx Instructions: 25 mg orally QHS x7 days, then AM and QHS x7days, then TID; olmesartan [Benicar] 40 mg tablet 40 mg PO QAM Qty: 90 3RF Qulipta 60 mg tablet 60 mg PO DAILY Qty: 30 2RF celecoxib [Celebrex] 200 mg capsule 200 mg PO BID Qty: 180 1RF furosemide 40 mg tablet 40 - 80 mg PO UD Rx Instructions: alternates 40mg and 80mg every other day; takes in the morning ropinirole 5 mg tablet 5 mg PO HS Qty: 90 3RF ketoconazole 2 % cream 1 applic topical BID Qty: 60 2RF riboflavin (vitamin B2) 400 mg tablet 400 mg PO DAILY Qty: 30 0RF Patient Comments: has not been taking for at least 3 months (since 04/2024) zaleplon 5 mg capsule 5 mg PO HS PRN (Reason: insomnia) famotidine 40 mg tablet 40 mg PO HS levothyroxine 125 mcg tablet 125 mcg PO DAILYBB Qty: 90 3RF Patient Comments: not currently taking for past few months, last dose ~04/2024 verapamil 120 mg tablet extended release 120 mg PO HS azelastine 137 mcg (0.1 %) aerosol,spray 2 spray intranasal DAILY Qty: 30 3RF Rx Instructions: administer into each nostril cyclobenzaprine 5 mg tablet 5 mg PO BID PRN (Reason: muscle spasm) Qty: 180 3RF scopolamine base 1 mg over 3 days patch 3 day 1 patch transdermal Q72H (DME) digital therapeutic,JANEL device Misc See Rx Instructions miscellaneous .MEDSUPPLY Qty: 1 0RF Rx Instructions: As directed hydroxyzine HCl 50 mg tablet 50 mg PO HS Mounjaro 5 mg/0.5 mL pen injector 0.5 mg subcut Q7D Patient Comments: sundays quetiapine [Seroquel] 100 mg tablet 100 mg PO HS venlafaxine [Effexor XR] 75 mg capsule,extended release 24hr 75 mg PO HS buspirone 10 mg tablet 10 mg PO BID trazodone 100 mg tablet 100 mg PO HS spironolactone 25 mg tablet 25 mg PO QAM ferrous sulfate 325 mg (65 mg iron) tablet 325 mg PO Q2D cholecalciferol (vitamin D3) 50 mcg (2,000 unit) capsule 2,000 unit PO QAM mecobalamin (vitamin B12) 1,000 mcg tablet,chewable 1,000 mcg PO UD Patient Comments: takes morning one day, next day takes in the evening magnesium glycinate 100 mg magnesium capsule 400 mg PO HS Gemtesa 75 mg tablet 75 mg PO DAILY Patient Comments: 07/09/24, has not started yet, waiting to get from pharmacy tramadol 50 mg tablet 50 mg PO Q6H PRN (Reason: pain) Qty: 20 0RF diazepam 5 mg tablet 5 - 10 mg PO BID PRN (Reason: Panic Attack(S)) Referrals Referrals: Angelina Donohue MD [Primary Care Provider] -
[2024-09-30] MEDS: KETOROLAC TROMETHAMINE 15 MG/ML VIAL IV STA (23:48)
--- NOTE | 2024-10-01 00:11 | CT Scan Report ---
Exam(s): CT ABDOMEN + PELVIS With Contrast IV Amt: 93 ml optiray 320 EXAM: CT Abdomen and Pelvis With Intravenous Contrast CLINICAL HISTORY: Reason for exam: rlq pain. TECHNIQUE: Axial computed tomography images of the abdomen and pelvis with intravenous contrast. CTDI is 28.14 mGy and DLP is 1535.53 mGy-cm. Automated exposure control was utilized for the study. A dose lowering technique was utilized adhering to the principles of ALARA. CONTRAST: Patient received 93 ml optiray 320 of IV contrast COMPARISON: 06/03/2024 FINDINGS: Lung bases: Unremarkable. No mass. No consolidation. ABDOMEN: Liver: Unremarkable. No mass. Gallbladder and bile ducts: Postoperative changes prior cholecystectomy. No ductal dilation. Pancreas: Unremarkable. No mass. No ductal dilation. Spleen: Unremarkable. No splenomegaly. Adrenals: Unremarkable. No mass. Kidneys and ureters: mild right hydronephrosis secondary to a 0.5 cm mid right renal calculus. This results in very slight right obstructive uropathy. Nonobstructing right upper pole intrarenal calculus. No left- sided hydronephrosis. Stomach and bowel: Unremarkable. No obstruction. No mucosal thickening. PELVIS: Appendix: No findings to suggest acute appendicitis. Bladder: Unremarkable. No mass. Reproductive: Unremarkable as visualized. ABDOMEN and PELVIS: Intraperitoneal space: Unremarkable. No free air. No significant fluid collection. Bones/joints: No acute fracture. No dislocation. Soft tissues: Unremarkable. Vasculature: Unremarkable. No abdominal aortic aneurysm. Lymph nodes: Unremarkable. No enlarged lymph nodes. IMPRESSION: Mild right hydronephrosis with obstructive uropathy secondary to a 0.5 cm mid right ureteral calculus Electronically signed by: Cipriano Matos MD 10/01/24 00:10 AM
[2024-10-01] MEDS: TAMSULOSIN HCL 0.4 MG CAP PO ONE (00:44)
[2024-10-01] MEDS: ACETAMINOPHEN 1,000 MG/100 ML VIAL IV STA (00:44)
--- NOTE | 2024-10-01 00:47 | History & Physical Report ---
Date of Service October 01, 2024 Assessment & Plan (1) Hydronephrosis with obstructing calculus: Plan 59-year-old female PMHx hypothyroidism, HTN, asthma, fibromyalgia, CKD stage III, IBS, prediabetes, RLS, depression and anxiety, conversion disorder, HFpEF, and migraine presenting to ED with severe right-sided pain that radiates towards the umbilical region. Patient was sent in by urology as she is s/p lithotripsy (~ 1 month ago) on R side which was unsuccessful, and has been unable to pass renal calculi spontaneously. CTAP performed revealing mild R hydronephrosis w/ 0.5cm obstructing R ureteral stone. UA without evidence of infection, no presence of GAMAL at time of admission. Has had multiple renal calculi in the past, requiring urological interventions. Of note, patient has had a lithotripsy in the past in which she coded during the procedure. #Renal calculi, obstructive, R side Follows with urology for recurrent renal calculi all requiring urological intervention, most recent visit 08/2024. Reportedly had recent lithotripsy ~ 1 month ago, which was unsuccessful. At time of admission, pt hemodynamically stable with appropriate pain control and no fevers. - CTAP w/ mild R hydronephrosis with obstructive uropathy secondary to 0.5 cm mid R ureteral calculus; UA w/o signs of infection; Cr 1.18, BUN 13; CBC WBC 11.63 - CBC + BMP am - NSS @ 125mL/hr, Ceftriaxone 2g IV, pain medications as ordered (Acetaminophen- > Ketorolac-> Morphine), Zofran prn - Urology consulted - appreciate input + recs #Prediabetes- Ozempic - HOLD Ozempic while inpatient #HTN- Olmesartan #HFpEF/Tachycardia- Metoprolol, Furosemide, spironolactone; Presence of playground monitor on L chest, to be worn for total duration 1 month; Follows w/ cardiology. #Asthma- Albuterol inhaler prn #Migraines- Qulipta, Lamictal, verapamil, magnesium glycinate, riboflavin #CKD/Bladder spasms- Gemtesa, oxybutynin #Depression/Anxiety- Buspirone, Diazepam, venlafaxine, quetiapine #GERD- Famotidine, omeprazole #Insomnia- Trazodone, zaleplon, hydroxyzine #RLS- Ropinirole Dispo: Admit, pending urology eval + pain management VTE Prophylaxis: SCDs This document was dictated utilizing [employer]. Please excuse any grammatical errors that may be secondary to use of this software. Admission and Anticipated Discharge Date Admission Date: 10/01/2024 History of Present Illness Chief Complaint: Abdominal pain Primary Care Provider: Angelina Donohue MD 59-year-old female PMHx hypothyroidism, HTN, asthma, fibromyalgia, CKD stage III, IBS, prediabetes, RLS, depression and anxiety, conversion disorder, HFpEF, and migraine presenting to ED with severe right-sided pain that radiates towards the umbilical region. Patient was sent in by urology as she is s/p lithotripsy (~ 1 month ago) on R side which was unsuccessful, and has been unable to pass renal calculi. Pt states that the abdominal/flank pain started around 1730 the day of arrival, and by 1800 had significantly worsened. States that it was a sudden and severe worsening of pain, rating it a 9/10 on the pain scale at its worse. Localized to the RLQ/flank. Pt states that she was unable to alleviate the pain, so she called her urologist for advice and decided to come to the hospital to be evaluated. Has had some nausea but without vomiting, and admits to feeling that she may have had chills but no fevers. On CTAP mild R hydronephrosis with obstructive uropathy secondary to a 0.5 cm mid R ureteral calculus was identified. UA revealed no signs of infection but did have presence of ketones, calcium oxalate crystals, and hyaline cast. No evidence of GAMAL at the time of admission. She does have a mildly elevated leukocytosis (11.6). Significant history of renal calculi requiring urological interventions to pass, and has been unable to spontaneously pass a stone before. Overall, denies chest pain, shortness of breath, palpitations, diarrhea/constipation, numbness/tingling, fever, headache, or LUTS. Patient did not take her medications the day of arrival. Please see Dr. Erwin's attestation for adjustments/additions to treatment plan. Allergies Allergy/AdvReac Type Severity Reaction Status Date / Time bee venom protein (honey bee) Allergy Severe SEVERE Verified 09/21/24 14:36 SWELLING,SOB ciprofloxacin Allergy Severe RESPIRATORY Verified 09/21/24 14:36 FAILURE/HIVES azithromycin Allergy Intermediate Hives Verified 09/21/24 14:36 latex Allergy Intermediate LOCAL Verified 09/21/24 14:36 IRRITATION, REDNESS, SWELLING, ITCHINESS divalproex sodium Allergy Mild Tachycardia Verified 09/21/24 14:36 prednisone AdvReac Intermediate hallucinates, Verified 09/21/24 14:36 GI UPSET, agitation, flushing,tachycardia,sick Home Medications Medication Instructions Recorded Confirmed Type omeprazole 40 mg capsule,delayed 40 mg PO BID #60 caps 09/17/19 10/01/24 Rx release buspirone 10 mg tablet 10 mg PO BID 12/17/19 10/01/24 History trazodone 100 mg tablet 100 mg PO HS 01/12/22 10/01/24 History famotidine 40 mg tablet 40 mg PO HS 11/09/22 10/01/24 History azelastine 137 mcg (0.1 %) nasal 2 spray intranasal DAILY #30 mL 12/05/22 10/01/24 Rx spray verapamil 120 mg tablet,extended 120 mg PO HS 01/14/23 10/01/24 History release cyclobenzaprine 5 mg tablet 5 mg PO BID PRN muscle spasm #180 07/15/23 10/01/24 Rx tabs albuterol sulfate 90 mcg/actuation 2 puff inhalation Q4 PRN Shortness 09/02/23 10/01/24 Rx aerosol inhaler Of Breath Or Wheezing #8.5 grams ketoconazole 2 % topical cream 1 applic topical BID #60 grams 09/18/23 10/01/24 Rx furosemide 40 mg tablet 40 - 80 mg PO UD 12/02/23 10/01/24 History ropinirole 5 mg tablet 5 mg PO HS #90 tabs 12/02/23 10/01/24 Rx scopolamine base 1 mg over 3 days 1 patch transdermal Q72H 02/03/24 10/01/24 History transdermal patch lamotrigine 200 mg tablet 200 mg PO BID #180 tabs 02/10/24 10/01/24 Rx (Lamictal) digital therapeutic,JANEL device #1 ea 02/13/24 10/01/24 Rx metoprolol succinate 100 mg 100 mg PO BID #180 tabs 06/18/24 01/09/25 Rx tablet,extended release 24 hr zaleplon 10 mg capsule 10 mg PO HS 04/28/24 10/01/24 History hydroxyzine HCl 50 mg tablet 50 - 100 mg PO HS 06/10/24 10/01/24 History quetiapine 100 mg tablet (Seroquel) 100 mg PO HS 06/10/24 10/01/24 History tirzepatide 5 mg/0.5 mL 0.5 mg subcut Q7D 06/10/24 10/01/24 History subcutaneous pen injector (Jonahunrandyro) cholecalciferol (vitamin D3) 50 2,000 unit PO QAM 07/09/24 10/01/24 History mcg (2,000 unit) capsule ferrous sulfate 325 mg (65 mg 325 mg PO Q2D 07/09/24 10/01/24 History iron) tablet magnesium glycinate 400 mg PO HS 07/09/24 10/01/24 History mecobalamin (vitamin B12) 1,000 1,000 mcg PO QAM 07/09/24 10/01/24 History mcg chewable tablet spironolactone 25 mg tablet 25 mg PO QAM 07/09/24 10/01/24 History oxybutynin chloride 5 mg tablet 5 mg PO Q8H PRN bladder spasms #30 07/20/24 10/01/24 Rx tabs olmesartan 40 mg tablet (Benicar) 40 mg PO QAM #90 tabs 08/07/24 10/01/24 Rx tramadol 50 mg tablet 50 mg PO Q6H PRN pain #20 tabs 08/07/24 10/01/24 Rx vibegron 75 mg tablet (Gemtesa) 75 mg PO DAILY PRN Bladder Spasms 08/07/24 10/01/24 History celecoxib 200 mg capsule (Celebrex) 200 mg PO BID #180 caps 09/22/24 10/01/24 Rx atogepant 60 mg tablet (Qulipta) 60 mg PO HS 10/01/24 10/01/24 History diazepam 5 mg tablet 5 - 10 mg PO BID PRN Panic 10/01/24 10/01/24 History Attack(S) fluticasone propionate 50 2 spray intranasal HS Nasal 10/01/24 10/01/24 History mcg/actuation nasal Congestion spray,suspension (Flonase Allergy Relief) venlafaxine 150 mg 150 mg PO QAM 10/01/24 10/01/24 History capsule,extended release 24 hr venlafaxine 75 mg capsule,extended 75 mg PO QAM 10/01/24 10/01/24 History release 24 hr zaleplon 5 mg capsule 5 mg PO HS PRN Sleep 10/01/24 10/01/24 History Past Med/Surg History Problem List (Updated 10/01/24 @ 00:46 by Nikolai Benjamin PA-C) Hydronephrosis with obstructing calculus Intractable abdominal pain (Acute) Ureterolithiasis (Acute) Renal colic on right side (Acute) Palpitations Urinary urgency Kidney stones (HFpEF) heart failure with preserved ejection fraction Gross hematuria Chronic pain Facet arthropathy, lumbosacral Radicular pain of lumbosacral region History of bradycardia Functional neurological symptom disorder (conversion disorder), with abnormal movement Diagnosed Dr. Yue Aguayo [facility] neurology Severe obesity (BMI >= 40) Tachycardia (Acute) Tremor Migraine without aura, not intractable, without status migrainosus Anxiety Meningioma Depression RLS (restless legs syndrome) Prediabetes CKD (chronic kidney disease) stage 3, GFR 30-59 ml/min does not follow with specialist Hypothyroidism Asthma (Chronic) well controlled > res inh last used 5 mos ago Hypertension (Chronic) Fibromyalgia (Chronic) IBS (irritable bowel syndrome) (Chronic) Medical History Hypertension controlled, stable per pt Asthma well controlled > prn inh rare use Hypothyroidism CKD (chronic kidney disease) stage 3, GFR 30-59 ml/min f/u urology and dr. dhillon, nephrology Prediabetes RLS (restless legs syndrome) Anxiety and depression Chronic migraine without aura Functional neurological symptom disorder (conversion disorder), with abnormal movement Diagnosed Dr. Turner [facility] neurology Facet arthropathy, lumbosacral Sacroiliitis Piriformis syndrome of right side Chronic pain Acute UTI dx 07/09/24, completed antibiotic with resolution of symptoms Meningioma "deep in her brain, inoperable, anterior clenoid process right side" Sacral pain get nerve ablation in September 2024 Fibromyalgia Vitamin D deficiency Tachycardia hx, f/u natacha, talya Obesity Numbness in bilateral feet "occasionally" Hyperinsulinemia Hearing loss Flushing in her face Fatigue due to fibromyalgia and "her neuro condition" Elevated plasma metanephrines pt unsure? Dyspnea on exertion Dizziness "on and off, some days are worse than others" History of anesthesia reaction pt was not sure if was anesthsia or allergy to Cipro, but coded on OR table during lithotripsy 6 yrs ago PTSD (post-traumatic stress disorder) GERD (gastroesophageal reflux disease) variable IBS (irritable bowel syndrome) Essential tremor CHF (congestive heart failure) f/u talya manzano cardio (will be seeing talya Carrizales in september 2024) Meniere disease History of cardiomyopathy [place] to be secondary to hypertension. Occurred in 2015 with an EF of 40 to 45%. She had cardiac MRI which was concerning for possible hypertrophic cardiomyopathy but this was ruled out via echo. Last echocardiogram 07/2019 revealed preserved EF with grade 1 diastolic dysfunction. Surgical History History of bilateral cataract extraction History of endometrial ablation x2 S/P correction of deviated nasal septum History of esophagogastroduodenoscopy (EGD) History of colonoscopy with polypectomy History of brain surgery 2006> Secondary to type I Chiari malformation at [facility] History of lithotripsy History of cholecystectomy History of tonsillectomy Family History Grandmother No problems noted. Father Heart disease Hypertension Hx of CABG Diabetes Myocardial infarction Grandmother (Maternal) Colorectal cancer Grandfather (Maternal) CHF (congestive heart failure) Stroke great grandfather Heart disease Sister Environmental allergies Mother Aphasia Dementia Other No family history of adverse response to anesthesia No family history of bleeding disorder Denies family history of Ovarian cancer Prostate cancer Breast cancer Lung cancer Social History Smoking Status: Never smoker Second Hand Exposure: No; Do You Dip or Chew Tobacco: No; Hx Alcohol Use: Yes Alcohol type: wine Hx Substance Use: No Preferred Language: Frisian Communication Ability: Effective 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: No Beliefs That Will Affect Care: None marital status: Single Current Living Situation: Alone current occupational status: disabled 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 Other Information That Helps Us Care for You: No Feels Safe at Home: Yes Safety Concerns: Feels Safe At This Time Childhood Exposure to Second-Hand Smoke: Yes Dental Care, Regularly: Yes Physical Activity Frequency: Does not Exercise Seatbelt Use: always Sunscreen Use: Yes Assistive Devices: Cane and Walker Review of Systems Review of Systems: All systems reviewed & are unremarkable except as noted in Subjective Physical Exam Physical Exam: General: No acute distress; hemodynamically stable Skin: Warm and dry, without rashes or lesions Head: Normocephalic, atraumatic Eyes: PERRL, conjunctivae clear, sclera non-icteric ENT: External ear and ear canal without swelling; nose atraumatic; good dentition, tongue normal appearance, oropharynx dry Neck: Supple, no LAD Cardio: RRR, no M/G/R, S1 and S2 normal; Presence of Holter monitor on L chest Resp: No respiratory distress, Lungs CTA in all lobes bilaterally, no wheezes, rales, or rhonchi Abdomen: Soft, symmetric, nontender; no distention; No masses or hepatosplenomegaly; Bowel sounds normoactive : No CVA tenderness MSK: No deformities, full ROM throughout; pulses palpable and equal; no edema. Neuro: Awake, alert; CN grossly intact Psych: Appropriate mood and affect; good judgement and insight. Results & Data Results & Data Vital Signs (Past 12 Hours) Vital Signs Temp Pulse Pulse Resp BP BP Pulse Ox 09/30/24 22:53 71 16 154/70 H 94 09/30/24 21:51 64 18 162/52 H 95 09/30/24 20:22 36.2 C L 63 16 147/86 H 96 O2 Del Method 09/30/24 22:53 Room Air 09/30/24 21:51 Room Air 09/30/24 20:22 Room Air Laboratory Results 09/30/24 20:35 WBC 11.63 H RBC 5.99 H Hgb 15.8 Hct 48.0 H MCV 80.1 MCH 26.4 MCHC 32.9 RDW Std Deviation 44.3 RDW Coeff of Nasima 15.9 H Plt Count 365 MPV 9.5 Immature Gran % (Auto) 0.4 Neut % (Auto) 60.3 Lymph % (Auto) 29.9 Miller % (Auto) 6.6 Eos % (Auto) 2.1 Baso % (Auto) 0.7 Neut # (Auto) 7.00 H Lymph # (Auto) 3.48 H Miller # (Auto) 0.77 H Eos # (Auto) 0.25 Baso # (Auto) 0.08 Immature Gran # (Auto) 0.05 Sodium 139 Potassium 3.9 Chloride 106 Carbon Dioxide 25 Anion Gap 8 BUN 13 Creatinine 1.18 Est Cr Clr Drug Dosing 65.8 eGFR 53.87 BUN/Creatinine Ratio 11.0 Glucose 113 H Calcium 9.7 Total Bilirubin 0.5 AST 19 ALT 18 Alkaline Phosphatase 117 H Total Protein 7.2 Albumin 4.3 Globulin 2.9 Albumin/Globulin Ratio 1.5 Urine Color Yellow Urine Appearance Turbid A Urine pH 5.5 Ur Specific [place] 1.026 Urine Protein 2+ H Urine Glucose (UA) Negative Urine Ketones 1+ H Urine Blood 3+ H Urine Nitrite Negative Urine Bilirubin Negative Urine Urobilinogen Negative Ur Leukocyte Esterase 2+ H Urine RBC 11-20 H Urine WBC 6-10 H Ur Epithelial Cells >20 H Calcium Oxalate Crystal Present A Urine Bacteria None Seen Hyaline Casts Present A Diagnostic Findings Abdomen/Pelvis CT 09/30/24 21:59 Exam(s): CT ABDOMEN + PELVIS With Contrast IV Amt: 93 ml optiray 320 EXAM: CT Abdomen and Pelvis With Intravenous Contrast CLINICAL HISTORY: Reason for exam: rlq pain. TECHNIQUE: Axial computed tomography images of the abdomen and pelvis with intravenous contrast. CTDI is 28.14 mGy and DLP is 1535.53 mGy-cm. Automated exposure control was utilized for the study. A dose lowering technique was utilized adhering to the principles of ALARA. CONTRAST: Patient received 93 ml optiray 320 of IV contrast COMPARISON: 06/03/2024 FINDINGS: Lung bases: Unremarkable. No mass. No consolidation. ABDOMEN: Liver: Unremarkable. No mass. Gallbladder and bile ducts: Postoperative changes prior cholecystectomy. No ductal dilation. Pancreas: Unremarkable. No mass. No ductal dilation. Spleen: Unremarkable. No splenomegaly. Adrenals: Unremarkable. No mass. Kidneys and ureters: mild right hydronephrosis secondary to a 0.5 cm mid right renal calculus. This results in very slight right obstructive uropathy. Nonobstructing right upper pole intrarenal calculus. No left- sided hydronephrosis. Stomach and bowel: Unremarkable. No obstruction. No mucosal thickening. PELVIS: Appendix: No findings to suggest acute appendicitis. Bladder: Unremarkable. No mass. Reproductive: Unremarkable as visualized. ABDOMEN and PELVIS: Intraperitoneal space: Unremarkable. No free air. No significant fluid collection. Bones/joints: No acute fracture. No dislocation. Soft tissues: Unremarkable. Vasculature: Unremarkable. No abdominal aortic aneurysm. Lymph nodes: Unremarkable. No enlarged lymph nodes. IMPRESSION: Mild right hydronephrosis with obstructive uropathy secondary to a 0.5 cm mid right ureteral calculus Electronically signed by: Cipriano Matos MD 10/01/24 00:10 AM Medications Administered Tamsulosin 0.4mg po Ondansetron 4mg IV Morphine 4mg IV Ketorolac 10mg IV Acetaminophen 1g IV Code Status & VTE Plan Code Status Full Supervising Physician Co-Signing Physician Notes Patient seen and examined, chart reviewed, case discussed with SAMIR Benjamin as well as ER SAMIR Benjamin and I agree with the assessment and plan as above. Patient with history of renal stones with prior lithotripsy - presenting with obstructing right stone, significant pain. No fevers or chills. On exam she is afebrile, HD stable +S1/S2, regular Lungs CTA anteriorly - saturations are low on RA, 87% with adequate wave form - supplemental O2 placed Abd - +BS, soft, NT/ND, right sided flank pain present Ext-warm, well perfused Labs and images reviewed WBC=11.63 UA without bacteria. Assessment/Plan -Will admit to medical -Maintain NPO -NSS -Urine strainer -Will HOLD her Lasix, Spironolactone and Losartan for now -Morphine and Zofran PRN -Will keep on Ceftriaxone for now given leukocytosis -Remainder as above PG Care Time/CCT Total # of Minutes Spent Total Time Spent with Patient: Total time spent is greater than 50% in coordination of care (as documented) at patient's floor/unit and/or counseling patient: Coding Level of Care Code 90956 INT INP/OBS CARE MIN Diagnoses Hydronephrosis with obstructing calculus N13.2
[2024-10-01] MEDS ORDERED: ONDANSETRON INJ 2 MG/ML 2 ML VIAL IV PRN (02:24)
[2024-10-01] MEDS ORDERED: POLYETHYLENE (MIRALAX) 17 GM PACK PO PRN (02:24)
[2024-10-01] MEDS ORDERED: ALBUTEROL HFA 8 GM INHALER INH PRN (02:24)
[2024-10-01] MEDS ORDERED: VIBEGRON 75 MG TAB PO PRN (02:24)
[2024-10-01] MEDS: SODIUM CHLORIDE 0.9% 1,000 ML IV SCH (02:38)
[2024-10-01] MEDS: cefTRIAXone SODIUM 2,000 MG/50 ML BAG IV SCH (02:38)
[2024-10-01] MEDS ORDERED: hydrOXYzine HCl 25 MG TAB PO PRN (02:41)
[2024-10-01] MEDS: MoRPHine SULFATE 2 MG/ML CARP IV PRN (03:58)
--- OUTSIDE RECORDS SUMMARY | 2024-10-01 06:08 | External Medical Summary | Summary of Care ---
Author Name Unknown Organization [facility] Address [address] [place] [address] Phone [phone] Care Team Providers Care Gaming Commissioner Name Role Phone Angelina Donohue MD Primary Care Provider Encounter Details Date Type Department Care Team (Late st Contact Info) Description 09/24/2024 Population Health External Data Unspecified Department Allergies Active Allergy Reactions Criticality Noted Date Comments Azithromycin High 12/30/2021 Other reaction(s): Hives Other reaction(s): Hives Bee Venom High 09/18/2010 Other reaction(s): SEVERE SWELLING,SOB Other reaction(s): SEVERE SWELLING,SOB Ciprofloxacin Anaphylaxis High 08/25/2012 Other reaction(s): RESPIRATORY FAILURE/HIVES Other reaction(s): RESPIRATORY FAILURE/HIVES Latex High 12/30/2021 Other reaction(s): LOCAL IRRITATION REDDNESS SWELLING ITCHYNESS Other reaction(s): LOCAL IRRITATION REDDNESS SWELLING ITCHYNESS Prednisone Nausea/vomiting High 09/14/2018 Other reaction(s): HALLUCINATIONS, GI UPSET Other reaction(s): hallucinates, GI UPSET, agitation, flushing,tachycardia,sick Azithromycin Rash 05/18/2010 documented as of this encounter (statuses as of 09/29/2024) Medications levothyroxine sodium (LEVOXYL) 125 MCG Tablet Take 1 Tablet by mouth in the morning. 0 8 Active fluticasone (FLOVENT HFA) 110 MCG/ACT inhaler Inhale 2 Puffs by mouth 2 times a day. 1 Inhaler 5 9 Active diazePAM 5 MG Oral Tablet (Valium) take 1 tablet by mouth every 24 hours if needed for PANIC 2 Active RA Vitamin B-12 TR 1000 MCG Oral Tablet Extended Release Take by mouth 1 Tablet in the morning. Pt takes this once monthly. 90 Tablet 3 2 Active Albuterol Sulfate HFA 108 (90 Base) MCG/ACT Inhalation Aerosol Solution Inhale by mouth 2 Puffs every 4 hours as needed for Wheezing. 18 g 3 2 Active Ketoconazole 2 % External Cream Apply topically to affected area 2 times a day. Apply to creases 60 g 3 2 Active Zaleplon 5 MG Oral Capsule take 1 capsule by mouth OVERNIGHT NEEDED FOR MIDDLE INSOMNIA 3 Active Ferrous Sulfate 325 (65 Fe) MG Oral Tablet (Feosol) take 1 tablet by mouth every other day 45 Tablet 3 3 Active busPIRone HCl 10 MG Oral Tablet (Buspar) Take 1 tablet by mouth twice a day 180 Tablet 07/16/2023 3:39 PM EDT 3 Active Cyclobenzaprine HCl 5 MG Oral Tablet (Flexeril) take 1 tablet (5 mg) by mouth twice a day As Needed for muscle spasm 180 Tablet 3 07/17/2023 6:45 AM EDT 3 Active Hydrocortisone 2.5 % External Ointment Apply to rash in skin folds twice daily for 2 weeks 60 g 5 4 Active Additional Information Patient taking differently: PRN, Apply to rash in skin folds twice daily for 2 weeks, Reported on 09/07/2024 Fluticasone Propionate 50 MCG/ACT Nasal Suspension (Flonase) use 2 spray intranasally daily As Needed for Nasal Congestion 48 g 3 07/25/2024 12:46 PM EDT 4 Active Additional Information Patient taking differently: HS, Reported on 09/07/2024 Verapamil HCl ER 120 MG Oral Tablet Extended Release (Isoptin SR)Indications:H TN, goal below 130/80 TAKE ONE TABLET BY MOUTH EVERY MORNING 90 Tablet 3 08/17/2024 5:39 PM EST 4 025 Active Zaleplon 10 MG Oral Capsule Take 1 Capsule by mouth at bedtime. 4 Active D3 2000 50 MCG (1999) Oral Capsule (Cholecalciferol ) Take 1 Capsule by mouth in the morning. Active Furosemide 40 MG Oral Tablet (Lasix) Take 1 Tablet by mouth in the morning. Take an additional tablet in the afternoon 3 days per week (Saturday, Saturday, Saturday). 150 Tablet 3 09/05/2024 12:26 PM EST 4 Active Spironolactone 25 MG Oral Tablet (Aldactone)Indic ations:Cardiomyo jefe due to hypertension, without heart failure (HCC),HTN, goal below 130/80 Take 1 Tablet by mouth in the morning. 100 Tablet 3 08/17/2024 5:39 PM EST 4 Active rOPINIRole HCl 5 MG Oral Tablet take 1 tablet by mouth at bedtime 90 Tablet 3 08/24/2024 5:33 PM EST 4 Active Emgality 120 MG/ML Subcutaneous Solution Auto-injector Every Month. 4 Active Magnesium Glycinate 100 MG Oral Capsule 400 mg in the morning. Pt states takes as needed. 3 Active Famotidine 40 MG Oral Tablet (Pepcid) Take 1 Tablet by mouth at bedtime. 90 Tablet 3 07/23/2024 7:16 AM EDT 4 Active Omeprazole 40 MG Oral Capsule Delayed Release (PriLOSEC) Take 1 Capsule by mouth in the morning. 90 Capsule 3 08/13/2024 6:55 AM EST 4 Active Additional Information Patient taking differently:40 mg Oral Daily(AM),Pt taking twice daily, Reported on 09/07/2024 Scopolamine 1 MG/3DAYS Transdermal Patch 72 Hour (Transderm Scop) Place 1 Patch over 72 hours topically on the skin every 3 days. 10 Patch 12 08/17/2024 5:39 PM EST 4 Active lamoTRIgine 200 MG Oral Tablet (LaMICtal) take one tablet by mouth twice a day 180 Tablet 2 08/25/2024 6:32 PM EST 4 Active Metoprolol Succinate ER 100 MG Oral Tablet Extended Release 24 Hour (toPROL XL) Take 1 Tablet by mouth in the morning and 1 Tablet before bedtime. 200 Tablet 4 Active Frovatriptan Succinate 2.5 MG Oral Tablet take 1 tablet by mouth at onset of headache; if no relief, may repeat 1 tab after at least 2 hrs; max = 2 tabs/24 hours 9 Tablet 4 08/22/2024 10:57 AM EST 4 Active Qulipta 60 MG Oral Tablet (Atogepant) take 1 tablet by mouth daily 30 Tablet 2 05/21/2024 9:01 AM EDT 4 Active Nerivio Device USE ONE 45 MINUTE TREATMENT AT ONSET OF MIGRAINE DIRECTED 4 Active metFORMIN HCl 500 MG Oral Tablet (Glucophage) Take 1 Tablet by mouth 2 times a day with morning and evening meals. Pt unsure of dosage Active Mounjaro 5 MG/0.5ML Subcutaneous Solution Pen-injector (Tirzepatide)Ind ications:Type 2 diabetes mellitus with hemoglobin A1c goal of less than 7.0% ([facility]) Inject 5 mg under the skin once a week. 2 mL 3 07/08/2024 11:58 AM EDT 4 025 Active Gemtesa 75 MG Oral Tablet (Vibegron) Take one tablet by mouth once daily 30 Tablet 2 4 Active busPIRone HCl 10 MG Oral Tablet (Buspar) take 1 tablet by mouth three times a day 270 Tablet 2024 8:48 AM EDT 4 Active Venlafaxine HCl ER 150 MG Oral Capsule Extended Release 24 Hour (Effexor XR) take 1 capsule by mouth every morning 90 Capsule 2024 8:48 AM EDT 4 Active QUEtiapine Fumarate 100 MG Oral Tablet (SEROquel) take one and one-half tablets by mouth at bedtime 135 Tablet 2024 8:48 AM EDT 4 Active traZODone HCl 100 MG Oral Tablet (Desyrel) take 1 tablet by mouth at bedtime 90 Tablet 2024 8:48 AM EDT 4 Active Venlafaxine HCl ER 75 MG Oral Capsule Extended Release 24 Hour (Effexor XR) take 1 capsule by mouth every morning (take with 150mg cap) 90 Capsule 2024 8:48 AM EDT 4 Active Rosuvastatin Calcium 10 MG Oral Tablet (Crestor)Indicat ions:Dyslipidemi a, goal LDL below 70 Take 1 Tablet by mouth daily. 100 Tablet 3 07/24/2024 4:28 PM EDT 4 Active Olmesartan Medoxomil 40 MG Oral Tablet (Benicar) Take 1 Tablet by mouth in the morning. 90 Tablet 3 08/10/2024 10:38 AM EST 4 Active hydrOXYzine HCl 50 MG Oral Tablet TAKE 1 TO 2 TABLETS BY MOUTH 30 MINUTES BEFORE BEDTIME DIRECTED 180 Tablet 09/03/2024 6:33 PM EST 4 Active Fluconazole 150 MG Oral Tablet (Diflucan) Take 1 tablet. If rash still present 3 days later, then take 2nd tablet 2 Tablet 1 4 Active Celecoxib 200 MG Oral Capsule (CeleBREX) take 1 capsule twice a day 180 Capsule 1 09/24/2024 6:36 PM EST 4 Active documented as of this encounter (statuses as of 09/29/2024) Active Problems Problem Noted Date Diagnosed Date Morbid obesity with BMI of 40.0-44.9, adult 10/24 Overview: Per Obesity protocol - bmi= 41.19 01/21/16 Type 2 diabetes mellitus wit h diabetic chronic kidney disease 10/23/2022 Depression with anxiety 10/15/2022 Gastroesophageal reflux disease without esophagi tis 10/13/2021 Chronic kidney disease, stage 3a 01/31/2021 Overview: Per CKD protocol Migraine variant 12/24/2019 Acquired hypothyroidism 10/06/2019 Environmental and seasonal allergies 03/23/2019 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 08/30/2017 Hypertensive cardiomyopathy 03/29/2016 Fibromyalgia 01/21/2016 Meniere's disease 04/23/2009 Overview (12/19/2009): treated in [place] Chiari malformation type I 01/21/2006 Overview (12/19/2009): had decompression surgery, has residual HAs and nerve pain Polyneuropathy in other diseases classified else where Overview (12/19/2009): secondary to Chiari malformation Restless legs syndrome HTN, goal below 130/80 documented as of this encounter (statuses as of 09/29/2024) Resolved Problems Problem Noted Date Diagnosed Date Resolved Date KIYA (generalized anxiety disorder) 11/23/2021 10/15/2022 Major depressive disorder, recurrent, mild 10/13/2021 11/23/2021 Hypertensive kidney disease with stage 3a chronic kidney disease 08/01/2020 10/15/2022 Overview: Per CKD protocol Hypertensive heart and kidne y disease with chronic diastolic congestive heart failure and stage 3a chronic kidney disease 08/01/202009/24 Overview: Per CKD protocol Trigger finger of right thumb 04/29/2020 03/17/2021 Hypertensive heart and kidne y disease with chronic diastolic congestive heart failure and stage 3 chronic kidney disease 12/24/201908/04 Overview: Per CKD protocol Cardiomyopathy due to hypert ension, without heart failure 10/06/2019 12/22/2019 Overview (12/22/2019): Duplicate. Major depressive disorder, s maximus episode, unspecified 10/06/2019 12/22/2019 Overview (12/22/2019): More specific code in use. Morbid obesity with body mas s index (BMI) of 40.0 to 44.9 in adult 02/05/2019 10/15/2022 Body mass index (BMI) of 40. 0 to 44.9 in adult 02/02/2019 03/04/2019 Overview: Per Obesity protocol #1 Prediabetes 11/25/2018 07/07/2020 Hypertensive kidney disease with chronic kidney disease stage III 10/30/2018 08/04/2020 Overview: Per CKD protocol Gastroesophageal reflux dise ase with esophagitis 08/21/2018 08/21/2018 Benign neoplasm of meninges 07/18/2018 12/26/2020 Major depressive disorder, r ecurrent, moderate 07/18/2018 10/15/2022 Esophageal dysphagia 06/09/2018 019 Hypertensive lower esophageal sphincter 06/09/2018 10/06/2019 Kidney disease, chronic, sta ge III (GFR 30-59 ml/min) 05/06/2018 11/06/2018 Overview: Per CKD protocol #1 - Palpitations 03/25/2018 02/29/2020 Elevated glucose 10/26/2016 10/26/2016 Elevated glucose 10/26/2016 08/20/2018 Overview (10/26/2016): On lab from 09/2015 Viral URI 09/11/2016 02/13/2017 Sinus tachycardia 08/27/2016 08/20/2018 Elevated hematocrit 06/28/2016 08/20/20 18 Overview (06/28/2016): Recheck 3 months SEAN (obstructive sleep apnea) 06/13/2016 04/03/2017 SEAN (obstructive sleep apnea) 06/13/2016 06/13/2016 Hypokalemia 06/13/2016 03/23/2019 Chronic pulmonary embolism 05/02/2016 0 06/05/2016 Chest pain 03/29/2016 08/30/2017 Hypertensive cardiomegaly 02/13/2016 Leukocytosis 02/13/2016 08/20/2018 Morbid obesity 01/21/2016 11/07/2022 Overview (01/21/2016): bmi= 41.19 01/21/16 Adjustment disorder with depressed mood 01/21/2016 08/20/2018 Shingles 07/29/2015 08/20/2018 Nevus 01/12/2015 08/20/2018 Acute sinusitis 06/12/2011 08/07/2011 Severe obesity with body mas s index (BMI) of 35.0 to 39.9 with serious comorbidity 03/06/2010 Overview (07/09/2018): Per Obesity Protocol, #19 ICD-10 update of inactive diagnosis Family history of GI malignancy 11/06/2007 08/20/2018 Overview (11/06/2007): [facility] [place] [facility] Brain compression 10/17/2007 09/06/2017 Myalgia and myositis 10/17/2007 016 Overview (10/17/2007): fibromyalgia ADVANCE DIRECTIVE INFORMATION 07/15/2007 08/20/2018 Overview (07/15/2007): Yes-advised to bring copy in to be scanned into EMR. Fibromyalgia 01/21/2016 Allergic rhinitis 07/18/2018 Headache 07/18/2018 Overview (12/14/2015): chronic, sees Neurology ICD-10 update of inactive term Sleep apnea 04/03/2017 Overview (12/19/2009): mild documented as of this encounter (statuses as of 09/29/2024) Immunizations Name Administration Dates Next Due COVID-19 mRNA, LNP-s, No Pre serve, 2-Dose Series (Moderna) 09/11/2021,12/15/2020,11/17/2020,10/24 Pneumococcal Polysaccharide PPV23 (Pneumovax) 09/15/2016 Seasonal Influenza Vac., MDV , IM, 0.5 mL (Fluzone) 06/06/2016,2015,07/08/2013,07/07,07/07/2011,07/21/2010 Seasonal Influenza Virus Vac cine, Unspecified Formulation 08/09/2020,07/07/2019,07/18/2018,09/06,06/06/2016,2015,07/08/2013 ,07/07/2012,07/07/2011,07/21/2010,11/0 09/2005 Seasonal Influenza, PF, 6 M & above, IM , (FluLaval or Fluzone) 09/11/2021,08/09/2020,07/07/2019,07/18,09/06/2017 TDAP, Age 7 and older, IM (Adacel) 10/18/2015, Zoster Vaccine Recombinant (Shingrix) 07/07/2019 ,02/05/2019 documented as of this encounter Social History Tobacco Use Types Packs/Day Years Used Date Smoking Tobacco: Never Smokeless Tobacco: Never Alcohol Use Standard Drinks/Week Comments No 0 (1 standard drink = 0.6 oz pur e alcohol) Rare PHQ-2 Answer Date Recorded PHQ Adult Total Score 7 03/17/2021 Hunger Vital Sign Answer Date Recorded Within the past 12 months, y ou worried that your food would run out before you got the money to buy more. Never true 03/17/20 21 Within the past 12 months, t he food you bought just didn't last and you didn't have money to get more. Never true 03/17/2021 Comments No Sex and Gender Information Value Date Recorded Sex Assigned at Female 06/08/2020 10:12 AM EDT Legal Sex Female 7:14 AM EST Gender Identity Female 06/08/2020 10:12 AM EDT Sexual Orientation Straight 06/08/2020 10 :12 AM EDT documented as of this encounter Plan of Treatment Upcoming Encounters Date Type Department Care Team (Latest Contact Info) Description 10/09/2024 4:15 PM EST Office Visit Dermatology [facility] [place] [address] [place] [address] David Foster MD [address] [facility] [place] [address] 10/29/2024 11:15 AM EST Hospital Encounter ENDO [facility], Endoscopy Room [facility] [address] [place] [phone] Katey Daugherty DO [address] [place] [address] 10/29/2024 11:15 AM EST - 10/29/2024 11:45 AM EST Surgery ENDO [facility], Endoscopy Room [facility] [address] [place] [phone] Katey Daugherty DO [address] [place] [address] COLONOSCOPY FLEXIBLE PROXIMAL DIAGNOSTIC 11/02/2024 11:00 AM EST Telemedicine Nutrition and Weight Management [address] [place] [address] Cristina Duncan MD [address] [place] [address] 12/02/2024 1:10 PM EDT Nutrition Services Nutrition & Weight Management, [facility] [address] [facility] [place] [address] Luciana Rosas RDN [address] [place] [address] 12/02/2024 2:30 PM EDT Office Visit Gastroenterology, [facility] [address] [facility] [place] [address] Sherie Aguayo CRNP [address] [place] [address] Scheduled Procedures Name Priority Associated Diagnoses Date/Ti me COLONOSCOPY FLEXIBLE PROXIMA L DIAGNOSTIC History of colonic polyps 10/29/2024 11:15 AM EST ESOPHAGOGASTRODUODENOSCOPY ( EGD), FLEXIBLE, TRANSORAL, DIAGNOSTIC Recall Gastroesophageal reflux disease, unspecified whether esophagitis present GASTRO REFLUX TEST WITH [employer] TELEMETRY PH ELECTRODE Recall Gastroesophageal reflux disease, unspecified whether esophagitis present Health Maintenance Due Date Last Done Comments HIV Screening 1982 Diabetic Foot Exam 1985 Hepatitis C Screening 1985 Hepatitis B Vaccine (1 of 3 - 19+ 3-dose series) 1986 Cologuard 2012 Fecal Occult Blood Test 2012 Sigmoidoscopy 2012 Pneumococcal Vaccine: 50+ Years (2 of 2 - PCV) 09/15/2017 09/15/2016 Albumin/Creatinine Ratio 07/18/2019 07/18/2018 Colonoscopy 10/28/2020 10/28/2017, 10/28/2017 Colorectal Cancer Screening 10/28/2020 CKD PHOS USE SMARTSET 46050 03/01/2021 06/0 05/2020, 07/18/2018, 07/02/2016 HbA1c 02/28/2022 08/30/2021, 06/0 05/2020, 01/12/2019, Additional history exists Depression Monitoring 03/17/2022 03/17/2021 COVID-19 Vaccine ( season) 2024 09/11/2021, 09/08/2021, 12/15/2020, Additional history exists Influenza Vaccine (FLU shot) (#1) 2024 09/11/2021, 08/09/2020, 08/09/2020, Additional history exists Mammogram 11/26/2024 11/27/2023, 0302/2024, 11/12/2023, Additional history exists CKD HGB USE SMARTSET 84663 12/01/202412/01, 11/20/2023, 10/27/2021, Additional history exists GFR 01/18/2025 07/20/2024, 11/21, 11/20/2023, Additional history exists Diabetic Eye Exam 05/11/2025 05/11/2024, , 12/03/2022, Additional history exists TSH 07/20/2025 07/20/2024, 11/21, 10/16/2022, Additional history exists DTap/Tdap Vaccines (3 - Td or Tdap) 10/18/2025 10/18/2015, 12/13/2009 Pap Smear 04/02/2027 04/02/2024, 1109/2015, 03/12/2014, Additional history exists Cervical Cancer Screening 04/02/2029 HPV/Co-Test 04/02/2029 04/02/2024 Lipid Panel 07/20/2029 07/20/2024, 11/21, 08/28/2019, Additional history exists Zoster Vaccines Completed 07/07/2019, 02/05/2019 HPV (Gardasil) Vaccine Aged Out No lo nger eligible based on patient's age to complete this topic MENINGOCOCCAL (MENACTRA/MENVEO) Aged Out No longer eligible based on patient's age to complete this topic documented as of this encounter Medical Devices Not on filedocumented as of this encounter Care Teams Gaming Commissioner Relationship Specialty Start Date End Date Angelina Donohue MD [address] [place] [facility] [place] [address] PCP - General Internal Medicine 05/16/23 documented as of this encounter
[2024-10-01] MEDS: MoRPHine SULFATE 4 MG/ML 1 ML CARP\\VIAL IV PRN (07:15)
[2024-10-01] MEDS: ONDANSETRON INJ 2 MG/ML 2 ML VIAL IV PRN ×2 (07:15→13:25)
[2024-10-01] MEDS: AZELASTINE HCL 0.1% NASAL 200 SPRAYS/27,400 MCG BTL SCH (08:47)
[2024-10-01] MEDS: CHOLECALCIFEROL 25 MCG (1000 UNITS) TAB PO SCH (08:48)
[2024-10-01] MEDS: busPIRone 5 MG TAB PO SCH (08:49)
[2024-10-01] MEDS: CYANOCOBALAMIN (B-12) 500 MCG TABLET PO SCH (08:50)
[2024-10-01] MEDS: lamoTRIgine 100 MG TAB PO SCH (08:51)
[2024-10-01] MEDS: FERROUS SULFATE 325 MG TAB PO SCH (08:51)
[2024-10-01] MEDS: VENLAFAXINE HCL XR 150 MG CAPXR PO SCH (08:52)
[2024-10-01] MEDS: VENLAFAXINE HCL XR 75 MG CAPXR PO SCH (08:52)
[2024-10-01] MEDS: PANTOprazole 40 MG TAB PO SCH (08:52)
[2024-10-01] MEDS: METOPROLOL SUCC 50MG EXT REL TAB PO SCH (08:53)
[2024-10-01] MEDS ORDERED: FUROSEMIDE 80 MG TAB PO SCH (09:00)
[2024-10-01] MEDS ORDERED: LOSARTAN POTASSIUM 50 MG TAB PO SCH (09:00)
[2024-10-01] MEDS ORDERED: SPIRONOLACTONE 25 MG TAB PO SCH (09:00)
--- NOTE | 2024-10-01 09:10 | Hospitalist Progress Note ---
Date of Service October 01, 2024 Assessment & Plan (1) Hydronephrosis with obstructing calculus: Plan: 59-year-old female PMHx hypothyroidism, HTN, asthma, fibromyalgia, CKD stage III, IBS, prediabetes, RLS, depression and anxiety, conversion disorder, HFpEF, and migraine presenting to ED with severe right-sided pain that radiates towards the umbilical region. Patient was sent in by urology as she is s/p lithotripsy (~ 1 month ago) on R side which was unsuccessful, and has been unable to pass renal calculi spontaneously. CTAP performed revealing mild R hydronephrosis w/ 0.5cm obstructing R ureteral stone. UA without evidence of infection, no presence of GAMAL at time of admission. Has had multiple renal calculi in the past, requiring urological interventions. Of note, patient has had a lithotripsy in the past in which she coded during the procedure. #Renal calculi, obstructive, R side Follows with urology for recurrent renal calculi all requiring urological intervention, most recent visit 08/2024. Reportedly had recent lithotripsy ~ 1 month ago, which was unsuccessful. At time of admission, pt hemodynamically stable with appropriate pain control and no fevers. CTAP w/ mild R hydronephrosis with obstructive uropathy secondary to 0.5 cm mid R ureteral calculus Urology consulted NPO for OR this afternoon with Dr Domingo WBC 11.6k on admission and placed on Ceftriaxone 2gm IV daily and will monitor repeat CBC however UA not appearing infected from admission - urine cx pending, BUN/Cr stable 13/0.92 w/ Cr 1.1 on admission IVF DECREASED to 75cc/hr from 125cc/hr given hx CHF/stable renal function and not appearing overly dehydrated. Does NOT appear volume overloaded despite O2 use (CXR obtained/negative, suspect 2nd to narcotic for pain control) and weights appear down in system and on alternating 40/80mg Pain control: morphine discontinued, added Dilaudid as better control in the past. Also w/ valium available for panic/anxiety attacks as is anxious for procedure. Antiemetics as needed Add flomax HS as not previously on for stone expulsion Monitor labs in AM, also vit D given hx stones/elevated ALP. Plan Other chroinc problems: #CHF/tachycardia/HTN- appears euvolemic/slightly dry, stable BUN/Cr but IVF as above and decreased rate. Remains on metoprolol however holding olmesartan given stone and furosemide/spironolactone for now but likely resume in AM pending volume status. HR MUCH improved on tele w/ IVF hydration and will monitor. Does have event monitor to her L chest/follows [facility] #Prediabetes- Ozempic - HOLD Ozempic while inpatient, she does report missing last Saturday and discussed given slow bowels to hold off for now and added bowel regimen and can resume upcoming Saturday #Asthma- Albuterol inhaler prn , CXR NEGATIVE, added narcan w/ opiate meds for pain and supp O2/titrate as needed #Migraines- Qulipta, Lamictal, verapamil, magnesium glycinate, riboflavin #CKD/Bladder spasms- Gemtesa, oxybutynin , adding flomax for stone expulsion Renal function stable, will check Vit D w/ AM labs given hx stones/calcium oxalate on UA #Depression/Anxiety- Buspirone, Diazepam, venlafaxine, quetiapine #GERD- Famotidine, omeprazole #Insomnia- Trazodone, zaleplon, hydroxyzine #RLS- Ropinirole DVT proph: SCDs ordered, monitor for chemoproph, ambulation encouraged Dispo: continued inpatient stay Admission and Anticipated Discharge Date Admission Date: October 01, 2024 Supervising Physician Co-Signing Physician Notes The patient was not seen by me. The chart was reviewed. Case discussed with DENY Clement. Agree with assessment and plan Subjective BRIDGE NOTE: ADMITTED AFTER MIDNGIHT Eval this morning, 10:45, resting in bed. Ongoing pain, morphine not super effective, did tolerate Dilaudid IV in the past but not at home, will start 1mg IV now, RN to provide and will adjust as needed. She reports pain to her right low back and flank/no radiation to groin. Will get heating pad. Has not been on flomax in the past, likely should. Discussed checking vitamin D as well, inc supp if low given stone formation. She remains NPO for OR, no increased leg swelling and has been working on loosing weight/taking lasix and has been on Mounjaro but missed her dose on saturday. Last BM 2 days ago. +BS on exam but denies flatus, will add bowel regimen on pain meds to prevent issues. Does haev some chest heaviness but also hx anxiety/panic attacks and nervous about procedure, discussed valum available if needed and will alert nursing. Covering w/ abx, questions/concerns addressed at this time. Has event monitor on chest, turned off while here. Wondering if needs restarted? Will message cards. Requiring O2 but CXR negative, have decreased her IVF rate for now as diuretics on hold. Does not appear volume overloaded at this time. Plan for OR this afternoon. Physical Exam 2 Physical Exam: General: 59yo female laying on her right side in bed, painful but NAD, fatigued appearing HEENT: head atraumatic, normocephalic, mm slightly dry, trachea midline (thick neck) Resp: even/unlabored, slightly diminished in the bases, no significant wheezing/rales, on 2L supplemental O2 CV: RRR/rates 60s, +systolic murmur, no pitting edema, event monitor to her left chest in place, pulses present/calves nontender GI: +BS (slightly slow), soft/slight distension, +tenderness R flank, no rebound/guarding no cage MSK/Neuro: nonfocal, not confused, answering questions appropriately Psych: AOx3, cooperative with exam Results & Data Results & Data Vital Signs (Past 12 Hours) Vital Signs Temp Pulse Pulse Resp BP Pulse Ox O2 Del Method 10/01/24 07:18 54 L 10/01/24 04:59 66 10/01/24 04:02 36.6 C 63 16 129/65 97 Nasal Cannula 10/01/24 03:15 Nasal Cannula 09/30/24 23:53 71 16 154/70 H 94 Room Air 09/30/24 21:51 64 18 162/52 H 95 Room Air O2 Flow Rate 10/01/24 07:18 10/01/24 04:59 10/01/24 04:02 2 10/01/24 03:15 2 09/30/24 23:53 09/30/24 21:51 Laboratory Results 09/30/24 20:35 10/01/24 09:38 Diagnostic Findings Abdomen/Pelvis CT 09/30/24 21:59 Exam(s): CT ABDOMEN + PELVIS With Contrast IV Amt: 93 ml optiray 320 EXAM: CT Abdomen and Pelvis With Intravenous Contrast CLINICAL HISTORY: Reason for exam: rlq pain. TECHNIQUE: Axial computed tomography images of the abdomen and pelvis with intravenous contrast. CTDI is 28.14 mGy and DLP is 1535.53 mGy-cm. Automated exposure control was utilized for the study. A dose lowering technique was utilized adhering to the principles of ALARA. CONTRAST: Patient received 93 ml optiray 320 of IV contrast COMPARISON: 06/03/2024 FINDINGS: Lung bases: Unremarkable. No mass. No consolidation. ABDOMEN: Liver: Unremarkable. No mass. Gallbladder and bile ducts: Postoperative changes prior cholecystectomy. No ductal dilation. Pancreas: Unremarkable. No mass. No ductal dilation. Spleen: Unremarkable. No splenomegaly. Adrenals: Unremarkable. No mass. Kidneys and ureters: mild right hydronephrosis secondary to a 0.5 cm mid right renal calculus. This results in very slight right obstructive uropathy. Nonobstructing right upper pole intrarenal calculus. No left- sided hydronephrosis. Stomach and bowel: Unremarkable. No obstruction. No mucosal thickening. PELVIS: Appendix: No findings to suggest acute appendicitis. Bladder: Unremarkable. No mass. Reproductive: Unremarkable as visualized. ABDOMEN and PELVIS: Intraperitoneal space: Unremarkable. No free air. No significant fluid collection. Bones/joints: No acute fracture. No dislocation. Soft tissues: Unremarkable. Vasculature: Unremarkable. No abdominal aortic aneurysm. Lymph nodes: Unremarkable. No enlarged lymph nodes. IMPRESSION: Mild right hydronephrosis with obstructive uropathy secondary to a 0.5 cm mid right ureteral calculus Electronically signed by: Cipriano Matos MD 10/01/24 00:10 AM Chest X-Ray 10/01/24 08:52 XR chest 1V portable CLINICAL HISTORY: pre-op, hx CHF COMPARISON STUDY: 04/13/2024 FINDINGS: Cardiac loop recorder is present. There is stable cardiomegaly without pulmonary vascular congestion. No effusion or consolidation. IMPRESSION: No acute findings. ACT 112: Negative or not required by law. Electronically signed by: Carrington Saeed M.D. 10/01/2024 9:59 AM Retrograde Pyelogram 10/01/24 12:31 FL retrograde includes kub CLINICAL HISTORY: RETROGRADE COMPARISON STUDY: None FLUOROSCOPY TIME: 10 seconds FLUOROSCOPY IMAGES: 3 EXPOSURE DOSE: 6 mGy FINDINGS: Fluoroscopy was provided for ureteral stent placement. IMPRESSION: Intraoperative fluoroscopy. ACT 112: Negative or not required by law. Electronically signed by: Carrington Saeed M.D. 10/01/2024 1:20 PM PG Care Time/CCT Total # of Minutes Spent Total Time Spent with Patient: Total time spent is greater than 50% in coordination of care (as documented) at patient's floor/unit and/or counseling patient: Coding Level of Care Code None Diagnoses Hydronephrosis with obstructing calculus N13.2
--- NOTE | 2024-10-01 10:00 | XRay Report ---
XR chest 1V portable CLINICAL HISTORY: pre-op, hx CHF COMPARISON STUDY: 04/13/2024 FINDINGS: Cardiac loop recorder is present. There is stable cardiomegaly without pulmonary vascular c ongestion. No effusion or consolidation. IMPRESSION: No acute findings. ACT 112: Negative or not required by law. Electronically signed by: Carrington Saeed M.D. 10/01/2024 9:59 AM
[2024-10-01 10:21] LABS: BUN Creatinine Ratio 14.1 (10-20); Calcium 8.9 mg/dl (8.6-10.3); Creatinine Clr Calc Pharmacy 84.4 ml/min; Potassium 3.8 mmol/L (3.5-5.1)
[2024-10-01] MEDS ORDERED: NALOXONE HCL 0.4 MG/1 ML VIAL/CARP IV PRN (10:54)
--- NOTE | 2024-10-01 10:54 | Urology Consultation ---
Date of Consultation October 01, 2024 Assessment & Plan (1) Hydronephrosis with obstructing calculus: (2) Flank pain: Plan 59-year-old female admitted with severe right flank pain secondary to an obstructing right ureteral stone We reviewed her CT imaging showing an obstructing 5 mm mid right ureteral stone. We discussed options for acute stone management with cystoscopy and stent placement. Ureteral stents were discussed as well as postoperative issues and pain management. She is aware a second procedure will be needed for stone treatment. We also discussed outpatient options including trial of passage or ESWL. Stone passage rates given size and location were reviewed. Risks and benefits of each were discussed. All questions were answered. Given her right sided pain, patient prefers to proceed with cystoscopy, right retrograde pyelogram, right ureteral stent placement. Risks and benefits to be reviewed with patient by Dr. Escalante. Keep NPO. Continue supportive care and pain management as needed. She is covered with scheduled IV Ceftriaxone. Urology will follow. Attending note: Patient independently assessed, examined, interviewed, and evaluated. Agree with note as above. Patient's vitals and labs were all reviewed. Pertinent values in the HPI and plan section. White count 11.63 creatinine 0.92. UA was positive concerning for possible infection. Patient is extremely anxious on evaluation. Blood pressure 125/59 pulse 67 respirations 20 t emperature 36.9 O2 sat 99% on room air. Imaging was reviewed interpreted by myself. Significant obstructing stone with hydronephrosis. Agree with read. Vitals were reviewed. Discussed findings extensively with patient and family. Reviewed with nurse practitioner as well as consulting physicians/team. Patient's complicated medical and surgical history was reviewed and summarized above. Patient's surgical, medical, social, and family history were all reviewed with pertinent values as above. Discussed patient's current diagnosis as well as concerns and issues. Reviewed different options moving forward. Discussed potential risks and benefits as well as possible options and concerns. Reviewed potential surgical options and interventions. Discussed potential issues and concerns related to intervention. Risk and benefits were discussed extensively with patient and any available family. Discussed potential risks related to anesthesia. Discussed risks of bleeding infection and injury. Reviewed specifically intervention. Discussed concerns and issues with obstructing stone. Discussed ongoing severe pain and anxiety and discomfort with issues related to stone. Discussed concerns related to possible infection. Reviewed options moving forward. Patient had been on Rocephin for IV antibiotics. Will plan to continue with this. Patient presented with her family who also discussed different options with's. Will plan to move forward with intervention. Risks and benefits discussed at length for procedure. These include bleeding, infection, injury to surrounding tissues or organs, and risks associated with anesthesia. Patient states understanding and agrees to proceed. Will sign consent and schedule. Plan for cystoscopy with possible right retrograde pyelogram and stent placement Will plan for continued supportive care IV hydration IV antibiotics and close monitoring after procedure. History of Present Illness Attending Physician: Jaylon Arango MD History of Present Illness 59-year-old female who presented to the ED with severe right sided pain. On arrival she was afebrile and hemodynamically stable. Labs showing a mild leukocytosis of 11.63 and normal renal function. Urinalysis with 3+ blood, 2+ LE, negative bacteria, negative nitrite CT imaging shows an obstructing 5 mm mid right ureteral stone She is admitted to medicine service Urine culture is pending, she is on ceftriaxone Patient seen at bedside today. She is awake and resting in bed on arrival. No acute distress. Still with right sided pain, rates 6/10. She reports having ESWL approx 1 month ago which was unsuccessful. Also states she has been unable to successfully pass stones spontaneously. Denies f/c/n/v. Voiding without issue. Has been NPO. Allergies Allergy/AdvReac Type Severity Reaction Status Date / Time bee venom protein (honey bee) Allergy Severe SEVERE Verified 10/01/24 12:19 SWELLING,SOB ciprofloxacin Allergy Severe RESPIRATORY Verified 10/01/24 12:19 FAILURE/HIVES azithromycin Allergy Intermediate Hives Verified 10/01/24 12:19 latex Allergy Intermediate LOCAL Verified 10/01/24 12:19 IRRITATION, REDNESS, SWELLING, ITCHINESS divalproex sodium Allergy Mild Tachycardia Verified 10/01/24 12:19 prednisone AdvReac Intermediate hallucinates, Verified 10/01/24 12:19 GI UPSET, agitation, flushing,tachycardia,sick Home Medications Medication Instructions Recorded Confirmed Type omeprazole 40 mg capsule,delayed 40 mg PO BID #60 caps 09/17/19 10/01/24 Rx release buspirone 10 mg tablet 10 mg PO BID 12/17/19 10/01/24 History trazodone 100 mg tablet 100 mg PO HS 01/12/22 10/01/24 History famotidine 40 mg tablet 40 mg PO HS 11/09/22 10/01/24 History azelastine 137 mcg (0.1 %) nasal 2 spray intranasal DAILY #30 mL 12/05/22 10/01/24 Rx spray verapamil 120 mg tablet,extended 120 mg PO HS 01/14/23 10/01/24 History release cyclobenzaprine 5 mg tablet 5 mg PO BID PRN muscle spasm #180 07/15/23 10/01/24 Rx tabs albuterol sulfate 90 mcg/actuation 2 puff inhalation Q4 PRN Shortness 09/02/23 10/01/24 Rx aerosol inhaler Of Breath Or Wheezing #8.5 grams ketoconazole 2 % topical cream 1 applic topical BID #60 grams 09/18/23 10/01/24 Rx furosemide 40 mg tablet 40 - 80 mg PO UD 12/02/23 10/01/24 History ropinirole 5 mg tablet 5 mg PO HS #90 tabs 12/02/23 10/01/24 Rx scopolamine base 1 mg over 3 days 1 patch transdermal Q72H 02/03/24 10/01/24 History transdermal patch lamotrigine 200 mg tablet 200 mg PO BID #180 tabs 02/10/24 10/01/24 Rx (Lamictal) digital therapeutic,JANEL device #1 ea 02/13/24 10/01/24 Rx metoprolol succinate 100 mg 100 mg PO BID #180 tabs 03/10/24 10/01/24 Rx tablet,extended release 24 hr zaleplon 10 mg capsule 10 mg PO HS 04/28/24 10/01/24 History hydroxyzine HCl 50 mg tablet 50 - 100 mg PO HS 06/10/24 10/01/24 History quetiapine 100 mg tablet (Seroquel) 100 mg PO HS 06/10/24 10/01/24 History tirzepatide 5 mg/0.5 mL 0.5 mg subcut Q7D 06/10/24 10/01/24 History subcutaneous pen injector (Solange) cholecalciferol (vitamin D3) 50 2,000 unit PO QAM 07/09/24 10/01/24 History mcg (2,000 unit) capsule ferrous sulfate 325 mg (65 mg 325 mg PO Q2D 07/09/24 10/01/24 History iron) tablet magnesium glycinate 400 mg PO HS 07/09/24 10/01/24 History mecobalamin (vitamin B12) 1,000 1,000 mcg PO QAM 07/09/24 10/01/24 History mcg chewable tablet spironolactone 25 mg tablet 25 mg PO QAM 07/09/24 10/01/24 History oxybutynin chloride 5 mg tablet 5 mg PO Q8H PRN bladder spasms #30 07/20/24 10/01/24 Rx tabs olmesartan 40 mg tablet (Benicar) 40 mg PO QAM #90 tabs 08/07/24 10/01/24 Rx tramadol 50 mg tablet 50 mg PO Q6H PRN pain #20 tabs 08/07/24 10/01/24 Rx vibegron 75 mg tablet (Gemtesa) 75 mg PO DAILY PRN Bladder Spasms 08/07/24 10/01/24 History celecoxib 200 mg capsule (Celebrex) 200 mg PO BID #180 caps 09/22/24 10/01/24 Rx atogepant 60 mg tablet (Qulipta) 60 mg PO HS 10/01/24 10/01/24 History diazepam 5 mg tablet 5 - 10 mg PO BID PRN Panic 10/01/24 10/01/24 History Attack(S) fluticasone propionate 50 2 spray intranasal HS Nasal 10/01/24 10/01/24 History mcg/actuation nasal Congestion spray,suspension (Flonase Allergy Relief) venlafaxine 150 mg 150 mg PO QAM 10/01/24 10/01/24 History capsule,extended release 24 hr venlafaxine 75 mg capsule,extended 75 mg PO QAM 10/01/24 10/01/24 History release 24 hr zaleplon 5 mg capsule 5 mg PO HS PRN Sleep 10/01/24 10/01/24 History Patient History Medical History Flank pain Hypertension controlled, stable per pt Asthma well controlled > prn inh rare use Hypothyroidism CKD (chronic kidney disease) stage 3, GFR 30-59 ml/min f/u urology and dr. dhillon, nephrology Prediabetes RLS (restless legs syndrome) Anxiety and depression Chronic migraine without aura Functional neurological symptom disorder (conversion disorder), with abnormal movement Diagnosed Dr. Yue Aguayo [facility] neurology Facet arthropathy, lumbosacral Sacroiliitis Piriformis syndrome of right side Chronic pain Acute UTI dx 07/09/24, completed antibiotic with resolution of symptoms Meningioma "deep in her brain, inoperable, anterior clenoid process right side" Sacral pain get nerve ablation in September 2024 Fibromyalgia Vitamin D deficiency Tachycardia hx, f/u talya manzano Obesity Numbness in bilateral feet "occasionally" Hyperinsulinemia Hearing loss Flushing in her face Fatigue due to fibromyalgia and "her neuro condition" Elevated plasma metanephrines pt unsure? Dyspnea on exertion Dizziness "on and off, some days are worse than others" History of anesthesia reaction pt was not sure if was anesthsia or allergy to Cipro, but coded on OR table during lithotripsy 6 yrs ago PTSD (post-traumatic stress disorder) GERD (gastroesophageal reflux disease) variable IBS (irritable bowel syndrome) Essential tremor CHF (congestive heart failure) f/u talya manzano cardio (will be seeing talya Carrizales in september 2024) Meniere disease History of cardiomyopathy Ace to be secondary to hypertension. Occurred in 2015 with an EF of 40 to 45%. She had cardiac MRI which was concerning for possible hypertrophic cardiomyopathy but this was ruled out via echo. Last echocardiogram 07/2019 revealed preserved EF with grade 1 diastolic dysfunction. Surgical History History of bilateral cataract extraction History of endometrial ablation x2 S/P correction of deviated nasal septum History of esophagogastroduodenoscopy (EGD) History of colonoscopy with polypectomy History of brain surgery 2006> Secondary to type I Chiari malformation at [facility] History of lithotripsy History of cholecystectomy History of tonsillectomy Family History Grandmother No problems noted. Father Heart disease Hypertension Hx of CABG Diabetes Myocardial infarction Grandmother (Maternal) Colorectal cancer Grandfather (Maternal) CHF (congestive heart failure) Stroke great grandfather Heart disease Sister Environmental allergies Mother Aphasia Dementia Other No family history of adverse response to anesthesia No family history of bleeding disorder Denies family history of Ovarian cancer Prostate cancer Breast cancer Lung cancer Social History Smoking Status: Never smoker Second Hand Exposure: No; Do You Dip or Chew Tobacco: No; Hx Alcohol Use: Yes Alcohol type: wine Hx Substance Use: No Preferred Language: Indonesian Communication Ability: Effective Education Supervisor Required: No Beliefs That Will Affect Care: None marital status: Single Current Living Situation: Alone current occupational status: disabled 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 Feels Safe at Home: Yes Childhood Exposure to Second-Hand Smoke: Yes Dental Care, Regularly: Yes Physical Activity Frequency: Does not Exercise Seatbelt Use: always Sunscreen Use: Yes Assistive Devices: Cane and Walker Review of Systems Review of Systems: All systems reviewed & are unremarkable except as noted in HPI & below Physical Exam Constitutional: no acute distress Respiratory: no respiratory distress and no labored breathing Musculoskeletal: Head/Neck/Chest: normocephalic Skin: No visible rashes or lesions to exposed skin areas Neurologic: awake Psychiatric: A+Ox3, euthymic affect Results & Data Vital Signs (Past 12 Hours) Vital Signs Temp Pulse Pulse Resp BP BP Pulse Ox 10/01/24 10:33 59 L 18 97 10/01/24 10:24 59 L 12 96 10/01/24 10:18 56 L 12 98 10/01/24 09:51 58 L 21 93 10/01/24 09:00 62 15 118/44 L 96 10/01/24 07:18 54 L 10/01/24 04:59 66 10/01/24 04:02 36.6 C 63 16 129/65 97 10/01/24 03:15 09/30/24 23:53 71 16 154/70 H 94 O2 Del Method O2 Flow Rate 10/01/24 10:33 Nasal Cannula 2 10/01/24 10:24 Nasal Cannula 2 10/01/24 10:18 Nasal Cannula 2 10/01/24 09:51 Room Air 10/01/24 09:00 Room Air 10/01/24 07:18 10/01/24 04:59 10/01/24 04:02 Nasal Cannula 2 10/01/24 03:15 Nasal Cannula 2 09/30/24 23:53 Room Air PG Care Time/CCT Total # of Minutes Spent Total Time Spent with Patient: Total time spent is greater than 50% in coordination of care (as documented) at patient's floor/unit and/or counseling patient: Coding Level of Care Code 22020 IN/OBS CONSULT LVL 4,60M Diagnoses Hydronephrosis with obstructing calculus N13.2 Flank pain R10.9
[2024-10-01] MEDS ORDERED: PROPOFOL IV EMULSION 10 MG/ML 20 ML VIAL IV ONE ×2 (12:22→12:40)
[2024-10-01] MEDS ORDERED: LIDOCAINE 2% 2 ML VIAL/AMP(20MG/ML) INFIL ONE (12:22)
[2024-10-01] MEDS ORDERED: DEXAMETHASONE SOD INJ 4 MG/ML VIAL ONE (12:22)
[2024-10-01] MEDS ORDERED: MIDAZOLAM HCL 1 MG/ML 2ML VIAL ONE (12:22)
[2024-10-01] MEDS ORDERED: ONDANSETRON INJ 2 MG/ML 2 ML VIAL ONE (12:22)
[2024-10-01] MEDS ORDERED: fentaNYL citrate PF 100 MCG/2 ML VIAL ONE (12:22)
[2024-10-01] MEDS ORDERED: ePHEDrine sulfate 50 MG/ML AMP IV PRN (12:37)
[2024-10-01] MEDS ORDERED: ATROPINE SULFATE 0.1 MG/ML 10ML SYR IV PRN (12:37)
--- NOTE | 2024-10-01 12:37 | Anesthesiology Consultation ---
Date of Service October 01, 2024 Assessment & Plan Chart Review Chart Review: Acceptable Risk for Surgery and Patient NOT seen in Pre Admission Testing Consults Requested none History Surgery Operation Date: 10/01/24 08:20 Proposed Procedures p Cystoscopy Right Retrograde Pyelogram and Stent Placement - Jose Luis Escalante MD Height/Weight Height: 5 ft 7 in Weight: 105.6 kg Allergies Allergy/AdvReac Type Severity Reaction Status Date / Time bee venom protein (honey bee) Allergy Severe SEVERE Verified 10/01/24 12:19 SWELLING,SOB ciprofloxacin Allergy Severe RESPIRATORY Verified 10/01/24 12:19 FAILURE/HIVES azithromycin Allergy Intermediate Hives Verified 10/01/24 12:19 latex Allergy Intermediate LOCAL Verified 10/01/24 12:19 IRRITATION, REDNESS, SWELLING, ITCHINESS divalproex sodium Allergy Mild Tachycardia Verified 10/01/24 12:19 prednisone AdvReac Intermediate hallucinates, Verified 10/01/24 12:19 GI UPSET, agitation, flushing,tachycardia,sick Medications Home Medications Medication Instructions Recorded Confirmed Last Taken omeprazole 40 mg capsule,delayed 40 mg PO BID #60 caps 09/17/19 10/01/24 09/29/24 release buspirone 10 mg tablet 10 mg PO BID 12/17/19 10/01/24 09/29/24 trazodone 100 mg tablet 100 mg PO HS 01/12/22 10/01/24 09/29/24 famotidine 40 mg tablet 40 mg PO HS 11/09/22 10/01/24 09/29/24 azelastine 137 mcg (0.1 %) nasal 2 spray intranasal DAILY #30 mL 12/05/22 10/01/24 09/29/24 spray verapamil 120 mg tablet,extended 120 mg PO HS 01/14/23 10/01/24 09/29/24 release cyclobenzaprine 5 mg tablet 5 mg PO BID PRN muscle spasm #180 07/15/23 10/01/24 Unknown tabs albuterol sulfate 90 mcg/actuation 2 puff inhalation Q4 PRN Shortness 09/02/23 10/01/24 Unknown aerosol inhaler Of Breath Or Wheezing #8.5 grams ketoconazole 2 % topical cream 1 applic topical BID #60 grams 09/18/23 10/01/24 09/29/24 furosemide 40 mg tablet 40 - 80 mg PO UD 12/02/23 10/01/24 09/29/24 80 mg ropinirole 5 mg tablet 5 mg PO HS #90 tabs 12/02/23 10/01/24 09/29/24 scopolamine base 1 mg over 3 days 1 patch transdermal Q72H 02/03/24 10/01/24 09/28/24 transdermal patch lamotrigine 200 mg tablet 200 mg PO BID #180 tabs 02/10/24 10/01/24 09/29/24 (Lamictal) digital therapeutic,JANEL device #1 ea 02/13/24 10/01/24 Unknown metoprolol succinate 100 mg 100 mg PO BID #180 tabs 03/10/24 10/01/24 09/29/24 tablet,extended release 24 hr zaleplon 10 mg capsule 10 mg PO HS 04/28/24 10/01/24 09/29/24 hydroxyzine HCl 50 mg tablet 50 - 100 mg PO HS 06/10/24 10/01/24 09/29/24 quetiapine 100 mg tablet (Seroquel) 100 mg PO HS 06/10/24 10/01/24 09/29/24 tirzepatide 5 mg/0.5 mL 0.5 mg subcut Q7D 06/10/24 10/01/24 09/20/24 subcutaneous pen injector (Solange) cholecalciferol (vitamin D3) 50 2,000 unit PO QAM 07/09/24 10/01/24 09/29/24 mcg (2,000 unit) capsule ferrous sulfate 325 mg (65 mg 325 mg PO Q2D 07/09/24 10/01/24 09/28/24 iron) tablet magnesium glycinate 400 mg PO HS 07/09/24 10/01/24 09/29/24 mecobalamin (vitamin B12) 1,000 1,000 mcg PO QAM 07/09/24 10/01/24 09/29/24 mcg chewable tablet spironolactone 25 mg tablet 25 mg PO QAM 07/09/24 10/01/24 09/29/24 oxybutynin chloride 5 mg tablet 5 mg PO Q8H PRN bladder spasms #30 07/20/24 10/01/24 Unknown tabs olmesartan 40 mg tablet (Benicar) 40 mg PO QAM #90 tabs 08/07/24 10/01/24 09/29/24 tramadol 50 mg tablet 50 mg PO Q6H PRN pain #20 tabs 08/07/24 10/01/24 Unknown vibegron 75 mg tablet (Gemtesa) 75 mg PO DAILY PRN Bladder Spasms 08/07/24 10/01/24 Unknown celecoxib 200 mg capsule (Celebrex) 200 mg PO BID #180 caps 09/22/24 10/01/24 09/29/24 atogepant 60 mg tablet (Qulipta) 60 mg PO HS 10/01/24 10/01/24 09/29/24 diazepam 5 mg tablet 5 - 10 mg PO BID PRN Panic 10/01/24 10/01/24 09/29/24 Attack(S) fluticasone propionate 50 2 spray intranasal HS Nasal 10/01/24 10/01/24 09/29/24 mcg/actuation nasal Congestion spray,suspension (Flonase Allergy Relief) venlafaxine 150 mg 150 mg PO QAM 10/01/24 10/01/24 09/29/24 capsule,extended release 24 hr venlafaxine 75 mg capsule,extended 75 mg PO QAM 10/01/24 10/01/24 09/29/24 release 24 hr zaleplon 5 mg capsule 5 mg PO HS PRN Sleep 10/01/24 10/01/24 Unknown Active Medications Generic Name Dose Route Start Last Admin Trade Name Freq PRN Reason Stop Dose Admin Azelastine HCl 2 sprays 10/01/24 09:00 10/01/24 08:47 Azelastine Hcl 0.1% Nasal 200 Sprays/27,400 Mcg Btl NA 10/31/24 08:59 2 sprays DAILY TIA Administration Buspirone HCl 10 mg 10/01/24 09:00 10/01/24 08:49 Buspirone 5 Mg Tab PO 10/31/24 08:59 10 mg BID TIA Administration Cyanocobalamin 1,000 mcg 10/01/24 09:00 10/01/24 08:50 Cyanocobalamin (B-12) 500 Mcg Tablet PO 10/31/24 08:59 1,000 mcg QAM TIA Administration Ferrous Sulfate 325 mg 10/01/24 09:00 10/01/24 08:51 Ferrous Sulfate 325 Mg Tab PO 10/31/24 08:59 325 mg Q2D TIA Administration Ceftriaxone Sodium 2,000 mg in 50 mls @ 100 mls/hr 10/01/24 01:30 10/01/24 03:08 Rocephin IV 10/11/24 01:29 Infused Q24H TIA Infusion Sodium Chloride 1,000 mls @ 75 mls/hr 10/01/24 01:30 10/01/24 09:10 Nss IV 10/01/24 23:09 75 mls/hr .[id number] TIA Infusion Lamotrigine 200 mg 10/01/24 09:00 10/01/24 08:51 Lamotrigine 100 Mg Tab PO 10/31/24 08:59 200 mg BID TIA Administration Protocol Metoprolol Succinate 100 mg 10/01/24 09:00 10/01/24 08:53 Metoprolol Succ 50mg Ext Rel Tab PO 10/31/24 08:59 100 mg BID TIA Administration Miscellaneous 1 each 10/01/24 08:00 10/01/24 07:24 Qlipta~Order Awaiting Action N/A 10/31/24 07:59 Not Given QS TIA Miscellaneous 1 each 10/01/24 08:00 10/01/24 07:24 Zaleplon~Order Awaiting Action N/A 10/31/24 07:59 Not Given QS TIA Ondansetron HCl 4 mg 10/01/24 01:27 10/01/24 07:15 Ondansetron Inj 2 Mg/Ml 2 Ml Vial IV 10/31/24 01:26 4 mg Q4H PRN Administration Nausea Pantoprazole Sodium 40 mg 10/01/24 09:00 10/01/24 08:52 Pantoprazole 40 Mg Tab PO 10/31/24 08:59 40 mg BID TIA Administration Venlafaxine HCl 150 mg 10/01/24 09:00 10/01/24 08:52 Venlafaxine Hcl Xr 150 Mg Capxr PO 10/31/24 08:59 150 mg QAM TIA Administration Venlafaxine HCl 75 mg 10/01/24 09:00 10/01/24 08:52 Venlafaxine Hcl Xr 75 Mg Capxr PO 10/31/24 08:59 75 mg QAM TIA Administration Vitamin D 50 mcg 10/01/24 09:00 10/01/24 08:48 Cholecalciferol 25 Mcg (1000 Units) Tab PO 10/31/24 08:59 50 mcg QAM TIA Administration NPO Date Last Intake of Fluids: 09/30/24 Time Last Intake of Fluids: 17:00 Date Last Intake of Solids: 09/30/24 Time Last Intake of Solids: 17:00 Past Medical History Medical History Flank pain Hypertension controlled, stable per pt Asthma well controlled > prn inh rare use Hypothyroidism CKD (chronic kidney disease) stage 3, GFR 30-59 ml/min f/u urology and dr. dhillon, nephrology Prediabetes RLS (restless legs syndrome) Anxiety and depression Chronic migraine without aura Functional neurological symptom disorder (conversion disorder), with abnormal movement Diagnosed Dr. 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 Dyspnea on exertion Dizziness "on and off, some days are worse than others" History of anesthesia reaction pt was not sure if was anesthsia or allergy to Cipro, but coded on OR table during lithotripsy 6 yrs ago PTSD (post-traumatic stress disorder) GERD (gastroesophageal reflux disease) variable IBS (irritable bowel syndrome) Essential tremor CHF (congestive heart failure) f/u talya manzano cardio (will be seeing talya Carrizales in september 2024) Meniere disease History of cardiomyopathy Gays to be secondary to hypertension. Occurred in 2015 with an EF of 40 to 45%. She had cardiac MRI which was concerning for possible hypertrophic cardiomyopathy but this was ruled out via echo. Last echocardiogram 07/2019 revealed preserved EF with grade 1 diastolic dysfunction. Past Family History Family History Grandmother No problems noted. Father Heart disease Hypertension Hx of CABG Diabetes Myocardial infarction Grandmother (Maternal) Colorectal cancer Grandfather (Maternal) CHF (congestive heart failure) Stroke great grandfather Heart disease Sister Environmental allergies Mother Aphasia Dementia Other No family history of adverse response to anesthesia No family history of bleeding disorder Denies family history of Ovarian cancer Prostate cancer Breast cancer Lung cancer Past Surgical History Surgical History History of bilateral cataract extraction History of endometrial ablation x2 S/P correction of deviated nasal septum History of esophagogastroduodenoscopy (EGD) History of colonoscopy with polypectomy History of brain surgery 2006> Secondary to type I Chiari malformation at [facility] History of lithotripsy History of cholecystectomy History of tonsillectomy Social History Smoking Status: Never smoker Do You Dip or Chew Tobacco: No Hx Alcohol Use: Yes Alcohol type: wine alcohol intake frequency: holidays/special occasions only Hx Substance Use: No substance use type: does not use Physical Exam Vital Signs Last Vital Signs Temp 36.9 C 10/01/24 12:19 Pulse 67 10/01/24 12:19 Resp 20 10/01/24 12:19 BP 125/59 L 10/01/24 12:19 Pulse Ox 99 10/01/24 12:19 O2 Del Method Room Air 10/01/24 12:19 O2 Flow Rate 2 10/01/24 12:01 Testing Laboratory Results 09/30/24 20:35 10/01/24 09:38 Urine Color Yellow 09/30/24 20:35 Urine Appearance Turbid (Clear) A 09/30/24 20:35 Urine pH 5.5 (4.5-7.5) 09/30/24 20:35 Ur Specific [place] 1.026 (1.000-1.030) 09/30/24 20:35 Urine Protein 2+ (Negative) H 09/30/24 20:35 Urine Glucose (UA) Negative (Negative) 09/30/24 20:35 Urine Ketones 1+ (Negative) H 09/30/24 20:35 Urine Nitrite Negative (Negative) 09/30/24 20:35 Ur Leukocyte Esterase 2+ (Negative) H 09/30/24 20:35 Urine RBC 11-20 /hpf (0-2) H 09/30/24 20:35 Urine WBC 6-10 /hpf (0-5) H 09/30/24 20:35 Ur Epithelial Cells >20 /hpf (0-2) H 09/30/24 20:35
[2024-10-01] MEDS: DIATRIZOATE MEGLUMINE 30% 100ML VIAL INSTIL ONE (13:03)
--- NOTE | 2024-10-01 13:08 | Operative Report ---
PG Post Operative Report Pre & Post Diagnosis Operation Date: 10/01/24 08:20 Pre-Op Diagnosis: Right Obstructing Stone Post-Op Diagnosis: Right Obstructing Stone I identified the patient and participated in the time-out.: Yes Procedure Operation Date: 10/01/24 08:20 Actual Procedures p Cystoscopy Right Retrograde Pyelogram and Stent Placement(Right) - Darwin Estrada DO Surgeon Darwin Estrada, II, DO Mixed Animal Veterinarian None Estimated Blood Loss 1 Findings Consistent with Post-Op Diagnosis Stent placed in good position. Proximal ureteral stone with significant obstruction. Specimens None Drains 6 Fr Multilength Anesthesia Type MAC Complications none Disposition Disposition: Recovery Room Indications Patient with obstruction. Risks and benefits discussed at length. Description of Procedure Patient was consented and brought back to the operating room. Patient was placed under anesthesia in the supine position and moved to the dorsal lithotomy position. Patient was prepped and draped in the regular sterile fashion. A time out was completed. A 30degree Cystoscope was placed into the bladder and the entire bladder was examined. The UO's were identified. The UO was cannulized with a catheter and a retrograde pyelogram was completed. A wire was then placed. With the wire in place, a 6 Fr Double J stent was placed. It was confirmed with fluoroscopy. With the stent in place, the bladder was emptied. The scope was removed. The patient was cleaned, aroused from anesthesia, and transferred to the pacu in stable condition having tolerated the procedure well with no complications. I was present and participated in all aspects of the procedure. The patient will be monitored in the PACU until transferred. Will transfer the floor and monitor. Patient had previously followed with Dr. Escalante and can likely be set up for stone treatment after adequate time for treatment of infection and decompression of the system I attest to the content of the Intraoperative Record and any orders documented therein. Any exceptions are noted below.
--- NOTE | 2024-10-01 13:22 | Fluoroscopy Report ---
FL retrograde includes kub CLINICAL HISTORY: RETROGRADE COMPARISON STUDY: None FLUOROSCOPY TIME: 10 seconds FLUOROSCOPY IMAGES: 3 EXPOSURE DOSE: 6 mGy FINDINGS: Fluoroscopy was provided for ureteral stent placement. IMPRESSION: Intraoperative fluoroscopy. ACT 112: Negative or not required by law. Electronically signed by: Carrington Saeed M.D. 10/01/2024 1:20 PM
[2024-10-01] MEDS: fentaNYL citrate PF 100 MCG/2 ML VIAL IV PRN (13:26)
--- NOTE | 2024-10-01 13:38 | Anesthesiology Progress Note ---
Date of Service October 01, 2024 Anesthesia Post Procedure Vital Signs Vital Signs: Temp Pulse Pulse Pulse Pulse Resp BP 10/01/24 13:25 74 16 10/01/24 13:15 36.5 C 79 17 10/01/24 12:19 36.9 C 67 20 10/01/24 12:01 71 20 10/01/24 10:33 59 L 18 10/01/24 10:24 59 L 12 10/01/24 10:18 56 L 12 10/01/24 09:51 58 L 21 10/01/24 09:00 62 15 118/44 L 10/01/24 07:18 54 L 10/01/24 04:59 66 10/01/24 04:02 36.6 C 63 16 10/01/24 03:15 09/30/24 23:53 71 16 09/30/24 21:51 64 18 09/30/24 20:22 36.2 C L 63 16 147/86 H BP BP Pulse Ox O2 Del Method O2 Flow Rate 10/01/24 13:25 131/67 96 Nasal Cannula 2 10/01/24 13:15 129/61 94 Nasal Cannula 2 10/01/24 12:19 125/59 L 99 Room Air 10/01/24 12:01 136/69 99 Nasal Cannula 2 10/01/24 10:33 97 Nasal Cannula 2 10/01/24 10:24 96 Nasal Cannula 2 10/01/24 10:18 98 Nasal Cannula 2 10/01/24 09:51 93 Room Air 10/01/24 09:00 96 Room Air 10/01/24 07:18 10/01/24 04:59 10/01/24 04:02 129/65 97 Nasal Cannula 2 10/01/24 03:15 Nasal Cannula 2 09/30/24 23:53 154/70 H 94 Room Air 09/30/24 21:51 162/52 H 95 Room Air 09/30/24 20:22 96 Room Air Pain Intensity Right Flank: Pain Intensity: 8 Transfer of Care Handoff Completed per policy Notes Mental Status: alert / awake / arousable Patient Amnestic to Procedure: Yes Nausea / Vomiting: adequately controlled Pain: adequately controlled Airway Patency, RR, SpO2: stable & adequate BP & HR: stable & adequate Hydration State: stable & adequate Anesthetic Complications: no major complications apparent and Pt Satisfied with anesthetic care
[2024-10-01] MEDS: ACETAMINOPHEN 500 MG TAB PO PRN (14:53)
[2024-10-01] MEDS: KETOROLAC TROMETHAMINE 15 MG/ML VIAL IV PRN (14:54)
[2024-10-01] MEDS: DOCUSATE SODIUM 100 MG CAP PO SCH (18:18)
[2024-10-01] MEDS: diazePAM 5 MG TABLET PO PRN (18:19)
[2024-10-01] MEDS: oxyBUTYnin chloride 5 MG TAB PO PRN (18:19)
[2024-10-01] MEDS: POLYETHYLENE (MIRALAX) 17 GM PACK PO SCH (18:19)
[2024-10-01] MEDS: rOPINIRole HCL 2 MG TABLET PO SCH (20:09)
[2024-10-01] MEDS: TAMSULOSIN HCL 0.4 MG CAP PO SCH (20:09)
[2024-10-01] MEDS: QUEtiapine FUMARATE 100 MG TABLET PO SCH (20:10)
[2024-10-01] MEDS: traZODone HCL 100 MG TAB PO SCH (20:10)
[2024-10-01] MEDS: hydrOXYzine HCl 25 MG TAB PO SCH (20:10)
[2024-10-01] MEDS: VERAPAMIL HCL 120 MG TABCR PO SCH (20:10)
[2024-10-01] MEDS: FAMOTIDINE 40 MG TABLET PO SCH (20:11)
[2024-10-01] MEDS: FLUTICASONE PROPIONATE NA SPR 16 GM BTL SCH (20:24)
[2024-10-01] MEDS ORDERED: NON-FORMULARY MEDICATION (Magnesium Glycinate 100 mg magnesium capsule) PO SCH (21:00)
[2024-10-02] MEDS: HYDROmorphone INJ 1 MG/ML SYRINGE IV PRN (02:28)
[2024-10-02 06:59] LABS: Hematocrit (blood only) 43.3 % (37.0-47.0); Hemoglobin 13.4 g/dl (12.0-16.0); Mean Corpuscular Hemoglobin 25.7 pg (25.0-34.0); Mean Corpuscular Hgb Conc 30.9 g/dL (32.0-36.0); Mean Platelet Volume 9.7 fL (9.4-12.4); Platelet Count 290 K/uL (130-400); RDW Coefficient of Variation 15.6 % (11.5-14.5); RDW Standard Deviation 47.1 fL (36.4-46.3); Red Blood Count 5.22 M/uL (4.20-5.40); White Blood Count 7.63 K/ul (4.8-10.8)
[2024-10-02 07:23] LABS: BUN Creatinine Ratio 15.6 (10-20); Calcium 8.8 mg/dl (8.6-10.3); Creatinine Clr Calc Pharmacy 82.3 ml/min; Potassium 4.7 mmol/L (3.5-5.1)
--- NOTE | 2024-10-02 08:04 | Hospitalist Progress Note ---
Date of Service October 02, 2024 Assessment & Plan (1) Hydronephrosis with obstructing calculus: Plan: 59-year-old female PMHx hypothyroidism, HTN, asthma, fibromyalgia, CKD stage III, IBS, prediabetes, RLS, depression and anxiety, conversion disorder, HFpEF, and migraine presenting to ED with severe right-sided pain that radiates towards the umbilical region. Patient was sent in by urology as she is s/p lithotripsy (~ 1 month ago) on R side which was unsuccessful, and has been unable to pass renal calculi spontaneously. CTAP performed revealing mild R hydronephrosis w/ 0.5cm obstructing R ureteral stone. UA without evidence of infection, no presence of GAMAL at time of admission. Has had multiple renal calculi in the past, requiring urological interventions. Of note, patient has had a lithotripsy in the past in which she coded during the procedure. #Renal calculi, obstructive, R side Follows with urology for recurrent renal calculi all requiring urological intervention, most recent visit 08/2024. Reportedly had recent lithotripsy ~ 1 month ago, which was unsuccessful. At time of admission, pt hemodynamically stable with appropriate pain control and no fevers. CTAP w/ mild R hydronephrosis with obstructive uropathy secondary to 0.5 cm mid R ureteral calculus Urology consulted s/p cysto and stent with Dr Estrada on 10/01 Ceftriaxone IV continued, urine cx neg but will continue for now given instrumentation and leukocytosis given resolution on CBC today. Has been afebrile IVF discontinued, lasix 40mg PO daily added given stable renal function/weight gain and slight edema this morning and will monitor Continue flomax daily -- rx at dc Strain urine Stone management w/ continued stent, oxybuytnin for ureteral spasm/pyridium added for bladder spasm Checked Vit D given prior low/on supp and LOWER --> patient does endorse has been non-compliant with such. Discussed reasoning/encouraged compliance. Increased vit D supp and would continue at dc Percocet added for pain control if needed as got IV dilaudid this morning, toradol IV available Bowel regimen increased miralax TID Appears has not req additional pain control since this AM and will monitor if stable on PO control in AM for dc w/ urology f/u for definitive stone tx (2) Vitamin D deficiency: Plan: checked given recurrent stones/hx Low on low dose supplementation--> LOWER at 13.1 from ~20 in March last year and as above, NONCOMPLIANT with home supp and increased to 125mcg PO daily and will rx at ne and discussed compliance given recurrent stones. Ca wnl Plan Other chroin problems: #CHF/tachycardia/HTN - appeared dry on admission, IVF ordered but decreased rate and now discontinued as diet advanced and tolerating. Lasix 40mg PO daily resumed as on 40/80mg alternating dosing and monitoring volume status HR on telemetry in the 50-60s, stable, no CP/SOB. Remains on metoprolol Spironolactone on hold for now but likely able to resume in AM pending BP/renal function and PO intake but hold off olmesartan given soft BP to prevent hypotension F/u [facility] cards at ne, holter monitor to L chest #Prediabetes- Ozempic - HOLD Ozempic while inpatient, she does report missing last Saturday and discussed given slow bowels to hold off for now and added bowel regimen and can resume upcoming Saturday #Asthma- Albuterol inhaler prn , CXR NEGATIVE, added narcan w/ opiate meds for pain and supp O2/titrate as needed - on RA, lasix as above #Migraines- Qulipta, Lamictal, verapamil, magnesium glycinate, riboflavin. Did have slight headache this morning, could be from rebound from opiates #CKD/Bladder spasms- Gemtesa, oxybutynin , added flomax for stone expulsion and will be continued. Vit D supp increased and to continue inc at ne. Renal function stable, diuretics as outlined for HTN #Depression/Anxiety- Buspirone, Diazepam, venlafaxine, quetiapine. Mood stable on exam #GERD- Famotidine, omeprazole #Insomnia- Trazodone, zaleplon, hydroxyzine #RLS- Ropinirole DVT proph: SCDs ordered, ambulation encouraged Dispo: continued inpatient stay for pain control and management and hopeful dc in AM on PO pain control/Flomax/Pyridium/oxybutynin with urology follow up for definitive stone treatment Admission and Anticipated Discharge Date Admission Date: October 01, 2024 Supervising Physician Co-Signing Physician Notes The patient was not seen by me. The chart was reviewed. Case discussed with DENY Clement. Agree with assessment and plan Subjective Eval this morning , resting in bed. Pain around 5-6, but after dilaudid this morning much improved. Discussed does make her feel funny, will see about percocet for oral option as tolerated in the past. Discussed oxybuytnin for stent discomfort as well as continued flomax/strain. Ongoing R flank/CVA tenderness, straining urine. Urine cx neg but remains on empiric abx for now however likely to dc. Passing some gas but no BM. Did have trace leg edema this morning, given lasix 40mg PO as lower dose/IVF discontinued and will monitor for additoinal dose as needed but hold off for now. Discussed vitamin supp/compliance given Vit D lower than prior -- she does endorse not the best about this medication. Discussed avoidance of tea, she does like sweet tea. Also rec lemonade for acidity/dissolving stones. Continued inpatient stay, possible dc in AM if pain controlled with oral agents/feeling better. Questions/concerns addressed at this time. Physical Exam 2 Physical Exam: General: 59yo female laying on her right side in bed, just medicated for pain, tenderness to right flank/back Head atraumatic, normocephalic, mmm, trachea midline Resp: even/unlabored, slightly diminished but no wheezing/rales, on room air CV: RRR, sinus on telemetry, +systolic murmur but no edema (reports trace prior to lasix this morning) GI: +BS, soft/slight distension, R flank tenderness, +stool, no guarding/rebound no cage, voiding in toilet in room MSK/Neuro: nonfocal, answering questions appropriately, no slurred speech/facial droop, not confused but did just get medicated/feels funny with such. Psych: AOx3, cooperative Results & Data Results & Data Vital Signs (Past 12 Hours) Vital Signs Temp Pulse Pulse Resp BP Pulse Ox O2 Del Method 10/02/24 07:36 65 10/02/24 07:17 36.9 C 59 L 18 108/62 92 Room Air 10/02/24 04:29 36.4 C L 76 20 123/74 92 Room Air 10/02/24 00:19 36.4 C L 86 20 122/79 97 Room Air 10/01/24 22:01 87 Laboratory Results 10/02/24 06:19 10/02/24 06:19 PG Care Time/CCT Total # of Minutes Spent Total Time Spent with Patient: Total time spent is greater than 50% in coordination of care (as documented) at patient's floor/unit and/or counseling patient: Coding Level of Care Code 59949 SUB INP/OBS CARE 3/50MIN Diagnoses Hydronephrosis with obstructing calculus N13.2 Vitamin D deficiency E55.9
[2024-10-02] MEDS: FUROSEMIDE 40 MG TAB PO SCH (08:55)
[2024-10-02] MEDS: CHOLECALCIFEROL 125 MCG (5,000 UNITS) TAB PO SCH (08:55)
[2024-10-02] MEDS ORDERED: FUROSEMIDE 40 MG TAB PO SCH (09:00)
--- NOTE | 2024-10-02 13:32 | Urology Progress Note ---
Date of Service October 02, 2024 Assessment & Plan (1) Hydronephrosis with obstructing calculus: (2) Renal colic on right side: Plan 59-year-old female status post cystoscopy with right ureteral stent placement 10/01/2023 for nephrolithiasis Labs stable Urine culture final with mixed growth Patient stable for discharge home from a urologic perspective. Follow-up has been sent from a urologic perspective. Admission and Anticipated Discharge Date Admission Date: October 01, 2024 Subjective Pt seen at bedside today Awake and resting in bed on arrival No acute distress She reports some moderate stent discomfort Voiding without issue Some urgency/frequency No fevers Review of Systems Constitutional: as per Subjective / HPI Genitourinary: as per Subjective / HPI Physical Exam Constitutional: no acute distress Respiratory: no respiratory distress and no labored breathing Neurologic: awake Psychiatric: A+Ox3, euthymic affect Results & Data Vital Signs (Past 12 Hours) Vital Signs Temp Pulse Pulse Resp BP Pulse Ox O2 Del Method 10/02/24 11:23 36.5 C 62 18 110/66 98 Room Air 10/02/24 07:36 65 10/02/24 07:17 36.9 C 59 L 18 108/62 92 Room Air 10/02/24 04:29 36.4 C L 76 20 123/74 92 Room Air PG Care Time/CCT Total # of Minutes Spent Total Time Spent with Patient: Total time spent is greater than 50% in coordination of care (as documented) at patient's floor/unit and/or counseling patient: Coding Level of Care Code 08559 SUB INP/OBS CARE 2/35MIN Diagnoses Hydronephrosis with obstructing calculus N13.2 Renal colic on right side N23
[2024-10-02] MEDS: oxyCODONE/ACETAMINOPHEN 5mg/325mg TAB PO PRN (15:35)
[2024-10-02] MEDS: POLYETHYLENE (MIRALAX) 17 GM PACK PO SCH (19:27)
[2024-10-02] MEDS: PHENAZOPYRIDINE HCL 100 MG TAB PO PRN (20:36)
[2024-10-03 07:16] LABS: Hematocrit (blood only) 41.4 % (37.0-47.0); Hemoglobin 12.9 g/dl (12.0-16.0); Mean Corpuscular Hemoglobin 26.2 pg (25.0-34.0); Mean Corpuscular Hgb Conc 31.2 g/dL (32.0-36.0); Mean Platelet Volume 9.9 fL (9.4-12.4); Platelet Count 284 K/uL (130-400); RDW Coefficient of Variation 16.1 % (11.5-14.5); RDW Standard Deviation 49.1 fL (36.4-46.3); Red Blood Count 4.93 M/uL (4.20-5.40); White Blood Count 10.23 K/ul (4.8-10.8)
--- NOTE | 2024-10-03 07:44 | Hospitalist Progress Note ---
Date of Service October 03, 2024 Assessment & Plan (1) Orthostatic hypotension: Plan: Reported dizziness this morning + orthostatics with GAMAL Cr 1.34 from normal baseline and was given lasix 40mg PO yesterday (alternating 40/80 at home due to CHF) however does not appear volume overloaded and was given NSS 250cc bolus x 2 and placed on IVF @ 80cc/hr for now Confirmed with patient home meds:Metoprolol 100mg BID, spironolactone 25mg, olmesartan 40mg and diltiazem 120mg HS at baseline. Confirms she has been compliant with these. Telemetry noting bradycardia this morning, dipped to low 40s/no pauses. BP borderline 101/62 at present time, metoprolol HELD given bradycardia --placing PM verapamil on hold as well Also placing flomax on hold as new med and can contribute (reports father with similar issue) as well as other anticholinergic meds/see below regarding hydroxyzine dosing. She is also on seroquel as well as other psychiatric medications which can contribute to orthostatic hypotension at baseline Given significant meds for HTN/HR control and w/ bradycardia w/ reported dizziness, consult placed for cardiology. ?symptomatic bradycardia vs effects from medications -- agrees w/ holding verapamil/metoprolol, likely dc verapamil and resume metoprolol but at lower dose as needed. Not hypervolemic and agreed to continue to hold diuretics at this time. Monitor hydration status/BP/telemetry. (2) Bradycardia: Plan: as above with orthostatic hypotension this morning and tx orthostatic hypotension w/ holding diuretics and her rate controlling agents as outlined above Cards consulted, to hold/likley stop PM verapamil. Agrees holding metoprolol for now/monitoring and possible resumption when HR recovering Later in morning after 11am and provided dose of oxybuytnin for spasm discomfort she then reported developed blurry vision. --pupils reactive to light but mild nystagmus. as above did hold just change her hydroxyzine as was on higher dose that taking but also suspect possible effects from anticholinergic meds given constipation/dry mouth/possible urinary retention and will hold further anticholinergic medications for now and bladder scan as needed which was without retention and decreased UOP through this morning and IVF hydration has been ordered as notable notable paradoxical effects from anticholinergic medications can contribute to bradycardia as well as nursing did report patient reported a hallucination/visual disturbance this morning as well. Will also plan to check thyroid function for completeness - wnl 0.817 Continue telemetry monitoring and plan to resume metoprolol at lower dose/monitor Appreciate cards assistance/recs (3) Acute kidney injury: Plan: GAMAL on CKD w/ Cr 1.34 ?to lasix 40mg PO x 1 provided on 10/03. is on multiple diuretics w/ spironolactone/lasix alternating doses at home. is having some hematuria today, ?from stone bladder scan w/ nursing to ensure not retaining and cage if occurs holding off further anticholinergic medications at this time Avoid nephrotoxins -- toradol placed on hold -- Home lasix/spironolactone/olmesartan on hold. Renal dose meds as able prevent hypotension and monitor BMP in AM (4) Hydronephrosis with obstructing calculus: Plan: 59-year-old female PMHx hypothyroidism, HTN, asthma, fibromyalgia, CKD stage III, IBS, prediabetes, RLS, depression and anxiety, conversion disorder, HFpEF, and migraine presenting to ED with severe right-sided pain that radiates towards the umbilical region. Patient was sent in by urology as she is s/p lithotripsy (~ 1 month ago) on R side which was unsuccessful, and has been unable to pass renal calculi spontaneously. CTAP performed revealing mild R hydronephrosis w/ 0.5cm obstructing R ureteral stone. UA without evidence of infection, no presence of GAMAL at time of admission. Has had multiple renal calculi in the past, requiring urological interventions. Of note, patient has had a lithotripsy in the past in which she coded during the procedure. Follows with urology for recurrent renal calculi all requiring urological intervention, most recent visit 08/2024. Reportedly had recent lithotripsy ~ 1 month ago, which was unsuccessful. CTAP w/ mild R hydronephrosis with obstructive uropathy secondary to 0.5 cm mid R ureteral calculus Urology consulted s/p cysto and stent with Dr Estrada on 10/01 Ceftriaxone IV continued and will continue given borderline WBC and exam until urine cx final Vit D checked/see below Pain control --Toradol has been DISCONTINUED given GAMAL/blood in urine --percocet to 2 tablets as needed --decreased IV diladid to 0.5mg if needed Now w/ GAMAL on labs, hydration as above and holding diuretics. Urology asked to revisit given ongoing significant discomfort to see if able to tx stone -- f/u at dc planned per note STOP FLOMAX, OXYBUYTNIN ABOVE, IVF ordered and bladder scanning as needed. Avoid cholinergic meds as able and continue bowel regimen/ambulation as able. (5) Vitamin D deficiency: Plan: checked given recurrent stones/hx Low on low dose supplementation--> LOWER at 13.1 from ~20 in March last year and as above, NONCOMPLIANT with home supp and increased to 125mcg PO daily and will rx at dc and discussed compliance given recurrent stones. Ca wnl (6) Atypical chest pain: Plan: at baseline, having event monitor in place, no change from usual cards consulted as above (7) (HFpEF) heart failure with preserved ejection fraction: Plan: as above, dehydrated on exam/diuretics on hold despite weight up. Poor po intake/low UOP and IVF have been ordered @ 80cc/hr overnight and will monitor volume status in AM Metoprolol placed on hold as above given bradycardia and appreciate recs/assistance from cardiology lasix/spironolactone/olmesartan also remaining on hold given GAMAL Plan Chronic problems #Prediabetes- Ozempic - HOLD Ozempic while inpatient, she does report missing last Saturday and discussed given slow bowels to hold off for now/needing to move her bowels #Asthma - Albuterol inhaler prn , CXR NEGATIVE, added narcan w/ opiate meds for pain and supp O2/titrate as needed and incentive spirometer added/encouraged. F/u CXR in AM #Migraines/Depression/Anxiety- -- Continue Qulipta, Lamictal, verapamil, magnesium glycinate, riboflavin at baseline. Continue Buspirone, Diazepam, venlafaxine, quetiapine #GERD- Famotidine, omeprazole -- monitor to increase if needed but no epigastric discomfort and reporting R flank in nature from stone #Insomnia- Trazodone, zaleplon, hydroxyzine as noted, patient only uses hydroxyzine 10mg hs and additional dose if needed. had been continued 50mg HS w/ all her other medications and holding OFF further/stopped #RLS- Ropinirole . Ferritin only 15 last november and on PO iron supplementation and will repeat iron/ferritin in AM but placed PO iron on hold given constipation DVT proph: SCDs ordered, holding chemoproph given hematuria and hgb decrease but no BM/epigastric pain and remains on PPI once daily. If further drop in hgb/concerns for GI bleeding will need increased/GI consulted however doesn't appear w/ GIB at present time Dispo: continued inpatient stay, pain control for stone/stent, holding anticholinergic medications as able. holding metoprolol/verapamil given bradycardia and consult for cards placed and will likely resume when HR recovers for metoprolol but at LOWER dose. Given on several medications for BP will need to slowly introduce as needed/able however suspect may be over treated with regards to HR control and BP. Likely inpatient another 48hr or so pending course Admission and Anticipated Discharge Date Admission Date: October 01, 2024 Supervising Physician Co-Signing Physician Notes The patient was not seen by me. The chart was reviewed. Case discussed with DENY Clement. Agree with assessment and plan Subjective Eval this morning, + orthostatic VS, reporting dizziness/feeling like going to pass out. Ongoing despite 250cc bolus and will repeat. Breathing stable/no significant pitting edema. Will repeat orthostatic VS following repeat bolus but holding AM lasix. HR to 40s, sinus melvina, marked sinus arrhythmia on EKG. Also discussed new med flomax, she reports her father had similar issues with this medication in the past. Reviewed home medications --> has been scheduled hydroxyzine 50mg HS and reports she takes 10mg HS and instructions to repeat 10mg if wakes up during the night. Discussed will change to 10mg HS PRN and discontinue any further dosing. Suspect combination of psych/HTN medications and new flomax could be contributing. Has gone without the quilipta and zalepon without issue before. Ongoing flank discomfort, GAMAL on labs. Will monitor but avoiding further toradol as discussed, hematuria in the bedside commode. Will increase percocet, decrease dose of dilaudid to 0.5mg if needed. Ongoing bowel regimen, asked urology to see today -- she reports they are going to see about getting her in as soon as possible for stone treatment but didn't sound like during this admission but will verify. Continued inpatient stay Then notified following oxybutynin that she was having blurry vision, able to tell me how many fingers/pupils equal/reactive, slight nystagmus, will hold off further anticholinergic drugs as discussed. Physical Exam 2 Physical Exam: General: 59yo fatigued appearing/ongoing pain, general pallor, dehydrated appearing laying in bed, just got pain medication and about to get oxybutynin, decreased turgor HEENT: head atraumatic, pupils equal/reactive to light, 2-3 beat lateral gaze, no fasciculations, mm DRY Resp: diminished in the bases but no wheezing/rales, on room air but able to put on O2 as needed CV: bradycardic to 40-50s, no pitting edema, trace nonpitting edema present, calves nontender, pulses present GI: +BS slightyly slow, slight distension, +tenderness to R flank/lower back, no guarding/rigidity : no cage, urine dark/concentrated and slightly blood in bedside urinal MSK/Neuro: not confused but is sleepy from medications, able to follow commands, generalized weakness, no slurred speech/facial droop but has some hallucinations with nursing this morning Psych: alert/oriented but fatigued/ill appearing Results & Data Results & Data Vital Signs (Past 12 Hours) Vital Signs Temp Pulse Pulse Resp BP BP Pulse Ox 10/03/24 07:27 36.3 C L 50 L 16 101/62 92 10/03/24 04:00 36.3 C L 51 L 20 109/65 95 10/02/24 22:25 36.8 C 51 L 18 118/75 90 10/02/24 22:00 49 L O2 Del Method 10/03/24 07:27 Room Air 10/03/24 04:00 Room Air 10/02/24 22:25 Room Air 10/02/24 22:00 Laboratory Results 10/03/24 06:33 10/03/24 08:28 BUN/Cr 24/1.34 TSH 0.817 PG Care Time/CCT Total # of Minutes Spent Total Time Spent with Patient: Total time spent is greater than 50% in coordination of care (as documented) at patient's floor/unit and/or counseling patient: Prolonged Care Time Prolonged Care Time: Yes additional 60 min above usual time spent with discussion w consultants and repeat visits to the room to check on patient/discuss care above usual time spent Coding Level of Care Code 93232 SUB INP/OBS CARE 3/50MIN (25 - SIGNIFICANT, SEPARATELY IDENTIFIABLE ) Diagnoses Orthostatic hypotension I95.1 Bradycardia R00.1 Acute kidney injury N17.9 Hydronephrosis with obstructing calculus N13.2 Vitamin D deficiency E55.9 Atypical chest pain R07.89 (HFpEF) heart failure with preserved ejection fraction I50.30 Additional Codes Prolonged Care Time - Prolonged Care Time: Yes ([id number])
[2024-10-03 07:57] LABS: Anion Gap 5 (3-11); BUN Creatinine Ratio 17.9 (10-20); Blood Urea Nitrogen 24 mg/dl (6-23); Calcium 8.7 mg/dl (8.6-10.3); Carbon Dioxide 29 mmol/L (21-32); Chloride 106 mmol/L (98-107); Creatinine Clr Calc Pharmacy 59.2 ml/min; Glucose 78 mg/dl (70-99(Fasting)); Sodium 140 mmol/L (136-145)
[2024-10-03] MEDS: SODIUM CHLORIDE 0.9% 250 ML IV ONE ×2 (08:22→09:54)
[2024-10-03] MEDS ORDERED: hydrOXYzine HCl 10 MG TAB PO PRN (09:48)
--- NOTE | 2024-10-03 10:52 | Cardiology Consultation ---
Date of Consultation October 03, 2024 Assessment & Plan (1) Bradycardia: (2) Orthostatic hypotension: (3) (HFpEF) heart failure with preserved ejection fraction: (4) Atypical chest pain: (5) Palpitations: Plan ASSESSMENT/PLAN: 1. Sinus bradycardia: Agree with holding verapamil and metoprolol for now. Will likely be able to resume some form of metoprolol soon. These are chronic medications. Perhaps the bradycardia is also due to the ongoing abdominal pain. No indication for pacemaker currently. 2. Orthostatic hypotension: Would hold any further diuretic. She does not appear to be hypervolemic and her urine is very concentrated at the bedside. Holding beta-sabina and calcium channel sabnia. Received fluids from the hospitalist service. 3. Heart failure with preserved EF: Chronic issue. She is not hypervolemic currently. Plan as above. 4. Chest pain: Chronic issue. Symptoms can last for 90 minutes. Not likely cardiac in nature. 5. Palpitations: Chronic issue and also noted in prior [facility] outpatient cardiology notes. She has had several different monitors in place and currently wearing a monitor for [facility] cardiology. No specific etiology for her palpitations have been documented. 6. Disposition: Cardiology will continue to follow for now. Call with any further questions or concerns. Patient care communicated with primary hospitalist, Arianna Murphy PA-C. Thank you for allowing me to participate in the care of your patient. Please call for any other questions or concerns. Sincerely, Jameson Goncalves M.D. History of Present Illness Reason for Consultation: "Bradycardia, HR low as 32, no pause, dizziness" Requesting Physician: Arianna Murphy Attending Physician: Jaylon Arango MD History of Present Illness Ms. Sánchez is a pleasant 59-year-old female with a history significant for heart failure with preserved EF, CKD, hypertension, fibromyalgia, prediabetes, IBS, Mnire's disease, and conversion disorder. She previously was followed by [facility] cardiology, last seen on 11/22/2023 and has since transferred to [facility] cardiology, last seen on 09/21/2024. She has had the following studies/procedures: 1. Echo 07/20/2024 [facility]: Normal LV size, wall motion, systolic function. EF 65-69%. Mild LVH. No significant valvular disease. Trivial pericardial effusion. 2. Event monitor 05/04/2024 to 05/05/2024: Sinus rhythm. Average HR 74 (50 to 112 bpm). No arrhythmia. 5 patient triggered events (lightheaded, heart racing, skipped beat, dizzy, chest pain, short of breath). Symptoms occurred during normal sinus rhythm. She was admitted on 10/01/2024 after presenting with right flank pain. She underwent CT of the abdomen and pelvis on 09/30/2024 which reported mild right hydronephrosis with obstructive uropathy secondary to 0.5 cm mid right ureteral calculus. On 10/01/2024, she underwent cystoscopy and stent placement within the right ureter. She states that the right flank pain was initially 10 out of 10 and very acute. It is still present, but improved. She has had nausea but no vomiting. She has not had a bowel movement for the past 3 days. She has chronic central chest pressure that occurs at rest, sitting and supine. She also has chronic palpitations with heart rates that can elevate into the 120s. The chest pressure and palpitations can occur together. Symptoms can last up to 90 minutes in duration before spontaneously resolving. She reports that she has been having the symptoms for the past 2 years or so, up to 2 or 3 days/week but at least monthly. She has had event monitors done in the outpatient setting [facility] and [facility] and is currently wearing another monitor. She has occasional edema but does not believe that she has any currently. She has occasional orthopnea, but once again not currently. She has chronic and stable dyspnea on exertion with steps and flat surfaces. She maintains a low- sodium diet and at home her weight has been stable or even trending downward recently with a 3 pound weight loss. Cardiology was asked to evaluate given bradycardia. She has been on verapamil 120 mg daily and metoprolol succinate 100 mg twice daily chronically. She states that at home her heart rate is typically 60s to 80s based on a pulse oximeter. She had some dizziness earlier today and lightheadedness. According to hospitalist records, she was orthostatic. IV fluids were administered per hospitalist service. She denies syncope, melena, hematochezia, or hematuria. Her urine earlier today was quite concentrated. Review of systems: As above. Family history: Father with CABG in his 70s. Social history: She denies tobacco or drug abuse. Occasional alcohol. Not . No children. Lives alone. On disability. She was unaccompanied. Allergies Allergy/AdvReac Type Severity Reaction Status Date / Time bee venom protein (honey bee) Allergy Severe SEVERE Verified 10/01/24 12:19 SWELLING,SOB ciprofloxacin Allergy Severe RESPIRATORY Verified 10/01/24 12:19 FAILURE/HIVES azithromycin Allergy Intermediate Hives Verified 10/01/24 12:19 latex Allergy Intermediate LOCAL Verified 10/01/24 12:19 IRRITATION, REDNESS, SWELLING, ITCHINESS divalproex sodium Allergy Mild Tachycardia Verified 10/01/24 12:19 prednisone AdvReac Intermediate hallucinates, Verified 10/01/24 12:19 GI UPSET, agitation, flushing,tachycardia,sick Home Medications Medication Instructions Recorded Confirmed Type omeprazole 40 mg capsule,delayed 40 mg PO BID #60 caps 09/17/19 10/01/24 Rx release buspirone 10 mg tablet 10 mg PO BID 12/17/19 10/01/24 History trazodone 100 mg tablet 100 mg PO HS 01/12/22 10/01/24 History famotidine 40 mg tablet 40 mg PO HS 11/09/22 10/01/24 History azelastine 137 mcg (0.1 %) nasal 2 spray intranasal DAILY #30 mL 12/05/22 10/01/24 Rx spray verapamil 120 mg tablet,extended 120 mg PO HS 01/14/23 10/01/24 History release cyclobenzaprine 5 mg tablet 5 mg PO BID PRN muscle spasm #180 07/15/23 10/01/24 Rx tabs albuterol sulfate 90 mcg/actuation 2 puff inhalation Q4 PRN Shortness 09/02/23 10/01/24 Rx aerosol inhaler Of Breath Or Wheezing #8.5 grams ketoconazole 2 % topical cream 1 applic topical BID #60 grams 09/18/23 10/01/24 Rx furosemide 40 mg tablet 40 - 80 mg PO UD 12/02/23 10/01/24 History ropinirole 5 mg tablet 5 mg PO HS #90 tabs 12/02/23 10/01/24 Rx scopolamine base 1 mg over 3 days 1 patch transdermal Q72H 02/03/24 10/01/24 History transdermal patch lamotrigine 200 mg tablet 200 mg PO BID #180 tabs 02/10/24 10/01/24 Rx (Lamictal) digital therapeutic,JANEL device #1 ea 02/13/24 10/01/24 Rx metoprolol succinate 100 mg 100 mg PO BID #180 tabs 03/10/24 10/01/24 Rx tablet,extended release 24 hr zaleplon 10 mg capsule 10 mg PO HS 04/28/24 10/01/24 History hydroxyzine HCl 50 mg tablet 50 - 100 mg PO HS 06/10/24 10/01/24 History quetiapine 100 mg tablet (Seroquel) 100 mg PO HS 06/10/24 10/01/24 History tirzepatide 5 mg/0.5 mL 0.5 mg subcut Q7D 06/10/24 10/01/24 History subcutaneous pen injector (Solange) cholecalciferol (vitamin D3) 50 2,000 unit PO QAM 07/09/24 10/01/24 History mcg (2,000 unit) capsule ferrous sulfate 325 mg (65 mg 325 mg PO Q2D 07/09/24 10/01/24 History iron) tablet magnesium glycinate 400 mg PO HS 07/09/24 10/01/24 History mecobalamin (vitamin B12) 1,000 1,000 mcg PO QAM 07/09/24 10/01/24 History mcg chewable tablet spironolactone 25 mg tablet 25 mg PO QAM 07/09/24 10/01/24 History oxybutynin chloride 5 mg tablet 5 mg PO Q8H PRN bladder spasms #30 07/20/24 10/01/24 Rx tabs olmesartan 40 mg tablet (Benicar) 40 mg PO QAM #90 tabs 08/07/24 10/01/24 Rx tramadol 50 mg tablet 50 mg PO Q6H PRN pain #20 tabs 08/07/24 10/01/24 Rx vibegron 75 mg tablet (Gemtesa) 75 mg PO DAILY PRN Bladder Spasms 08/07/24 10/01/24 History celecoxib 200 mg capsule (Celebrex) 200 mg PO BID #180 caps 09/22/24 10/01/24 Rx atogepant 60 mg tablet (Qulipta) 60 mg PO HS 10/01/24 10/01/24 History diazepam 5 mg tablet 5 - 10 mg PO BID PRN Panic 10/01/24 10/01/24 History Attack(S) fluticasone propionate 50 2 spray intranasal HS Nasal 10/01/24 10/01/24 History mcg/actuation nasal Congestion spray,suspension (Flonase Allergy Relief) venlafaxine 150 mg 150 mg PO QAM 10/01/24 10/01/24 History capsule,extended release 24 hr venlafaxine 75 mg capsule,extended 75 mg PO QAM 10/01/24 10/01/24 History release 24 hr zaleplon 5 mg capsule 5 mg PO HS PRN Sleep 10/01/24 10/01/24 History Patient History Medical History Flank pain Hypertension controlled, stable per pt Asthma well controlled > prn inh rare use Hypothyroidism CKD (chronic kidney disease) stage 3, GFR 30-59 ml/min f/u urology and dr. dhillon, nephrology Prediabetes RLS (restless legs syndrome) Anxiety and depression Chronic migraine without aura Functional neurological symptom disorder (conversion disorder), with abnormal movement Diagnosed Dr. [facility] neurology Facet arthropathy, lumbosacral Sacroiliitis Piriformis syndrome of right side Chronic pain Acute UTI dx 07/09/24, completed antibiotic with resolution of symptoms Meningioma "deep in her brain, inoperable, anterior clenoid process right side" Sacral pain get nerve ablation in September 2024 Fibromyalgia Vitamin D deficiency Tachycardia hx, f/u talya manzano Obesity Numbness in bilateral feet "occasionally" Hyperinsulinemia Hearing loss Flushing in her face Fatigue due to fibromyalgia and "her neuro condition" Elevated plasma metanephrines pt unsure? Dyspnea on exertion Dizziness "on and off, some days are worse than others" History of anesthesia reaction pt was not sure if was anesthsia or allergy to Cipro, but coded on OR table during lithotripsy 6 yrs ago PTSD (post-traumatic stress disorder) GERD (gastroesophageal reflux disease) variable IBS (irritable bowel syndrome) Essential tremor CHF (congestive heart failure) f/u talya manzano cardio (will be seeing talya Carrizales in september 2024) Meniere disease History of cardiomyopathy [place] to be secondary to hypertension. Occurred in 2015 with an EF of 40 to 45%. She had cardiac MRI which was concerning for possible hypertrophic cardiomyopathy but this was ruled out via echo. Last echocardiogram 07/2019 revealed preserved EF with grade 1 diastolic dysfunction. Surgical History History of bilateral cataract extraction History of endometrial ablation x2 S/P correction of deviated nasal septum History of esophagogastroduodenoscopy (EGD) History of colonoscopy with polypectomy History of brain surgery 2006> Secondary to type I Chiari malformation at [facility] History of lithotripsy History of cholecystectomy History of tonsillectomy Family History Grandmother No problems noted. Father Heart disease Hypertension Hx of CABG Diabetes Myocardial infarction Grandmother (Maternal) Colorectal cancer Grandfather (Maternal) CHF (congestive heart failure) Stroke great grandfather Heart disease Sister Environmental allergies Mother Aphasia Dementia Other No family history of adverse response to anesthesia No family history of bleeding disorder Denies family history of Ovarian cancer Prostate cancer Breast cancer Lung cancer Social History Smoking Status: Never smoker Second Hand Exposure: No; Do You Dip or Chew Tobacco: No; Hx Alcohol Use: Yes Alcohol type: wine Hx Substance Use: No Preferred Language: Grenadian Communication Ability: Effective Consumer Analyst Required: No Beliefs That Will Affect Care: None marital status: Single Current Living Situation: Alone current occupational status: disabled 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 Alert. HEENT: Anicteric sclera. Neck: Thick neck. No bruits. Normal carotid upstrokes bilaterally. Cardiac: Regular in the 50s bpm. Normal S1-S2. No murmurs, rubs, or gallops. Pulmonary: Clear to auscultation bilaterally without wheezes, rales, or rhonchi. Abdomen: Soft, nondistended, with normoactive bowel sounds. No bruits noted. Right flank tenderness. Extremities: 2+ radial pulses bilaterally. 2+ posterior tibialis pulses bilaterally. No significant pitting edema or cyanosis. Results & Data Vital Signs (Past 12 Hours) Vital Signs Temp Pulse Pulse Resp BP Pulse Ox O2 Del Method 10/03/24 07:51 46 L 10/03/24 07:27 36.3 C L 50 L 16 101/62 92 Room Air 10/03/24 04:00 36.3 C L 51 L 20 109/65 95 Room Air Intake & Output 10/01/24 10/02/24 10/03/24 10/04/24 06:59 06:59 06:59 06:59 Intake Total 150 / 150 3130.000 / 3130.000 530 / 530 500 / 500 Output Total 51 / 51 150 / 150 100 / 100 Balance 150 / 150 3079.000 / 3079.000 380 / 380 400 / 400 Weight 232 lb 12.93 oz 240 lb 8.389 oz 242 lb 8.136 oz 246 lb 4.101 oz Intake & Output 10/01/24 10/02/24 10/03/24 10/04/24 06:59 06:59 06:59 06:59 Intake Total 150 / 150 3130.000 / 3130.000 530 / 530 500 / 500 Output Total 51 / 51 150 / 150 100 / 100 Balance 150 / 150 3079.000 / 3079.000 380 / 380 400 / 400 Weight 232 lb 12.93 oz 240 lb 8.389 oz 242 lb 8.136 oz 246 lb 4.101 oz Laboratory Results Laboratory Results - last 24 hr 10/03/24 10/03/24 06:33 08:28 WBC 10.23 RBC 4.93 Hgb 12.9 Hct 41.4 MCV 84.0 MCH 26.2 MCHC 31.2 L RDW Std Deviation 49.1 H RDW Coeff of Nasima 16.1 H Plt Count 284 MPV 9.9 Sodium 140 Potassium TNP 4.2 Chloride 106 Carbon Dioxide 29 Anion Gap 5 BUN 24 H Creatinine 1.34 H D Est Cr Clr Drug Dosing 59.2 eGFR 46.25 BUN/Creatinine Ratio 17.9 Glucose 78 Calcium 8.7 Diagnostic Findings Labs reviewed and notable for normal potassium, mildly abnormal renal function from baseline, normal transaminase levels, normal blood counts. Echo report from 07/20/2024 at [facility] reviewed: Normal LV systolic function. EF 65-69%. Normal wall motion. Mild LVH. No significant valvular abnormalities. Very small right lateral pericardial effusion. Event monitor report reviewed as noted above in HPI. Outpatient cardiology notes reviewed. History and physical report reviewed. Chest x-ray 10/01/2024: No acute findings per radiology. Medications Administered Current Inpatient Medications Acetaminophen (Acetaminophen 500 Mg Tab) 1,000 mg PO Q8H PRN PRN Reason: Pain & Pre PT Stop: 10/31/24 01:26 Last Admin: 10/02/24 05:56 Dose: 1,000 mg Albuterol (Albuterol Hfa 8 Gm Inhaler) 2 puffs INH Q4 PRN PRN Reason: Shortness Of Breath Or Wheezing Stop: 10/31/24 02:23 Azelastine HCl (Azelastine Hcl 0.1% Nasal 200 Sprays/27,400 Mcg Btl) 2 sprays NA DAILY [facility] Stop: 10/31/24 08:59 Last Admin: 10/03/24 08:20 Dose: 2 sprays Buspirone HCl (Buspirone 5 Mg Tab) 10 mg PO BID TIA Stop: 10/31/24 08:59 Last Admin: 10/03/24 08:18 Dose: 10 mg Cyanocobalamin (Cyanocobalamin (B-12) 500 Mcg Tablet) 1,000 mcg PO QAM TIA Stop: 10/31/24 08:59 Last Admin: 10/03/24 08:18 Dose: 1,000 mcg Cyclobenzaprine HCl (Cyclobenzaprine Hcl 10 Mg Tab) 5 mg PO BID PRN PRN Reason: muscle spasm Stop: 10/31/24 02:23 Diazepam (Diazepam 5 Mg Tablet) 5 - 10 mg PO BID PRN PRN Reason: Panic Attack(S) Stop: 10/31/24 02:23 Last Admin: 10/01/24 18:19 Dose: 5 mg Docusate Sodium (Docusate Sodium 100 Mg Cap) 100 mg PO BID TIA Stop: 10/31/24 10:59 Last Admin: 10/03/24 08:18 Dose: 100 mg Famotidine (Famotidine 40 Mg Tablet) 40 mg PO HS [facility] Stop: 10/31/24 20:59 Last Admin: 10/02/24 19:30 Dose: 40 mg Ferrous Sulfate (Ferrous Sulfate 325 Mg Tab) 325 mg PO Q2D TIA Stop: 10/31/24 08:59 Last Admin: 10/01/24 08:51 Dose: 325 mg Fluticasone Propionate (Fluticasone Propionate Na Spr 16 Gm Btl) 2 sprays NA HS [facility] Stop: 10/31/24 20:59 Last Admin: 10/02/24 19:32 Dose: 2 sprays Furosemide (Furosemide 40 Mg Tab) 40 mg PO QAM [facility] Stop: 11/01/24 08:59 Last Admin: 10/02/24 08:55 Dose: 40 mg Hydromorphone HCl (Hydromorphone Inj 1 Mg/Ml Syringe) 0.5 mg IV Q3H PRN PRN Reason: Pain Stop: 10/15/24 10:42 Hydroxyzine HCl (Hydroxyzine Hcl 25 Mg Tab) 50 mg PO HS [facility] Stop: 10/31/24 20:59 Last Admin: 10/02/24 19:27 Dose: 50 mg Hydroxyzine HCl (Hydroxyzine Hcl 10 Mg Tab) 10 mg PO HS PRN PRN Reason: XTRA DOSE Stop: 10/31/24 02:40 Ceftriaxone Sodium (Rocephin) 2,000 mg in 50 mls @ 100 mls/hr IV Q24H [facility] Stop: 10/11/24 01:29 Last Infusion: 10/03/24 01:20 Dose: Infused Lamotrigine (Lamotrigine 100 Mg Tab) 200 mg PO BID [facility]; Protocol Stop: 10/31/24 08:59 Last Admin: 10/03/24 08:19 Dose: 200 mg Metoprolol Succinate (Metoprolol Succ 50mg Ext Rel Tab) 100 mg PO BID [facility] Stop: 10/31/24 08:59 Last Admin: 10/03/24 08:21 Dose: Not Given Miscellaneous (Qlipta~Order Awaiting Action) 1 each N/A QS [facility] Stop: 10/31/24 07:59 Last Admin: 10/03/24 08:20 Dose: Not Given Miscellaneous (Zaleplon~Order Awaiting Action) 1 each N/A QS [facility] Stop: 10/31/24 07:59 Last Admin: 10/03/24 08:19 Dose: Not Given Naloxone HCl (Naloxone Hcl 0.4 Mg/1 Ml Vial/Carp) 0.1 mg IV Q5M PRN PRN Reason: Oversedation/Resp Depression Stop: 10/31/24 10:53 Ondansetron HCl (Ondansetron Inj 2 Mg/Ml 2 Ml Vial) 4 mg IV Q4H PRN PRN Reason: Nausea Stop: 10/31/24 01:26 Last Admin: 10/01/24 14:53 Dose: 4 mg Oxybutynin Chloride (Oxybutynin Chloride 5 Mg Tab) 5 mg PO Q8H PRN PRN Reason: bladder spasms Stop: 10/31/24 02:23 Last Admin: 10/03/24 09:54 Dose: 5 mg Oxycodone/Acetaminophen (Oxycodone/Acetaminophen 5mg/325mg Tab) 2 tab PO Q4H PRN PRN Reason: moderate to severe pain Stop: 10/16/24 10:43 Pantoprazole Sodium (Pantoprazole 40 Mg Tab) 40 mg PO BID TIA Stop: 10/31/24 08:59 Last Admin: 10/03/24 08:18 Dose: 40 mg Phenazopyridine HCl (Phenazopyridine Hcl 100 Mg Tab) 100 mg PO TID PRN PRN Reason: bladder spasm Stop: 11/01/24 10:43 Last Admin: 10/03/24 06:27 Dose: 100 mg Polyethylene Glycol (Polyethylene (Miralax) 17 Gm Pack) 17 gm PO DAILY PRN PRN Reason: Constipation Stop: 10/31/24 02:23 Polyethylene Glycol (Polyethylene (Miralax) 17 Gm Pack) 17 gm PO TID TIA Stop: 11/01/24 20:59 Last Admin: 10/03/24 08:21 Dose: 17 gm Quetiapine Fumarate (Quetiapine Fumarate 100 Mg Tablet) 100 mg PO TIA Stop: 10/31/24 20:59 Last Admin: 10/02/24 19:31 Dose: 100 mg Ropinirole HCl (Ropinirole Hcl 2 Mg Tablet) 5 mg PO HS TIA Stop: 10/31/24 20:59 Last Admin: 10/02/24 19:28 Dose: 5 mg Sennosides (Senna 8.6 Mg Tab) 17.2 mg PO HS TIA Stop: 11/02/24 20:59 Tamsulosin HCl (Tamsulosin Hcl 0.4 Mg Cap) 0.4 mg PO HS TIA Stop: 10/31/24 20:59 Last Admin: 10/02/24 19:27 Dose: 0.4 mg Trazodone HCl (Trazodone Hcl 100 Mg Tab) 100 mg PO HS [facility] Stop: 10/31/24 20:59 Last Admin: 10/02/24 19:31 Dose: 100 mg Venlafaxine HCl (Venlafaxine Hcl Xr 150 Mg Capxr) 150 mg PO QAM [facility] Stop: 10/31/24 08:59 Last Admin: 10/03/24 08:18 Dose: 150 mg Venlafaxine HCl (Venlafaxine Hcl Xr 75 Mg Capxr) 75 mg PO QAM [facility] Stop: 10/31/24 08:59 Last Admin: 10/03/24 08:19 Dose: 75 mg Verapamil HCl (Verapamil Hcl 120 Mg Tabcr) 120 mg PO [facility] Stop: 10/31/24 20:59 Last Admin: 10/02/24 19:28 Dose: 120 mg Vitamin D (Cholecalciferol 125 Mcg (5,000 Units) Tab) 125 mcg PO QAM [facility] Stop: 11/01/24 08:59 Last Admin: 10/03/24 08:19 Dose: 125 mcg PG Care Time/CCT Total # of Minutes Spent Total Time Spent with Patient: Total time spent is greater than 50% in coordination of care (as documented) at patient's floor/unit and/or counseling patient: Coding Level of Care Code 22425 INT INP/OBS CARE 3/75MIN Diagnoses Bradycardia R00.1 Orthostatic hypotension I95.1 (HFpEF) heart failure with preserved ejection fraction I50.30 Atypical chest pain R07.89 Palpitations R00.2
--- NOTE | 2024-10-03 10:52 | Urology Progress Note ---
Date of Service October 03, 2024 Assessment & Plan (1) Ureterolithiasis: (2) Renal colic on right side: Plan 59-year-old female with right nephrolithiasis status post cystoscopy with right ureteral stent placement by Dr. Estrada on 10/01/2024. Urology reengaged due to pain and worsening creatinine. Her pain is consistent with renal colic from a stent. Recommend Tylenol, NSAIDs when kidney function normalizes, oxycodone for breakthrough, Flomax and oxybutynin 5 mg every 8 hours as needed Suspect her kidney function has worsened due to Lasix and other antihypertensives. Defer to medicine for management. No urologic intervention necessary. Message has been sent for follow-up for stone treatment. Urology to sign off. Admission and Anticipated Discharge Date Admission Date: October 01, 2024 Subjective Urology reengaged due to right flank pain and worsening kidney function. Patient reports frequency of voiding and right flank pain which is consistent with stent colic. Creatinine increased from 0.96-1.34. Physical Exam Physical Exam: General: Alert and oriented, no acute distress HEENT: Normocephalic, mucous membranes moist Pulmonary: Nonlabored respirations Abdomen: Nondistended Extremities: Moves all 4 spontaneously Neuro: No gross deficits Skin: Warm, dry, no rashes noted Results & Data Vital Signs (Past 12 Hours) Vital Signs Temp Pulse Pulse Resp BP Pulse Ox O2 Del Method 10/03/24 07:51 46 L 10/03/24 07:27 36.3 C L 50 L 16 101/62 92 Room Air 10/03/24 04:00 36.3 C L 51 L 20 109/65 95 Room Air PG Care Time/CCT Total # of Minutes Spent Total Time Spent with Patient: Total time spent is greater than 50% in coordination of care (as documented) at patient's floor/unit and/or counseling patient: Coding Level of Care Code 16472 SUB INP/OBS CARE 2/35MIN Diagnoses Ureterolithiasis N20.1 Renal colic on right side N23
[2024-10-03] MEDS: SODIUM CHLORIDE 0.9% 1,000 ML IV SCH (13:27)
[2024-10-03] MEDS: oxyCODONE/ACETAMINOPHEN 5mg/325mg TAB PO PRN ×2 (17:07→21:23)
[2024-10-03] MEDS: POLYETHYLENE (MIRALAX) 17 GM PACK PO SCH (21:23)
[2024-10-03] MEDS: SENNA 8.6 MG TAB PO SCH (21:23)
[2024-10-03] MEDS: CYCLOBENZAPRINE HCL 10 MG TAB PO PRN (21:23)
[2024-10-04 00:39] LABS: Appearance Urine Turbid (Clear); Bacteria Urine Automated None Seen (None Seen); Bilirubin Urine 1+ (Negative); Blood Urine 2+ (Negative); Cast Urine Automated 0-2 /lpf (0-2); Color Urine Dark Yellow; Glucose Urine UA Negative (Negative); Ketones Urine Negative (Negative); Leukocyte Esterase Urine Negative (Negative); Nitrite Urine Positive (Negative); Protein Urine 2+ (Negative); RBC Urine Automated >20 /hpf (0-2); Specific Gravity Urine 1.027 (1.000-1.030); Urobilinogen Urine Negative (Negative); WBC Urine Automated >50 /hpf (0-5); pH Urine 5.5 (4.5-7.5)
--- NOTE | 2024-10-04 07:53 | Hospitalist Progress Note ---
Date of Service October 04, 2024 Assessment & Plan (1) Dizziness: Plan: Chronic/on*off reported, likely worsened AM 10/03 due to dehydration as outlined MULTIFACTORIAL Does NOT appear concerning for CVA but rather significant medications patient on at baseline, compounded by new medications for stone treatment/anesthesia/etc --Discussed with patient at length upon chart review and suspect effects from anesthesia as well as over treatment of conditions with medications and also suspect ongoing rate control/bradycardia contributing -- She has had several cardiac event monitors without significant findins other than bradycardia in the 50s, however continued on metoprolol 100mg BID/verapamil 120mg HS Orthostatic hypotension AM 10/03 following resumption of lasix 40mg PO despite IVF on admission x2L and alternating 80mg/40mg at home with spironolactone for "CHF" with metoprolol 100mg BID, verapamil 120HS for migraine -did have GAMAL w/ Cr 1.6 on labs as well, diuretics held/IVF ordered and her metoprolol/verapamil placed on hold -GAMAL resolved on AM labs but holding diuretics/not appearing volume overloaded Cardiology consulted given reports HOCM/CHF/bradycardia however review of chart with normal BNPs/never reduced EF and no significant valvular disease and did not suspect she actually has this/probably more likely weight gain/obesity which improved with mounjaro recently. --> metoprolol/verapamil to continue on hold, consideration to resume lower dose if needed once HR improves and was 70s this morning. Review of chart and complaince of meds per patient reporting she is compliant with her cardiac medications -->BNP never elevated in system and EF never depressed but on spironolactone 25mg, lasix 40/80mg, metoprolol 100mg BID at baseline with prior reductions and verapamil 120mg HS and with bradycardia on monitor with 3-4 event monitors over past couple of months but without significant findings other than bradycardia and no pauses noted on monitor Cr normalized on AM labs with IVF and continues with diuretics on hold. No leg edema and on RA. ECHO without reduced EF and no evidence for heart failure at this time Also suspect combination of her psychiatric medications and newly added flomax with ongoing high dose requip contributing -- stopped Flomax/placed requip on hold (requip can cause palpitations) however patient reports CANNOT sleep without (although did report sleeping last night and wasn't given) -- resumed Requip but at LOWER 2mg dose and was taking 5mg HS. Also suspect contributes to her hx migraines which is why taking verapamil and reports her psychiatrist recently Qulipta recently added for. Hydroxyzine STOPPED (notable ordered 50mg HS on admission but taking 10mg HS prn w/ additional dose as needed if wakes up --?underlying SEAN) Oxybutynin stopped Urinary production improved since holding these medications, repeat UA/cx sent and remains on CTX 2gm IV given recent instrumentation and improvement in leukocytosis and f/u final cx. Iron studies checked given "RLS"/requip --> c/w ZANE w/ LOW FERRITIN 15.7. Iron 32, TIBC 405, Transferrin 289, Transferrin % sat 8% - Venofer IV ordered and can continue Cortisol AM NOT deficient TSH wnl BP no longer hypotensive and 158/72 and given normal orthostatic VS, amlodipine 5mg PO x 1 provided and plan for olmesartan/ARB in AM for HTN control if K not borderline/elevated - Could consider low dose HCTZ for leg edema/BP if needed PT/OT consulted and suspect will need several days for medication adjustments but suspect will be able discontinue SEVERAL medications prior to discharge Plan to touch base with psychiatry semiconductor bonder in AM to review her medications for additional assistance/coordination with her outpatient psychiatrist (2) Orthostatic hypotension: Plan: as above, following only resuming lasix 40mg PO ONCE and on 40mg/80mg WITH spironolactone at baseline and does not appear to have CHF. No pitting edema/hypoxia, normal EF, never had elevated BNP and CXR without congestion. As above, orthostatic VS normal today and cortisol level normal/normal TSH. Plan: HOLDING metoprolol 100mg BID , verapamil 120mg HS, lasix 40mg/80mg, spironolactone 25mg, olmesartan 40mg REDUCED requip 2mg, Venofer IV for ZANE Stopped Flomax, oxybutynin (new meds) Amlodipine 5mg PO x 1 for HTN given hx Monitor repeat orthostatic VS as needed, fall precautions PT/OT evals (3) Bradycardia: Plan: suspect over treatment for reported "palpitations" normal event monitor except bradycardia and on TOO MUCH RATE control and palpitations could be from her requip Metoprolol/verapamil on HOLD, if needing resumed if develops tachycardia would be at LOW dose. Plan to DC her verapamil at dc Normal thyroid function Continues on telemetry (4) Acute kidney injury: Plan: Suspected 2nd to lasix use/dehydration on exam and diuretics placed on hold/resolved with IVF. Defer ongoing IVF and encouraged PO. Toradol discontinued Bladder scan for retention as needed Remains on Ceftriaxone for urine coverage until cx finalized given repeat UA/cysto, f/u final cx Lasix/spironolactone/olmesartan on hold, consideration to resume olmesartan in AM per cards Renal dose meds/avoid nephrotoxins as able BMP in AM (5) Hydronephrosis with obstructing calculus: Plan: 59-year-old female PMHx hypothyroidism, HTN, asthma, fibromyalgia, CKD stage III, IBS, prediabetes, RLS, depression and anxiety, conversion disorder, HFpEF, and migraine presenting to ED with severe right-sided pain that radiates towards the umbilical region. Patient was sent in by urology as she is s/p lithotripsy (~ 1 month ago) on R side which was unsuccessful, and has been unable to pass renal calculi spontaneously. CTAP performed revealing mild R hydronephrosis w/ 0.5cm obstructing R ureteral stone. UA without evidence of infection, no presence of GAMAL at time of admission. Has had multiple renal calculi in the past, requiring urological interventions. Of note, patient has had a lithotripsy in the past in which she coded during the procedure. Follows with urology for recurrent renal calculi all requiring urological intervention, most recent visit 08/2024. Reportedly had recent lithotripsy ~ 1 month ago, which was unsuccessful. CTAP w/ mild R hydronephrosis with obstructive uropathy secondary to 0.5 cm mid R ureteral calculus Urology consulted s/p cysto and stent with Dr Estrada on 10/01 Ceftriaxone IV continued and will continue given borderline WBC and exam until urine cx final Vit D checked/see below Pain control --Toradol has been DISCONTINUED given GAMAL/blood in urine, GAMAL resolved as above --Percocet 1 tablet prn, diladid LOW dose ONLY if needed Bowel regimen, suppository today if doesn't occur Has NOT tolerated flomax/oxybuytnin and have discontinued as above F/u urine cx, outpt urology f/u (6) Vitamin D deficiency: Plan: checked given recurrent stones/hx Low on low dose supplementation--> LOWER at 13.1 from ~20 in March last year and as above, NONCOMPLIANT with home supp and increased to 125mcg PO daily and will rx at dc and discussed compliance given recurrent stones. Ca wnl (7) Atypical chest pain: Plan: at baseline, having event monitor in place, no change from usual cards consulted as above (8) (HFpEF) heart failure with preserved ejection fraction: Plan: As above, never had elevated BNP/CXR w/o congestive changes and normal EF/no leg edema today following IVF Unclear if actually had heart failure in the past per discussion with cards on consult She is reporting need for pacemaker/concerns about event monitor -- ensured no indication for that at this time,also confirmed with cards and BB/CCB have been on hold as above and continues on telemetry Management as outlined (9) Iron deficiency: Plan: Venofer IV ordered/will continue for ZANE per iron studies (10) Functional neurological symptom disorder (conversion disorder), with abnormal movement: Plan: dx from [facility] 2011, she told me she has "neurological disorder" and tremor at baseline "sometimes" Also w/ hx migraines/depression/anxiety/insomnia/RLS/pre-DM -- on heavy regimen with qulipra, lamictal, mag, riboflavin, buspar, valium, effexor, seroquel, trazodone, zaleplon, hydroxzyzine, requip. mounjaro for weight loss recently --> as above, suspected contributing to a lot of patient's symptoms and plan to touch base psych in AM/possible consultation while inpatient for review/adjustment to her medications Plan DVT proph: SCDs, ambuation encouraged. Avoiding chemoproph for now given multiple issues with medications but no pleurtic pain/on room air/no calf tenderness. If hgb stable/no further hematuria could add once daily lovenox in AM if continued inpatient stay Dispo: continued inpatient stay, telemetry monitoring and holding medications as outlined. amlodipine x 1 for BP, PT/OT consults pending. Suspect will take multiple days for med adjustments prior to dc, plan to touch base w/ psych inpatient in AM for med review Admission and Anticipated Discharge Date Admission Date: October 01, 2024 Subjective Eval this morning, reports feeling worse with pain to stent but labs improving and renal function stabilized. No pitting edema, on RA. Discussed holding off diuretics. Does have ongoing dizziness, has been telling her psychiatrist thinks on too many beds, agree with this. Does have ongoing dizziness, orthostatics improved today. Meclizine ineffective in the past. Does report has been on scopolamine patch for months but not on because was time to change. Will resume to see if helps but remains on telemetry. Passing some gas, suppository if needed if no BM this afternoon. Discussed ECHO this morning, will see about results but suspect needs not only reduction in her betablocker but also adjustment to diuretics bc only reports gets occassional leg edema and could just use as needed. AMbulation encouraged. Will consult therapy while inpatient. Questions/concerns addressed at this time. Physical Exam 2 Physical Exam: General: 59yo sitting up in bed, talking with supervising provider, appears MUCH improved compared to yesterday despite reporting feeling worse, more awake.alert HEENT: head atraumatic, pupils reactive, mm improved, trachea midline/thick neck Resp: even/unlabored, slightly diminished in the bases but no wheezing/rales, on ROOM AIR CV: sinus melvina on telemetry, rates 50-70s, no significant m/r/g, no pitting edema, pulses present GI: +BS, soft/slight distension, ongoing R flank pain, no epigastric discomfort, no rebound no cage, voiding in bedside toilet MSK/Neuro: nonfocal, no slurred speech/facial droop, answering questions approprialty Psych: alert/oriented, anxious at times, support provided Results & Data Results & Data Vital Signs (Past 12 Hours) Vital Signs Temp Pulse Pulse Resp BP BP Pulse Ox 10/04/24 07:20 36.6 C 57 L 18 166/71 H 96 10/04/24 07:15 49 L 10/04/24 04:00 36.8 C 57 L 20 133/70 94 10/04/24 00:00 36.7 C 63 18 120/63 93 10/03/24 21:36 55 L O2 Del Method 10/04/24 07:20 Room Air 10/04/24 07:15 10/04/24 04:00 Room Air 10/04/24 00:00 Room Air 10/03/24 21:36 Laboratory Results 10/04/24 07:47 10/04/24 07:47 Iron 32 TIBC 405 Transferrin 289 Transferrin % sat 8% Ferritin 15.7 LFTs wnl Cortisol AM 9.72 PG Care Time/CCT Total # of Minutes Spent Total Time Spent with Patient: Total time spent is greater than 50% in coordination of care (as documented) at patient's floor/unit and/or counseling patient: Coding Level of Care Code 98906 SUB INP/OBS CARE 3/50MIN Diagnoses Dizziness R42 Orthostatic hypotension I95.1 Bradycardia R00.1 Acute kidney injury N17.9 Hydronephrosis with obstructing calculus N13.2 Vitamin D deficiency E55.9 Atypical chest pain R07.89 (HFpEF) heart failure with preserved ejection fraction I50.30 Iron deficiency E61.1 Functional neurological symptom disorder (conversion disorder), with abnormal movement F44.4
[2024-10-04 08:02] LABS: Basophils # (auto) 0.05 K/uL (0.00-0.20); Basophils % (auto) 0.5 %; Eosinophils # (auto) 0.55 K/uL (0.00-0.50); Eosinophils % (auto) 5.7 %; Hematocrit (blood only) 42.7 % (37.0-47.0); Hemoglobin 13.2 g/dl (12.0-16.0); Immature Granulocytes # (auto) 0.03 K/uL (0.01-0.20); Immature Granulocytes % (auto) 0.3 %; Lymphocytes % (auto) 40.2 %; Mean Corpuscular Hemoglobin 26.2 pg (25.0-34.0); Mean Corpuscular Hgb Conc 30.9 g/dL (32.0-36.0); Mean Corpuscular Volume 84.7 fL (80.0-100.0); Mean Platelet Volume 9.3 fL (9.4-12.4); Monocytes # (auto) 0.71 K/uL (0.11-0.59); Monocytes % (auto) 7.3 %; Neutrophils # (auto) 4.45 K/uL (1.40-6.50); Platelet Count 273 K/uL (130-400); RDW Coefficient of Variation 16.1 % (11.5-14.5); RDW Standard Deviation 50.3 fL (36.4-46.3); Red Blood Count 5.04 M/uL (4.20-5.40); White Blood Count 9.69 K/ul (4.8-10.8)
[2024-10-04 08:20] LABS: Albumin Level 3.7 gm/dl (3.4-5.0); BUN Creatinine Ratio 15.2 (10-20); Bilirubin,Total 0.4 mg/dl (0.2-1.0); Calcium 8.6 mg/dl (8.6-10.3); Creatinine Clr Calc Pharmacy 76.3 ml/min; Total Protein 5.9 gm/dl (6.0-8.3)
[2024-10-04 08:39] LABS: Ferritin 15.7 ng/ml (8-388)
[2024-10-04] MEDS: HYDROmorphone INJ 1 MG/ML SYRINGE IV PRN (08:51)
[2024-10-04] MEDS: IRON SUCROSE 300 MG in SODIUM CHLORIDE 0.9% 250 ML IV ONE (09:49)
[2024-10-04] MEDS: SCOPOLAMINE 1 MG/72 HR TDSY PATCH TD SCH (11:12)
--- NOTE | 2024-10-04 11:20 | XCELERA ---
[id number] \\[id number]
--- NOTE | 2024-10-04 11:28 | Cardiology Progress Note ---
Date of Service October 04, 2024 Assessment & Plan (1) Bradycardia: (2) Orthostatic hypotension: (3) (HFpEF) heart failure with preserved ejection fraction: (4) Atypical chest pain: (5) Palpitations: Plan ASSESSMENT/PLAN: 1. Sinus bradycardia: Verapamil and metoprolol are on hold. Would discontinue verapamil. Heart rate has improved to 50s to 70s. Ropinirole could be playing a role, but she states that she needs that medication. Pacemaker is not necessary. 2. Orthostatic hypotension: Orthostatic on 10/03/2024. Would hold any further diuretic. She does not appear to be hypervolemic. Holding beta-sabina and calcium channel sabina. Last dose of Lasix was 40 mg on 10/02/2024. Received fluids from the hospitalist service. 3. Heart failure with preserved EF: Chronic issue per records. Normal LV systolic function and diastolic function on 10/04/2024 echo. BNP normal in 2021, 2022, and 2023. Had been using Lasix 40 mg, alternating with 80 mg. Unclear if she has heart failure at this point. She is not hypervolemic currently. Plan as above. 4. Chest pain: Chronic issue. Symptoms can last for 90 minutes. Not likely cardiac in nature. Ischemic evaluation not necessary. 5. Palpitations: Chronic issue and also noted in prior [facility] outpatient cardiology notes. She has had several different monitors in place and currently wearing a monitor for [facility] cardiology. No specific etiology for her palpitations have been documented. Despite brief palpitations here, no significant findings on telemetry to correlate with her symptoms. We discussed that she may have the sensation of palpitations or sense her heart rate but with no abnormality requiring treatment at this time. 6. Hypertension: Blood pressure hypertensive today. Can resume ARB therapy. 7. Disposition: Cardiology will continue to follow for now. Call with any further questions or concerns. Patient care discussed with primary hospitalist, Arianna Murphy PA-C. Admission and Anticipated Discharge Date Admission Date: October 01, 2024 Subjective She continues to have right flank pain. She denies chest pain. She has occasional shortness of breath. She has had minor, intermittent palpitations. She was unaccompanied. Physical Exam Physical Exam: Gen.: No acute distress. Alert. HEENT: Anicteric sclera. Neck: Thick neck. Cardiac: Regular. Normal S1-S2. No murmurs, rubs, or gallops. Pulmonary: Clear to auscultation bilaterally without wheezes, rales, or rhonchi. Abdomen: Soft, nondistended, with normoactive bowel sounds. No bruits noted. Right flank tenderness. Extremities: 2+ radial pulses bilaterally. 2+ posterior tibialis pulses bilaterally. No significant pitting edema or cyanosis. Results & Data Vital Signs (Past 12 Hours) Vital Signs Temp Pulse Pulse Resp BP BP Pulse Ox 10/04/24 10:49 36.8 C 70 16 170/62 H 93 10/04/24 07:20 36.6 C 57 L 18 166/71 H 96 10/04/24 07:15 49 L 10/04/24 04:00 36.8 C 57 L 20 133/70 94 10/04/24 00:00 36.7 C 63 18 120/63 93 O2 Del Method 10/04/24 10:49 Room Air 10/04/24 07:20 Room Air 10/04/24 07:15 10/04/24 04:00 Room Air 10/04/24 00:00 Room Air Intake & Output 10/02/24 10/03/24 10/04/24 10/05/24 06:59 06:59 06:59 06:59 Intake Total 3130.000 / 3130.000 530 / 530 1650 / 1650 Output Total 51 / 51 150 / 150 1050 / 1050 Balance 3079.000 / 3079.000 380 / 380 600 / 600 Weight 240 lb 8.389 oz 242 lb 8.136 oz 246 lb 14.684 oz Laboratory Results Laboratory Results - last 24 hr 10/03/24 10/03/24 10/03/24 12:58 16:46 16:51 WBC RBC Hgb Hct MCV MCH MCHC RDW Std Deviation RDW Coeff of Nasima Plt Count MPV Immature Gran % (Auto) Neut % (Auto) Lymph % (Auto) [place] % (Auto) Eos % (Auto) Baso % (Auto) Neut # (Auto) Lymph # (Auto) [place] # (Auto) Eos # (Auto) Baso # (Auto) Immature Gran # (Auto) Sodium Potassium Chloride Carbon Dioxide Anion Gap BUN Creatinine Est Cr Clr Drug Dosing eGFR BUN/Creatinine Ratio Glucose POC Glucose 99 Calcium Magnesium Iron TIBC Transferrin Transferrin % Sat Ferritin Total Bilirubin Direct Bilirubin AST ALT Alkaline Phosphatase Total Protein Albumin Lipase 14 TSH 0.817 Cortisol AM Sample Urine Color Urine Appearance Urine pH Ur Specific [place] Urine Protein Urine Glucose (UA) Urine Ketones Urine Blood Urine Nitrite Urine Bilirubin Urine Urobilinogen Ur Leukocyte Esterase Urine WBC (Auto) Urine RBC (Auto) U Hyaline Cast (Auto) U Epithel Cells (Auto) Urine Bacteria (Auto) 10/03/24 10/04/24 10/04/24 19:14 00:08 07:47 WBC 9.69 RBC 5.04 Hgb 13.2 Hct 42.7 MCV 84.7 MCH 26.2 MCHC 30.9 L RDW Std Deviation 50.3 H RDW Coeff of Nasima 16.1 H Plt Count 273 MPV 9.3 L Immature Gran % (Auto) 0.3 Neut % (Auto) 46.0 Lymph % (Auto) 40.2 [place] % (Auto) 7.3 Eos % (Auto) 5.7 Baso % (Auto) 0.5 Neut # (Auto) 4.45 Lymph # (Auto) 3.90 H [place] # (Auto) 0.71 H Eos # (Auto) 0.55 H Baso # (Auto) 0.05 Immature Gran # (Auto) 0.03 Sodium 141 Potassium 5.0 Chloride 107 Carbon Dioxide 32 Anion Gap 2 L BUN 16 Creatinine 1.05 Est Cr Clr Drug Dosing 76.3 eGFR 61.97 BUN/Creatinine Ratio 15.2 Glucose 82 POC Glucose 95 Calcium 8.6 Magnesium 2.0 Iron 32 L TIBC 405 Transferrin 289 Transferrin % Sat 8 L Ferritin 15.7 Total Bilirubin 0.4 Direct Bilirubin 0.0 AST 16 ALT 17 Alkaline Phosphatase 85 Total Protein 5.9 L Albumin 3.7 Lipase TSH Cortisol AM Sample 9.72 Urine Color Dark Yellow Urine Appearance Turbid A Urine pH 5.5 Ur Specific [place] 1.027 Urine Protein 2+ H Urine Glucose (UA) Negative Urine Ketones Negative Urine Blood 2+ H Urine Nitrite Positive A Urine Bilirubin 1+ H Urine Urobilinogen Negative Ur Leukocyte Esterase Negative Urine WBC (Auto) >50 H Urine RBC (Auto) >20 H U Hyaline Cast (Auto) 0-2 U Epithel Cells (Auto) 3-5 H Urine Bacteria (Auto) None Seen 10/04/24 08:38 WBC RBC Hgb Hct MCV MCH MCHC RDW Std Deviation RDW Coeff of Nasima Plt Count MPV Immature Gran % (Auto) Neut % (Auto) Lymph % (Auto) [place] % (Auto) Eos % (Auto) Baso % (Auto) Neut # (Auto) Lymph # (Auto) [place] # (Auto) Eos # (Auto) Baso # (Auto) Immature Gran # (Auto) Sodium Potassium Chloride Carbon Dioxide Anion Gap BUN Creatinine Est Cr Clr Drug Dosing eGFR BUN/Creatinine Ratio Glucose POC Glucose 77 Calcium Magnesium Iron TIBC Transferrin Transferrin % Sat Ferritin Total Bilirubin Direct Bilirubin AST ALT Alkaline Phosphatase Total Protein Albumin Lipase TSH Cortisol AM Sample Urine Color Urine Appearance Urine pH Ur Specific [place] Urine Protein Urine Glucose (UA) Urine Ketones Urine Blood Urine Nitrite Urine Bilirubin Urine Urobilinogen Ur Leukocyte Esterase Urine WBC (Auto) Urine RBC (Auto) U Hyaline Cast (Auto) U Epithel Cells (Auto) Urine Bacteria (Auto) Diagnostic Findings Echo 10/04/2024: Normal LV size, wall motion, systolic function. EF 60-65%. Moderate LVH. No significant diastolic dysfunction. Moderate left atrial dilation. Mild MR. RVSP 26. Labs reviewed from 10/04/2024: Top normal potassium, improved renal function, normal transaminase levels, normal blood counts. Medications Administered Current Inpatient Medications Acetaminophen (Acetaminophen 500 Mg Tab) 1,000 mg PO Q8H PRN PRN Reason: Pain & Pre PT Stop: 10/31/24 01:26 Last Admin: 10/02/24 05:56 Dose: 1,000 mg Albuterol (Albuterol Hfa 8 Gm Inhaler) 2 puffs INH Q4 PRN PRN Reason: Shortness Of Breath Or Wheezing Stop: 10/31/24 02:23 Azelastine HCl (Azelastine Hcl 0.1% Nasal 200 Sprays/27,400 Mcg Btl) 2 sprays NA DAILY TIA Stop: 10/31/24 08:59 Last Admin: 10/04/24 09:00 Dose: 2 sprays Bisacodyl (Bisacodyl 10 Mg Supp) 10 mg KS DAILY PRN PRN Reason: Constipation Stop: 11/03/24 10:17 Buspirone HCl (Buspirone 5 Mg Tab) 10 mg PO BID TIA Stop: 10/31/24 08:59 Last Admin: 10/04/24 08:58 Dose: 10 mg Cyanocobalamin (Cyanocobalamin (B-12) 500 Mcg Tablet) 1,000 mcg PO QAM [facility] Stop: 10/31/24 08:59 Last Admin: 10/04/24 08:59 Dose: 1,000 mcg Cyclobenzaprine HCl (Cyclobenzaprine Hcl 10 Mg Tab) 5 mg PO BID PRN PRN Reason: muscle spasm Stop: 10/31/24 02:23 Last Admin: 10/03/24 21:23 Dose: 5 mg Diazepam (Diazepam 5 Mg Tablet) 5 - 10 mg PO BID PRN PRN Reason: Panic Attack(S) Stop: 10/31/24 02:23 Last Admin: 10/01/24 18:19 Dose: 5 mg Docusate Sodium (Docusate Sodium 100 Mg Cap) 100 mg PO BID TIA Stop: 10/31/24 10:59 Last Admin: 10/04/24 08:57 Dose: 100 mg Famotidine (Famotidine 40 Mg Tablet) 40 mg PO [facility] Stop: 10/31/24 20:59 Last Admin: 10/03/24 21:24 Dose: 40 mg Ferrous Sulfate (Ferrous Sulfate 325 Mg Tab) 325 mg PO Q2D TIA Stop: 10/31/24 08:59 Last Admin: 10/01/24 08:51 Dose: 325 mg Fluticasone Propionate (Fluticasone Propionate Na Spr 16 Gm Btl) 2 sprays NA HS [facility] Stop: 10/31/24 20:59 Last Admin: 10/03/24 21:24 Dose: 2 sprays Furosemide (Furosemide 40 Mg Tab) 40 mg PO QAM [facility] Stop: 11/01/24 08:59 Last Admin: 10/02/24 08:55 Dose: 40 mg Hydromorphone HCl (Hydromorphone Inj 1 Mg/Ml Syringe) 0.5 mg IV Q3H PRN PRN Reason: Pain Stop: 10/15/24 10:42 Last Admin: 10/04/24 08:51 Dose: 0.5 mg Hydroxyzine HCl (Hydroxyzine Hcl 25 Mg Tab) 50 mg PO [facility] Stop: 10/31/24 20:59 Last Admin: 10/02/24 19:27 Dose: 50 mg Ceftriaxone Sodium (Rocephin) 2,000 mg in 50 mls @ 100 mls/hr IV Q24H TIA Stop: 10/11/24 01:29 Last Infusion: 10/04/24 02:00 Dose: Infused Lamotrigine (Lamotrigine 100 Mg Tab) 200 mg PO BID [facility]; Protocol Stop: 10/31/24 08:59 Last Admin: 10/04/24 08:58 Dose: 200 mg Metoprolol Succinate (Metoprolol Succ 50mg Ext Rel Tab) 100 mg PO BID [facility] Stop: 10/31/24 08:59 Last Admin: 10/03/24 08:21 Dose: Not Given Miscellaneous (Qlipta~Order Awaiting Action) 1 each N/A QS [facility] Stop: 10/31/24 07:59 Last Admin: 10/04/24 07:26 Dose: Not Given Miscellaneous (Zaleplon~Order Awaiting Action) 1 each N/A QS [facility] Stop: 10/31/24 07:59 Last Admin: 10/04/24 07:26 Dose: Not Given Miscellaneous (Check Scopolamine Patch Placement) 1 each N/A QS [facility] Stop: 11/03/24 15:59 Miscellaneous (Remove Transderm-Scop Patch) 1 each N/A Q72H [facility] Stop: 11/06/24 10:29 Naloxone HCl (Naloxone Hcl 0.4 Mg/1 Ml Vial/Carp) 0.1 mg IV Q5M PRN PRN Reason: Oversedation/Resp Depression Stop: 10/31/24 10:53 Ondansetron HCl (Ondansetron Inj 2 Mg/Ml 2 Ml Vial) 4 mg IV Q4H PRN PRN Reason: Nausea Stop: 10/31/24 01:26 Last Admin: 10/01/24 14:53 Dose: 4 mg Oxycodone/Acetaminophen (Oxycodone/Acetaminophen 5mg/325mg Tab) 1 tab PO Q4H PRN PRN Reason: moderate to severe pain Stop: 10/16/24 10:43 Last Admin: 10/04/24 01:35 Dose: 1 tab Pantoprazole Sodium (Pantoprazole 40 Mg Tab) 40 mg PO BID [facility] Stop: 10/31/24 08:59 Last Admin: 10/04/24 09:00 Dose: 40 mg Phenazopyridine HCl (Phenazopyridine Hcl 100 Mg Tab) 100 mg PO BID PRN PRN Reason: bladder spasm Stop: 11/01/24 10:43 Polyethylene Glycol (Polyethylene (Miralax) 17 Gm Pack) 17 gm PO DAILY PRN PRN Reason: Constipation Stop: 10/31/24 02:23 Polyethylene Glycol (Polyethylene (Miralax) 17 Gm Pack) 17 gm PO BID TIA Stop: 11/02/24 20:59 Last Admin: 10/04/24 08:52 Dose: 17 gm Quetiapine Fumarate (Quetiapine Fumarate 100 Mg Tablet) 100 mg PO [facility] Stop: 10/31/24 20:59 Last Admin: 10/03/24 21:24 Dose: 100 mg Ropinirole HCl (Ropinirole Hcl 2 Mg Tablet) 2 mg PO [facility] Stop: 11/03/24 20:59 Scopolamine (Scopolamine 1 Mg/72 Hr Tdsy Patch) 1 patch TD Q72H TIA Stop: 11/03/24 10:29 Last Admin: 10/04/24 11:12 Dose: 1 patch Sennosides (Senna 8.6 Mg Tab) 17.2 mg PO [facility] Stop: 11/02/24 20:59 Last Admin: 10/03/24 21:23 Dose: 17.2 mg Tamsulosin HCl (Tamsulosin Hcl 0.4 Mg Cap) 0.4 mg PO [facility] Stop: 10/31/24 20:59 Last Admin: 10/02/24 19:27 Dose: 0.4 mg Trazodone HCl (Trazodone Hcl 100 Mg Tab) 100 mg PO [facility] Stop: 10/31/24 20:59 Last Admin: 10/03/24 21:24 Dose: 100 mg Venlafaxine HCl (Venlafaxine Hcl Xr 150 Mg Capxr) [facility] [place] [place] Stop: 10/31/24 08:59 Last Admin: 10/04/24 08:57 Dose: 150 mg Venlafaxine HCl (Venlafaxine Hcl Xr 75 Mg Capxr) [facility] [place] Stop: 10/31/24 08:59 Last Admin: 10/04/24 08:59 Dose: 75 mg Verapamil HCl (Verapamil Hcl 120 Mg Tabcr) 120 mg PO [facility] Stop: 10/31/24 20:59 Last Admin: 10/02/24 19:28 Dose: 120 mg Vitamin D (Cholecalciferol 125 Mcg (5,000 Units) Tab) 125 mcg PO QAM [facility] Stop: 11/01/24 08:59 Last Admin: 10/04/24 08:59 Dose: 125 mcg PG Care Time/CCT Total # of Minutes Spent Total Time Spent with Patient: Total time spent is greater than 50% in coordination of care (as documented) at patient's floor/unit and/or counseling patient: Coding Level of Care Code 70342 SUB INP/OBS CARE 3/50MIN Diagnoses Bradycardia R00.1 Orthostatic hypotension I95.1 (HFpEF) heart failure with preserved ejection fraction I50.30 Atypical chest pain R07.89 Palpitations R00.2
[2024-10-04] MEDS: bisacodyL 10 MG SUPP PR PRN (13:43)
[2024-10-04] MEDS: amLODIPine BESYLATE 5 MG TAB PO ONE (14:42)
[2024-10-04] MEDS: CHECK SCOPOLAMINE PATCH PLACEMENT SCH (16:16)
[2024-10-04] MEDS: PHENAZOPYRIDINE HCL 100 MG TAB PO PRN (18:00)
--- NOTE | 2024-10-04 21:45 | Electrocardiogram Report ---
Test Reason : Blood Pressure : */* mmHG Vent. Rate : 47 BPM Atrial Rate : 47 BPM P-R Int : 166 ms QRS Dur : 106 ms QT Int : 494 ms P-R-T Axes : 29 -8 25 degrees QTcB Int : 437 ms Sinus bradycardia with sinus arrhythmia Otherwise normal ECG When compared with ECG of 05-Oct-2022 09:19, No significant change was found Confirmed by Onur Goncalves ([id number]) on 10/04/2024 9:45:27 PM Referred By: REFERRED SELF Confirmed By: Onur Goncalves
[2024-10-05 07:12] LABS: Basophils # (auto) 0.06 K/uL (0.00-0.20); Basophils % (auto) 0.7 %; Eosinophils % (auto) 6.2 %; Hematocrit (blood only) 41.7 % (37.0-47.0); Hemoglobin 13.3 g/dl (12.0-16.0); Immature Granulocytes # (auto) 0.06 K/uL (0.01-0.20); Immature Granulocytes % (auto) 0.7 %; Lymphocytes # (auto) 2.52 K/uL (1.20-3.40); Lymphocytes % (auto) 31.3 %; Mean Corpuscular Hemoglobin 25.9 pg (25.0-34.0); Mean Corpuscular Hgb Conc 31.9 g/dL (32.0-36.0); Mean Corpuscular Volume 81.3 fL (80.0-100.0); Mean Platelet Volume 9.6 fL (9.4-12.4); Monocytes # (auto) 0.69 K/uL (0.11-0.59); Monocytes % (auto) 8.6 %; Neutrophils # (auto) 4.23 K/uL (1.40-6.50); Neutrophils % (auto) 52.5 %; Platelet Count 274 K/uL (130-400); RDW Coefficient of Variation 15.7 % (11.5-14.5); RDW Standard Deviation 46.1 fL (36.4-46.3); Red Blood Count 5.13 M/uL (4.20-5.40); White Blood Count 8.06 K/ul (4.8-10.8)
--- NOTE | 2024-10-05 07:43 | Hospitalist Progress Note ---
<Statement entered by Halle Khan MD - 10/05/24 21:50> Nephrolithiasis has been addressed. Orthostasis and tachycardia unsurprising with this degree of chronic polypharmacy and necessary withdrawal of b-sabina and verapamil. Date of Service October 05, 2024 Assessment & Plan (1) Hydronephrosis with obstructing calculus: Plan: 59-year-old female with significant PMHx for HTN, fibromyalgia, RLS, pre-DM, depression/anxiety, conversion disorder, asthma, reported HFpEF, migraines presented to ER for severe RIGHT sided abdominal pain and is s/p shock wave treatment for stone about a month ago which was successfully for treatment of stone and CTAP obtained on admission which noted RIGHT hydronephrosis with 0.5cm obstructing ureteral stone. Noted she had coded in past with lithotripsy. Urology consulted s/p cystoscopy and stent Dr Estrada 10/01 Ceftriaxone IV daily, repeat UA/cx send following given ongoing discomfort/appearance on AU Flomax/Oxybuytnin trialed but developed increased nausea/dizziness and orthostatic hypotension which is suspected multifactorial in nature (as below) and unfortunately has not been able to tolerate these medications and have not been able to utilize Pain control - VERY SENSITIVE TO MEDS -Toradol discontinued given hematuria, improving and could consider resuming -Dilaudid IV discontinued given adverse effects/mental status -Percocet PO available, increased from 1tablet to 2 for pain but didnt tolerate and had been reduced -Added Tramadol 50mg PO prn today and tolerated, reported pain 86 and can continue Messaged Urology given ongoing discomfort from stent, message back 10% patients report pain worse with stent than stone pain and should remain with stent in place at this time/outpatient follow up to be arranged. PT/OT consulted Urology f/u at [place] planned (2) Orthostatic hypotension: Plan: multifactorial, suspect combinations of meds/diuretics/dehydration from meds/pain contributing, also over treatment for reported CHF (see below) seroquel/psych meds/cardiac medications, Hydroxyzine on hold Flomax stopped as well as oxybuytnin for concerns anticholinergic effects and improvement in UOP since that time Metoprolol being held as outlined, reduced dose as needed for BP control, verapamil remains on hold and plan to dc Lasix 40mg/80mg and spironolactone also remain on hold, does not appear overloaded at this time ?underlying POTs TSH wnl, cortisol level acceptable +orthostatics this morning, 250cc bolus ordered and holding off on addition of olmesartan as planned given such however hopefully able to start in AM 10/06 for BP control and was given amlodipine 5mg PO 10/04 as held off ARB given K5 (improved) BP increased/stable and feeling better this afternoon however HR increased to 110s and metoprolol 25mg PO x 1 ordred and plan daily for now/continued telemetry monitoring. PT/OT consults ordered (3) Bradycardia: Plan: suspected 2nd to metoprolol 100mg BID, verapamil 120mg HS along with her other medications ECHO w/o evidence for HOCM, see cardiology note Thyroid function normal, cortisol wnl HR improved today off anticholinergic medications and increased requiring metoprolol 25mg PO x 1 and will monitor to resume BID if needed tonight/titration as needed but suspect dc verapamil at dc (4) Acute kidney injury: Plan: following 1x dose lasix 40mg PO despite copious IVF on admission. Suspect effects of anticholintergic meds which have been adjusted but also on lasix/spironolactone/olmesartan at baseline which have not been ordered Resolved on labs 10/04 following IVF for hydration No evidence for volume overload and defer any resumption of lasix/spironolactone at this time but considering restarting ARB in AM Could use prn HCTZ/lasix for edema but again do not suspect CHF despite reported hx Avoid nephrotoxins, renal dose meds as able CTX 2gm IV continued and f/u final urine cx following stent placement given appearance on exam/UA but likely can dc in AM BMP in AM (5) Vitamin D deficiency: Plan: ongoing issue, worse on repeat at 13.1 compared to March last year and patient reports had not been compliant Encouraged compliance/continue 50mcg PO daily and rec f/u with PCP for repeat testing as can contribute to stone formation as well as worsened mental health and fatigue/muscle weakness/cramping/etc F/u PCP (6) Atypical chest pain: Plan: at baseline, having event monitor in place, no change from usual cards consulted as above, no CP reported, cannot r/o underlying anxiety contributing. [facility] liaison consulted/f/u in AM (7) (HFpEF) heart failure with preserved ejection fraction: Plan: As above, never had elevated BNP/CXR w/o congestive changes and normal EF/no leg edema today following IVF Unclear if actually had heart failure in the past per discussion with cards on consult She is reporting need for pacemaker/concerns about event monitor -- ensured no indication for that at this time,also confirmed with cards and BB/CCB have been on hold as above and continues on telemetry Management as outlined (8) Iron deficiency: Plan: Venofer IV ordered/will continue for ZANE per iron studies -- can order repeat dose in AM 10/06 (9) Functional neurological symptom disorder (conversion disorder), with abnormal movement: Plan: dx from [facility] 2011, she told me she has "neurological disorder" and tremor at baseline "sometimes" Also w/ hx migraines/depression/anxiety/insomnia/RLS/pre-DM -- on heavy regimen with qulipra, lamictal, mag, riboflavin, buspar, valium, effexor, seroquel, trazodone, zaleplon, hydroxzyzine, requip. mounjaro for weight loss recently SHe has been continued on her usual lacmital, buspar, valium, effexor, seroquel, trazodone, zaleplon however reducing requip 2mg HS as above and hydroxyzine has been stopped for now. --> as above, suspected contributing with cardiac meds for some of symptoms and psych consulted --> [facility] byron sending info to her outpt psychiatrist for review (10) Dizziness: Plan: chronic in nature, suspected multifacotiral as above reported improvement this afternoon following IVF bolus/removal of scopalamine patch and metoprolol/tramadol for pain Monitor repeat orthostatics as needed, telemetry monitoring (11) Constipation: Plan: suspected as discussed w/ patient worsening her pain however reported small hardened BM and wanted to avoid suppository but agreeable today and has been ordered. KUB noted distension but nonobstructive pattern and MOM added/additonal miralax as needed and encouraaged to increase ambulation as able as had done well with therapy today but still using bedside commode in room rather than going to the bathroom in the room Monitor to ensure continued BMs, PO iron on hold/Venofer IV ordered and holding some anticholinergic medications as above which hopefully should help Plan DVT proph: SCDs, ambulation encouraged. No calf tenderness/pulses present. No evidence for DVT. If no further hematuria (much improved) would add SQ in AM Dispo: continued inpatient stay for adjustment in her medications/resumption of BB as needed. Ongoing pain control and will need f/u urology at discharge. They have been notified of patient concerns for ongoing pain from her stent however defer removal at this time and planning for outpatient follow up. Hopefully with addition of tramadol/pain control improvement and resolution in constipation will be much more comfortable Admission and Anticipated Discharge Date Admission Date: October 01, 2024 Subjective Eval this morning, reporting ongoing discomfort to her right flank. Did have bowel movement yesterday but was hard, discussed constipation can contribute to worsening discomfort as well. She reports dizziness after Dilaudid, will discontinue further. Repeat orthostatic VS given resumed olmesartan today for BP. Does not appear significantly dehydrated, does have slightly concentrated yellow urine in bedside commode. BP 122/72 lying, 156/80 sitting up. 117/83 standing. Holding off giving the olmesartan as not provided yet, will 250cc bolus. SHe reports not getting good sleep due to noise from roommate. Discussed adjustment to requip but also suspect contributing to her symptoms but will continue for [facility] liaison to come in after I left and plans on getting consent to discuss case with her usual psychiatrist Dr Hennessy for discussion. ?underlying POTS. Physical Exam 2 Physical Exam: General: 59yo sitting up in bed, NAD but reports discomfort to flank (R), worse today HEENT: head atraumatic, normocephalic, pupils equal/reactive, mm slightly dry Resp: even/unlabored ,no w/c/r, on room air CV: regular, melvina this morning 50-70s but then 110s and down to 70s following 25mg PO metoprolol, no pitting edema, no calf tenderness GI: +BS but slightly more distended, +R flank pain, +palpable stool across upper abdomen/descending colon, no guarding/ridigity : no cage, voiding concentrated yellow urine in bedside commode, +R CVA/flank tenderness, no bruising MSK/Neuro: ambulated halls with therapy, no focal deficits, no slurred speech/facial droop, strength equal bilaterally Psych: alert/oriented, anxious at times, support provided Results & Data Results & Data Vital Signs (Past 12 Hours) Vital Signs Temp Pulse Pulse Resp BP BP Pulse Ox 10/05/24 04:00 36.7 C 77 18 128/73 93 10/04/24 23:00 36.7 C 58 L 18 129/68 92 10/04/24 22:09 55 L 10/04/24 20:00 36.7 C 69 18 156/73 H 93 O2 Del Method 10/05/24 04:00 Room Air 10/04/24 23:00 Room Air 10/04/24 22:09 10/04/24 20:00 Room Air Laboratory Results 10/05/24 06:48 10/05/24 06:48 Mag 2.0 Diagnostic Findings KUB X-Ray 10/05/24 10:18 KUB HISTORY: Acute generalized abdominal pain eval constipation COMPARISON: CT 09/30/2024 FINDINGS: Cholecystectomy. Gaseous distention of the large bowel with moderate fecal retention of the ascending and transverse colon. A right ureteral stent is in place. No renal calculi. 3 mm calcification of the right hemipelvis.. No pneumoperitoneum or pneumatosis. No fracture. IMPRESSION: 1. Nonobstructive bowel gas pattern. 2. Gaseous distention of the large bowel with moderate fecal retention of the ascending and transverse colon. 3. Right ureteral stent in place. ACT 112: Negative or not required by law. The above report was generated using voice recognition software. It may contain grammatical, syntax or spelling errors. Electronically signed by: Jt Browne M.D. 10/05/2024 11:47 AM PG Care Time/CCT Total # of Minutes Spent Total Time Spent with Patient: Total time spent is greater than 50% in coordination of care (as documented) at patient's floor/unit and/or counseling patient: Coding Level of Care Code 72397 SUB INP/OBS CARE 3/50MIN Diagnoses Hydronephrosis with obstructing calculus N13.2 Orthostatic hypotension I95.1 Bradycardia R00.1 Acute kidney injury N17.9 Vitamin D deficiency E55.9 Atypical chest pain R07.89 (HFpEF) heart failure with preserved ejection fraction I50.30 Iron deficiency E61.1 Functional neurological symptom disorder (conversion disorder), with abnormal movement F44.4 Dizziness R42 Constipation K59.00
[2024-10-05 07:48] LABS: BUN Creatinine Ratio 10.8 (10-20); Calcium 8.5 mg/dl (8.6-10.3); Creatinine Clr Calc Pharmacy 85.6 ml/min; Potassium 3.8 mmol/L (3.5-5.1)
[2024-10-05] MEDS: IRON SUCROSE 300 MG in SODIUM CHLORIDE 0.9% 250 ML IV ONE (08:53)
[2024-10-05] MEDS: LOSARTAN POTASSIUM 50 MG TAB PO SCH (10:38)
--- NOTE | 2024-10-05 11:48 | XRay Report ---
KUB HISTORY: Acute generalized abdominal pain eval constipation COMPARISON: CT 09/30/2024 FINDINGS: Cholecystectomy. Gaseous distention of the large bowel with moderate fecal retention of the ascending and transverse colon. A right ureteral stent is in place. No renal calculi. 3 mm calcific ation of the right hemipelvis.. No pneumoperitoneum or pneumatosis. No fracture. IMPRESSION: 1. Nonobstructive bowel gas pattern. 2. Gaseous distention of the large bowel with moderate fecal retention of the ascending and transvers e colon. 3. Right ureteral stent in place. ACT 112: Negative or not required by law. The above report was generated using voice recognition software. It may contain grammatical, syntax o r spelling errors. Electronically signed by: Jt Browne M.D. 10/05/2024 11:47 AM
[2024-10-05] MEDS: SODIUM CHLORIDE 0.9% 250 ML IV ONE (11:59)
[2024-10-05] MEDS: traMADol HCL 50 MG TABLET PO STA ×2 (14:22)
[2024-10-05] MEDS: traMADol HCL 50 MG TABLET PO PRN (14:25)
[2024-10-05] MEDS: METOPROLOL SUCC 25MG EXT REL TAB PO SCH (14:43)
--- NOTE | 2024-10-05 18:30 | Cardiology Progress Note ---
Date of Service October 05, 2024 Assessment & Plan (1) Bradycardia: (2) Orthostatic hypotension: (3) (HFpEF) heart failure with preserved ejection fraction: (4) Atypical chest pain: (5) Palpitations: Plan ASSESSMENT/PLAN: 1. Sinus bradycardia: Verapamil and metoprolol were held. Would discontinue verapamil. Rate increased today and currently well-controlled with low-dose metoprolol which was given in the afternoon by hospitalist service. Can resume metoprolol at 25 or 50 mg daily and adjust as necessary. Ropinirole could be playing a role, but she states that she needs that medication. Pacemaker is not necessary. 2. Orthostatic hypotension: Orthostatic on 10/03/2024. Would hold any further diuretic. She does not appear to be hypervolemic. High dose metoprolol has been discontinued. Verapamil discontinued. ARB has been on hold. Last dose of Lasix was 40 mg on 10/02/2024. Received fluids from the hospitalist service. Encouraged hydration. Still reports some orthostatic symptoms however she is now hypertensive. 3. Heart failure with preserved EF: Chronic issue per records. Normal LV systolic function and diastolic function on 10/04/2024 echo. BNP normal in 2021, 2022, and 2023. Had been using Lasix 40 mg, alternating with 80 mg. She is not hypervolemic currently. Heart failure diagnosis unclear. She has been reassured. Plan as above. 4. Chest pain: Chronic issue. Symptoms can last for 90 minutes. Not likely cardiac in nature. Ischemic evaluation not necessary. 5. Palpitations: Chronic issue and also noted in prior [facility] outpatient cardiology notes. She has had several different monitors in place and currently wearing a monitor for [facility] cardiology. No specific etiology for her palpitations have been documented. She notes her heart beating today after it increased in rate. Resuming low-dose beta-sabina as above. 6. Hypertension: Blood pressure hypertensive. Once again, can resume ARB therapy and titrate as necessary. If further blood pressure control is necessary, can initiate amlodipine in place of her previous verapamil. 7. Disposition: Cardiology will and off. Call with any further questions or concerns. Patient care and recommendations were communicated with primary hospitalist, Arianna Murphy PA-C. Admission and Anticipated Discharge Date Admission Date: October 01, 2024 Subjective Patient seen earlier this evening. She denies chest pain, shortness of breath, syncope. She states that she had palpitations but not as severe she has had in the past. She states that her right flank pain is as bad as it has been. Her heart rate increased today and she received metoprolol succinate this afternoon, 25 mg. She was unaccompanied. Physical Exam Physical Exam: Gen.: No acute distress. Alert. HEENT: Anicteric sclera. Neck: Thick neck. Cardiac: Regular. Normal S1-S2. No murmurs, rubs, or gallops. Pulmonary: Clear to auscultation bilaterally without wheezes, rales, or rhonchi. Abdomen: Soft, nondistended, with normoactive bowel sounds. No bruits noted. Ri ght flank tenderness. Extremities: 2+ radial pulses bilaterally. 2+ posterior tibialis pulses bilaterally. No edema or cyanosis. Results & Data Vital Signs (Past 12 Hours) Vital Signs Temp Pulse Pulse Resp BP Pulse Ox O2 Del Method 10/05/24 15:58 36.7 C 102 H 20 161/80 H 92 Room Air 10/05/24 14:00 105 H 10/05/24 11:34 36.8 C 64 18 162/70 H 91 Room Air 10/05/24 08:36 36.6 C 61 18 154/75 H 95 Room Air 10/05/24 07:30 58 L Laboratory Results Laboratory Results - last 24 hr 10/04/24 10/05/24 10/05/24 20:45 06:48 08:07 WBC 8.06 RBC 5.13 Hgb 13.3 Hct 41.7 MCV 81.3 MCH 25.9 MCHC 31.9 L RDW Std Deviation 46.1 RDW Coeff of Nasima 15.7 H Plt Count 274 MPV 9.6 Immature Gran % (Auto) 0.7 Neut % (Auto) 52.5 Lymph % (Auto) 31.3 Wharton % (Auto) 8.6 Eos % (Auto) 6.2 Baso % (Auto) 0.7 Neut # (Auto) 4.23 Lymph # (Auto) 2.52 Wharton # (Auto) 0.69 H Eos # (Auto) 0.50 Baso # (Auto) 0.06 Immature Gran # (Auto) 0.06 Sodium 141 Potassium 3.8 D Chloride 105 Carbon Dioxide 30 Anion Gap 6 BUN 10 Creatinine 0.93 Est Cr Clr Drug Dosing 85.6 eGFR 71.69 BUN/Creatinine Ratio 10.8 Glucose 85 POC Glucose 94 82 Calcium 8.5 L 10/05/24 10/05/24 12:07 17:01 WBC RBC Hgb Hct MCV MCH MCHC RDW Std Deviation RDW Coeff of Nasima Plt Count MPV Immature Gran % (Auto) Neut % (Auto) Lymph % (Auto) Wharton % (Auto) Eos % (Auto) Baso % (Auto) Neut # (Auto) Lymph # (Auto) Wharton # (Auto) Eos # (Auto) Baso # (Auto) Immature Gran # (Auto) Sodium Potassium Chloride Carbon Dioxide Anion Gap BUN Creatinine Est Cr Clr Drug Dosing eGFR BUN/Creatinine Ratio Glucose POC Glucose 88 90 Calcium Diagnostic Findings Telemetry personally reviewed: This morning, her heart rate was 50s to 70s and in sinus. Her heart rate was in the 80s earlier this evening on telemetry. No arrhythmia noted. Labs reviewed from 10/05/2024: Normal potassium, normal renal function, normal blood counts. Medications Administered Current Inpatient Medications Acetaminophen (Acetaminophen 500 Mg Tab) 1,000 mg PO Q8H PRN PRN Reason: Pain & Pre PT Stop: 10/31/24 01:26 Last Admin: 10/05/24 08:49 Dose: 1,000 mg Albuterol (Albuterol Hfa 8 Gm Inhaler) 2 puffs INH Q4 PRN PRN Reason: Shortness Of Breath Or Wheezing Stop: 10/31/24 02:23 Azelastine HCl (Azelastine Hcl 0.1% Nasal 200 Sprays/27,400 Mcg Btl) 2 sprays NA DAILY [facility] Stop: 10/31/24 08:59 Last Admin: 10/05/24 08:50 Dose: 2 sprays Bisacodyl (Bisacodyl 10 Mg Supp) 10 mg ME DAILY PRN PRN Reason: Constipation Stop: 11/03/24 10:17 Last Admin: 10/05/24 14:26 Dose: 10 mg Buspirone HCl (Buspirone 5 Mg Tab) 10 mg PO BID [facility] Stop: 10/31/24 08:59 Last Admin: 10/05/24 08:52 Dose: 10 mg Cyanocobalamin (Cyanocobalamin (B-12) 500 Mcg Tablet) 1,000 mcg PO QAM [facility] Stop: 10/31/24 08:59 Last Admin: 10/05/24 08:52 Dose: 1,000 mcg Cyclobenzaprine HCl (Cyclobenzaprine Hcl 10 Mg Tab) 5 mg PO BID PRN PRN Reason: muscle spasm Stop: 10/31/24 02:23 Last Admin: 10/04/24 19:30 Dose: 5 mg Diazepam (Diazepam 5 Mg Tablet) 5 - 10 mg PO BID PRN PRN Reason: Panic Attack(S) Stop: 10/31/24 02:23 Last Admin: 10/04/24 16:14 Dose: 5 mg Docusate Sodium (Docusate Sodium 100 Mg Cap) 100 mg PO BID [facility] Stop: 10/31/24 10:59 Last Admin: 10/05/24 08:49 Dose: 100 mg Famotidine (Famotidine 40 Mg Tablet) 40 mg PO [facility] Stop: 10/31/24 20:59 Last Admin: 10/04/24 20:48 Dose: 40 mg Fluticasone Propionate (Fluticasone Propionate Na Spr 16 Gm Btl) 2 sprays NA [facility] Stop: 10/31/24 20:59 Last Admin: 10/04/24 20:48 Dose: 2 sprays Ceftriaxone Sodium (Rocephin) 2,000 mg in 50 mls @ 100 mls/hr IV Q24H [facility] Stop: 10/11/24 01:29 Last Infusion: 10/05/24 01:38 Dose: Infused Lamotrigine (Lamotrigine 100 Mg Tab) 200 mg PO BID [facility]; Protocol Stop: 10/31/24 08:59 Last Admin: 10/05/24 08:52 Dose: 200 mg Losartan Potassium (Losartan Potassium 50 Mg Tab) [facility] Stop: 11/04/24 08:59 Last Admin: 10/05/24 10:38 Dose: Not Given Magnesium Hydroxide (Magnesium Hydroxide Susp 30 Ml Udc) 30 ml PO Q6H PRN PRN Reason: Constipation Stop: 11/04/24 16:23 Metoprolol Succinate (Metoprolol Succ 50mg Ext Rel Tab) 100 mg PO BID [facility] Stop: 10/31/24 08:59 Last Admin: 10/03/24 08:21 Dose: Not Given Metoprolol Succinate (Metoprolol Succ 25mg Ext Rel Tab) [facility] Stop: 11/04/24 14:19 Last Admin: 10/05/24 14:43 Dose: 25 mg Miscellaneous (Qlipta~Order Awaiting Action) 1 each N/A QS [facility] Stop: 10/31/24 07:59 Last Admin: 10/05/24 14:25 Dose: Not Given Miscellaneous (Zaleplon~Order Awaiting Action) 1 each N/A QS [facility] Stop: 10/31/24 07:59 Last Admin: 10/05/24 14:26 Dose: Not Given Naloxone HCl (Naloxone Hcl 0.4 Mg/1 Ml Vial/Carp) 0.1 mg IV Q5M PRN PRN Reason: Oversedation/Resp Depression Stop: 10/31/24 10:53 Ondansetron HCl (Ondansetron Inj 2 Mg/Ml 2 Ml Vial) 4 mg IV Q4H PRN PRN Reason: Nausea Stop: 10/31/24 01:26 Last Admin: 10/01/24 14:53 Dose: 4 mg Oxycodone/Acetaminophen (Oxycodone/Acetaminophen 5mg/325mg Tab) 1 tab PO Q4H PRN PRN Reason: moderate to severe pain Stop: 10/16/24 10:43 Last Admin: 10/05/24 05:52 Dose: 1 tab Pantoprazole Sodium (Pantoprazole 40 Mg Tab) 40 mg PO BID [facility] Stop: 10/31/24 08:59 Last Admin: 10/05/24 08:52 Dose: 40 mg Phenazopyridine HCl (Phenazopyridine Hcl 100 Mg Tab) 100 mg PO BID PRN PRN Reason: bladder spasm Stop: 11/01/24 10:43 Last Admin: 10/05/24 08:51 Dose: 100 mg Polyethylene Glycol (Polyethylene (Miralax) 17 Gm Pack) 17 gm PO BID [facility] Stop: 11/02/24 20:59 Last Admin: 10/05/24 08:49 Dose: 17 gm Quetiapine Fumarate (Quetiapine Fumarate 100 Mg Tablet) 100 mg PO [facility] Stop: 10/31/24 20:59 Last Admin: 10/04/24 20:48 Dose: 100 mg Ropinirole HCl (Ropinirole Hcl 2 Mg Tablet) 2 mg PO [facility] Stop: 11/03/24 20:59 Sennosides (Senna 8.6 Mg Tab) 17.2 mg PO HS TIA Stop: 11/02/24 20:59 Last Admin: 10/04/24 20:48 Dose: 17.2 mg Tramadol HCl (Tramadol Hcl 50 Mg Tablet) 50 mg PO Q4H PRN PRN Reason: Pain Stop: 11/04/24 13:57 Last Admin: 10/05/24 14:25 Dose: 50 mg Trazodone HCl (Trazodone Hcl 100 Mg Tab) 100 mg PO HS TIA Stop: 10/31/24 20:59 Last Admin: 10/04/24 20:47 Dose: 100 mg Venlafaxine HCl (Venlafaxine Hcl Xr 150 Mg Capxr) 150 mg PO QAM [facility] Stop: 10/31/24 08:59 Last Admin: 10/05/24 08:52 Dose: 150 mg Venlafaxine HCl (Venlafaxine Hcl Xr 75 Mg Capxr) 75 mg PO QAM [facility] Stop: 10/31/24 08:59 Last Admin: 10/05/24 08:53 Dose: 75 mg Vitamin D (Cholecalciferol 25 Mcg (1000 Units) Tab) 50 mcg PO QAM [facility]IA Stop: 11/05/24 08:59 PG Care Time/CCT Total # of Minutes Spent Total Time Spent with Patient: Total time spent is greater than 50% in coordination of care (as documented) at patient's floor/unit and/or counseling patient: Coding Level of Care Code 18691 SUB INP/OBS CARE 3/50MIN Diagnoses Bradycardia R00.1 Orthostatic hypotension I95.1 (HFpEF) heart failure with preserved ejection fraction I50.30 Atypical chest pain R07.89 Palpitations R00.2
[2024-10-05] MEDS: MAGNESIUM HYDROXIDE SUSP 30 ML UDC PO PRN (20:17)
[2024-10-05] MEDS: rOPINIRole HCL 2 MG TABLET PO SCH (20:28)
[2024-10-06] MEDS: CHOLECALCIFEROL 25 MCG (1000 UNITS) TAB PO SCH (08:18)
[2024-10-06 08:51] LABS: Calcium 9.5 mg/dl (8.6-10.3); Creatinine Clr Calc Pharmacy 79.5 ml/min; Magnesium 2.2 mg/dl (1.7-2.4); Potassium 4.2 mmol/L (3.5-5.1)
[2024-10-06] MEDS: IRON SUCROSE 300 MG in SODIUM CHLORIDE 0.9% 250 ML IV ONE (10:08)
--- NOTE | 2024-10-06 19:33 | Hospitalist Progress Note ---
Date of Service October 06, 2024 Assessment & Plan (1) Hydronephrosis with obstructing calculus: Plan: 59-year-old female with significant PMHx for HTN, fibromyalgia, RLS, pre-DM, depression/anxiety, conversion disorder, asthma, reported HFpEF, migraines presented to ER for severe RIGHT sided abdominal pain and is s/p shock wave treatment for stone about a month ago which was successfully for treatment of stone and CTAP obtained on admission which noted RIGHT hydronephrosis with 0.5cm obstructing ureteral stone. Noted she had coded in past with lithotripsy. Urology consulted, s/p cystoscopy and stent Dr Estrada 10/01. Patient should remain with stent in place until outpatient follow-up Flomax/Oxybuytnin trialed but developed increased nausea/dizziness and orthostatic hypotension which is suspected multifactorial in nature (as below) and unfortunately has not been able to tolerate these medications and have not been able to utilize Received ceftriaxone x 5 days. Repeat urine culture grew Malathi albicans and patient reports symptoms of yeast infection --started fluconazole 200 mg daily x 14 days Pain control - VERY SENSITIVE TO MEDS -Toradol discontinued given hematuria, improving and could consider resuming -Dilaudid IV discontinued given adverse effects/mental status -Percocet PO available, increased from 1tablet to 2 for pain but didnt tolerate and had been reduced -Added Tramadol 50mg PO prn -[facility] -PT/OT consulted (2) Orthostatic hypotension: Plan: multifactorial, suspect combinations of meds/diuretics/dehydration from meds/pain contributing, also over treatment for reported CHF (see below) seroquel/psych meds/cardiac medications, Hydroxyzine on hold Flomax stopped as well as oxybuytnin for concerns anticholinergic effects and improvement in UOP since that time Metoprolol being held as outlined, reduced dose as needed for BP control, verapamil remains on hold and plan to dc Lasix 40mg/80mg and spironolactone also remain on hold, does not appear overloaded at this time ?underlying POTs TSH wnl, cortisol level acceptable Positive orthostatics previously during hospital stay, however not currently an issue Resumed losartan (3) Bradycardia: Plan: suspected 2nd to metoprolol 100mg BID, verapamil 120mg HS along with her other medications ECHO w/o evidence for HOCM, see cardiology note Thyroid function normal, cortisol wnl For optimal discontinue Metoprolol 25 mg daily started with much improvement in heart rate (4) Acute kidney injury: Plan: following 1x dose lasix 40mg PO despite copious IVF on admission. Suspect effects of anticholintergic meds which have been adjusted but also on las ix/spironolactone/olmesartan at baseline which have not been ordered Resolved on labs 10/04 following IVF for hydration No evidence for volume overload and defer any resumption of lasix/spironolactone at this time Resumed losartan Could use prn HCTZ/lasix for edema but again do not suspect CHF despite reported hx Avoid nephrotoxins, renal dose meds as able (5) Vitamin D deficiency: Plan: ongoing issue, worse on repeat at . compared to March last year and patient reports had not been compliant Encouraged compliance/continue 50mcg PO daily and rec f/u with PCP for repeat testing as can contribute to stone formation as well as worsened mental health and fatigue/muscle weakness/cramping/etc F/u PCP (6) Atypical chest pain: Plan: at baseline, having event monitor in place, no change from usual cards consulted as above, no CP reported, cannot r/o underlying anxiety contributing (7) (HFpEF) heart failure with preserved ejection fraction: Plan: As above, never had elevated BNP/CXR w/o congestive changes and normal EF/no leg edema today following IVF Unclear if actually had heart failure in the past per discussion with cards on consult She is reporting need for pacemaker/concerns about event monitor -- ensured no indication for that at this time,also confirmed with cards and BB/CCB have been on hold as above and continues on telemetry Management as outlined (8) Iron deficiency: Plan: Venofer IV ordered/will continue for ZANE per iron studies (9) Functional neurological symptom disorder (conversion disorder), with abnormal movement: Plan: dx from [facility] 2011, she told me she has "neurological disorder" and tremor at baseline "sometimes" Also w/ hx migraines/depression/anxiety/insomnia/RLS/pre-DM -- on heavy regimen with qulipra, lamictal, mag, riboflavin, buspar, valium, effexor, seroquel, trazodone, zaleplon, hydroxzyzine, requip. mounjaro for weight loss recently SHe has been continued on her usual lacmital, buspar, valium, effexor, seroquel, trazodone, zaleplon however reducing requip 2mg HS as above and hydroxyzine has been stopped for now. --> as above, suspected contributing with cardiac meds for some of symptoms and psych consulted --> [facility] [place] liason sending info to her outpt psychiatrist for review (10) Dizziness: Plan: chronic in nature, suspected multifacotiral as above reported improvement this afternoon following IVF bolus/removal of scopalamine patch and metoprolol/tramadol for pain Monitor repeat orthostatics as needed, telemetry monitoring (11) Constipation: Plan: KUB noted distension but nonobstructive pattern and MOM added/additional miralax as needed and encouraged to increase ambulation as able Monitor to ensure continued BMs PO iron on hold/Venofer IV ordered and holding some anticholinergic medications as above which hopefully should help Plan Started fluconazole Discontinued ceftriaxone DVT proph: SCDs, ambulation encouraged. No calf tenderness/pulses present. No evidence for DVT. If no further hematuria (much improved) would add SQ in AM Dispo: continued inpatient stay for adjustment in her medications/resumption of BB as needed. Ongoing pain control and will need f/u urology at discharge. They have been notified of patient concerns for ongoing pain from her stent however defer removal at this time and planning for outpatient follow up. Hopefully with addition of tramadol/pain control improvement and resolution in constipation will be much more comfortable Admission and Anticipated Discharge Date Admission Date: October 01, 2024 Supervising Physician Co-Signing Physician Notes Attending Attestation - Chart reviewed, care plan d/w DENY Garnica. I agree w/ the vilal components of her documentation. Jim Mckeon MD Subjective Patient seen and evaluated at bedside. She reports ongoing right flank pain and dizziness. She reports that this dizziness is chronic. After further discussion, it sounds more like lightheadedness versus true dizziness (i.e. room spinning around). She reports that she did not sleep last night due to her Requip being held. She also states that she believes she has a yeast infection. No additional complaints or concerns at this time. Physical Exam Physical Exam: General: No acute distress, nondiaphoretic, well-developed, well-nourished. Anxious at times. Cardiac: Regular rate and rhythm without murmurs gallops or rubs. Pulm: Clear to auscultation bilaterally without wheezes, rales or rhonchi. No respiratory distress. 93% on room air. Abdominal: Soft, nondistended. Bowel sounds present. Positive right flank pain. Neuro: A&O x3. No focal neurological deficits. Results & Data Results & Data Vital Signs (Past 12 Hours) Vital Signs Temp Pulse Pulse Resp BP Pulse Ox O2 Del Method 10/06/24 15:46 98.4 F 72 20 128/84 93 Room Air 10/06/24 14:21 68 10/06/24 11:27 98.1 F 86 18 145/75 H 93 Room Air 10/06/24 08:09 97.7 F 77 18 136/71 91 Room Air Laboratory Results Reviewed BMP/mag Reviewed urine culture PG Care Time/CCT Total # of Minutes Spent Total Time Spent with Patient: Total time spent is greater than 50% in coordination of care (as documented) at patient's floor/unit and/or counseling patient: Coding Level of Care Code 81112 SUB INP/OBS CARE 3/50MIN Diagnoses Hydronephrosis with obstructing calculus N13.2 Orthostatic hypotension I95.1 Bradycardia R00.1 Acute kidney injury N17.9 Vitamin D deficiency E55.9 Atypical chest pain R07.89 (HFpEF) heart failure with preserved ejection fraction I50.30 Iron deficiency E61.1 Functional neurological symptom disorder (conversion disorder), with abnormal movement F44.4 Dizziness R42 Constipation K59.00
[2024-10-06] MEDS: FLUCONAZOLE 50 MG TAB PO ONE (20:00)
[2024-10-06] MEDS: FLUCONAZOLE 100 MG TAB PO SCH (20:42)
[2024-10-07 07:06] LABS: Anion Gap 6 (3-11); BUN Creatinine Ratio 11.4 (10-20); Blood Urea Nitrogen 12 mg/dl (6-23); Calcium 9.1 mg/dl (8.6-10.3); Carbon Dioxide 29 mmol/L (21-32); Chloride 106 mmol/L (98-107); Creatinine Clr Calc Pharmacy 78.4 ml/min; Glucose 86 mg/dl (70-99(Fasting)); Sodium 141 mmol/L (136-145)
--- NOTE | 2024-10-07 18:44 | Hospitalist Progress Note ---
Date of Service October 07, 2024 Assessment & Plan (1) Hydronephrosis with obstructing calculus: Plan: 59-year-old female with significant PMHx for HTN, fibromyalgia, RLS, pre-DM, depression/anxiety, conversion disorder, asthma, reported HFpEF, migraines presented to ER for severe RIGHT sided abdominal pain and is s/p shock wave treatment for stone about a month ago which was successfully for treatment of stone and CTAP obtained on admission which noted RIGHT hydronephrosis with 0.5cm obstructing ureteral stone. Noted she had coded in past with lithotripsy. Urology consulted, s/p cystoscopy and stent Dr Estrada 10/01. Patient should remain with stent in place until outpatient follow-up - Flomax/oxybutynin not tolerated due to orthostatic hypotension, nausea, dizziness - Received ceftriaxone x 5 days. Repeat urine culture grew Malathi albicans and patient reports symptoms of yeast infection - Continue fluconazole 200 mg daily x 14 days - Pain control: tramadol 50 mg PO Q4H PRN pain, Percocet 1 tab PO Q4H PRN mod- severe pain (2) Orthostatic hypotension: Plan: Likely multifactorial from combination of medications, overdiuresis, pain - Hydroxyzine, Lasix, spironolactone on hold - Verapamil discontinued, metoprolol decreased - Resumed losartan - TSH wnl, cortisol level acceptable - NOW RESOLVED - Subjective dizziness remains. Patient says this has been chronic x many years. F/u with PCP for further workup/management (3) Bradycardia: Plan: Suspected 2nd to home doses of metoprolol 100mg BID, verapamil 120mg HS along with her other medications - Echo w/o evidence for HOCM, see cardiology note - Thyroid function normal, cortisol wnl - Metoprolol decreased to 25 mg daily and verapamil discontinued with much improvement in heart rate, blood pressure stable - Atypical chest pain at baseline. Patient has had multiple event monitors that are unremarkable. Cardiology consulted and signed off. Cannot rule out underlying anxiety contributing (4) Acute kidney injury: Plan: Creatinine mildly elevated at 1.34 on 10/03, suspect due to anticholinergic meds that were adjusted - Resolved - Lasix and spironolactone remain on hold, no evidence for volume overload - Resumed losartan, creatinine remained stable - Could use PRN HCTZ/Lasix for edema but again do not suspect CHF despite reported hx (5) (HFpEF) heart failure with preserved ejection fraction: Plan: No history of elevated BNP, normal EF, chest x-ray without congestive changes, no peripheral edema - Unclear if actually had heart failure in the past per discussion with cardiology - She is reporting need for pacemaker/concerns about event monitor -- ensured no indication for that at this time (6) Functional neurological symptom disorder (conversion disorder), with abnormal movement: Plan: Diagnosis from [facility] 2011, she told me she has "neurological disorder" and tremor at baseline "sometimes". Also w/ hx migraine s/depression/anxiety/insomnia/RLS/pre-DM - On extensive home regimen with qulipra, lamictal, mag, riboflavin, buspar, valium, effexor, seroquel, trazodone, zaleplon, hydroxzyzine, requip. mounjaro for weight loss recently - She has been continued on her usual lacmital, buspar, valium, effexor, seroquel, trazodone, zaleplon - REDUCED Requip to 2mg HS (previously on 5 mg) and DISCONTINUED Hydroxyzine (7) Constipation: Plan: KUB noted distension but nonobstructive pattern - Continue milk of magnesia and MiraLAX as needed, encouraged to increase ambulation as able - No further problems with constipation Plan Chronic stable problems: Vitamin D deficiency: continue Vit D3 50mcg PO daily Iron deficiency: Completed 5 doses of IV Venofer during this hospital stay DVT proph: SCDs, ambulation encouraged CODE STATUS: Full code Dispo: Anticipate discharge home 10/08/2024 Admission and Anticipated Discharge Date Admission Date: October 01, 2024 Subjective Patient seen and evaluated in bedside chair. She reports that her right flank pain is significantly more controlled currently. Her dizziness persists, she today she describes more of a room spinning around her sensation. She reports this is chronic times many years. She reports meclizine, supportive measures do not change her dizziness at all. We discussed possible discharge today, and she feels strong enough/pain well-controlled enough to return home. She plans to go to her parents house for short period while recovering. She states her father is her ride home and he has appointments today, so asked for discharge to be tomorrow, 10/08/2024. Physical Exam Physical Exam: General: No acute distress, nondiaphoretic, well-developed, well-nourished. Anxious at times. Cardiac: Regular rate and rhythm without murmurs gallops or rubs. Pulm: Clear to auscultation bilaterally without wheezes, rales or rhonchi. No respiratory distress. 95% on room air. Abdominal: Soft, nondistended, nontender. Bowel sounds present. Improving right flank pain. Neuro: A&O x3. No focal neurological deficits. Results & Data Results & Data Vital Signs (Past 12 Hours) Vital Signs Temp Pulse Pulse Resp BP Pulse Ox O2 Del Method 10/07/24 15:25 98.1 F 74 16 152/60 H 95 Room Air 10/07/24 14:34 72 10/07/24 14:24 77 147/71 H 90 Room Air 10/07/24 07:55 98.1 F 79 16 195/78 H 97 Room Air 10/07/24 07:00 67 Laboratory Results Reviewed BMP PG Care Time/CCT Total # of Minutes Spent Total Time Spent with Patient: Total time spent is greater than 50% in coordination of care (as documented) at patient's floor/unit and/or counseling patient: Coding Level of Care Code 34956 SUB INP/OBS CARE 2/35MIN Diagnoses Hydronephrosis with obstructing calculus N13.2 Orthostatic hypotension I95.1 Bradycardia R00.1 Acute kidney injury N17.9 (HFpEF) heart failure with preserved ejection fraction I50.30 Functional neurological symptom disorder (conversion disorder), with abnormal movement F44.4 Constipation K59.00
[2024-10-07 23:30] VITALS: O2SAT 93
[2024-10-08 04:16] VITALS: TEMP 97.9
[2024-10-08 07:50] VITALS: PULSE 70; RESP 20
[2024-10-08 15:00] VITALS: BP 129/68
--- NOTE | 2024-10-08 16:38 | Discharge Summary ---
Discharge Summary Date of Service October 08, 2024 Principal Dx & Hospital Course #1 = Principal Diagnosis (1) Hydronephrosis with obstructing calculus: 59-year-old female with significant PMHx for HTN, fibromyalgia, RLS, pre-DM, depression/anxiety, conversion disorder, asthma, reported HFpEF, migraines presented to ER for severe RIGHT sided abdominal pain and is s/p shock wave treatment for stone about a month ago which was successful for treatment of stone and CTAP obtained on admission which noted RIGHT hydronephrosis with 0.5cm obstructing ureteral stone. Of note, patient has had a lithotripsy in the past in which she coded during the procedure. Urology consulted, s/p cystoscopy and stent Dr Estrada 10/01. Patient should remain with stent in place until outpatient follow-up - Flomax/oxybutynin not tolerated due to orthostatic hypotension, nausea, dizziness - Received ceftriaxone x 5 days. Repeat urine culture grew Malathi albicans and patient reports symptoms of yeast infection - Continue fluconazole 200 mg daily x 14 days - Pain control: tramadol 50 mg PO Q4H PRN pain, Percocet 1 tab PO Q4H PRN mod- severe pain (2) Orthostatic hypotension: Likely multifactorial from combination of medications, overdiuresis, pain - Lasix, spironolactone on HOLD until PCP follow-up appointment - Verapamil, hydroxyzine DISCONTINUED - Resumed losartan; metoprolol DECREASED - TSH wnl, cortisol level acceptable - NOW RESOLVED - Subjective dizziness remains. Patient says this has been chronic x many years. F/u with PCP for further workup/management (3) Bradycardia: Suspected 2nd to home doses of metoprolol 100mg BID, verapamil 120mg HS along with her other medications - Echo w/o evidence for HOCM, see cardiology note - Thyroid function normal, cortisol wnl - Metoprolol decreased to 25 mg daily and verapamil discontinued with much improvement in heart rate, blood pressure stable - Atypical chest pain at baseline. Patient has had multiple event monitors that are unremarkable. Cardiology consulted and signed off. Cannot rule out underlying anxiety contributing (4) Acute kidney injury: Creatinine mildly elevated at 1.34 on 10/03, suspect due to anticholinergic meds that were adjusted - Resolved - Lasix and spironolactone remain on hold, no evidence for volume overload - Resumed losartan, creatinine remained stable - Could use PRN HCTZ/Lasix for edema but again do not suspect CHF despite reported hx (5) (HFpEF) heart failure with preserved ejection fraction: No history of elevated BNP, normal EF, chest x-ray without congestive changes, no peripheral edema - Unclear if actually had heart failure in the past per discussion with cardiology - She is reporting need for pacemaker/concerns about event monitor -- ensured no indication for that at this time (6) Functional neurological symptom disorder (conversion disorder), with abnormal movement: Diagnosis from [facility] 2012, she told me she has "neurological disorder" and tremor at baseline "sometimes". Also w/ hx migraines/depression/anxiety/insomnia/RLS/pre-DM - On extensive home regimen with qulipra, lamictal, mag, riboflavin, buspar, valium, effexor, seroquel, trazodone, zaleplon, hydroxzyzine, requip. mounjaro for weight loss recently - She has been continued on her usual lacmital, buspar, valium, effexor, seroquel, trazodone, zaleplon - REDUCED Requip to 2mg HS (previously on 5 mg) and DISCONTINUED Hydroxyzine (7) Constipation: KUB noted distension but nonobstructive pattern - Continue milk of magnesia and MiraLAX as needed, encouraged to increase ambulation as able - No further problems with constipation Plan Chronic stable problems: Vitamin D deficiency: continue Vit D3 50mcg PO daily Iron deficiency: Completed 5 doses of IV Venofer during this hospital stay DVT proph: SCDs, ambulation encouraged CODE STATUS: Full code Dispo: Anticipate discharge home 10/08/2024 Notes For Next Care Provider Patient was admitted due to right-sided nephrolithiasis with hydronephrosis, s/p stent placement on 10/01/[address] Estrada. Hospitalization extended due to ongoing problems with medications. Many medication changes made and recommend further medication reconciliation with PCP in outpatient setting. Medication Changes From Visit The following medications were ADJUSTED: * Metoprolol decreased to 25 mg daily. Previously taking 100 mg daily * Requip decreased to 2 mg at bedtime. Previously taking 5 mg at bedtime The following medications were STARTED: * Losartan 50 mg daily The following medications were DISCONTINUED: * Hydroxyzine 50-100 mg HS * Verapamil 120 mg HS * Olmesartan 40 mg daily The following medications were HELD until PCP follow-up appointment: * Lasix 40-80 mg every other day * Spironolactone 25 mg daily Admission HPI Per Admitting Provider 59-year-old female PMHx hypothyroidism, HTN, asthma, fibromyalgia, CKD stage III, IBS, prediabetes, RLS, depression and anxiety, conversion disorder, HFpEF, and migraine presenting to ED with severe right-sided pain that radiates towards the umbilical region. Patient was sent in by urology as she is s/p lithotripsy (~ 1 month ago) on R side which was unsuccessful, and has been unable to pass renal calculi. Pt states that the abdominal/flank pain started around 1730 the day of arrival, and by 1800 had significantly worsened. States that it was a sudden and severe worsening of pain, rating it a 9/10 on the pain scale at its worse. Localized to the RLQ/flank. Pt states that she was unable to alleviate the pain, so she called her urologist for advice and decided to come to the hospital to be evaluated. Has had some nausea but without vomiting, and admits to feeling that she may have had chills but no fevers. On CTAP mild R hydronephrosis with obstructive uropathy secondary to a 0.5 cm mid R ureteral calculus was identified. UA revealed no signs of infection but did have presence of ketones, calcium oxalate crystals, and hyaline cast. No evidence of GAMAL at the time of admission. She does have a mildly elevated leukocytosis (11.6). Significant history of renal calculi requiring urological interventions to pass, and has been unable to spontaneously pass a stone before. Overall, denies chest pain, shortness of breath, palpitations, diarrhea/constipation, numbness/tingling, fever, headache, or LUTS. Patient did not take her medications the day of arrival. Please see Dr. Erwin's attestation for adjustments/additions to treatment plan. Discharge Exam General: No acute distress, nondiaphoretic, well-developed, well-nourished. Anxious at times. Cardiac: Regular rate and rhythm without murmurs gallops or rubs. Pulm: Clear to auscultation bilaterally without wheezes, rales or rhonchi. No respiratory distress. 95% on room air. Abdominal: Soft, nondistended, nontender. Bowel sounds present. Improving right flank pain. Neuro: A&O x3. No focal neurological deficits. Discharge Plan Discharge Items Patient Disposition: Home - Home Health Services Reason For Visit: HYDRO, R OBSTRUCTING STONE Discharge Diagnosis: Nephrolithiasis s/p stent placement, orthostatic hypotension, constipation Condition on Discharge: Good Activity: Resume your previous activity Non-emergency contact: Primary Care Provider Call non-emergency contact if: you have any medication questions and your symptoms worsen Follow-up/Referrals: Angelina Donohue MD [Primary Care Provider] - 10/15/24 3:00 pm () Murray Pacheco MD [Physician] - (Follow-up as directed. Please call Dr. Pacheco's office if you do not hear from them within a few days.) Diet: Heart Healthy Addtl Attending Provider Instructions: Sofi, You were admitted to the hospital a right sided kidney stone with hydronephrosis (swelling of your kidney). You had a cystoscopy and stent placement with Dr. Estrada on 10/01/2024. He received 5 days of IV ceftriaxone (antibiotic), so no further antibiotics are needed. You do have a yeast infection currently, which you are being treated for and will continue to treat at home. Additionally, you had some orthostatic hypotension, which was likely multifactorial from combination of medications and pain. There have been medication adjustments and your blood pressure and heart rate have improved. Your prescriptions have been sent to [facility] pharmacy on [facility] Upon discharge from the hospital: * Take fluconazole 200 mg daily through 10/20/2023. This is to treat your yeast infection. * Pain regimen: Take tramadol 50 mg every 4 hours as needed for moderate pain. Take Percocet 1 tab every 4 hours as needed for severe pain. Do not drive or operate heavy machinery while taking Percocet as it is a narcotic pain medication. * Follow-up with urology as directed. * Follow-up with your PCP in 1 week. > MED CHANGES: * Your Metoprolol was DECREASED to 25 mg daily. You were previously taking 100 mg daily. Your heart rate is much improved on this dose. * Start Losartan 50 mg daily. This REPLACES your Olmesartan 40 mg daily. Your blood pressure is much improved on this dose. * Your dose of Requip has been REDUCED to 2 mg at bedtime. You were previously taking 5 mg. * HOLD THE FOLLOWING MEDICINE UNTIL YOUR PCP FOLLOW-UP APPOINTMENT: Lasix 40-80 mg every other day, Spironolactone 25 mg daily * The following medicines have been DISCONTINUED: Hydroxyzine, verapamil While you have a ureteral stent in place: Some discomfort is normal. Certain movements may trigger pain or a feeling that you need to urinate. You may also feel mild soreness or pressure before or during urination. These symptoms should go away a few days after the stent is removed. Your urine may be slightly pink or red. This is due to bleeding caused by minor irritation from the stent. This may happen on and off while you have the stent, it is not harmful and is to be expected. Medication to help minimize discomfort or bladder spasms, or to prevent infection may be prescribed. Take this as directed. Drink plenty of fluids to help flush out your urinary tract. If you go home with a catheter, wash with soapy water and a fresh washcloth twice daily. We recommend mild bar soap such as Dial or Dove. When to call [facility] at [phone]: Your urine contains heavy blood clots You are constantly leaking urine Fever of 101F or higher, chills, nausea, or vomiting Your pain is not relieved with medication The end of the stent comes out of your urethra Please return to the hospital if you experience any of the following: Pain that is not controlled by the medicine given, repeated vomiting or unable to keep down fluids, fever of 100.4 F or higher, solid red or brown urine, urine with a lot of blood clots, foul-smelling or cloudy urine, unable to urinate for 8 hours with increasing bladder pressure, weakness, dizziness, passing out, chest pain, shortness of breath, difficulty breathing, or any other symptoms concerning for you. It was a pleasure taking care of you while you were in the hospital, Halle Garnica PA-C Pending Studies at Discharge: No Stand-Alone Forms: My Iwe[employer], Smoking Cessation Medications and DC Order Prescriptions: New losartan 50 mg Tablet 50 mg PO QAM Qty: 30 0RF fluconazole [Diflucan] 100 mg Tablet 200 mg PO DAILY Qty: 12 0RF oxycodone-acetaminophen [Percocet] 5-325 mg Tablet 1 tab PO Q4H PRN (Reason: severe pain (scale score 7-10)) Qty: 5 0RF metoprolol succinate 25 mg Tablet Extended Release 24 Hr 25 mg PO QAM Qty: 30 0RF ropinirole 2 mg Tablet 2 mg PO HS Qty: 30 0RF Continued zaleplon 10 mg capsule 10 mg PO HS omeprazole 40 mg capsule,delayed release(DR/EC) 40 mg PO BID Qty: 60 2RF albuterol sulfate 90 mcg/actuation HFA aerosol inhaler 2 puff INHALATION Q4 PRN (Reason: Shortness Of Breath Or Wheezing) Qty: 8.5 5RF lamotrigine [Lamictal] 200 mg tablet 200 mg PO BID Qty: 180 2RF celecoxib [Celebrex] 200 mg capsule 200 mg PO BID Qty: 180 1RF ketoconazole 2 % cream 1 applic topical BID Qty: 60 2RF famotidine 40 mg tablet 40 mg PO HS azelastine 137 mcg (0.1 %) aerosol,spray 2 spray intranasal DAILY Qty: 30 3RF Rx Instructions: administer into each nostril cyclobenzaprine 5 mg tablet 5 mg PO BID PRN (Reason: muscle spasm) Qty: 180 3RF scopolamine base 1 mg over 3 days patch 3 day 1 patch transdermal Q72H Rx Instructions: off at present (DME) digital therapeutic,JANEL device Misc See Rx Instructions miscellaneous .MEDSUPPLY Qty: 1 0RF Rx Instructions: As directed Mounjaro 5 mg/0.5 mL pen injector 0.5 mg subcut Q7D Patient Comments: sundays Rx Instructions: sundays quetiapine [Seroquel] 100 mg tablet 100 mg PO HS buspirone 10 mg tablet 10 mg PO BID trazodone 100 mg tablet 100 mg PO HS ferrous sulfate 325 mg (65 mg iron) tablet 325 mg PO Q2D cholecalciferol (vitamin D3) 50 mcg (2,000 unit) capsule 2,000 unit PO QAM mecobalamin (vitamin B12) 1,000 mcg tablet,chewable 1,000 mcg PO QAM magnesium glycinate 100 mg magnesium capsule 400 mg PO HS Gemtesa 75 mg tablet 75 mg PO DAILY PRN (Reason: Bladder Spasms) tramadol 50 mg tablet 50 mg PO Q6H PRN (Reason: pain) Qty: 20 0RF diazepam 5 mg tablet 5 - 10 mg PO BID PRN (Reason: Panic Attack(S)) fluticasone propionate [Flonase Allergy Relief] 50 mcg/actuation spray,suspension 2 spray INTRANASAL HS Qulipta 60 mg tablet 60 mg PO HS venlafaxine 75 mg capsule,extended release 24hr 75 mg PO QAM venlafaxine 150 mg capsule,extended release 24hr 150 mg PO QAM zaleplon 5 mg capsule 5 mg PO HS PRN (Reason: Sleep) Rx Instructions: may take with 10mg = 15 total Held furosemide 40 mg tablet 40 - 80 mg PO UD Hold Instructions: Provider's Order: Hold until PCP follow-up Rx Instructions: alternates 40mg and 80mg every other day; takes in the morning spironolactone 25 mg tablet 25 mg PO QAM Hold Instructions: Provider's Order: Hold until PCP follow-up Discontinued metoprolol succinate 100 mg tablet extended release 24 hr 100 mg PO BID Qty: 180 1RF oxybutynin chloride 5 mg tablet 5 mg PO Q8H PRN (Reason: bladder spasms) Qty: 30 0RF Patient Comments: "they gave me that for post op" olmesartan [Benicar] 40 mg tablet 40 mg PO QAM Qty: 90 3RF ropinirole 5 mg tablet 5 mg PO HS Qty: 90 3RF verapamil 120 mg tablet extended release 120 mg PO HS hydroxyzine HCl 50 mg tablet 50 - 100 mg PO HS Discharge Orders: Discharge Order (Routine); Ordered 10/08/24 Ordered By: Halle Garnica Admission Data Admit Date/Time: 10/01/24 01:26 Attending Provider: Jim Mckeon Admit Provider: Yenifer Erwin Primary Care Provider: Angelina Donohue Other Providers: Yenifer Erwin; Onur Goncalves; [facility],Home Healthcare; [facility]Referral [facility] Other Interventions: Discharge Summary Assessment (RN) Last Done: 10/08/24 14:59 Hospital Stay Data Consultations 10/01/24 00:28 ED Decision to Admit Stat 10/01/24 02:24 Consult Urology Routine 10/03/24 09:58 Consult Cardiology Routine Procedures Performed Operation Date: 10/01/24 08:20 Actual Procedures p Cystoscopy Right Retrograde Pyelogram and Stent Placement(Right) - Darwin H. Estrada, DO Diagnostic Imagining Performed 09/30/24 21:59 CT Abd and Pelvis [CT abd pelvis IV con only] Stat 10/01/24 12:31 FL retrograde includes kub Routine Pending Results Patient Have Any Pending Studies at Discharge: No Discharge Instructions Given to Patient (Per Discharging Provider) Sofi, You were admitted to the hospital a right sided kidney stone with hydronephrosis (swelling of your kidney). You had a cystoscopy and stent placement with Dr. Estrada on 10/01/2024. He received 5 days of IV ceftriaxone (antibiotic), so no further antibiotics are needed. You do have a yeast infection currently, which you are being treated for and will continue to treat at home. Additionally, you had some orthostatic hypotension, which was likely multifactorial from combination of medications and pain. There have been medication adjustments and your blood pressure and heart rate have improved. Your prescriptions have been sent to [facility] pharmacy on [facility]. Upon discharge from the hospital: * Take fluconazole 200 mg daily through 10/20/2023. This is to treat your yeast infection. * Pain regimen: Take tramadol 50 mg every 4 hours as needed for moderate pain. Take Percocet 1 tab every 4 hours as needed for severe pain. Do not drive or operate heavy machinery while taking Percocet as it is a narcotic pain medication. * Follow-up with urology as directed. * Follow-up with your PCP in 1 week. > MED CHANGES: * Your Metoprolol was DECREASED to 25 mg daily. You were previously taking 100 mg daily. Your heart rate is much improved on this dose. * Start Losartan 50 mg daily. This REPLACES your Olmesartan 40 mg daily. Your blood pressure is much improved on this dose. * Your dose of Requip has been REDUCED to 2 mg at bedtime. You were previously taking 5 mg. * HOLD THE FOLLOWING MEDICINE UNTIL YOUR PCP FOLLOW-UP APPOINTMENT: Lasix 40-80 mg every other day, Spironolactone 25 mg daily * The following medicines have been DISCONTINUED: Hydroxyzine, verapamil While you have a ureteral stent in place: Some discomfort is normal. Certain movements may trigger pain or a feeling that you need to urinate. You may also feel mild soreness or pressure before or during urination. These symptoms should go away a few days after the stent is removed. Your urine may be slightly pink or red. This is due to bleeding caused by mi nor irritation from the stent. This may happen on and off while you have the stent, it is not harmful and is to be expected. Medication to help minimize discomfort or bladder spasms, or to prevent i nfection may be prescribed. Take this as directed. Drink plenty of fluids to help flush out your urinary tract. If you go home with a catheter, wash with soapy water and a fresh washcloth twice daily. We recommend mild bar soap such as Dial or Dove. When to call [facility] at [phone]: Your urine contains heavy blood clots You are constantly leaking urine Fever of 101F or higher, chills, nausea, or vomiting Your pain is not relieved with medication The end of the stent comes out of your urethra Please return to the hospital if you experience any of the following: Pain that is not controlled by the medicine given, repeated vomiting or unable to keep down fluids, fever of 100.4 F or higher, solid red or brown urine, urine with a lot of blood clots, foul-smelling or cloudy urine, unable to urinate for 8 hours with increasing bladder pressure, weakness, dizziness, passing out, chest pain, shortness of breath, difficulty breathing, or any other symptoms concerning for you. It was a pleasure taking care of you while you were in the hospital, Halle Garnica PA-C Total Time Total Time Spent Total Time Spent (In Minutes): Greater than 30 minutes spent completing this discharge process including direct patient care, medication reconciliation, documentation, review of labs and images, and coordination of care. Coding Level of Care Code 16307 INP/OBS DISCH >30 MIN Diagnoses Hydronephrosis with obstructing calculus N13.2 Orthostatic hypotension I95.1 Bradycardia R00.1 Acute kidney injury N17.9 (HFpEF) heart failure with preserved ejection fraction I50.30 Functional neurological symptom disorder (conversion disorder), with abnormal movement F44.4 Constipation K59.00
== END 2024-10-08 16:09 | disposition home health service (06) | DRG 660 ==
LOC: ED 20:11 → EDINP 10-01 01:26 → SUATTDRO 10-01 01:26 → EDINP 10-01 12:21 → 2N 10-01 14:12